=== PATIENT | male | born 1960 | race Caucasian/White ===

== ENCOUNTER 2025-07-24 16:14 | Emergency (ER) | payer MEDICARE, BC, SELFPAY ==
--- OUTSIDE RECORDS SUMMARY | 2024-12-13 10:20 | XMS_ITS ---
Author Organization [facility] [place] Address [address] [facility] [address] [place] [address] Care Team Providers Care Certified Surgical Tech/First Assistant Name Role Phone Dr. Chong Wilder Primary Care Provider Unavail Amador Britt Unavailable [phone] REASON FOR VISIT Needs call back from MD Encounters Encounter Location Date Provider Diagnosis [facility] [place] [address] [facility] [address] [place] [address] 12/13/2024 Amador Santiago PLAN OF TREATMENT No Information
--- OUTSIDE RECORDS SUMMARY | 2024-12-13 11:30 | XMS_ITS ---
Author Organization [facility] [place] [facility] [place] Address [address] [facility] [address] [place] [address] Care Team Providers Care Regulatory Affairs Manager Name Role Phone Dr. Chong Wilder Primary Care Provider Unavail able Amador Santiago Unavailable [phone] ALLERGIES Allergen (clinical drug ingredient) Drug/Non Drug Allergy documented on EMR Reaction Allergy Type Onset Date Status codeine Codeine Sulfate nausea and vomiting Drug Allergy Active REASON FOR VISIT Right ankle and foot pain MEDICATIONS Medication SIG (Take, Route, Frequency, Duration) Notes Start Date End Date Status Fiber - as directed Orally A ctive Allopurinol 300 MG 1 tablet Orally Once a day Active Medrol (Joey) 4 mg as directed orally Active Allopurinol 100 MG 1 tablet Orally Once a day for 90 days 09/24/2021 Not-Taking Multivitamin Adults - 1 tablet Orally on ce a day Active Aspir-81 81 MG 1 tablet Orally Once a day for 30 day(s) Active Ezetimibe 10 MG 1 tablet Orally Once a day for 30 day(s) Active Rosuvastatin Calcium 40 MG 1 tablet Orally Once a day for 30 day(s) Active Lexapro 10 MG 1 tablet Orally Once a day for 30 day(s) Active SOCIAL HISTORY Tobacco Use: Social History Observation Description Date Details (start date - stop date) Never Smoker NA - NA Sex Assigned At : Social History Observation Description Sex Assigned At Unknown Tobacco Use/Smoking Question Answer Notes Are you a nonsmoker Alcohol Screen Question Answer Notes Did you have a drink contain ing alcohol in the past year? Yes How often did you have a dri nk containing alcohol in the past year? 2 to 3 times a week (3 points) How many drinks did you have on a typical day when you were drinking in the past year? 1 or 2 drinks (0 point) How often did you have 6 or more drinks on one occasion in the past year? Never (0 point) Points 3 Interpretation Negative VITAL SIGNS Heart Rate 64 /min 12/13/2024 Blood pressure systolic 110 mm Hg 12/14/19 25 Blood pressure diastolic 80 mm Hg 025 Height 73 in 12/13/2024 Weight 272.0 lbs 12/13/2024 BMI 35.88 kg/m2 12/13/2024 PROCEDURES Procedure Date Ordered Date Performed Result Body Sit e ARTHO MED RIGHT 12/13/2024 N/A Encounters Encounter Location Date Provider Diagnosis [facility] [place] [address] [facility] [address] [place] [address] 12/13/2024 Amador Santiago Acute right ankle pain M25.571 ; Other chronic pain G89.29 ; Idiopathic chronic gout of multiple sites without tophus M1A.[id number] ; Primary osteoarthritis, right shoulder M19.011 and Right foot pain M79.671 ASSESSMENTS Encounter Date Diagnosis Assessment Notes Treatment Notes Treatment Clinical Notes Section Notes 12/13/2024 Acute right ankle pain (ICD-10 - M25.571) Medrol Dosepak 1. Gout. Recurrent episodes right first MTP joint. 2 episodes involving right ankle. Onset of symptoms 2016. Gout proven by synovial fluid analysis right first MTP on November 19, 2018. Allopurinol started at a dose of 200 mg daily in May 2018. Dose increased to 400 mg daily August 2018. . episode of gout, late April 2019. Episode of left hand with pain left third MCP. He completed a five-day course of prednisone by his primary care physician. Still with residual discomfort left third MCP and left third extensor tendon. This resolved following Medrol Dosepak November 2020. Subsequently, in March 2021 pain and swelling right hand, principally involving the right second and third MCP and dorsum of the right hand. He started Medrol Dosepak. Symptoms resolved. Currently asymptomatic. He indicates that he reduced allopurinol dose to 300 mg daily approximately April 2022. He had an episode of pain right foot mid January 2024. This resolved with a Medrol Dosepak. Most recent uric acid level was 4.3 on July 31, 2023. Recurrence of pain right ankle and proximal right foot starting early November 2024. Pain improved following Medrol Dosepak and then recurred. He received a second Medrol Dosepak that he started December 03, 2024. pain almost completely resolved. Recurrence of pain right ankle starting this morning, December 13, 2024. Mild tenderness right first MTP joint as well. Most recent uric acid level was 4.8 on December 05, 2024 2. History of left nephrectomy for renal cell carcinoma in 2009. 3. Mildly elevated ALT. Acute hepatitis panel negative. I recommended he follow-up with his primary care physician regarding this. Most recent hepatic function panel normal 4. Right shoulder pain. Rotator cuff tendinitis. Osteoarthritis of right shoulder. He completed physical therapy with improvement. He did not proceed with MRI of right shoulder 5. History of low back pain with bilateral lumbar radiculopathy. He is status post lumbar laminectomy [facility] in the distant past. He has been to [facility] neurosurgery division February 10, 2024 for reevaluation 12/13/2024 Other chronic pain (ICD-10 - G89.29) 1. Gout. Recurrent episodes right first MTP joint. 2 episodes involving right ankle. Onset of symptoms 2016. Gout proven by synovial fluid analysis right first MTP on November 19, 2018. Allopurinol started at a dose of 200 mg daily in May 2018. Dose increased to 400 mg daily August 2018. . episode of gout, late April 2019. Episode of left hand with pain left third MCP. He completed a five-day course of prednisone by his primary care physician. Still with residual discomfort left third MCP and left third extensor tendon. This resolved following Medrol Dosepak November 2020. Subsequently, in March 2021 pain and swelling right hand, principally involving the right second and third MCP and dorsum of the right hand. He started Medrol Dosepak. Symptoms resolved. Currently asymptomatic. He indicates that he reduced allopurinol dose to 300 mg daily approximately April 2022. He had an episode of pain right foot mid January 2024. This resolved with a Medrol Dosepak. Most recent uric acid level was 4.3 on July 31, 2023. Recurrence of pain right ankle and proximal right foot starting early November 2024. Pain improved following Medrol Dosepak and then recurred. He received a second Medrol Dosepak that he started December 03, 2024. pain almost completely resolved. Recurrence of pain right ankle starting this morning, December 13, 2024. Mild tenderness right first MTP joint as well. Most recent uric acid level was 4.8 on December 05, 2024 2. History of left nephrectomy for renal cell carcinoma in 2009. 3. Mildly elevated ALT. Acute hepatitis panel negative. I recommended he follow-up with his primary care physician regarding this. Most recent hepatic function panel normal 4. Right shoulder pain. Rotator cuff tendinitis. Osteoarthritis of right shoulder. He completed physical therapy with improvement. He did not proceed with MRI of right shoulder 5. History of low back pain with bilateral lumbar radiculopathy. He is status post lumbar laminectomy [facility] in the distant past. He has been to [facility] neurosurgery division February 10, 2024 for reevaluation 12/13/2024 Idiopathic chronic gout of multiple sites without tophus (ICD-10 - M1A.09X0) 1. Gout. Recurrent episodes right first MTP joint. 2 episodes involving right ankle. Onset of symptoms 2016. Gout proven by synovial fluid analysis right first MTP on November 19, 2018. Allopurinol started at a dose of 200 mg daily in May 2018. Dose increased to 400 mg daily August 2018. . episode of gout, late April 2019. Episode of left hand with pain left third MCP. He completed a five-day course of prednisone by his primary care physician. Still with residual discomfort left third MCP and left third extensor tendon. This resolved following Medrol Dosepak November 2020. Subsequently, in March 2021 pain and swelling right hand, principally involving the right second and third MCP and dorsum of the right hand. He started Medrol Dosepak. Symptoms resolved. Currently asymptomatic. He indicates that he reduced allopurinol dose to 300 mg daily approximately April 2022. He had an episode of pain right foot mid January 2024. This resolved with a Medrol Dosepak. Most recent uric acid level was 4.3 on July 31, 2023. Recurrence of pain right ankle and proximal right foot starting early November 2024. Pain improved following Medrol Dosepak and then recurred. He received a second Medrol Dosepak that he started December 03, 2024. pain almost completely resolved. Recurrence of pain right ankle starting this morning, December 13, 2024. Mild tenderness right first MTP joint as well. Most recent uric acid level was 4.8 on December 05, 2024 2. History of left nephrectomy for renal cell carcinoma in 2009. 3. Mildly elevated ALT. Acute hepatitis panel negative. I recommended he follow-up with his primary care physician regarding this. Most recent hepatic function panel normal 4. Right shoulder pain. Rotator cuff tendinitis. Osteoarthritis of right shoulder. He completed physical therapy with improvement. He did not proceed with MRI of right shoulder 5. History of low back pain with bilateral lumbar radiculopathy. He is status post lumbar laminectomy [facility] in the distant past. He has been to [facility] neurosurgery division February 10, 2024 for reevaluation 12/13/2024 Primary osteoarthritis , right shoulder (ICD-10 - M19.011) 1. Gout. Recurrent episodes right first MTP joint. 2 episodes involving right ankle. Onset of symptoms 2016. Gout proven by synovial fluid analysis right first MTP on November 19, 2018. Allopurinol started at a dose of 200 mg daily in May 2018. Dose increased to 400 mg daily August 2018. . episode of gout, late April 2019. Episode of left hand with pain left third MCP. He completed a five-day course of prednisone by his primary care physician. Still with residual discomfort left third MCP and left third extensor tendon. This resolved following Medrol Dosepak November 2020. Subsequently, in March 2021 pain and swelling right hand, principally involving the right second and third MCP and dorsum of the right hand. He started Medrol Dosepak. Symptoms resolved. Currently asymptomatic. He indicates that he reduced allopurinol dose to 300 mg daily approximately April 2022. He had an episode of pain right foot mid January 2024. This resolved with a Medrol Dosepak. Most recent uric acid level was 4.3 on July 31, 2023. Recurrence of pain right ankle and proximal right foot starting early November 2024. Pain improved following Medrol Dosepak and then recurred. He received a second Medrol Dosepak that he started December 03, 2024. pain almost completely resolved. Recurrence of pain right ankle starting this morning, December 13, 2024. Mild tenderness right first MTP joint as well. Most recent uric acid level was 4.8 on December 05, 2024 2. History of left nephrectomy for renal cell carcinoma in 2009. 3. Mildly elevated ALT. Acute hepatitis panel negative. I recommended he follow-up with his primary care physician regarding this. Most recent hepatic function panel normal 4. Right shoulder pain. Rotator cuff tendinitis. Osteoarthritis of right shoulder. He completed physical therapy with improvement. He did not proceed with MRI of right shoulder 5. History of low back pain with bilateral lumbar radiculopathy. He is status post lumbar laminectomy [facility] in the distant past. He has been to [facility] neurosurgery division February 10, 2024 for reevaluation 12/13/2024 Right foot pain (ICD-10 - M79.671) 1. Gout. Recurrent episodes right first MTP joint. 2 episodes involving right ankle. Onset of symptoms 2016. Gout proven by synovial fluid analysis right first MTP on November 19, 2018. Allopurinol started at a dose of 200 mg daily in May 2018. Dose increased to 400 mg daily August 2018. . episode of gout, late April 2019. Episode of left hand with pain left third MCP. He completed a five-day course of prednisone by his primary care physician. Still with residual discomfort left third MCP and left third extensor tendon. This resolved following Medrol Dosepak November 2020. Subsequently, in March 2021 pain and swelling right hand, principally involving the right second and third MCP and dorsum of the right hand. He started Medrol Dosepak. Symptoms resolved. Currently asymptomatic. He indicates that he reduced allopurinol dose to 300 mg daily approximately April 2022. He had an episode of pain right foot mid January 2024. This resolved with a Medrol Dosepak. Most recent uric acid level was 4.3 on July 31, 2023. Recurrence of pain right ankle and proximal right foot starting early November 2024. Pain improved following Medrol Dosepak and then recurred. He received a second Medrol Dosepak that he started December 03, 2024. pain almost completely resolved. Recurrence of pain right ankle starting this morning, December 13, 2024. Mild tenderness right first MTP joint as well. Most recent uric acid level was 4.8 on December 05, 2024 2. History of left nephrectomy for renal cell carcinoma in 2009. 3. Mildly elevated ALT. Acute hepatitis panel negative. I recommended he follow-up with his primary care physician regarding this. Most recent hepatic function panel normal 4. Right shoulder pain. Rotator cuff tendinitis. Osteoarthritis of right shoulder. He completed physical therapy with improvement. He did not proceed with MRI of right shoulder 5. History of low back pain with bilateral lumbar radiculopathy. He is status post lumbar laminectomy [facility] in the distant past. He has been to [facility] neurosurgery division February 10, 2024 for reevaluation PLAN OF TREATMENT Medication Medication Name Sig Start Date Stop Date Notes Allopurinol 300 MG 1 tablet Orally Once a day Medrol (Joey) 4 mg as directed orally Treatment Notes Assessment Notes Acute right ankle pain Medrol Dosepak Pending Test Test Name Order Date X ray : Foot, right 3v 12/13/2024 ARTHO MED RIGHT 12/13/2024 Next Appt Details Follow Up: 2 Weeks, Reason: Progress Notes * Examination Category Sub-Category Detail Notes Category Not es General Examination GENERAL APPEARANCE: well dev eloped, well nourished, in no acute distress HEAD: normocephalic, atrau matic NECK/THYROID: normal, neck supple HEART: regular rate and rhy thm, normal S1, S2, no S3, S4, no murmurs LUNGS: no wheezes, rales, r honchi ABDOMEN: soft, nontender, non distended, no rebound tenderness, no guarding NEUROLOGIC: Motor: 5/5 deltoids, biceps, triceps, finger flexors and extensors. 5/5 hip flexors, quadriceps, dorsi and plantar flexors EXTREMITIES: no clubbing, cyanosi s, or edema PERIPHERAL PULSES: 2+ posterior tibial absent dorsalis pedis bilaterally MUSCULOSKELETAL: Shoulders on the right 80 degrees abduction 80 degrees internal and external rotation. Mild tenderness with range of motion. On the left full range of motion no tenderness Elbows no synovitis full range of motion no tenderness. No tophi Wrists no synovitis full range of motion no tenderness Hands Heberden's and Teresa's nodes no synovitis no tophi Hips full range of motion no tenderness Knees full range of motion no tenderness Ankles there is soft tissue swelling right ankle no warmth. No definite ankle effusion. There is relatively full flexion and extension tenderness with range of motion. On the left no swelling full range of motion no tenderness Feet mild soft tissue swelling right foot. No warmth. There is mild squeeze tenderness right first MTP. On the left no swelling no tenderness LYMPH NODES: no cervical, supracl avicular or axillary adenopathy History and Physical Notes * HPI (History of Present Illness) Category Sub-Category Detail Notes Category Not es new symptoms He was last in the office December 05, 2024. He completed another Medrol Dosepak. Right ankle pain and foot pain almost completely resolved. He awoke this morning with a recurrence of pain and swelling right ankle and right foot. He has had no injury. He has no other joint pain. No fevers. No headaches cough shortness of breath or chest pain. No hemoptysis. No abdominal pain vomiting or diarrhea. No rectal bleeding dysuria or hematuria. At the last office visit, x-ray of the right ankle was normal except for a small plantar heel spur. CBC normal except for neutrophils 7.91. Hepatic function panel normal except for direct bilirubin 0.23. Creatinine normal. Sedimentation rate 4. Uric acid 4.8.
--- OUTSIDE RECORDS SUMMARY | 2024-12-27 10:30 | XMS_ITS ---
Author Organization [facility] [place] Address [address] [facility] [address] [place] [address] Care Team Providers Care [employer] Marshal Name Role Phone Dr. Chong Wilder Primary Care Provider Unavail able Amador Santiago Unavailable [phone] ALLERGIES Allergen (clinical drug ingredient) Drug/Non Drug Allergy documented on EMR Reaction Allergy Type Onset Date Status codeine Codeine Sulfate nausea and vomiting Drug Allergy Active REASON FOR VISIT Right foot and ankle pain MEDICATIONS Medication SIG (Take, Route, Frequency, Duration) Notes Start Date End Date Status Medrol (Joey) 4 mg as directed orally Not-Taking Multivitamin Adults - 1 tablet Orally on ce a day Active Fiber - as directed Orally A ctive Allopurinol 100 MG 1 tablet Orally Once a day for 90 days 09/24/2021 Not-Taking Aspir-81 81 MG 1 tablet Orally Once a day for 30 day(s) Active Ezetimibe 10 MG 1 tablet Orally Once a day for 30 day(s) Active Lexapro 10 MG 1 tablet Orally Once a day for 30 day(s) Active Allopurinol 300 MG 1 tablet Orally Once a day Active Rosuvastatin Calcium 40 MG 1 tablet [...] 3 Interpretation Negative VITAL SIGNS Heart Rate 60 /min 12/27/2024 Blood pressure systolic 118 mm Hg 12/28/19 25 Blood pressure diastolic 84 mm Hg 025 Height 73 in 12/27/2024 Weight 270.0 lbs 12/27/2024 BMI 35.62 kg/m2 12/27/2024 Encounters Encounter Location Date Provider Diagnosis [facility] [place] [address] [facility] [address] [place] [address] 12/27/2024 Amador Santiago Other chronic pain G89.29 ; Idiopathic chronic gout of multiple sites without tophus M1A.[id number] ; Primary osteoarthritis, right shoulder M19.011 and Right foot pain M79.671 ASSESSMENTS Encounter Date Diagnosis Assessment Notes Treatment Notes Treatment Clinical Notes Section Notes 12/27/2024 Other chronic pain (ICD-10 - G89.29) 1. [...] resolved. Recurrence of pain right ankle starting , December 13, 2024. Mild tenderness right first MTP joint as well. Most recent uric acid level was 4.8 on December 05, 2024. Arthrocentesis of right ankle December 13, 2024 yielded only drop of bloody fluid that was negative for crystals. Pain resolved following Medrol Dosepak 2. History of left nephrectomy for renal [...] radiculopathy. He is status post lumbar laminectomy [facility] in the distant past. He has been to [facility] neurosurgery division February 10, 2024 for reevaluation 12/27/2024 Idiopathic chronic gout of multiple sites without [...] resolved. Recurrence of pain right ankle starting , December 13, 2024. Mild tenderness right first MTP joint as well. Most recent uric acid level was 4.8 on December 05, 2024. Arthrocentesis of right ankle December 13, 2024 yielded only drop of bloody fluid that was negative for crystals. Pain resolved following Medrol Dosepak 2. History of left nephrectomy for renal [...] radiculopathy. He is status post lumbar laminectomy [facility] in the distant past. He has been to [facility] neurosurgery division February 10, 2024 for reevaluation 12/27/2024 Primary osteoarthritis , right shoulder (ICD-10 - [...] resolved. Recurrence of pain right ankle starting , December 13, 2024. Mild tenderness right first MTP joint as well. Most recent uric acid level was 4.8 on December 05, 2024. Arthrocentesis of right ankle December 13, 2024 yielded only drop of bloody fluid that was negative for crystals. Pain resolved following Medrol Dosepak 2. History of left nephrectomy for renal [...] radiculopathy. He is status post lumbar laminectomy [facility] in the distant past. He has been to [facility] neurosurgery division February 10, 2024 for reevaluation 12/27/2024 Right foot pain (ICD-10 - M79.671) 1. [...] resolved. Recurrence of pain right ankle starting , December 13, 2024. Mild tenderness right first MTP joint as well. Most recent uric acid level was 4.8 on December 05, 2024. Arthrocentesis of right ankle December 13, 2024 yielded only drop of bloody fluid that was negative for crystals. Pain resolved following Medrol Dosepak 2. History of left nephrectomy for renal [...] radiculopathy. He is status post lumbar laminectomy [facility] in the distant past. He has been to [facility] neurosurgery division February 10, 2024 for reevaluation 12/27/2024 Other Total time spent on evaluation of patient on day of encounter was 16 minutes 1. Gout. Recurrent episodes right first MTP [...] resolved. Recurrence of pain right ankle starting , December 13, 2024. Mild tenderness right first MTP joint as well. Most recent uric acid level was 4.8 on December 05, 2024. Arthrocentesis of right ankle December 13, 2024 yielded only drop of bloody fluid that was negative for crystals. Pain resolved following Medrol Dosepak 2. History of left nephrectomy for renal [...] radiculopathy. He is status post lumbar laminectomy [facility] in the distant past. He has been to [facility] neurosurgery division February 10, 2024 for reevaluation PLAN OF TREATMENT Medication Medication Name Sig Start Date Stop Date Notes Allopurinol 300 MG 1 tablet Orally Once a day Treatment Notes Assessment Notes Other Total time spent on evaluation of patient on day of encounter was 16 minutes Next Appt Details Follow Up: 6 Months, Reason: Progress Notes * Examination Category Sub-Category [...] EXTREMITIES: no clubbing, cyanosi s, or edema MUSCULOSKELETAL: Shoulders on the right 80 degrees abduction 80 degrees internal and external rotation. Mild tenderness with range of motion. On the left full range of motion no tenderness Elbows no synovitis full range of motion no tenderness Wrists no synovitis full range of motion no tenderness Hands no synovitis full flexion of the fingers Hips full range of motion no tenderness Knees full range of motion no tenderness Ankles on the right no effusion or warmth or erythema. No squeeze tenderness. Full range of motion no tenderness. On the left no effusion or warmth erythema. No tenderness with range of motion Feet on the right there is very mild soft tissue swelling right foot. No warmth erythema. No squeeze tenderness. On the left no swelling no tenderness LYMPH NODES: no cervical, supracl avicular or axillary adenopathy History and Physical Notes * HPI (History of Present Illness) Category Sub-Category Detail Notes Category Not es new symptoms He was last in the office December 13, 2024. Is in for follow-up regarding right ankle and foot pain and history of gout. He did receive a Medrol Dosepak at the last visit. Pain in the right foot and ankle resolved over a period of 3-4 days. He does have some residual swelling in the right ankle and foot but no pain. There is no longer any erythema. He has no other joint pain. No fevers. No rashes. No headaches cough shortness of breath or chest pain. No hemoptysis. No abdominal pain vomiting or diarrhea. No rectal bleeding dysuria or hematuria. At the last office visit arthrocentesis of the right ankle revealed only one drop of bloody fluid. This was negative for crystals. X-ray of the right foot with a corresponding view of the left foot reveal degenerative changes of the first MTP region greater on the right and stable compared to prior x-ray.
--- OUTSIDE RECORDS SUMMARY | 2025-02-10 08:15 | XMS_ITS ---
Author Organization [facility] [place] Address [address] [facility] [address] [place] [address] Care Team Providers Care Brick Baker Name Role Phone Dr. Chong Wilder Primary Care Provider Unavail Amador Britt Unavailable [phone] REASON FOR VISIT P pt, does not need. Encounters Encounter Location Date Provider Diagnosis [facility] [place] [address] [facility] [address] [place] [address] 02/10/2025 Amador Santiago PLAN OF TREATMENT No Information
--- OUTSIDE RECORDS SUMMARY | 2025-06-16 07:10 | XMS_ITS | Encounter Summary ---
Author Organization [facility] Address [address] [place] [address] Care Team Providers Care Administrative Support Clerk Name Role Phone Elsewhere, Pcp Primary Care Provider Unavailabl e Encounter Details Date Type Department Care Team (Late st Contact Info) Description 06/16/2025 7:10 AM CDT Lab Department of Laboratory Medicine and Pathology, [facility], in [place], [place] [address] [place] [phone] Alisson Soler M.D. [address] [place] [phone] Personal History Of Malignant Neoplasm Of Bladder Social History Tobacco Use Types Packs/Day Years Used Date Smoking Tobacco: Never Passive Smoke Exposure: Never Smokeless Tobacco: Never Comments:NA Alcohol Use Standard Drinks/Week Comments Yes 5 (1 standard drink = 0.6 oz pur e alcohol) Humiliation, Afraid, Rape, and Kick questionnair e Answer Date Recorded Within the last year, have y ou been afraid of your partner or ex-partner? No 03/25/2022 Within the last year, have y ou been humiliated or emotionally abused in other ways by your partner or ex-partner? No Within the last year, have y ou been kicked, hit, slapped, or otherwise physically hurt by your partner or ex-partner? No 03/25/2022 Within the last year, have y ou been raped or forced to have any kind of sexual activity by your partner or ex-partner? No 03/25/2022 Hunger Vital Sign Answer Date Recorded Within the past 12 months, y ou worried that your food would run out before you got the money to buy more. Never true 06/14/20 25 Within the past 12 months, t he food you bought just didn't last and you didn't have money to get more. Never true 06/14/2025 PRAPARE - Transportation Answer Date Re corded In the past 12 months, has l ack of transportation kept you from medical appointments or from getting medications? No 12/2024 In the past 12 months, has l ack of transportation kept you from meetings, work, or from getting things needed for daily living? No 06/14/2025 [facility] Utilities Answer Date Recorded In the past 12 months has th e electric, gas, oil, or water company threatened to shut off services in your home? No 06/14/2025 Depression Answer Date Recor ded PHQ-9 Total Score (max 27) 4 03/03 Housing Stability Answer Date Recorded What is your living situation today? I have a [facility] place to live 06/14/2025 Education Answer Date Recorded What is the highest level of school you have completed or the highest degree you have received? 12th grade 03/25/2022 Sex and Gender Information Value Date Recorded Sex Assigned at Male 03/21/2022 7:03 AM CDT Legal Sex Male 10:17 AM [employer] Gender Identity Male 01/25/2021 1:10 PM CDT Sexual Orientation Straight 01/25/2021 1: 10 PM CDT documented as of this encounter Plan of Treatment Upcoming Encounters Date Type Department Care Team (Latest Contact Info) Description 08/02/2025 12:45 PM CDT Clinical Communication Virtual Review in [place], [place] [address] [place] [phone] 08/03/2025 1:00 PM CDT Telemedicine Department of Palliative Care in [place], [place] [address] [place] [phone] Sachi De Leon B.M.B.S., B.M., B.Ch. [address] [place] [phone] 08/14/2025 10:30 AM [employer] Procedure visit Department of Urology in [place], [place] [address] [place] [address] Orion Mendoza, LIANNE, PDiyaADiya-C. [address] [place] [phone] documented as of this encounter Procedures Procedure Name Priority Date/Time Associated Diagnosis Comments CYTOLOGY NON-SEARCH ENGINE OPTIMIZATION ANALYST (SCHEDULED) Routine 06/16/2025 9:04 AM CDT Personal History Of Malignant Neoplasm Of Bladder documented in this encounter Results * Cytology Non-SEARCH ENGINE OPTIMIZATION ANALYST (Scheduled) (06/16/2025 9:04 AM CDT) 06/19/2025 3:06 PM CDT DTL Participated in the Interpretation Margo Moise M.D. -Pathology Resident Vane Thacker M.D., Ph.D. -Pathology Resident 06/19/2025 3:06 PM CDT DTL Report electronically signed by Tresa Vale.[email or web address], Chris. I verify that I have examined all relevant slides/materi als for the specimen(s) and rendered or confirmed the diagnosis. 06/19/2025 3:06 PM CDT DTL Gross Description Received 50 cc of yellow fluid. 06/19/2025 3:06 PM CDT DTL Source A. Urine, voided 06/19/2025 3:06 PM CDT DTL Interpretation A. Urine, voided (ThinPrep): Negative for High-Grade Urothelial Carcinoma. 06/19/2025 3:06 PM CDT DTL Urine 06/16/2025 9:04 AM CDT 06/16/2025 9:25 AM CDT us Alisson Soler M.D. LAB SURG PATH ORDERABLES Fin al Result [facility] [address] [place] [address], [facility] DTL [address] [facility] [address] [place] [address] documented in this encounter Visit Diagnoses Diagnosis Personal History Of Malignant Neoplasm Of Bladder documented in this encounter Additional Health Concerns Assessment Noted Time PHQ-9 Depression Total Score: 4 03/03/20 24 1:30 PM CDT documented as of this encounter Care Teams Administrative Support Clerk Relationship Specialty Start Date End Date Elsewhere, Pcp PCP - General 03/03/24 documented as of this encounter
--- OUTSIDE RECORDS SUMMARY | 2025-06-16 07:24 | XMS_ITS | Encounter Summary ---
Author Organization [facility] Address [address] [place] [address] Care Team Providers Care Aircraft Mechanic Structures Name Role Phone Elsewhere, Pcp Primary Care Provider Unavailabl e Reason for Referral * MRI/CAT/PET Scan (Routine) - Closed Specialty Diagnoses / Procedures Referred By John rene Referred To Contact Radiology Diagnoses Personal History Of Malignant Neoplasm Of Bladder Procedures CT Urogram without and with IV Contrast Alisson Sloer M.D. [address] [place] [address] Phone: tel: fax: [facility] Referral ID Status Reason Start Date Expiration Date Visits Re quested Visits Authorized [id number] Closed 06/13/2025 09/13/2026 1 1 Reason for Visit * MRI/CAT/PET Scan (Routine) - Closed Specialty Diagnoses / Procedures Referred By John rene Referred To Contact Radiology Diagnoses Personal History Of Malignant Neoplasm Of Bladder Procedures CT Urogram without and with IV Contrast Alisson Soler M.D. [address] [place] [address] Phone: tel: fax: [facility] Referral ID Status Reason Start Date Expiration Date Visits Re quested Visits Authorized [id number] Closed 06/13/2025 09/13/2026 1 1 Encounter Details Date Type Department Care Team (Latest Contact Info) Description 06/16/2025 7:24 AM CDT - 06/16/2025 11:59 PM CDT Hospital Encounter Department of Radiology, [facility], in [place], [place] [address] [place] [address] Alisson Soler M.D. [address] [place] [address] Personal History Of Malignant Neoplasm Of Bladder Discharge Disposition: Home or Self Care Social History Tobacco Use Types Packs/Day Years [...] things needed for daily living? No 06/14/2025 [facility] Utilities Answer Date Recorded In the past 12 months has [facility] [employer], gas, oil, or water company threatened to shut off services in your home? No 06/14/2025 Depression Answer Date Recor ded PHQ-9 Total Score (max 27) 4 03/03 Housing Stability Answer Date Recorded What is your living situation today? I have a [facility] place to live 06/14/2025 Education Answer Date Recorded What is the highest level of school you have completed or the highest degree you have received? 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 02/11/2021 allopurinoL (ZYLOPRIM) 300 mg tablet Take 300 mg by mouth every evening. ALPRAZolam (XANAX) 0.25 mg tablet Take 0.25 mg by mouth 3 (three) times a day as needed. 11/19/2020 oocv-ims-nom-elodia -eznk-iqfz-jeu (Fiber 6) 1,000 mg tablet Take 1 tablet by mouth daily. diphenhydrAMINE (BenadryL) 25 mg capsule Take 25 mg by mouth at bedtime as needed. 02/09/2021 escitalopram (LEXAPRO) 10 mg tablet Take 10 mg by mouth daily. 02/05/2022 ezetimibe (Zetia) 10 mg tablet Take 1 tablet (10 mg total) by mouth daily. 30 tablet 11 05/04/2024 methylPREDNISolo ne (MEDROL DOSEPAK) 4 mg tablet See Admin Instructions. follow package directions for gout 11/29/2020 multivitamin tablet Take 1 tablet by mouth daily. 08/05/2016 nitroglycerin (Nitrostat) 0.[address] 1 TABLET UNDER THE TONGUE EVERY 5 MINUTES NEEDED FOR CHEST PAIN MAY REPEAT EVERY 5 MINUTES FOR UP TO 3 DOSES 25 tablet 3 05/30/2025 rosuvastatin (CRESTOR) 40 mg tablet Take 40 mg by mouth at bedtime. 12/19/2021 semaglutide (Wegovy) 1 mg/0.5 mL pen injector injection Inject 1 mg under the skin once a week. 04/24/2025 tadalafiL (CIALIS, ADCIRCA) 20 mg tablet Take 20 mg by mouth as needed. 02/05/2022 UNABLE TO FIND Med Name: compounded semeglutide injection 1.5 mg weekly aspirin [address] tablet Take 1 tablet by mouth daily. 09/15/2013 5 ezetimibe (Zetia) 10 mg tablet Take 1 tablet (10 mg total) by mouth daily. 90 tablet 3 05/03/2024 5 lisinopriL 10 mg tablet Take 1 tablet by mouth as needed (traveling). 09/13/2013 5 methocarbamoL (Robaxin) 500 mg tablet Take 1 tablet by mouth 3 (three) times a day as needed. 06/20/2024 nitroglycerin (NITROSTAT) 0.[address] 0.4 mg under the tongue every 5 (five) minutes as needed for chest pain. 12/03/2012 5 rivaroxaban (XARELTO) 20 mg tablet Take 20 mg by mouth as directed. For air related travel with history of travel related blood clots 5 documented as of this encounter Plan of Treatment Upcoming Encounters Date Type Department Care Team (Latest Contact Info) Description 08/02/2025 12:45 PM CDT Clinical Communication Virtual Review in [place], [place] [address] [place] [phone] 08/03/2025 1:00 PM CDT Telemedicine Department of Palliative Care in [address] [phone] Sachi De Leon B.M.B.S., B.M., B.Ch. [address] [place] [phone] 08/14/2025 10:30 AM DEPOSITING MACHINE OPERATOR Procedure visit Department of Urology in [address] [phone] Orion Mendoza, MPAS, P.A.-C. [address] [place] [address] Scheduled Orders Name Type Priority Associated Diagnoses Orde r Schedule Creatinine, POCT Point of Care Testing-Docked Device Routine Routine lab collecti on (next collection) for 1 Occurrences starting 06/16/2025 until 06/16/2025 documented as of this encounter Procedures Procedure Name Priority Date/Time Associated Diagnosis Comments CT UROGRAM WITHOUT AND WITH IV CONTRAST RAD - Routine (most inpatients and all outpatients) 06/16/2025 8:41 AM CDT Personal History Of Malignant Neoplasm Of Bladder CREATININE, POCT, B Routine 06/16/2025 8:03 AM CDT CREATININE, POCT, B Routine 06/16/2025 8:03 AM CDT documented in this encounter Results * CT Urogram without and with IV Contrast (06/16/2025 8:41 AM CDT) Anatomical Region Laterality Modality Abdomen, Pelvis, Abdominal R ST LOS, Abdominal ARZ LOS, Abdominal FLA LOS N/A Computed Tomograp hy, Computed Tomography 06/16/2025 8:27 AM CDT Impressions 06/16/2025 9:12 AM CDT 1. No evidence of recurrent or metastatic disease in the abdomen or pelvis. 2. Age indeterminate mild compression deformity at the L3 superior endplate is new since at least 05/03/2024. 3. The prostate is enlarged and heterogeneously enhancing. This could be due to prostatitis but a mass is not excluded. PSA testing and/or prostate MRI may be beneficial in further characterization. Narrative 06/16/2025 9:12 AM CDT EXAM: CT UROGRAM WITHOUT AND WITH IV CONTRAST COMPARISON: CT abdomen pelvis 01/21/2021 FINDINGS: : Status post left nephrectomy for renal cell carcinoma in 2009. No nephrolithiasis. No suspicious renal mass. Renal cortical scarring. Stable small renal cyst. No hydronephrosis. Mildly dilated extrarenal pelvis. Collecting system and ureter are normal in course and caliber without masses or filling defects. Bladder is unremarkable. Previous right bladder wall mass has been removed without evidence of residual. Other findings: The prostate has increased in size and has heterogeneous enhancement with mild shanna-prostatic nodularity and soft tissue stranding. Stable left adrenal adenoma. Colonic diverticulosis. No abdominal or pelvic lymphadenopathy. No abdominal or pelvic free fluid. Small esophageal hiatal hernia. Age indeterminate mild compression deformity at the L3 superior endplate is new since at least 05/03/2024. Hypertrophic degenerative changes of the spine. Atherosclerotic vascular calcifications. Bibasilar atelectasis. Procedure Note Shalom Segovia M.D. - 06/16/2025 EXAM: CT UROGRAM WITHOUT AND WITH IV CONTRAST COMPARISON: CT abdomen pelvis 01/21/2021 FINDINGS: : Status post left nephrectomy for renal cell carcinoma [id number]. No nephrolithiasis. No suspicious renal mass. Renal cortical scarring.Stable small renal cyst. No hydronephrosis. Mildly dilated extrarenalpelvis. Collecting system and ureter are normal in course and caliberwithout masses or filling defects. Bladder is unremarkable. Previous right bladder wall mass has been removed withoutevidence of residual. Other findings: The prostate has increased in size and has heterogeneous enhancement withmild shanna-prostatic nodularity and soft tissue stranding. Stable left adrenal adenoma. Colonic diverticulosis. No abdominal orpelvic lymphadenopathy. No abdominal or pelvic free fluid. Smallesophageal hiatal hernia. Age indeterminate mild compression deformity at the L3 superior endplateis new since at least 05/03/2024. Hypertrophic degenerative changes of thespine. Atherosclerotic vascular calcifications. Bibasilar atelectasis. IMPRESSION: 1. No evidence of recurrent or metastatic disease in the abdomen orpelvis. 2. Age indeterminate mild compression deformity at the L3 superiorendplate is new since at least 05/03/2024. 3. The prostate is enlarged and heterogeneously enhancing. This could bedue to prostatitis but a mass is not excluded. PSA testing and/or prostateMRI may be beneficial in further characterization. Alisson Soler M.D. IMG CT PROCEDURES Final Resu lt * Creatinine, POCT (06/16/2025 8:03 AM CDT) Creatinine, POCT, B 1.1 0.7 - 1.4 mg/dL 06/16/2025 8:06 AM CDT PCDT Comment: ----ADDITIONAL INFORMATION---- Performed at the Point of Care Blood 06/16/2025 8:03 AM CDT 06/16/2025 8:06 AM CDT us Unknown Provider LAB POCT ORDERABLES - DEVICE Fi nal Result Performing Organization Address [facility] de Phone Number [facility] [address] [place], [place] [address] PCDT [facility] [address] [place] [address] * Creatinine, POCT (06/16/2025 8:03 AM CDT) Estimated GFR (eGFR), POCT 74 >=60 mL/min/BSA 06/16/2025 8:06 AM CDT PCDT Comment: Estimated GFR calculated using the 2020 CKD_EPI creatinine equation. Blood 06/16/2025 8:03 AM CDT 06/16/2025 8:06 AM CDT us Unknown Provider LAB POCT ORDERABLES - DEVICE Fi nal Result Performing Organization Address [facility] de Phone Number [facility] [address] [place] [address], [facility] P[facility]T [facility] [address] [place] [address] documented in this encounter Visit Diagnoses Diagnosis Personal History Of Malignant Neoplasm Of Bladder documented in this encounter Administered Medications Inactive Administered Medications - up to 3 most recent administrations Medication Order MAR Action Action Date Dose Rate Site iohexoL 300 mg iodine/mL solution 1-200 mL (Omnipaque) 1-200 mL, intravenous, Once in imaging, contrast, Starting on Thu06/16/25 at 0808, For 1 dose, Imaging Protocol Orders, Dose per Radiant Medication Guidelines Given 06/16/2025 8:11 AM CDT 140 mL sodium chloride (PF) 0.9 % injection 1-100 mL 1-100 mL, intravenous, Once, On Thu06/16/25 at 0830, For 1 dose, Imaging Protocol Orders, Dose per Radiant Medication Guidelines Given 06/16/2025 8:10 AM CDT 50 mL documented in this encounter Additional Health Concerns Assessment Noted Time PHQ-9 Depression Total Score: 4 03/03/20 24 1:30 PM CDT documented as of this encounter Care Teams Aircraft Mechanic Structures Relationship Specialty Start Date End Date Elsewhere, Pcp PCP - General 03/03/24 documented as of this encounter
--- OUTSIDE RECORDS SUMMARY | 2025-06-20 11:45 | XMS_ITS | Encounter Summary ---
Author Organization [facility] Address [address] [place] [address] Care Team Providers Care Demi Chef Name Role Phone Elsewhere, Pcp Primary Care Provider Unavailabl e Reason for Visit * Reason Onset Date Comments Pre-visit Intake 06/20/2025 * Appointment Request (Routine) - Authorized Specialty Diagnoses / Procedures Referred By John rene Referred To Contact Urology Referral ID Status Reason Start Date Expiration Date V isits Requested Visits Authorized [id number] Authorized 06/13/2025 09/13/2026 1 1 Encounter Details Date Type Department Care Team (Latest Contact Info) Description 06/20/2025 11:45 AM CDT Clinical Communication Virtual Review in [place], [place] [address] [place] [address] Pre-visit Intake Social History Tobacco Use Types Packs/Day Years Used Date Smoking Tobacco: Never Passive Smoke Exposure: Never Smokeless Tobacco: Never Tobacco Cessation:Counseling Given: Not Answered Comments:NA Alcohol Use Standard Drinks/Week Comments Yes [...] things needed for daily living? No 06/14/2025 [facility] Utilities Answer Date Recorded In the past 12 months has th e electric, gas, oil, or water company threatened to shut off services in your home? No 06/14/2025 Depression Answer Date Recor ded PHQ-9 Total Score (max 27) 4 03/03 Housing Stability Answer Date Recorded What is your living situation today? I have a [facility] place to live 06/14/2025 Education Answer Date Recorded What is the highest level of school you have completed or the highest degree you have received? 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 [address] [place] [phone] documented as of this encounter Visit Diagnoses Not on filedocumented in this encounter Additional Health Concerns Assessment Noted Time PHQ-9 Depression Total Score: 4 03/03/20 24 1:30 PM CDT documented as of this encounter Care Teams Demi Chef Relationship Specialty Start Date End Date Elsewhere, Pcp PCP - General 03/03/24 documented as of this encounter
--- OUTSIDE RECORDS SUMMARY | 2025-06-21 08:30 | XMS_ITS | Encounter Summary ---
Author Organization [facility] Address [address] [place] [phone] Care Team Providers Care Oil Field Operator Name Role Phone Elsewhere, Pcp Primary Care Provider Unavailabl e Reason for Visit * Outpatient (Routine) - Closed Specialty Diagnoses / Procedures Referred By Contac t Referred To Contact Diagnoses Personal History Of Malignant Neoplasm Of Bladder Procedures URO Cystoscopy (general) Alisson Soler M.D. [address] [place] [phone] Phone: tel: fax: [facility] Referral ID Status Reason Start Date Expiration Date Visits Re quested Visits Authorized [id number] Closed 06/13/2025 09/13/2026 1 1 Encounter Details Date Type Department Care Team (Latest Contact Info) Description 06/21/2025 8:30 AM CDT Procedure visit Department of Urology in [place], [place] [address] [place] [phone] Alisson Soler M.D. [address] [place] [phone] Phil Bullock PDiyaALynne [address] [place] [phone] Personal History Of Malignant Neoplasm Of Bladder [...] things needed for daily living? No 06/14/2025 [facility] Utilities Answer Date Recorded In the past 12 months has [facility] electric, gas, oil, or water company threatened to shut off services in your home? No 06/14/2025 Depression Answer Date Recor ded PHQ-9 Total Score (max 27) 4 03/03 Housing Stability Answer Date Recorded What is your living situation today? I have a [facility] place to live 06/14/2025 Education Answer Date Recorded What is the highest level of school you have completed or the highest degree you have received? 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 There could be some small clots of blood in your urine. Or your urine could be pink or light red. These effects are commonafter a cystoscopy. Discomfort For the first day or two after your cystoscopy, you may need to urinate often, and you may have a mild burning feeling while urinating. You also may have mild low abdominal pain for a day. To relievediscomfort, drink two 8-ounce glasses of water each hour for two hours after the test (a total of four glasses in two hours). This will help flush your bladder. To relieve discomfort, if your provider says it???s OK, you may take a warm tub bath for 20 minutes. Or you may hold a clean, warm, moist washcloth over the urethral opening for 20 minutes. Some common pain relievers can affect blood thinning. Examples include aspirin, aspirin-containing products, ibuprofen (Advil, Motrin), and naproxen(Aleve, Naprosyn). Talk with your primary care provider about what you can take for pain. Activity Rest for the remainder of the day after your cystoscopy. Gradually return to your usual activity level when you feel able. Diet For the first two days after your cystoscopy, while you are awake, you may find it more comfortableif you drink at least one glass of fluid every one to two hours. This will help flush your bladder.Drink fluids such as water, juice, caffeine-free carbonated beverages and tea. Resume your usual diet after the procedure, unless you are scheduled for more tests or procedures that require a specialdiet. When to get medical help Contact your primary care provider or urology care team at [phone] if: Are not able to urinate for 6 to 8 hours. Have blood clots or bright red blood in your urine (not pink or rust colored) that lasts for 4 to 5hours despite increased intake of fluids. Have frequent urination with any of the following: - Pain not relieved by increasing fluids. - Chills. - Temperature of 100.4 degrees Fahrenheit (38 degrees Celsius) or higher. Have a burning feeling while urinating on day three or after. documented in this encounter Procedure Notes * Phil Bullock P.A.-C. - 06/21/2025 8:30 AM CDTAssociated Order(s): URO Cystoscopy (general) Pre-Procedure Diagnose(s): Personal History Of Malignant Neoplasm Of Bladder Post-Procedure Diagnose(s): Personal History Of Malignant Neoplasm Of Bladder URO Cystoscopy (general) Performed by: Phil Bullock P.A.-C. Authorized by: Alisson Soler M.D. IMPRESSION Suspicious mass Additional procedures performed: cystoscopy PROCEDURE DETAILS A flexible cystoscope was inserted through the urethra into the bladder. Cystoscope was removed at the end of procedure. The patient was brought to the cystoscopy suite and placed in lithotomy position. He was prepped and draped in standard fashion. A flexible cystoscope was inserted through the urethra into the bladder. Urethroscopy was normal. The sphincter coapted appropriately. Within the prostatic urethra there was abnormal firm whitish tissue that nearly obliterated the passage. With slow steady pressure withthe patient's permission the scope was eventually passed through this into the bladder dilating this narrowed area. This tissue was suspicious for malignancy. Ureteral orifices were seen in their orthotopic position bilaterally effluxing clear urine. Retroflex view demonstrated significant intravesical protrusion of the prostate. The cystoscope was then removed. The patient tolerated the procedure well. BPH Abnormal tissue filling prostatic urethra suspicious for malignancy CONSENT Consent obtained: verbal Consent given by: patient The benefits, risks and alternatives to the procedure and the potential need for sedation or anesthesia as well as the names, roles, and responsibilities of healthcare team members performing significant interventional tasks were discussed with the patient and/or decision maker. UNIVERSAL PROTOCOL All relevant documentation and testing were reviewed and available. All required blood products, implants, devices and or special equipment were made available as applicable. Pre-procedure verification was conducted and the correct site was marked if required. A fire risk and smoke assessment were done as applicable. The procedural time-out to verify correct patient, correct side/site, and procedure was conducted prior to performing the procedure and confirmed in a procedural pause. PRE-PROCEDURE DETAILS Procedure purpose: Diagnostic Appropriate hand hygiene, gown, cap, mask, protective eyewear, sterile gloves, skin preparation, sterile drape, and strict aseptic technique were utilized as applicable for the procedure.: yes Site preparation: Povidone-iodine SEDATION / ANESTHESIA Anesthesia method: none POST-PROCEDURE DETAILS Procedure completed successfully: yes Complications: no apparent complications documented in this encounter Plan of Treatment Upcoming Encounters Date Type Department Care Team (Latest Contact Info) Description 08/02/2025 12:45 PM CDT Clinical Communication Virtual Review in [address] [phone] 08/03/2025 1:00 PM CDT Telemedicine Department of Palliative Care in [address] [phone] Sachi De Leon B.M.BDiyaS., B.M., B.Ch. [address] [place] [phone] 08/14/2025 10:30 AM FORESTRY ENGINEER Procedure visit Department of Urology in [address] [phone] Orion Mendoza MPAS, Lily. [address] [place] [phone] documented as of this encounter Procedures Procedure Name Priority Date/Time Associated Diagnosis Comments [place] CYSTOURETHROSCOPY Routine 06/21/2025 8:30 AM CDT Personal History Of Malignant Neoplasm Of Bladder documented in this encounter Results * [place] CYSTOURETHROSCOPY (06/21/2025 8:30 AM CDT) Narrative Phil Bullock P.A.-C. - 06/21/2025 8:30 AM CDT Phil Bullock P.A.-C. 06/21/2025 8:48 AM URO Cystoscopy (general) Performed by: Phil Bullock P.A.-C. Authorized by: Alisson Soler M.D. IMPRESSION Suspicious mass Additional procedures performed: cystoscopy PROCEDURE DETAILS A flexible cystoscope was inserted through the urethra into the bladder. Cystoscope was removed at the end of procedure. The patient was brought to the cystoscopy suite and placed in lithotomy position. He was prepped and draped in standard fashion. A flexible cystoscope was inserted through the urethra into the bladder. Urethroscopy was normal. The sphincter coapted appropriately. Within the prostatic urethra there was abnormal firm whitish tissue that nearly obliterated the passage. With slow steady pressure with the patient's permission the scope was eventually passed through this into the bladder dilating this narrowed area. This tissue was suspicious for malignancy. Ureteral orifices were seen in their orthotopic position bilaterally effluxing clear urine. Retroflex view demonstrated significant intravesical protrusion of the prostate. The cystoscope was then removed. The patient tolerated the procedure well. BPH Abnormal tissue filling prostatic urethra suspicious for malignancy CONSENT Consent obtained: verbal Consent given by: patient The benefits, risks and alternatives to the procedure and the potential need for sedation or anesthesia as well as the names, roles, and responsibilities of healthcare team members performing significant interventional tasks were discussed with the patient and/or decision maker. UNIVERSAL PROTOCOL All relevant documentation and testing were reviewed and available. All required blood products, implants, devices and or special equipment were made available as applicable. Pre-procedure verification was conducted and the correct site was marked if required. A fire risk and smoke assessment were done as applicable. The procedural time-out to verify correct patient, correct side/site, and procedure was conducted prior to performing the procedure and confirmed in a procedural pause. PRE-PROCEDURE DETAILS Procedure purpose: Diagnostic Appropriate hand hygiene, gown, cap, mask, protective eyewear, sterile gloves, skin preparation, sterile drape, and strict aseptic technique were utilized as applicable for the procedure.: yes Site preparation: Povidone-iodine SEDATION / ANESTHESIA Anesthesia method: none POST-PROCEDURE DETAILS Procedure completed successfully: yes Complications: no apparent complications us Alisson Soler M.D. UROLOGY ORDERABLES Final Res ult documented in this encounter Visit Diagnoses Diagnosis Personal History Of Malignant Neoplasm Of Bladder documented in this encounter Additional Health Concerns Assessment Noted Time PHQ-9 Depression Total Score: 4 03/03/20 24 1:30 PM CDT documented as of this encounter Care Teams Oil Field Operator Relationship Specialty Start Date End Date Elsewhere, Pcp PCP - General 03/03/24 documented as of this encounter
--- OUTSIDE RECORDS SUMMARY | 2025-06-21 11:00 | XMS_ITS | Encounter Summary ---
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 [address] [place] [phone] Phone: tel:[phone] fax: [facility] Referral ID Status Reason Start Date Expiration Date Visits Re quested Visits Authorized [id number] Closed 06/21/2025 09/21/2026 1 1 Encounter Details Date Type Department Care Team (Late st Contact Info) Description 06/21/2025 11:00 AM CDT Procedure visit Department of Urology in [place], [place] [address] [place] [phone] Blaine Araujo MPAS, P.A.-C. [address] [place] [phone] Paula Longoria R.N. [address] [place] [phone] Prostatitis Bacterial; Malignant Neoplasm Of Bladder (HCC); Retention Urinary Social History Tobacco Use Types Packs/Day Years [...] for daily living? No 06/14/2025 [facility] Utilities Answer Date Recorded In the past 12 months has e electric, gas, oil, or water company threatened to shut off services in your home? No 06/14/2025 Depression Answer Date Recor ded PHQ-9 Total Score (max 27) 4 03/03 Housing Stability Answer Date Recorded What is your living situation today? I have a [facility] place to live 06/14/2025 Education Answer Date Recorded What is the highest level of school you have completed or the highest degree you have received? 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 - 06/21/2025 11:00 AM CDT CHIEF COMPLAINT/REASON FOR VISIT Residual Urine by ultrasound ASSESSMENT / PLAN Robert Balderas is here for residual check via ultrasound. Robert Balderas voided dribbles with an ultrasound residual of 857 mls. Patient will get a urinary catheter placed. documented in this encounter Plan of Treatment Upcoming Encounters Date Type Department Care Team (Latest Contact Info) Description 08/02/2025 12:45 PM CDT Clinical Communication Virtual Review in [place], [place] 200 [place] [phone] 08/03/2025 1:00 PM CDT Telemedicine Department of Palliative Care in [address] [phone] Sachi De Leon B.M.BDiyaS., B.M., B.Ch. [address] [place] [phone] 08/14/2025 10:30 AM MOLD MOVER Procedure visit Department of Urology in [place], [place] [address] [place] [phone] Orion Mendoza, MPAS, P.A.-C. 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
--- OUTSIDE RECORDS SUMMARY | 2025-06-21 11:15 | XMS_ITS | Encounter Summary ---
Author Organization [facility] Address [address] [place] [phone] Care Team Providers Care Golf Ball Inspector Name Role Phone Elsewhere, Pcp Primary Care Provider Unavailabl e Reason for Visit * Reason Comments Cancer UCI * Outpatient (Routine) - Closed Specialty Diagnoses / Procedures Referred By John t Referred To Contact Diagnoses Malignant Neoplasm Of Bladder (HCC) Retention Urinary Procedures URO Urethral cath insertion (UCI) Blaine Araujo MPAS, P.A.-C. [address] [place] [phone] Phone: tel:[phone] fax: [facility] Referral ID Status Reason Start Date Expiration Date Visits Re quested Visits Authorized [id number] Closed 06/21/2025 09/21/2026 1 1 Encounter Details Date Type Department Care Team (Late st Contact Info) Description 06/21/2025 11:15 AM CDT Procedure visit Department of Urology in [place], [place] [address] [place] [phone] Blanie Araujo MPAS, P.A.-C. [address] [place] [phone] Lisbeth Modi R.N. [address] [place] [phone] Malignant Neoplasm Of Bladder (HCC); Retention Urinary [...] things needed for daily living? No 06/14/2025 [facility] Utilities Answer Date Recorded In the past 12 months has [facility] [employer], gas, oil, or water [email or web address] threatened to shut off services in your home? No 06/14/2025 Depression Answer Date Recor ded PHQ-9 Total Score (max 27) 4 03/03 Housing Stability Answer Date Recorded What is your living situation today? I have a [facility] place to live 06/14/2025 Education Answer Date Recorded What is the highest level of school you have completed or the highest degree you have received? 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 - 06/21/2025 11:15 AM CDT CHIEF COMPLAINT/REASON FOR VISIT Robert Balderas is here for indwelling cuenca catheter exchange as ordered by [place] Araujo P.A.-C., on June 21, 2025. IMPRESSION/REPORT/PLAN Nursing Intervention: The patient was prepped in sterile fashion using Betadine. Current catheter was removed intact. A 16F Coude Red Rubber was inserted without difficulty, 10 mL's in balloon. Catheter was not irrigated,clear yellow urine returned. Catheter was connected to leg bag. Secured catheter with leg strap. See flowsheets for additional details. Patient tolerated visit fairly well. No further questions or concerns at this time. Patient's next catheter exchange is due on: July 19, 2025. Patient dismissed. documented in this encounter Plan of Treatment Upcoming Encounters Date Type Department Care Team (Latest Contact Info) Description 08/02/2025 12:45 PM CDT Clinical Communication Virtual Review in [place], [place] 200 [place] [phone] 08/03/2025 1:00 PM CDT Telemedicine Department of Palliative Care in [address] [phone] Sachi De Leon B.M.B.S., B.M., B.Ch. [address] [place] [phone] 08/14/2025 10:30 AM STOCK DEALER Procedure visit Department of Urology in [place], [place] [address] [place] [phone] Orion Mendoza, LIANNE, P.A.-C. [address] [place] [phone] documented as of this encounter Visit Diagnoses Diagnosis Malignant Neoplasm Of Bladder (HCC) Retention Urinary documented in this encounter Additional Health Concerns Assessment Noted Time PHQ-9 Depression Total Score: 4 03/03/20 24 1:30 PM CDT documented as of this encounter Care Teams Golf Ball Inspector Relationship Specialty Start Date End Date Elsewhere, Pcp PCP - General 03/03/24 documented as of this encounter
--- OUTSIDE RECORDS SUMMARY | 2025-06-21 15:00 | XMS_ITS | Encounter Summary ---
Author Organization [facility] Address [address] [place] [id number] Care Team Providers Care Lithography Contact Worker Name Role Phone Elsewhere, Pcp Primary Care Provider Unavailabl e Reason for Referral * Outpatient (Routine) - Closed Specialty Diagnoses / Procedures Referred By Contac t Referred To Contact Anesthesiology Diagnoses Malignant Neoplasm Of Bladder (HCC) Blaine Araujo MPAS, P.A.-CDiya [address] [place] [address] Phone: tel:[phone] fax: [facility] Referral ID Status Reason Start Date Expiration Date Visits Re quested Visits Authorized [id number] Closed 06/21/2025 12/21/2026 1 1 * Outpatient (Routine) - Closed Specialty Diagnoses / Procedures Referred By Contac t Referred To Contact Diagnoses Malignant Neoplasm Of Bladder (HCC) Retention Urinary Procedures URO Urethral cath insertion (UCI) Blaine Araujo MPAS, P.A.-CDiya [address] [place] [address] Phone: tel:[phone] fax: [facility] Referral ID Status Reason Start Date Expiration Date Visits Re quested Visits Authorized [id number] Closed 06/21/2025 09/21/2026 1 1 * Outpatient (Routine) - Closed Specialty Diagnoses / Procedures Referred By Contac t Referred To Contact Diagnoses 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) Retention Urinary Procedures URO Residual urine - ultrasound Blaine Araujo MPAS, P.A.-CDiya [address] [place] [phone] Phone: tel:[phone] fax: [facility] Referral ID Status Reason Start Date Expiration Date Visits Re quested Visits Authorized [id number] Closed 06/21/2025 09/21/2026 1 1 * MRI/CAT/PET Scan (Routine) - Closed Specialty Diagnoses / Procedures Referred By Contac t Referred To Contact Radiology Diagnoses 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) Procedures MR Prostate without and with IV Contrast Blaine Araujo MPAS, P.A.-CDiya [address] [place] [phone] Phone: tel:[phone] fax: [facility] Referral ID Status Reason Start Date Expiration Date Visits Re quested Visits Authorized [id number] Closed 06/21/2025 09/21/2026 1 1 Reason for Visit * Outpatient (Routine) - Closed Specialty Diagnoses / Procedures Referred By Contac t Referred To Contact Urology Alisson Soler M.D. [address] [place] [phone] Phone: tel: fax: Nuria Medrano M.D. [address] [place] [phone] Phone: tel: fax: Referral ID Status Reason Start Date Expiration Date Visits Re quested Visits Authorized [id number] Closed 06/13/2025 12/13/2026 1 1 Encounter Details Date Type Department Care Team (Late st Contact Info) Description 06/21/2025 3:00 PM CDT Office Visit Department of Urology in [place], [place] [address] [place] [address] Nuria Medrano M.D. [address] [place] [address] Prostatitis Bacterial (Primary Dx); Malignant Neoplasm Of Bladder (HCC); Retention Urinary [...] things needed for daily living? No 06/14/2025 [facility] Utilities Answer Date Recorded In the past 12 months has [employer], gas, oil, or water Thounds threatened to shut off services in your home? No 06/14/2025 Depression Answer Date Recor ded PHQ-9 Total Score (max 27) 4 03/03 Housing Stability Answer Date Recorded What is your living situation today? I have a leslie place to live 06/14/2025 Education Answer Date Recorded What is the highest level of school you have completed or the highest degree you have received? 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 - 06/21/2025 3:00 PM CDT SUBJECTIVE REFERRAL SOURCE Alisson Soler M.D. [address] [place] [phone] CHIEF COMPLAINT Bladder cancer follow up HISTORY OF PRESENT ILLNESS Mr. Balderas is a pleasant 64 y.o. male who presents today for bladder cancer follow up. 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 This was a solitary mass measuring approximately 3 cm. After initial diagnosis, he has been followed locally. He states that he believes he underwent 2 induction courses of BCG followed by maintenance BCG. He was last seen at [facility] in March 2022. He has been followed locally without recurrence. Approximately 1 month ago, he experienced acute onset inability to empty his bladder with dribbling. He endorses some gross hematuria. He is losing weight although recently started a GLP 1. He deniesany recent urologic surgical history. His home urologist evaluated with a PSA which was around his baseline range of 2. He was started on a 2 week course of antibiotics for presumed bacterial prostatitis without improvement in his symptoms. He presents for evaluation of this. CTU shows no obvious evidence of recurrence or metastases in the abdomen or pelvis. He does have anenlarged and heterogenously enhancing prostate. UA with 3-10 RBCs. Urine cytology is negative for high-grade urothelial carcinoma. Creatinine 1.13. Cystoscopy shows abnormal firm whitish tissue that obliterated the prostatic urethra. He also has a history of renal cell carcinoma status post left nephrectomy in 2010. Most recent PSAwas 2.12. OBJECTIVE PHYSICAL EXAMINATION General: Well-appearing male sitting comfortably in his chair DIAGNOSTICS LABS: Recent Results (from the past 72 hours) Urinalysis, with Microscopic: Urine, Midstream Collection Time: 06/21/25 7:27 AM Result Value Source Urine, Urine, Midstream Color, U Yellow Clarity, U Clear Protein, U 14 Protein/Osmolality 0.21 Predicted 24 HR Protein, U 217 Predicted Range 69-684 Microscopic Automated Collection Time: 06/21/25 7:27 AM Result Value Microscopy Abnormal RBC 3-10 (A) Dysmorphic RBC <25 WBC 1-3 Casts, Hyaline 4-10 Squamous Epithelial Cells, U 1-3 Osmolality, Urine Collection Time: 06/21/25 7:27 AM Result Value Osmolality, U 653 pH, Urine Collection Time: 06/21/25 7:27 AM Result Value pH, U 6.2 Dipstick, Urine Collection Time: 06/21/25 7:27 AM Result Value Hemoglobin, QL, U Trace (A) Leukocyte Esterase, U Negative Nitrite, U Negative Ketone, U Negative Glucose, U Negative IMAGING: I personally reviewed the following imaging: URO Cystoscopy (general) Result Date: 06/21/2025 Narrative: Phil Bullock P.A.-C. 06/21/2025 8:48 AM URO Cystoscopy (general) Performed by: Phil Bullock P.A.-C. Authorized by: Alisson Soler M.D. IMPRESSION Suspicious mass Additional procedures performed: cystoscopy PROCEDURE DETAILS A flexible cystoscope was inserted through the u rethra into the bladder. Cystoscope was removed at the end of procedure. The patient was brought tothe cystoscopy suite and placed in lithotomy position. He was prepped and draped in standard fashion. A flexible cystoscope was inserted through the urethra into the bladder. Urethroscopy was normal.The sphincter coapted appropriately. Within the prostatic urethra [...] patient tolerated the procedure well. BPH Abnormal tissuefilling prostatic urethra suspicious for malignancy CONSENT Consent [...] completed successfully: yes Complications: no apparent complications CT Urogram without and with IV Contrast Result Date: 06/16/2025 Narrative: EXAM: CT UROGRAM WITHOUT AND WITH IV [...] the spine. Atherosclerotic vascular calcifications. Bibasilar atelectasis. Impression: 1. No evidence of recurrent or metastatic disease in the abdomen or pelvis. 2. Age indeterminate mild compression deformity at the L3 superior endplate is new since at least 05/03/2024. 3. The prostate is enlarged and heterogeneously enhancing. This could be due to prostatitis but a mass is not excluded. PSA testing and/or prostate MRI may be beneficial in further characterization. ASSESSMENT / PLAN #1 HG Ta Bladder Cancer #2 Renal Cell Carcinoma s/p Left Nephrectomy I had the pleasure of meeting with in clinic today. He has a history of high-grade TA diagnosed in January 2021 status post induction BCG followed by maintenance BCG. He was last seen at [facility] in 2021. He developed acute onset difficulty with emptying his bladder proximally 1 month agowithout an inciting event. He endorses gross hematuria. He was trialed on a 2 week course of antibiotics for presumed bacterial prostatitis although PSA was near his baseline. There was no improvement on antibiotics, thus presents to [facility] for another opinion on this. UA with microscopic hematuria. CTU without any recurrence, metastases, or right upper tract filling defects although there was evidence of an enlarged, nodular prostate. Creatinine at baseline. Most recent PSA was 2.12. Urine cytology was negative. Cystoscopy did show some sloughing, white tissue that obliterated the prostatic urethra. PVR in clinic was 850 cc. We will arrange for placement of indwelling Go catheter for now. Also plan to further evaluate his prostate with prostate MRI and we will list for TUR of his prostatic urethra and TP prostate biopsy in the OPC. He will need preoperative urines and ANGELA. We discussed risks and benefits of the procedure including infection, bleeding, and damage to adjacent structures. Signed by: LIANNE Hobbs, PDiyaAShaye. 06/21/2025 10:12 AM CDT * Nuria Medrano M.D. - 06/21/2025 3:00 PM CDT Reviewed seen and agree. Urinalysis was not that revealed. Reviewed the CT and cystoscopy. With this symptomatology, he might be in retention, and I asked the team to consider catheterization versus watching today with ultrasound residual. I think the next best step is to get an MRI prostate and then proceed in OPC with a transurethral resection of the prostatic urethra and probably transperineal prostate biopsy. * Paula Longoria R.N. - 06/21/2025 3:00 PM CDT CHIEF COMPLAINT Listing IMPRESSION/PLAN Robert Balderas is a very pleasant 64 y.o. here for a listing visit with Dr. Medrano for Prostate biopsy, TURBT proceed to urethral biopsies, proceed as indicated in the outpatient procedure center on July 07, [address] Pankaj Johnson. *MRI and PSA to be done on June 27 Anesthesia: ANGELA has been ordered and will be triaged and scheduled if indicated prior to procedure.To be scheduled on June 27 Blood thinners: Patient has been educated to stop Aspirin, fish oil, and NSAIDS prior to procedure Consent form: Blaine Araujo P.A.-C. saw the patient and discussed risks, benefits, and the surgical procedure and consent was signed in nursing presence.. Urines: Urines will be done on June 27. Antibiotic: Patient will be called if culture is positive to start antibiotic. Will also receive antibiotic at time of surgery. Diabetes/weight loss meds: Discussed patient will hold the following medication(s): Wegovy for 7 days prior to surgery. Outpatient checklist: Outpatient procedural checklist reviewed with patient including how they willobtain a report time. Additionally NPO guidelines reviewed with patient which include nothing to eat after midnight but may have clear liquids up to two hours prior to listing time. Patient educated that a street flusher driver must accompany them to the procedure as they are unable to drive for 24 hours following the procedure or stay in a local hotel overnight as cannot drive the rest of the day. Patient verbalized understanding. All questions answered to patient satisfaction. Please see Dr. Sissy Medrano and Alyssa Moralez note for additional details. documented in this encounter Plan of Treatment Upcoming Encounters Date Type Department Care Team (Latest Contact Info) Description 08/02/2025 12:45 PM CDT Clinical Communication Virtual Review in [place], [place] [address] [place] [phone] 08/03/2025 1:00 PM CDT Telemedicine Department of Palliative Care in [place], [place] [address] [place] [phone] Sachi De Leon B.M.BDiyaS., B.M., B.Ch. [address] [place] [phone] 08/14/2025 10:30 AM BAG CUTTER Procedure visit Department of Urology in [place], [place] [address] [place] [phone] Orion Mendoza, LIANNE, P.A.-C. [address] [place] [phone] Scheduled Orders Name Type Priority Associated Diagnoses Orde r Schedule URO Residual urine - ultrasound Procedure Routine 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) Retention Urinary Expected: 06/21/2025, Expires: 09/20/2026 URO Urethral cath insertion (UCI) Procedure Routine Malignant Neoplasm Of Bladder (HCC) Retention Urinary Expected: 06/21/2025, Expires: 09/20/2026 Scheduled Referrals Name Type Priority Associated Diagnoses Order Schedule Preoperative Evaluation ANGELA consult (clinic) Outpatient Referral Routine Malignant Neoplasm Of Bladder (HCC) Expected: 06/27/2025, Expires: 09/20/2026 documented as of this encounter Results * MR Prostate without and with IV Contrast (06/27/2025 1:04 PM CDT) Anatomical Region Laterality Modality Pelvis, Abdominal RST LOS, A bdominal ARZ LOS, Abdominal FLA LOS N/A Magnetic Resonance Impressions 06/28/2025 4:50 AM CDT PIRADS 5- Very high (clinically significant cancer is highly likely to be present). Large locally invasive prostate mass with extra-prostatic extension and suspected lymph heaven and pelvic osseous metastases as described. Narrative 06/28/2025 4:50 AM CDT EXAM: MR PROSTATE WITHOUT AND WITH IV CONTRAST COMPARISON: CT Urogram dated 06/16/25 PROSTATE: Volume: 136 cc (PSA density 0.02) Exam quality: Good. Peripheral zone: Large lesion replacing nearly the entire prostate gland is reported below as lesion #1. Transition zone: Extension from the lesion #1 is mentioned below. No other focal lesions. Lesion # 1 Zone: Peripheral zone Location: Centered within the right posterior lateral peripheral zone extending from the base to the apex of the prostatic gland. There is additional extension to the anterior right peripheral zone, left posterior medial peripheral zone, and centrally into the transition zone.(Series 3, image 12-39) with invasion of the urethra. T2WI: homogenous moderate hypointense focus/mass confined to prostate; greater than or equal to 1.5cm in greatest dimension or definite extraprostatic extension/invasive behavior (T2WI score 5) DWI: Marked diffusion restriction. (ADC: 544, Focal markedly hypointense on ADC and markedly hyperintense on high b-value DWI; greater than or equal to 1.5cm in greatest dimension or definite extraprostatic extension/invasive behavior) (DWI score 5) DCE: Positive. Overall category: PIRADS 5- Very high (clinically significant cancer is highly likely to be present). LOCAL STAGING: Capsule: Positive for capsular penetration from the right posterior gland. There is also mild hazy nodularity adjacent to the lesion in the posterior medial left peripheral zone (series 3, image 20). Neurovascular bundle invasion: Positive. Invasions of the right neurovascular bundle. Seminal vesicles invasion: Positive. Invasion of the right seminal vesicle and right vas deferns. Additionally, there is likely invasion of the left seminal vesicle. Other organ invasion: The masses appears to be abutting the anterior rectal wall with subtle rectal wall nodularity (series 3, image 27), concerning for rectal wall invasion. LYMPH NODES: Positive for suspicious lymph node(s). Enlarged left pelvic wall lymph node measuring up to 1 cm in short axis (series 3, image 6). BONES: Positive for suspicious bone lesion(s). Several osseous enhancing lesions, for example in the posterior right iliac bone (series 7, image 84), left superior acetabulum (series 7, image 113), left superior pubic rami (series 7, image 148), and right superior pubic tubercle (series 7, image 148). OTHER FINDINGS: Colonic diverticulosis. Go catheter within the decompressed bladder. Tiny fat-containing left inguinal hernia. PROSTATE MRI TECHNIQUE: Multiparametric MRI of the prostate was performed at [address] with surface coil. High resolution T2WI, DWI/ADC, and DCE imaging with IV contrast performed. Procedure Note Chintan Conway M.D. - 06/28/2025 EXAM: MR PROSTATE WITHOUT AND WITH IV CONTRAST COMPARISON: CT Urogram dated 06/16/25 PROSTATE: Volume: 136 cc (PSA density 0.02) Exam quality: Good. Peripheral zone: Large lesion replacing nearly the entire prostate glandis reported below as lesion #1. Transition zone: Extension from the lesion #1 is mentioned below. No otherfocal lesions. Lesion # 1 Zone: Peripheral zone Location: Centered within the right posterior lateral peripheral zoneextending from the base to the apex of the prostatic gland. There isadditional extension to the anterior right peripheral zone, left posteriormedial peripheral zone, and centrally into the transition zone.(Series 3,image 12-39) with invasion of the urethra. T2WI: homogenous moderate hypointense focus/mass confined to prostate;greater than or equal to 1.5cm in greatest dimension or definiteextraprostatic extension/invasive behavior (T2WI score 5) DWI: Marked diffusion restriction. (ADC: 544, Focal markedly hypointenseon ADC and markedly hyperintense on high b-value DWI; greater than orequal to 1.5cm in greatest dimension or definite extraprostaticextension/invasive behavior) (DWI score 5) DCE: Positive. Overall category: PIRADS 5- Very high (clinically significant cancer ishighly likely to be present). LOCAL STAGING: Capsule: Positive for capsular penetration from the right posterior gland.There is also mild hazy nodularity adjacent to the lesion in the posteriormedial left peripheral zone (series 3, image 20). Neurovascular bundle invasion: Positive. Invasions of the rightneurovascular bundle. Seminal vesicles invasion: Positive. Invasion of the right seminal vesicleand right vas deferns. Additionally, there is likely invasion of the leftseminal vesicle. Other organ invasion: The masses appears to be abutting the anteriorrectal wall with subtle rectal wall nodularity (series 3, image 27),concerning for rectal wall invasion. LYMPH NODES: Positive for suspicious lymph node(s). Enlarged left pelvicwall lymph node measuring up to 1 cm in short axis (series 3, image 6). BONES: Positive for suspicious bone lesion(s). Several osseous enhancinglesions, for example in the posterior right iliac bone (series 7, image84), left superior acetabulum (series 7, image 113), left superior pubicrami (series 7, image 148), and right superior pubic tubercle (series 7,image 148). OTHER FINDINGS: Colonic diverticulosis. Go catheter within thedecompressed bladder. Tiny fat-containing left inguinal hernia. PROSTATE MRI TECHNIQUE: Multiparametric MRI of the prostate was performedat [address] with surface coil. High resolution T2WI, DWI/ADC, and DCEimaging with IV contrast performed. IMPRESSION: PIRADS 5- Very high (clinically significant cancer is highly likely to bepresent). Large locally invasive prostate mass with extra-prostaticextension and suspected lymph heaven and pelvic osseous metastases asdescribed. us Blaine ABDALLA, P.A.-C. IMG MRI PROC EDURES Final Result * (ABNORMAL) Urinalysis, with Microscopic: Urine, Midstream (06/27/2025 12:01 PM CDT) Source Urine, Urine, Midstream 06/27/2025 1:03 PM CDT DTL Color, U Yellow 06/27/2025 1:03 PM CDT DTL Clarity, U Clear 06/27/2025 1:03 PM CDT DTL Protein, U 20 <26 mg/dL 06/27/2025 1:45 PM CDT DTL Protein/Osmol ality 0.65(H) <0.42 ratio 06/27/2025 1:55 PM CDT DTL Predicted 24 HR Protein, U 626(H) <229 mg/24 h 06/27/2025 1:55 PM CDT DTL Predicted Range 199-1972 mg/24 h 06/27/2025 1:55 PM CDT DTL Urine (Urine, Midstream) 06/27/2025 12:01 PM CDT 06/27/2025 1:03 PM CDT us Blaine ABDALLA, P.A.-C. LAB URINE OR DERABLES Final Result [facility] [address] [place] [address], [facility] [address] [place] [address] * (ABNORMAL) Bacterial Culture, Aerobic + Susceptibility, Urine (06/27/2025 12:01 PM CDT) Urine Culture With urogenital microbiota, susceptibilities not performed per laboratory criteria. (A) 06/30/2025 2:21 PM CDT DTL Urine Culture ESCHERICHIA COLI >100,000 cfu/mL (A) 06/30/2025 2:21 PM CDT DTL Urine Culture ESCHERICHIA COLI >100,000 cfu/mL (A) 06/30/2025 2:21 PM CDT DTL Urine (Urine, Midstream) 06/27/2025 12:01 PM CDT 06/27/2025 1:50 PM CDT Comment:Specimen Source Site : Urine Narrative Organism Antibiotic Method Susceptibility Escherichia coli Ampicillin SUSCEPTIBILITY, EMILY (MCG/ML) >16 mcg/mL: Resistant Escherichia coli Ampicillin + Sulbactam SUSCEPTI BILITY, EMILY (MCG/ML) >16/8 mcg/mL: Resistant Escherichia coli Meropenem SUSCEPTIBILITY, EMILY (MCG/ML) <=0.12 mcg/mL: Susceptible Escherichia coli Ertapenem SUSCEPTIBILITY, EMILY (MCG/ML) <=0.25 mcg/mL: Susceptible Escherichia coli Piperacillin + Tazobactam SUSCE PTIBILITY, EMILY (MCG/ML) <=8/4 mcg/mL: Susceptible Escherichia coli Ciprofloxacin SUSCEPTIBILITY, EMILY (MCG/ML) <=0.25 mcg/mL: Susceptible Escherichia coli Levofloxacin SUSCEPTIBILITY, EMILY (MCG/ML) <=0.5 mcg/mL: Susceptible Escherichia coli Cefazolin SUSCEPTIBILITY, EMILY (MCG/ML) 4 mcg/mL: Intermediate Escherichia coli Ceftriaxone SUSCEPTIBILITY, EMILY (MCG/ML) <=1 mcg/mL: Susceptible Escherichia coli Ceftazidime SUSCEPTIBILITY, EMILY (MCG/ML) <=4 mcg/mL: Susceptible Escherichia coli Cefepime SUSCEPTIBILITY, EMILY (MCG/ML) <=2 mcg/mL: Susceptible Escherichia coli Cefazolin (Uncomplic ated UTI) SUSCEPTIBILITY, EMILY (MCG/ML) 4 mcg/mL: Susceptible Comment: The interpretation applies to uncomplicated urinary tract infections only. It also applies to these oral cephalosporins: cefuroxime, cephalexin, and cefprozil. Escherichia coli Cefdinir SUSCEPTIBILITY, EMILY (MCG/ML) <=1 mcg/mL: Susceptible Escherichia coli Amikacin SUSCEPTIBILITY, EMILY (MCG/ML) <=4 mcg/mL: Susceptible Escherichia coli Gentamicin SUSCEPTIBILITY, EMILY (MCG/ML) 2 mcg/mL: Susceptible Escherichia coli Tobramycin SUSCEPTIBILITY, EMILY (MCG/ML) 2 mcg/mL: Susceptible Escherichia coli Aztreonam SUSCEPTIBILITY, EMILY (MCG/ML) <=4 mcg/mL: Susceptible Escherichia coli Trimethoprim + Sulfamethoxazole SUSCEPTIBILITY, EMILY (MCG/ML) 2/38 mcg/mL: Susceptible Escherichia coli Nitrofurantoin SUSCEPTIBILITY, EMILY (MCG/ML) <=32 mcg/mL: Susceptible Escherichia coli Fosfomycin SUSCEPTIBILITY, EMILY (MCG/ML) <=64 mcg/mL: Susceptible Escherichia coli Ampicillin SUSCEPTIBILITY, EMILY (MCG/ML) >16 mcg/mL: Resistant Escherichia coli Ampicillin + Sulbactam SUSCEPTI BILITY, EMILY (MCG/ML) >16/8 mcg/mL: Resistant Escherichia coli Meropenem SUSCEPTIBILITY, EMILY (MCG/ML) <=0.12 mcg/mL: Susceptible Escherichia coli Ertapenem SUSCEPTIBILITY, EMILY (MCG/ML) <=0.25 mcg/mL: Susceptible Escherichia coli Piperacillin + Tazobactam SUSCE PTIBILITY, EMILY (MCG/ML) <=8/4 mcg/mL: Susceptible Escherichia coli Ciprofloxacin SUSCEPTIBILITY, EMILY (MCG/ML) <=0.25 mcg/mL: Susceptible Escherichia coli Levofloxacin SUSCEPTIBILITY, EMILY (MCG/ML) <=0.5 mcg/mL: Susceptible Escherichia coli Cefazolin SUSCEPTIBILITY, EMILY (MCG/ML) <=2 mcg/mL: Susceptible Escherichia coli Ceftriaxone SUSCEPTIBILITY, EMILY (MCG/ML) <=1 mcg/mL: Susceptible Escherichia coli Ceftazidime SUSCEPTIBILITY, EMILY (MCG/ML) <=4 mcg/mL: Susceptible Escherichia coli Cefepime SUSCEPTIBILITY, EMILY (MCG/ML) <=2 mcg/mL: Susceptible Escherichia coli Cefazolin (Uncomplic ated UTI) SUSCEPTIBILITY, EMILY (MCG/ML) <=2 mcg/mL: Susceptible Comment: The interpretation applies to uncomplicated urinary tract infections only. It also applies to these oral cephalosporins: cefuroxime, cephalexin, and cefprozil. Escherichia coli Cefdinir SUSCEPTIBILITY, EMILY (MCG/ML) <=1 mcg/mL: Susceptible Escherichia coli Amikacin SUSCEPTIBILITY, EMILY (MCG/ML) <=4 mcg/mL: Susceptible Escherichia coli Gentamicin SUSCEPTIBILITY, EMILY (MCG/ML) 2 mcg/mL: Susceptible Escherichia coli Tobramycin SUSCEPTIBILITY, EMILY (MCG/ML) <=1 mcg/mL: Susceptible Escherichia coli Aztreonam SUSCEPTIBILITY, EMILY (MCG/ML) <=4 mcg/mL: Susceptible Escherichia coli Trimethoprim + Sulfamethoxazole SUSCEPTIBILITY, EMILY (MCG/ML) 2/38 mcg/mL: Susceptible Escherichia coli Nitrofurantoin SUSCEPTIBILITY, EMILY (MCG/ML) <=32 mcg/mL: Susceptible Escherichia coli Fosfomycin SUSCEPTIBILITY, EMILY (MCG/ML) <=64 mcg/mL: Susceptible Blaine ABDALLA, P.A.-C. LAB MICROBIOLOGY - GENERAL ORDERABLES [place] [address], [facility] [place] [address] * PSA (Prostate-Specific Antigen), Diagnostic (06/27/2025 11:02 AM CDT) Prostate-Specific Ag 2.6 <=4.5 ng/mL 06/27/2025 12:19 PM CDT DTL Comment: ----ADDITIONAL INFORMATION---- The testing method is an electrochemiluminescence assay manufactured by [employer] and performed on the Modular or Aris system. Values obtained with different assay methods or kits may be different and cannot be used interchangeably. Test results cannot be interpreted as absolute evidence for the presence or absence of malignant disease. Blood (Blood, Venous) 06/27/2025 11:02 AM CDT 06/27/2025 11:47 AM CDT us Blaine ABDALLA, P.A.GarcíaC. LAB BLOOD AD D-ON Final Result [facility] [address] [place] [address], [facility] [address] [place] [address] documented in this encounter Visit Diagnoses Diagnosis Prostatitis Bacterial- Primary Malignant Neoplasm Of Bladder (HCC) Retention Urinary 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) documented in this encounter Additional Health Concerns Assessment Noted Time PHQ-9 Depression Total Score: 4 03/03/20 24 1:30 PM CDT documented as of this encounter Care Teams Lithography Contact Worker Relationship Specialty Start Date End Date Elsewhere, Pcp PCP - General 03/03/24 documented as of this encounter
--- OUTSIDE RECORDS SUMMARY | 2025-06-22 09:00 | XMS_ITS ---
Author Organization [facility] [place] Address [address] [address] [place] [address] Care Team Providers Care Teaching Supervisor Name Role Phone Dr. Chong Wilder Primary Care Provider Unavail able Amador Santiago Unavailable [phone] ALLERGIES Allergen (clinical drug ingredient) Drug/Non Drug Allergy documented on EMR Reaction Allergy Type Onset Date Status codeine Codeine Sulfate nausea and vomiting Drug Allergy Active REASON FOR VISIT Gout MEDICATIONS Medication SIG (Take, Route, Frequency, Duration) Notes Start Date End Date Status Fiber - as directed Orally A ctive Allopurinol 100 MG 1 tablet Orally Once a day for 90 days 09/24/2021 Not-Taking Medrol (Joey) 4 mg as directed orally Not-Taking Allopurinol 300 MG TAKE 1 TABLET BY HANS TH DAILY for 90 Active Multivitamin Adults - 1 tablet Orally on [...] 1 tablet Orally Once a day Active SOCIAL HISTORY Tobacco Use: Social History [...] Never (0 point) Points 3 Interpretation Negative Encounters Encounter Location Date Provider Diagnosis [facility] [place] [address] [place] [address] 06/22/2025 Amador Santiago Other chronic pain G89.29 ; Idiopathic chronic gout of multiple sites without tophus [id number].[id number] ; Primary osteoarthritis, right shoulder M19.011 and Right foot pain M79.671 ASSESSMENTS Encounter Date Diagnosis Assessment Notes Treatment Notes Treatment Clinical Notes Section Notes 06/22/2025 Other chronic pain (ICD-10 - G89.29) 1. [...] radiculopathy. He is status post lumbar laminectomy [facility] in the distant past. He has been to [facility] neurosurgery division February 10, 2024 for reevaluation 06/22/2025 Idiopathic chronic gout of multiple sites without [...] radiculopathy. He is status post lumbar laminectomy [facility] in the distant past. He has been to [facility] neurosurgery division February 10, 2024 for reevaluation 06/22/2025 Primary osteoarthritis , right shoulder (ICD-10 - [...] radiculopathy. He is status post lumbar laminectomy [facility] in the distant past. He has been to [facility] neurosurgery division February 10, 2024 for reevaluation 06/22/2025 Right foot pain (ICD-10 - M79.671) 1. [...] radiculopathy. He is status post lumbar laminectomy [facility] in the distant past. He has been to [facility] neurosurgery division February 10, 2024 for reevaluation PLAN OF TREATMENT Medication Medication Name Sig Start Date Stop Date Notes Allopurinol 300 MG 1 tablet Orally Once a day
--- OUTSIDE RECORDS SUMMARY | 2025-06-27 10:30 | XMS_ITS | Encounter Summary ---
Author Organization [facility] Address [address] [place] [id number] Care Team Providers Care Traffic Or System Dispatcher Name Role Phone Elsewhere, Pcp Primary Care Provider Unavailabl e Reason for Visit * Outpatient (Routine) - Closed Specialty Diagnoses / Procedures Referred By Contac t Referred To Contact Anesthesiology Diagnoses Malignant Neoplasm Of Bladder (HCC) Blaine Araujo MPAS, P.A.-C. [address] [place] [phone] Phone: tel:[phone] fax: [facility] Referral ID Status Reason Start Date Expiration Date Visits Re quested Visits Authorized [id number] Closed 06/21/2025 12/21/2026 1 1 Encounter Details Date Type Department Care Team (Late st Contact Info) Description 06/27/2025 10:30 AM CDT Comprehensive Visit Preoperative Evaluation Center in [place], [place] [address] [place] [phone] Blaine Araujo MPAS, P.A.-C. [address] [place] [phone] Alma Worrell, BAR ASSISTANT, C.N.P. [address] [place] [phone] Preanesthetic Medical Exam (Primary Dx); Personal History Of Malignant Neoplasm Of Bladder; Nephrectomy Status Post; Hypertension Essential Primary; Atherosclerotic Heart Disease Of [place] Coronary Artery Without Angina Pectoris; Hyperlipidemia; Venous Insufficiency Chronic Peripheral; Asthma (HCC); Other Pulmonary Embolism Without Acute Cor Pulmonale (HCC); Thrombosis Deep Vein Personal History; Depression Anxiety; Gout; Weakness Muscle; Obesity Body Mass Index 30-39.9 Adult; History Of Falling Social History Tobacco Use Types Packs/Day Years [...] things needed for daily living? No 06/14/2025 [facility] Utilities Answer Date Recorded In the past 12 months has e electric, gas, oil, or water company threatened to shut off services in your home? No 06/14/2025 Depression Answer Date Recor ded PHQ-9 Total Score (max 27) 4 03/03 Housing Stability Answer Date Recorded What is your living situation today? [facility] 06/14/2025 Education Answer Date Recorded What is the highest level of school you have completed or the highest degree you have received? 12th grade 03/25/2022 Sex and Gender Information Value Date Recorded Sex Assigned at Male 03/21/2022 7:03 AM CDT Legal Sex Male 10:17 AM DATA REVIEWER Gender Identity Male 01/25/2021 1:10 PM CDT Sexual Orientation Straight 01/25/2021 1: 10 PM CDT documented as of this encounter Last Filed Vital Signs Vital Sign Reading Time Taken Comments Blood Pressure 119/89 06/27/2025 9:53 AM CDT Pulse 78 06/27/2025 9:53 AM CDT Temperature 36.7 C (98.1 F) 06/27/2025 9:53 AM CDT Respiratory Rate - - Oxygen Saturation 97% 06/27/2025 9:53 AM CDT Inhaled Oxygen Concentration - - Weight 127 kg (281 lb 1.4 oz) 06/27/2025 9:53 AM CDT Height 188.2 cm (6' 2.09) 06/27/2025 9:53 AM CD T Body Mass Index 36 06/27/2025 9:53 AM CDT documented in this encounter H&P Notes * Alma Worrell, BAR ASSISTANT, C.N.P. - 06/27/2025 10:30 AM CDT REASON FOR VISIT: Preoperative Medical Evaluation REFERRING PHYSICIAN: LIANNE Washington, P.A.-C. 07/07/2025: BIOPSY TRANSPERINEAL PROSTATE; Pankaj Johnson M.D., M.S. Surgery Specific Risk Classification: Low Risk SUBJECTIVE HISTORY OF PRESENT ILLNESS Robert Balderas is a 64 y.o. male who is here for preanesthetic medical examination prior to the planned procedure as listed above. REVIEW OF SYSTEMS Constitutional: - Negative for fever. - Denies any history of anesthesia complication or reactions. Skin: - Negative for skin rash. Eyes: Positive for visual problems (corrective glasses). ENT: - Negative for difficulty hearing. Respiratory: - Negative for coughing up blood, coughing up mucus (phlegm), dry cough, shortness of breath and wheezing. Cardiovascular: Positive for swelling in the legs or feet (right leg due to chronic insuffiency, wears compression boot regularly due for surgery). - Negative for chest pain, pressure or tightness, rapid or fluttering heart beat and shortness of breath when lying flat. Gastrointestinal: - Negative for blood in stool and heartburn. Genitourinary: Positive for blood in urine. - Cath present, blood present Hematologic: - POSITIVE DVT/PE 3 years ago secondary to long flight. Now takes DOAC with travel Musculoskeletal: Positive for pain or stiffness in the joints (right shoulder pain) and back pain (lower back). Neurological: Positive for numbness or shooting pain in hands, arms, legs, or feet (right leg and foot numbness) and loss of balance or tendency to fall easily (Unsteady, Fell 1 year ago, signifcant bruising not seen for the fall). - Negative for seizures, light-headedness and headaches. - No hx of CVA or TIA Psychiatric/Behavioral: - Negative for loud snoring. BP 119/89 Pulse 78 Temp 36.7 ??C (Oral) Ht 188.2 cm Wt 127 kg SpO2 97% BMI 36.00 kg/m?? OBJECTIVE PHYSICAL EXAMINATION General/Constitutional Constitutional Assessment: Obese General State of Health: Healthy appearing Airway (HEENT) Mallampati: III TM Distance: >3 FB Neck ROM: Full Mouth Opening: > 3 cm Upper Lip Bite Test: II Dental Assessment: Dentition intact Cardiovascular Rhythm: Regular Rate: Normal Cardiovascular Assessment: Peripheral edema Pulmonary Pulmonary Assessment: Clear Neurological Neurologic Assessment: Oriented X 3 Musculoskeletal MSK Assessment: Normal Gait: Normal Ambulate with: None Psychiatric Psychiatric Assessment: Calm Dermatology Skin Assessment: normal ASSESSMENT / PLAN Anesthesia: Patient denies previous anesthesia related complications. Airway Hx: None found for review. Lab: Lab Results Component Value Date HGB 16.6 02/10/2024 HCT 48.7 (H) 02/10/2024 PLT 177 02/10/2024 WBC 6.7 02/10/2024 NA 142 02/10/2024 KSERUM 4.9 02/10/2024 CREATININE 1.13 06/16/2025 EGFR 72 06/16/2025 EC02/10/2024 Normal sinus rhythm Nonspecific T wave abnormality When compared with ECG of 21-Mar-2022 09:33, Premature ventricular complexes are no longer present MYOCARDIAL PERFUSION: 08/26/2023 CE Clinical response: Nonischemic EKG response: Nonischemic Nuclear response: Nonischemic Conclusion: 1. There was no pharmacological stress nuclear evidence of inducible ischemia. 2. Normal left ventricular function with EF of 51% and normal wall motion. TTE: 03/25/2022 1. Normal left ventricular chamber size, no regional wall motion abnormalities, calculated 2-D biplane volumetric ejection fraction 53%. 2. Normal left ventricular filling pressure (at rest). 3. Mildly enlarged right ventricular chamber size, normal systolic function . Unable to estimate right ventricular systolic pressure. 4. No significant valvular heart disease. 5. Normal inferior vena cava size with reduced inspiratory collapse (<50%) (consistent with normal central venous pressures). 6. Compared to the report of 08/06/2016 no significant change has occurred. Side by side comparisonof images performed. CTA CORONARY: 08/02/2020 CE 1. Abnormal coronary arteries within limitations of the coronary CT angiography technique. There is left main and 3 vessel CAD including obstructive disease (> 50% stenosis) in the proximal LAD and proximal LCX. Other segments have nonobstructive disease (< 50% stenosis). The study is not technically suitable for FFRct; recommend invasive angiography. 2. Normal aorta, pericardium and cardiac morphology within limitations of CT technique. #1 Preanesthetic Medical Exam Mr. Bryan presented today in preparation for preanesthesia visit to his upcoming surgery noted above. He denies any difficulty with anesthesia in the past. He is a nonsmoker. He drinks 1 cup of caffeine daily. His alcohol intake consists of an average of 1 drink per nightly at least 6 days a week. He denies any cardiopulmonary symptoms at rest or with exertion. 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 #2 Personal History Of Malignant Neoplasm Of Bladder #3 Nephrectomy Status Post Listed for the above procedure. See urology note for additional details. Instructed okay to continue tamsulosin as prescribed. Instructed to hold Cialis 3 days prior to surgery. Go catheter present with slight hematuria per patient report. 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 119/89 today in clinic. He endorses said he is not on any antihypertensive medications. Lipid panel well controlled with rosuvastatin and Zetia. Instructed to continue rosuvastatin as prescribed in hold Zetia day of surgery. Taking aspirin for preventative measures.Last dose of aspirin were taken 06/20/2025. We will continue to hold until after procedure. He hasa p.r.n. nitroglycerin which he has not utilized. Was scheduled to undergo right leg surgery for chronic venous insufficiency which is currently postponed. Seen here by [facility] medicine, see there note 06/21/2024 for complete details. #9 Asthma (HCC) Intermittent mild, well controlled. Primarily triggered by allergy irritants. Has not utilized his albuterol inhalers since 1 year in the springtime 2023. #10 Other Pulmonary Embolism Without Acute Cor Pulmonale ([facility]) #11 Thrombosis Deep Vein Personal History 03/2016 following an overnight flight to [employer]. He was treated with a course of Xarelto. He nowutilizes Xarelto 3 days prior in 3 days post long international flights. Currently not taking Xarelto and will continue to hold. #12 Depression Anxiety Instructed to continue Lexapro and Xanax as prescribed. He also has a PRN Valium which he only utilizes when public speaking. #13 Gout Largely controlled with allopurinol. Instructed to continue allopurinol as prescribed. Last gout flare was approximately 6 months ago and he was treated with a medrol dosepak. #14 Weakness Muscle #15 Obesity Body Mass Index 30-39.9 Adult #16 History of Falling He sustained a fall last spring resulting in back pain and significant bruising. He was not seen for these injury. On CT imaging 06/16/2025 there is mild compression deformity at L3 superior endplate. He is taking Wegovy for weight loss. His last dose was on 06/13/2025. He will continue to hold until after surgery. He has been holding all vitamins and supplements and will continue holding until after surgery. PATIENT EDUCATION: [facility] Checklist For Surgical Patient's (pamphlet link: Instructions To Get Ready for Your Surgery or Procedure [facility]:[place]). RECOMMENDATIONS: Patient medically optimized for planned procedure: Yes Further Recommendations: None documented in this encounter Plan of Treatment Upcoming Encounters Date Type Department Care Team (Latest Contact Info) Description 08/02/2025 12:45 PM CDT Clinical Communication Virtual Review in [place], [place] [address] [place] [phone] 08/03/2025 1:00 PM CDT Telemedicine Department of Palliative Care in [place], [place] [address] [place] [phone] Sachi De Leon B.M.BDiyaS., B.M., B.Ch. [address] [place] [phone] 08/14/2025 10:30 AM DATA REVIEWER Procedure visit Department of Urology in [place], [place] [address] [place] [phone] Orion Mendoza, LIANNE, P.A.-C. [address] [place] [phone] documented as of this encounter Visit Diagnoses Diagnosis Preanesthetic Medical Exam- Primary Personal History Of Malignant Neoplasm Of Bladder Nephrectomy Status Post Hypertension Essential Primary Atherosclerotic Heart Disease Of [place] Coronary Artery Without Angina Pectoris Hyperlipidemia Venous Insufficiency Chronic Peripheral Asthma (HCC) Other Pulmonary Embolism Without Acute Cor Pulmonale (HCC) Thrombosis Deep Vein Personal History Depression Anxiety Gout Weakness Muscle Obesity Body Mass Index 30-39.9 Adult History Of Falling documented in this encounter Additional Health Concerns Assessment Noted Time PHQ-9 Depression Total Score: 4 03/03/20 24 1:30 PM CDT documented as of this encounter Care Teams Traffic Or System Dispatcher Relationship Specialty Start Date End Date Elsewhere, Pcp PCP - General 03/03/24 documented as of this encounter
--- OUTSIDE RECORDS SUMMARY | 2025-06-27 11:49 | XMS_ITS | Encounter Summary ---
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 200 [place] [address] Phone: tel:[phone] fax: [facility] Referral ID Status Reason Start Date Expiration Date Visits Re quested Visits Authorized [id number] Closed 06/21/2025 09/21/2026 1 1 Encounter Details Date Type Department Care Team (Late st Contact Info) Description 06/27/2025 11:49 AM CDT - 06/27/2025 11:59 PM CDT Hospital Encounter Department of Radiology, [facility], in [place], [place] [address] [place] [address] Blaine Araujo MPAS, P.A.-C. [address] [place] [address] Prostatitis Bacterial; Malignant Neoplasm Of Bladder (HCC) Discharge Disposition: Home or Self Care Social [...] things needed for daily living? No 06/14/2025 [facility] Utilities Answer Date Recorded In the past 12 months has th e electric, gas, oil, or water company threatened to shut off services in your home? No 06/14/2025 Depression Answer Date Recor ded PHQ-9 Total Score (max 27) 4 03/03 Housing Stability Answer Date Recorded What is your living situation today? I have a [facility] place to live 06/14/2025 Education Answer Date Recorded What is the highest level of school you have completed or the highest degree you have received? 12th grade 03/25/2022 Sex and Gender Information Value Date Recorded Sex Assigned at Male 03/21/2022 7:03 AM CDT Legal Sex Male 10:17 AM CLOTH HAULER Gender Identity Male 01/25/2021 1:10 PM CDT Sexual Orientation Straight 01/25/2021 1: 10 PM CDT documented as of this encounter Medications at Time of Discharge acetaminophen (TylenoL) 500 mg tablet Take 2 tablets (1,000 mg total) by mouth every 6 (six) hours as needed for pain. 07/08/2025 albuterol 90 mcg/actuation inhaler Inhale 1 puff every 4 (four) hours as needed. 02/11/2021 allopurinoL (ZYLOPRIM) 300 mg tablet Take 300 mg by mouth every evening. ALPRAZolam (XANAX) 0.25 mg tablet Take 0.25 mg by mouth 3 (three) times a day as needed. 11/19/[address] tablet Take 1 tablet (81 mg total) by mouth daily. You may resume taking your aspirin in 48 hours after surgery. If you are still experiencing a significant amount of blood in your urine at this time, please contact your the provider managing this medication before restarting your blood thinner. Any further questions can be directed to your Urology team using the contact information provided to you. 07/07/2025 zvax-wqk-enl-elodia -ihqb-iwut-krr (Fiber 6) 1,000 mg tablet Take 1 tablet by mouth daily. diazePAM (Valium) 5 mg tablet Take 1 tablet (5 mg total) by mouth 3 (three) times a day as needed (bladder spasms/pain). 10 tablet 07/10/2025 3:39 PM CDT 07/07/2025 diclofenac sodium (Voltaren) 1 % gel Apply 2 g topically 4 (four) times a day. Apply to affected area. 200 g 07/10/2025 diphenhydrAMINE (BenadryL) 25 mg capsule Take 25 mg by mouth at bedtime as needed. 02/09/2021 DOCOSAHEXAENOIC ACID ORAL Take 1 capsule by mouth daily. escitalopram (LEXAPRO) 10 mg tablet Take 10 [...] TO 3 DOSES 25 tablet 3 05/30/2025 oxyBUTYnin (Ditropan XL) 10 mg 24 hr tablet Take 1 tablet (10 mg total) by mouth daily as needed (bladder spasms/pain) for up to 20 days. For bladder spasms/bladder pain from your catheter while it is in place. Try to avoid taking this medication 24 hours prior to your catheter removal appointment. 10 tablet 1 07/10/2025 3:39 PM CDT 07/07/2025 5 rosuvastatin (CRESTOR) 40 mg tablet Take 40 mg by mouth at bedtime. 12/19/2021 semaglutide (Wegovy) 1 mg/0.5 mL pen injector injection Inject 1 mg under the skin once a week. 04/24/2025 tadalafiL (CIALIS, ADCIRCA) 20 mg tablet Take 20 mg by mouth as needed. 02/05/2022 UNABLE TO FIND Med Name: compounded semeglutide injection 1.5 mg weekly levoFLOXacin (Levaquin) 500 mg tabletIndication s:Hematuria Take 1 tablet (500 mg total) by mouth daily for 10 days. 10 tablet 07/10/2025 3:39 PM CDT 07/10/[address] tablet Take 1 tablet by mouth daily. 09/15/2013 5 atorvastatin (Lipitor) 40 mg tablet take 1 tablet (40 mg) by oral route once daily Oral 1 5 cefdinir (Omnicef) 300 mg capsuleIndicatio ns:Malignant Neoplasm Of Bladder (HCC),Retention Urinary Take 1 capsule (300 mg total) by mouth once for 1 dose. Take 1-2 hours before your appointment with your urologist. 1 capsule 07/07/2025 5 cefdinir (Omnicef) 300 mg capsuleIndicatio ns:Malignant Neoplasm Of Bladder (HCC),Retention Urinary Take 1 capsule (300 mg total) by mouth once for 1 dose. Take 1-2 hours before your appointment with your urologist. 1 capsule 07/07/2025 5 diazePAM (Valium) 5 mg tablet Take 5 mg by mouth as needed. 5 lisinopriL 10 mg tablet Take 1 tablet by mouth as needed (traveling). 09/13/2013 5 methocarbamoL (Robaxin) 500 mg tablet Take 1 tablet by mouth 3 (three) times a day as needed. 06/20/2024 5 rivaroxaban (XARELTO) 20 mg tablet Take 20 mg by mouth as directed. For air related travel with history of travel related blood clots 5 rivaroxaban (Xarelto) 20 mg tablet Take 1 tablet (20 mg total) by mouth as directed. You may resume taking your xarelto in 48 hours after surgery. If you are still experiencing a significant amount of blood in your urine at this time, please contact your the provider managing this medication before restarting your blood thinner. Any further questions can be directed to your Urology team using the contact information provided to you. For air related travel with history of travel related blood clots 07/07/2025 5 rivaroxaban (Xarelto) 20 mg tablet Take 1 tablet (20 mg total) by mouth as directed. You may resume taking your xarelto as soon as 48 hours after surgery if your urine color is pink or break up worker. If you are still experiencing a significant amount of blood in your urine after 5 days, please contact your the provider managing this medication before restarting your blood thinner. Any further questions can be directed to your Urology team using the contact information provided to you. For air related travel with history of travel related blood clots 07/07/2025 5 rivaroxaban (Xarelto) 20 mg tablet Take 1 tablet (20 mg total) by mouth as directed. You may resume taking your xarelto the following day after discharge from the hospital if your urine color is pink or break up worker. If you are still experiencing a significant amount of blood in your urine after 5 days, please contact your the provider managing this medication before restarting your blood thinner. Any further questions can be directed to your Urology team using the contact information provided to you. For air related travel with history of travel related blood clots 07/10/2025 5 tamsulosin (Flomax) 0.4 mg 24 hr capsule Take 0.4 mg by mouth daily. 5 tamsulosin (Flomax) 0.4 mg 24 hr capsule Take 1 capsule (0.4 mg total) by mouth daily. 30 capsule 1 07/10/2025 3:39 PM CDT 07/10/2025 5 documented as of this encounter Nursing Notes * Tabitha Banks R.N. - 06/27/2025 12:45 PM CDT Glucagon Administration Screening: Does patient have an allergy to glucagon or lactose (e.g. hives, difficulty breathing, anaphylaxis,necrolytic migratory erythema)? Note: nausea vomiting, bloating, and diarrhea are common and expected adverse effects of glucagon and/or lactose intolerance. NO If no, continue. Does patient have a history of insulinoma or pheochromocytoma? NO If no, continue. If yes, discuss with Radiologist. Does patient have diabetes? NO If no, continue. If yes, initiate nurse initiated protocol to order POC blood glucose . If yes and insulin dependent, provide patient with Glucagon Injections if you Have Diabetes card. What is patient's glucose? Not diabetic - less than 70 treat f using Hypoglycemia Nurse Initiated Protocol - between 70 and 300 administer medication as ordered. - greater than 300 notify radiologist and do not administer medication. Is patient safe to receive Glucagon YES If yes, administer Glucagon as outlined in order. Does the patient need to remain NPO following scan for additional appointments today? NO documented in this encounter Plan of Treatment Upcoming Encounters Date Type Department Care Team (Latest Contact Info) Description 08/02/2025 12:45 PM CDT Clinical Communication Virtual Review in [place], [place] 200 [place] [address] 08/03/2025 1:00 PM CDT Telemedicine Department of Palliative Care in [address] [phone] Sachi De Leon B.M.B.S., B.M., B.Ch. [address] [place] [phone] 08/14/2025 10:30 AM CLOTH HAULER Procedure visit Department of Urology in [address] [phone] Orion Mendoza, LIANNE, P.A.-C. 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) documented in this encounter Administered Medications Inactive Administered Medications - up to 3 most recent administrations Medication Order MAR Action Action Date Dose Rate Site gadoterate meglumine 0.5 mmol/mL (376.9 mg/mL) injection 1.6-20 mL (Dotarem) 1.6-20 mL, intravenous, Once in imaging, contrast, Starting on Thu06/27/25 at 1207, For 1 dose, Imaging Protocol Orders, Dose per Radiant Medication Guidelines Given 06/27/2025 1:12 PM CDT 20 mL glucagon injection 0.5-1 mg (GlucaGen) 0.5-1 mg, subcutaneous, Once, On Thu06/27/25 at 1230, For 1 dose, Imaging Protocol Orders, Dose per Radiant Medication Guidelines Given 06/27/2025 12:40 PM CDT 1 mg Left Upper Arm (Back) sodium chloride (PF) 0.9 % injection 1-100 mL 1-100 mL, intravenous, Once, On Thu06/27/25 at 1230, For 1 dose, Imaging Protocol Orders, Dose per Radiant Medication Guidelines Given 06/27/2025 1:12 PM CDT 30 mL documented in this encounter Additional Health Concerns Assessment Noted Time PHQ-9 Depression Total Score: 4 03/03/20 1:30 PM CDT documented as of this encounter Care Teams Drain Tile Press Operator Relationship Specialty Start Date End Date Elsewhere, Pcp PCP - General 03/03/24 documented as of this encounter
--- OUTSIDE RECORDS SUMMARY | 2025-06-27 14:30 | XMS_ITS | Encounter Summary ---
Author Organization [facility] Address [address] [place] [address] Care Team Providers Care Gis Analyst Name Role Phone Elsewhere, Pcp Primary Care Provider Unavailabl e Reason for Visit * Reason Comments Bladder Cancer Assess catheter for leaks or UTI Encounter Details Date Type Department Care Team ([facility] Contact Info) Description 06/27/2025 2:30 PM CDT Education Department of Urology in [place] [address], [place] [address] [place] [phone] Blaine Araujo, MARTINES, P.A.-C. [address] [place] [phone] Mandy Prado RDiyaNDiya [address] [place] [phone] Social History Tobacco Use Types Packs/Day Years [...] things needed for daily living? No 06/14/2025 [facility] Utilities Answer Date Recorded In the past 12 months has th e electric, gas, oil, or water company threatened to shut off services in your home? No 06/14/2025 Depression Answer Date Recor ded PHQ-9 Total Score (max 27) 4 03/03 Housing Stability Answer Date Recorded What is your living situation today? I have a [facility] place to live 06/14/2025 Education Answer Date Recorded What is the highest level of school you have completed or the highest degree you have received? 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 - 06/27/2025 2:30 PM CDT Reason for visit: Assess for any leaks or urine due to strong odor. I assessed the urine and it was clear yellow, not signs of leaking or UTI. There was a strong urineodor, but he didn't have any education on cleaning or changing the bags. I gave him extra bags to change every 2 weeks and told him how to clean the bags. I answered all of his questions. documented in this encounter Plan of Treatment Upcoming Encounters Date Type Department Care Team (Latest Contact Info) Description 08/02/2025 12:45 PM CDT Clinical Communication Virtual Review in [place], [place] 200 [place] [address] 08/03/2025 1:00 PM CDT Telemedicine Department of Palliative Care in [address] [phone] Sachi De Leon B.M.B.S., B.M., B.Ch. [address] [place] [phone] 08/14/2025 10:30 AM MANAGER PACKAGING Procedure visit Department of Urology in [place] [address], [place] [address] [place] [phone] Orion Mendoza, MPAS, P.A.-C. [address] [place] [phone] documented as of this encounter Visit Diagnoses Not on filedocumented in this encounter Additional Health Concerns Assessment Noted Time PHQ-9 Depression Total Score: 4 03/03/20 24 1:30 PM CDT documented as of this encounter Care Teams Gis Analyst Relationship Specialty Start Date End Date Elsewhere, Pcp PCP - General 03/03/24 documented as of this encounter
--- OUTSIDE RECORDS SUMMARY | 2025-07-06 15:00 | XMS_ITS | Encounter Summary ---
Author Organization [facility] Address [address] [place] [address] Care Team Providers Care Freezer Tunnel Operator Name Role Phone Elsewhere, Pcp Primary Care Provider Unavailabl e Reason for Visit * Outpatient (Routine) - Closed Specialty Diagnoses / Procedures Referred By Contac t Referred To Contact Urology Orion Mendoza MPAS, P.A.-C. [address] [place] [phone] Phone: tel: fax: Orion Mendoza MPAS, P.A.-C. [address] [place] [phone] Phone: tel: fax: Referral ID Status Reason Start Date Expiration Date Visits Re quested Visits Authorized [id number] Closed 07/05/2025 01/04/2027 1 1 Encounter Details Date Type Department Care Team (Late st Contact Info) Description 07/06/2025 3:00 PM CDT Office Visit Department of Urology in [place], [place] [address] [place] [phone] Orion Mendoza MPAS, P.A.-C. [address] [place] [phone] Mass Pelvis (Primary Dx) Social History Tobacco Use Types Packs/Day Years Used Date Smoking Tobacco: Never Passive Smoke Exposure: Never Smokeless Tobacco: Never Comments:NA Alcohol Use Standard Drinks/Week Comments Yes 5 (1 standard drink = 0.6 oz pur e alcohol) Humiliation, Afraid, Rape, and Kick questionnair e Answer Date Recorded Within the last year, have y ou been afraid of your partner or ex-partner? No 07/07/2025 Within the last year, have y ou been humiliated or emotionally abused in other ways by your partner or ex-partner? No Within the last year, have y ou been kicked, hit, slapped, or otherwise physically hurt by your partner or ex-partner? No 07/07/2025 Within the last year, have y ou been raped or forced to have any kind of sexual activity by your partner or ex-partner? No 07/07/2025 Hunger Vital Sign Answer Date Recorded Within the past 12 months, y ou worried that your food would run out before you got the money to buy more. Never true 07/07/20 25 Within the past 12 months, t he food you bought just didn't last and you didn't have money to get more. Never true 07/07/2025 PRAPARE - Transportation Answer Date Re corded In the past 12 months, has l ack of transportation kept you from medical appointments or from getting medications? No 06/13 In the past 12 months, has l ack of transportation kept you from meetings, work, or from getting things needed for daily living? No 07/07/[address] [facility] Utilities Answer Date Recorded In the past 12 months has [facility] [employer], gas, oil, or water company threatened to shut off services in your home? No 07/07/2025 Depression Answer Date Recor ded PHQ-9 Total Score (max 27) 4 03/03 Housing Stability Answer Date Recorded What is your living situation today? I have a [facility] place to live 07/07/2025 Education Answer Date Recorded What is the highest level of school you have completed or the highest degree you have received? 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 - 07/06/2025 3:00 PM CDT Please see the recent communication notes with the patient. He requested an in-person discussion about his MRI results and additional questions that he had before his biopsy tomorrow. I was able to speak with him today alongside his spouse and reviewed the MRI images in great detailwith him. I showed him the images, the large prostate mass, and the suspicious metastatic lesions. I did my best to explain the implications of this, though it is currently challenging to give him further guidance on next steps without a pathological diagnosis. I explained that this may be advanced/poorly differentiated prostate cancer (with low PSA), urothelial carcinoma of the prostate, pelvicsarcoma, other type of malignancy, or some form of infectious process (unlikely). We will have him proceed tomorrow with a transperineal prostate biopsy under sedation along with a cystoscopy and biopsies of the prostate urethra. He asked multiple thoughtful questions today which again were answered to the best of my ability without a diagnosis at this time. I think he is going to need a PET scan after his biopsy results, though it is unclear whether he will need a PSMA PET scan or PET FDG. We currently are set up to meet with him on 07/13/2025, though I recognize that his pathology may not be finalized at that time. He understands that if it is not finalized by the morning of that date, we will likely have to reschedule his visit. He asked about his Go catheter and how to manage this in the future. I expect that he will need some sort of catheterization indefinitely for now (whether this is SP tube, Go catheter, or CIC).He does not want to do CIC and will think about an SP tube in the future if he develops penile irritation. I suspect that he will need to meet with a medical oncologist in the future to facilitate systemic therapy. Again, this will depend on his pathology results. We are happy to refer him internally [facility]reat [facility], or if he is going to be staying in the [facility] with his daughter and if we identify a prostate cancer, we may consider discussing this further with Dr. Irving and possibly having him refe rred to Dr. Oakes. He was very appreciative of today's visit. I had him sign surgical consent again, as I had changed the listing slightly. He understands the risks of the procedure. No further concerns at this time. Plan: Proceed with the OPC procedure tomorrow Visit next week assuming pathology is finalized Likely need for PET scan, though unclear which radiotracer, this will be dictated by pathology Likely medical oncology referral or Dr. Irving referral pending path Continue with Go catheter for now Electronically signed by: LIANNE Cr P.A.-C. 07/06/25 3:10 PM CDT documented in this encounter Plan of Treatment Upcoming Encounters Date Type Department Care Team (Latest Contact Info) Description 08/02/2025 12:45 PM CDT Clinical Communication Virtual Review in [place], [place] 200 [place] [phone] 08/03/2025 1:00 PM CDT Telemedicine Department of Palliative Care in [address] [phone] Sachi De Leon B.M.B.S., B.M., B.Ch. [address] [place] [phone] 08/14/2025 10:30 AM SEARCH ENGINE OPTIMIZATION ANALYST Procedure visit Department of Urology in [place], [place] [address] [place] [phone] Orion Mendoza MPAS, P.A.-C. [address] [place] [phone] documented as of this encounter Visit Diagnoses Diagnosis Mass Pelvis- Primary documented in this encounter Additional Health Concerns Assessment Noted Time PHQ-9 Depression Total Score: 4 03/03/20 1:30 PM CDT documented as of this encounter Care Teams Freezer Tunnel Operator Relationship Specialty Start Date End Date Elsewhere, Pcp PCP - General 03/03/24 documented as of this encounter
--- OUTSIDE RECORDS SUMMARY | 2025-07-07 12:11 | XMS_ITS | Encounter Summary ---
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 Name Role Phone Elsewhere, Pcp Primary Care Provider Unavailabl e Reason for Visit * Auth/Cert (Routine) Specialty Diagnoses / Procedures Referred By Contac t Referred To Contact Diagnoses 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) Retention Urinary Prostatitis Bacterial [N41.8, B96.89] Malignant Neoplasm Of Bladder (HCC) [C67.9] Retention Urinary [R33.9] Procedures TX BIOPSY PROSTATE NEEDLE/PUNCH TX CYSTHRSCPY W FULG LESNS MINOR BIOPSY TRANSPERINEAL PROSTATE CYSTOSCOPY WITH TRANSURETHRAL RESECTION LESION BLADDER, proceed to prostatic urethral biopsies, proceed as indicated Pankaj Johnson M.D., M.S. [address] [place] [phone] Phone: tel: fax: Referral ID Status Reason Start Date Expiration Date Visits Re quested Visits Authorized [id number] 1 1 Encounter Details Date Type Department Care Team (Latest Contact Info) Description 07/07/2025 12:11 PM CDT - 07/10/2025 3:38 PM CDT Hospital Encounter [facility], Fifth Floor [address] [place] [id number] Pankaj Johnson M.D., M.S. [address] [place] [phone] Hematuria (Primary Dx); Prostatitis Bacterial; Malignant Neoplasm Of Bladder (HCC); Retention Urinary Discharge Disposition: Home or Self Care Social [...] things needed for daily living? No 07/07/2025 [facility] Utilities Answer Date Recorded In the past 12 months has e electric, gas, oil, or water company threatened to shut off services in your home? No 07/07/2025 Depression Answer Date Recor ded PHQ-9 Total Score (max 27) 4 03/03 Housing Stability Answer Date Recorded What is your living situation today? [facility] 07/07/2025 Education Answer Date Recorded What is the highest level of school you have completed or the highest degree you have received? 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 Gender Identity Male 01/25/2021 1:10 PM CDT Sexual Orientation Straight 01/25/2021 1: 10 PM CDT documented as of this encounter Last Filed Vital Signs Vital Sign Reading Time Taken Comments Blood Pressure 110/76 07/10/2025 3:30 PM CDT Pulse 81 07/10/2025 3:30 PM CDT Temperature 36.4 C (97.5 F) 07/10/2025 3:30 PM CDT Respiratory Rate 16 07/10/2025 3:30 PM CDT Oxygen Saturation 98% 07/10/2025 3:30 PM CDT Inhaled Oxygen Concentration - - Weight 127 kg (279 lb 12.2 oz) 07/10/2025 9:01 A M CDT Height 188.2 cm (6' 2.09) 07/09/2025 5:00 PM CD T Body Mass Index 35.83 07/09/2025 5:00 PM CDT documented in this encounter Discharge Summaries * Carmen Skinner M.D. - 07/10/2025 2:42 PM CDT DISCHARGE SUMMARY BRIEF OVERVIEW Hospital: [facility] Discharge Provider: Pnakaj Johnson M.D. Primary Team: [facility] Urology - Alex Primary Care Providers: Elsewhere, Pcp (General) No address on file Primary Care Provider Phone Number: None Primary Care Provider Fax Number: None Other Providers: None Admission Date: 07/07/2025 Discharge Date: 07/10/2025 PRINCIPAL DIAGNOSIS Hematuria Gross SECONDARY DIAGNOSES Principal Problem: Hematuria Gross Active Problems: Hematuria Resolved Problems: * No resolved hospital problems. * Surgery Information This Encounter Past Procedures (07/10/2024 to Today) Date Procedures Providers Loc / Dept 07/07/2025 BIOPSY TRANSPERINEAL PROSTATE., CYSTOSCOPY WITH TRANSURETHRAL PROSTATECTOMY (limited) Pankaj Johnson M.D., M.S.Carmen Skinner M.D.Goorman, Samuel J, M.D. [facility] 07 OR DISCHARGE DISPOSITION Home or Self Care [1] ACTIVE ISSUES REQUIRING FOLLOW UP See below OUTPATIENT FOLLOW UP Scheduled Appointments 07/11/2025 3:45 PM RST PAL PM ANGELA INTAKE VISIT Admitting/Central Scheduling 07/13/2025 9:00 AM Nia Valdivia M.D.; LASHAWN RN NURSE 01 [facility] Palliative Medicine 07/13/2025 11:00 AM URO NURSE 02 [facility] Urology 07/13/2025 1:00 PM Nuria Medrano M.D. Urology For appointment details refer to your Patient Appointment Guide. TEST RESULTS PENDING AT DISCHARGE Pending Labs Order Current Status Surgical Pathology In process Bacteria / Cathy Culture, Blood #1 Preliminary result Bacteria / Cathy Culture, Blood #2 Preliminary result DETAILS OF HOSPITAL STAY REASON FOR ADMISSION 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) Retention Urinary Hematuria Gross Hematuria HOSPITAL COURSE PROCEDURE Patient underwent transperineal prostate biopsy, and limited Transurethral resection of the prostate on 07/07/[address] Johnson. Procedure was performed without complication. HOSPITAL COURSE Following the procedure, the patient was transferred to the PACU in stable condition. He experienced significant bladder spasms and uncontrolled pain, so he was admitted for further observation and pain control management. He was transferred to the general floor care in stable condition. On POD2, patient did have a fever and developed tachycardia. Workup showed mild leukocytosis, and urine culture was positive for Pseudomonas aeruginosa. He was maintained on IV antibiotics until susceptibilities were available and then transitioned to PO antibiotics on the day of discharge. The postoperative course was otherwise uneventful. By the time of dismissal, the patient was ambulatory, tolerating an oral diet, and pain was controlled with oral medications. He met criteria for dismissal and was discharged home. DISMISSAL PHYSICAL EXAM: General: Alert, oriented. No acute distress. CV: Normal rate Pulm: Non-labored breathing on room air. Abdomen: Soft, non-tender, non-distended. Genitourinary: Catheter draining peach colored urine. Skin: No rashes. Extremities: Well perfused. No edema. Psychiatric: Appropriate affect. PATHOLOGY: Pending. Urology surgical team will follow-up on the results of the pathology and contact the patient as indicated. FOLLOW-UP: Patient requires follow-up as listed below: 1) UROLOGY follow-up on July 13 (with Dr. Medrano team), to review pathology and consider UCO/VT. 2) 10 day course of PO Levofloxacin. CONSULTS ORDERED DURING THIS ADMISSION None CONDITION AT DISCHARGE stable Discharge instructions were provided to the patient and caregiver(s). Total time spent in discharge services today: 30 minutes. documented in this encounter Discharge Instructions * Discharge Instructions* Frandy Bell - 07/10/2025 7:20 AM CDT You were discharged from the [facility] Urology - [facility] Service. Please identify this service name if you call with questions after hospitalization. * Attachments The following attachments cannot be sent through Care Everywhere. * Acetaminophen (By mouth) (Zambian) * Diazepam (By mouth) (Zambian) * Levofloxacin (By mouth) (Zambian) * Oxybutynin (By mouth) (Zambian) documented in this encounter Medications at Time of Discharge [...] the contact information provided to you. 07/07/2025 lcxa-nep-wyv-elodia -cpkh-usmz-rtl (Fiber 6) 1,000 mg tablet Take 1 [...] tablet 1 07/10/2025 3:39 PM CDT 07/07/2025 rosuvastatin (CRESTOR) 40 mg tablet Take 40 mg by mouth at bedtime. 12/19/2021 semaglutide (Wegovy) 1 mg/0.5 mL pen injector injection Inject 1 mg under the skin once a week. 04/24/2025 tadalafiL (CIALIS, ADCIRCA) 20 mg tablet Take 20 mg by mouth as needed. 02/05/2022 tamsulosin (Flomax) 0.4 mg 24 hr capsule Take 1 capsule (0.4 mg total) by mouth daily. 30 capsule 3 07/20/2025 UNABLE TO FIND Med Name: compounded semeglutide injection 1.5 mg weekly levoFLOXacin (Levaquin) 500 mg tabletIndication s:Hematuria Take 1 tablet (500 mg total) by mouth daily for 10 days. 10 tablet 07/10/2025 3:39 PM CDT 07/10/2025 5 lisinopriL 10 mg tablet Take 1 tablet by mouth as needed (traveling). 09/13/2013 5 methocarbamoL (Robaxin) 500 mg tablet Take 1 tablet by mouth 3 (three) times a day as needed. 06/20/2024 rivaroxaban (Xarelto) 20 mg tablet Take 1 tablet (20 mg total) by mouth as directed. You may resume taking your xarelto the following day after discharge from the hospital if your urine color is pink or gutter installer. If you are still experiencing a significant amount of blood in your urine after 5 days, please contact your the provider managing this medication before restarting your blood thinner. Any further questions can be directed to your Urology team using the contact information provided to you. For air related travel with history of travel related blood clots 07/10/2025 tamsulosin (Flomax) 0.4 mg 24 hr capsule Take 1 capsule (0.4 mg total) by mouth daily. 30 capsule 1 07/10/2025 3:39 PM CDT 07/10/2025 5 documented as of this encounter Progress Notes * On, Innocent U, M.T.S. - 07/10/2025 11:56 AM CDT [facility] Spiritual Care Progress Note Patient: Robert Balderas Age:64 y.o. Location: [id number] Reason(s) for encounter: Spiritual Care contact to introduce spiritual care service and assess for potential spiritual care needs. Summary: I was able to meet with Robert Balderas and his in the room. Noe was seated on his chair and interacting with his at the bedside. He was disposed for pastoral visit and connected well with the fish hatchery manager. Noe shared that he came to [place] from [place] for his treatment which has been progressing well. He expressed his gratitude for a successful surgery and noted that he was feeling a lot better and might be getting discharged today. Noe appreciated shared prayers from the fish hatchery manager for his continued healing. Spiritual Assessment Orthodoxy Identification / Spiritual Practices: Non specific Confucianist. Coping and support: Has a caring and supportive in the room at the time of the visit. Spiritual well-being, hopes and resources: The pastoral visit was well appreciated. Spiritual Needs and/or Concerns: None. Spiritual Care interventions: Introduced the role as member of the interdisciplinary care team and assessed spiritual care needs/concerns of patient and/or family Therapeutic and supportive listening was provided with the aim of allowing patient/family expression of emotions, hopes and worries regarding current medical condition and life stage. Facilitated nondenominational/spiritual practices (prayer, blessing, sacred texts, nondenominational item) with theaim to reinforce patient's spiritual wellness and connection with source of sacredness. Support was provided with the aim to establish rapport and allow a safe space to voice hopes and/orconcerns regarding patient's current medical condition. Spiritual Care outcomes: Patient/family became familiar with the role of spiritual care provider and identified spiritual care needs. Patient/family achieved a sense of spiritual peace. Patient/family expressed feeling comforted by prayer Patient/family was appreciative of spiritual care support. Spiritual Care Plan / Recommendations: Discharge pending; no further spiritual needs anticipated. Chaplains can be contacted by paging [phone] ([place]) or [phone] ([place]). * John Ernandez, Pharm.D., R.Ph. - 07/10/2025 7:23 AM CDT Pharmacist Progress Note Reason for admission: 64 y.o. male s/p transperineal prostate biopsy and limited transurethral resection of prostate on 07/07/2025. PMH: Hx DVT/PE, asthma, gout, hyperlipidemia, hypertension, anxiety, s/p nephrectomy OBJECTIVE Home medications: Held: allopurinol, semaglutide, aspirin Changed: none Patient own medications: none Review of Systems Neuro: Pain 2-3/10; scheduled acetaminophen, PRN oxycodone (no use yesterday), PRN ketorolac available CV: VSS GI: Senna-S, regular diet, IVF @ 100 mL/hr Renal: Scr 1.31, CrCl 79ml/min Heme: Hgb 12.9 g/dL ID: WBC 9.3, afebrile. Cultures: Blood from 07/08 NGTD, urine from 07/08 pseudomonas. Urine from 06/27/25 grew E Coli (amp resistant) - was being treated with cefdinir when admitted Prophylaxis: SCDs ASSESSMENT / PLAN Neuro Pain well controlled with current regimen of scheduled acetaminophen, PRN Ketorolac and PRN oxycodone ID Vancomycin and Zosyn previously started 07/08 for sepsis, vancomycin DC'd today 07/10, Zosyn continues. Awaiting susceptibilities on urine cx. Encourage transition to PO antibiotics when able. Heme Consider starting VTE prophylaxis when able - given hx of previous DVT/PE Changes to medications anticipated at discharge: TBD [place] 5-[place] [phone] with questions. John Ernandez PharmShe, R.Ph. * Carmen Skinnre M.D. - 07/10/2025 5:49 AM CDT UROLOGY PROGRESS NOTE ([facility]) Subjective Mr. Balderas is a 64 y.o. male who is s/p Transperineal prostate biopsy and limited Transurethral resection of the prostatic urethra on 07/07/2025 and is 3 Days Post-Op. No acute events overnight. Afebrile x 24 hours Catheter draining reliably, has been getting scheduled hand irrigations Tells me his pain is better, this was his 1st night without having bladder spasms Ambulatory Tolerating p.o. intake without nausea or vomiting Objective BP 108/72 (BP Location: Left arm;Upper, Patient Position: Semi-recumbent) Pulse 79 Temp 36.7 ??C (Oral) Resp 16 Ht 188.2 cm Wt 127 kg SpO2 94% BMI 35.86 kg/m?? Physical Exam General: Patient comfortably in bed. No acute distress. Neuro: Alert and oriented x3. Converses appropriately. No apparent focal deficit. Pulm: Non-labored breathing on room air. Abdomen: Soft, nondistended, nontender to palpation. Genitourinary: Go catheter in place draining peach-colored urine. Extremities: Warm and well-perfused. Lab Results Component Value Date NA 133 (L) 07/09/2025 CL 100 07/09/2025 BUN 17 07/09/2025 HGB 12.9 (L) 07/09/2025 HCT 37.5 (L) 07/09/2025 WBC 9.3 07/09/2025 Lab Results Component Value Date/Time CREATININE 1.31 07/09/2025 05:23 AM CREATININE 1.24 07/08/2025 07:23 PM CREATININE 1.13 06/16/2025 09:03 AM CREATININE 1.11 02/10/2024 08:13 AM CREATININE 1.22 03/21/2022 06:45 AM CREATININE 1.15 01/31/2021 11:48 PM CREATININE 1.01 01/21/2021 10:06 AM CREATININE 1.1 08/05/2016 07:43 AM Intake/Output Summary (Last 24 hours) at 07/10/2025 0550 Last data filed at 07/10/2025 0543 Gross per 24 hour Intake 6710 ml Output 8655 ml Net -1945 ml Pathology Pending Assessment & Plan: 1. S/P Transperineal prostate biopsy, limited Transurethral resection of the prostate 2. Post-operative pain Patient is 3 Days Post-Op. Hematuria has significantly improved from post-op as well as his post-operative pain. On POD2, patient did develop fever and tachycardia. Workup has been remarkable for Pseudomonas growing in the urine culture. Blood cultures are no growth to date. We are awaiting susceptibilities. Once we are able to transition to PO antibiotics, can consider discharge home. Hospital Summary: Diet: Regular. Activity: up as tolerated DVT PPX: SCDs GI PPX: not indicate Bowel Regimen: ordered IVF: LR, saline lock when PO intake >600cc Abx/Microbiology: Zosyn for now, susceptibilities pending Consults: none Lines/Drains/Tubes: 22 Croatian Go catheter, PIV The patient's chronic conditions and treatments are addressed and managed as they are as an outpatient, with exceptions related to the current reason for admission and as noted. Signed by: Carmen Skinner M.D. 07/10/2025 6:46 AM CDT * Ashli Braga PharmDiyaD., R.Ph., [facility] - 07/09/2025 11:05 AM CDT Pharmacist Progress Note Reason for admission: 64 y.o. male s/p transperineal prostate biopsy and limited transurethral resection of prostate on 07/07/2025. PMH: Hx DVT/PE, asthma, gout, hyperlipidemia, hypertension, anxiety, s/p nephrectomy OBJECTIVE Home medications: Held: allopurinol, semaglutide, aspirin Changed: none Patient own medications: none Review of Systems Neuro: Pain 2-03/21; scheduled acetaminophen, PRN oxycodone (20mg yesterday), PRN ketorolac available CV: BP 95/73, P 76; no CV meds GI: Senna-S Renal: Scr 1.31, 79ml/min Heme: Hgb 13.2 g/dL ID: WBC 14, cultures: pending(urine, blood), febrile overnight to 39.6 - started on Vancomycin 1500mg IV q12h, Zosyn 3.375gm IV q6h; Urine grew E Coli (amp resistant) from 06/27/25 - was being treatedwith cefdinir when admitted Prophylaxis: SCDs Vancomycin Vancomycin indication: Sepsis syndrome Goal trough: 10-15 mcg/mL Renal replacement therapy: None Estimated Creatinine Clearance: 79.5 mL/min (by C-G formula based on SCr of 1.31 mg/dL). No results found for: VANCOTROUGH, VANCORANDOM, VANCOPEAK ASSESSMENT / PLAN Neuro Pain well controlled with current regimen of scheduled acetaminophen, PRN Ketorolac and PRN oxycodone ID Febrile overnight - Vancomycin and Zosyn started, blood and urine cultures pending Will schedule vancomycin trough prior to the 4th dose on 07/10 AM Heme Consider starting VTE prophylaxis when able - given hx of previous DVT/PE Changes to medications anticipated at discharge: TBD [place] 5-[place] [phone] with questions. Ashli Braga Pharm.D., R.Ph., BCPS * Carmne Skinner M.D. - 07/08/2025 6:46 AM CDT UROLOGY PROGRESS NOTE ([facility]) Subjective Mr. Balderas is a 64 y.o. male who is s/p Transperineal prostate biopsy and limited Transurethral resection of the prostatic urethra on 07/07/2025 and is 1 Day Post-Op. No acute events overnight. He continued with q.4 hours hand irrigations. Tolerates them well. Does not tolerate tension on the catheter well. Ongoing feelings of fullness, despite the catheter draining well. He tells me that his pain is much improved compared to immediately postop. Tolerated ice cream last night without nausea/vomiting. Objective BP 123/81 (BP Location: Left arm;Upper, Patient Position: Lying) Pulse 82 Temp 36.9 ??C (Oral) Resp 16 SpO2 96% Physical Exam General: Patient comfortably in bed. No acute distress. Neuro: Alert and oriented x3. Converses appropriately. No apparent focal deficit. Pulm: Non-labored breathing on room air. Abdomen: Soft, nondistended, nontender to palpation. Genitourinary: Go catheter in place draining Manning colored urine. This irrigates to peach. Extremities: Warm and well-perfused. Lab Results Component Value Date NA 142 02/10/2024 CL 106 02/10/2024 BUN 15 02/10/2024 HGB 16.6 02/10/2024 HCT 48.7 (H) 02/10/2024 WBC 6.7 02/10/2024 Lab Results Component Value Date/Time CREATININE 1.13 06/16/2025 09:03 AM CREATININE 1.11 02/10/2024 08:13 AM CREATININE 1.22 03/21/2022 06:45 AM CREATININE 1.15 01/31/2021 11:48 PM CREATININE 1.01 01/21/2021 10:06 AM CREATININE 1.1 08/05/2016 07:43 AM CREATININE 1.1 09/13/2013 06:40 AM Intake/Output Summary (Last 24 hours) at 07/08/2025 0646 Last data filed at 07/08/2025 0536 Gross per 24 hour Intake 6670.17 ml Output 5730 ml Net 940.17 ml Pathology Pending Assessment & Plan: 1. S/P Transperineal prostate biopsy, limited Transurethral resection of the prostate 2. Post-operative pain Patient is 1 Day Post-Op. Pain is improved compared to immediately postop. Catheter has been reliably draining. We will see how his progress is this morning, and consider discharge later today. He should go home with hand irrigation teaching. Hospital Summary: Diet: Regular. Activity: up as tolerated DVT PPX: SCDs GI PPX: not indicate Bowel Regimen: ordered IVF: LR, saline lock when PO intake >600cc Abx/Microbiology: intraoperative antibiotics given Consults: none Lines/Drains/Tubes: 22 Croatian Go catheter, PIV The patient's chronic conditions and treatments are addressed and managed as they are as an outpatient, with exceptions related to the current reason for admission and as noted. Signed by: Carmen Skinner M.D. 07/08/2025 6:46 AM CDT documented in this encounter Nursing Notes * Sweetie Colbert RMagda. - 07/10/2025 3:24 PM CDT Shift Goals: Clinical Goals for the Shift: Patient will report adequate pain control. Identify possible barriers to meeting goals/advancing plan of care: none End of Shift Summary: goal met. Patient meets all discharge criteria. Patient completed all discharge education and all questions were answered. Patient left home self care with family. Electronically signed by: Sweetie Colbert R.N. 07/10/25 3:25 PM CDT documented in this encounter OR Notes * Op Note - Carmen Skinner M.D. - 07/07/2025 2:04 PM CDT Pre-op Diagnosis 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) Retention Urinary Post-op Diagnosis 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) Retention Urinary Adhesive Primer A assistant librarian actively participated and was necessary for one or more of the following: opening, exposure and visualization, maintaining hemostasis, wound closure resulting in its safe and expeditious completion. Findings 1. Uncomplicated transperineal prostate biopsy, systematic sampling. 2. Digital rectal exam revealed several nodules on bilateral lobes, and prostate was firm to palpation throughout. Nodules involved bilateral lobes certainly. 3. External exam revealed significant, firm calcification on dorsal aspect of penile shaft. Consistent with significant Peyronie's plaque. 4. Cystoscopy revealed abnormal, somewhat necrotic and fluffy mucosa in the prostatic urethra, concentrated more towards the apex of the prostate. It appeared more prostatic in origin than urothelial. 5. Bladder appeared normal on cystoscopy. 6. Limited resection of the prostatic urethra performed, urethral channel was much more wide open than previously at the end of this. Tissue sent for histopathological examination. 7. Placement of 22 Croatian three-way catheter. PLAN: - Admit overnight for observation given significant bladder spasms/pain in PACU - Follow up appointment next , [address] Medrano team to review pathology; UCO/VTordered for that day should they decide to pursue catheter removal at that time Complications None Operative Note Narrative PART 1: Transperineal prostate biopsy After appropriate informed consent was signed patient was brought to the operative suite. Followinginduction of intravenous sedation patient was prepped and draped in dorsal lithotomy position. Surgical time-out was performed identifying the patient by 2 identifiers and verifying that he received a ppropriate preoperative antibiotics. Legs had been supported in Yellofin stirrups. Approximately 10cc of lubricant jelly was instilled into the rectum a digital rectal exam was performed which demonstrated diffuse nodularity throughout bilateral lobes, the prostate was also quite fixed in nature. The perineum was prepped with a ChloraPrep stick. A 50:50 mixture of 1% lidocaine and 0.25% bupivacaine was infiltrated subcutaneously in the perineum. The B and K ultrasound transducer was inserted into the rectum. Prostate diagnostic ultrasonography was performed. An apical prostate block was performed by depositing the same lidocaine/bupivacaine mixture in the bilateral apical shanna- prostatic tissues. We then proceeded to obtain measurements and save ultrasound images. The patient had previously undergone a prostate MRI which revealed a large PI- RADS 5 lesion centered within the right posterolateral peripheral zone extending from the base to the apex of the prostatic gland. Biopsy Type: Systematic 12 Core Biopsy There were hypoechoic lesions identified at the posterior aspect of the prostate, likely consistentwith nodules felt on ZEINA. Measurements were taken of the prostate and saved as images, gland was large, and was difficult to fully visualize given the size and diffuse calcifications throughout. Biopsies were taken through the perineum using the Pivot Pro transperineal needle guide.. Guest Room Attendant systematic biopsies were taken in a templated fashion. ??6 left-sided systematic biopsies wereobtained. ??6 right-sided systematic biopsies were obtained. A total of 12 biopsies were obtained during the procedure. Each core location was captured with still ultrasound images in the transverse view. ?? The ultrasound transducer was removed, pressure was applied to the perineum followed by a sterile dressing. There was no obvious hematoma or bleeding. The patient tolerated the procedure well and wasawakened from anesthesia and taken to the post-operative area in satisfactory condition. PART 2: Transurethral resection of the prostate, limited The patient was then prepped and draped in the standard sterile fashion. Surgical pause was performed again, identified in the patient and confirming antibiotic administration. Of note, external examrevealed a significant firm calcification, roughly 2-3 cm, on the dorsal aspect of the penile shaft. These appears to be consistent with significant Peyronie's plaque. We then proceeded with rigid cystoscopy. The anterior urethra was normal in appearance. Upon entering the prostatic urethra, diffuse abnormal appearing mucosa was seen. No obvious papillary changes, the tissue appeared fluffy and somewhat necrotic in nature. It was somewhat difficult to traverse this area given how fixed it felt. The abnormal mucosa seemed to be more concentrated towards the apex of the prostate, and the base was relatively spared/area near the bladder neck. We are eventually able to enter into the bladder. The bladder was then inspected systematically. No tumors or lesions concerning for malignancy. Again,the bladder neck was relatively spared of this abnormal mucosa. Bilateral ureteral orifices were inorthotopic position. We then opted to pursue limited resection of the prostatic urethra to obtain tissue diagnosis and to improve his outlet. The urethra was serially dilated using the Aaron dilators to 30 Croatian. The 27 Croatian resectoscope was then advanced into the bladder under direct vision. Using the loop electrocautery, a limited resection of the area was performed until enough tissue for histopathological examination was obtained and until an improved outlet channel was seen. The abnormal mucosa seemed to be more concentrated towards the apex of the prostate, and the base was relatively spared/area near the bladder neck. Hemostasis was then obtained using the loop electrocautery. The bladder was then partially drained under direct visualization, revealing excellent hemostasis. The tumor fragments were evacuated through the resectoscope and sent for histopathological examination. A 22 Croatian three-way catheter was then advanced into the bladder. 30 cc was instilled into the balloon. This irrigated to pink tinged. The catheter was then placed on tension. A belladonna and opiumsuppository was inserted into the rectum. Patient was then awoken from anesthesia and transferred to the recovery room in stable condition. Carmen Skinner M.D. Cosigned by Pankaj Johnson M.D., M.S. at 07/10/2025 8:36 AM CDT documented in this encounter Miscellaneous Notes * Documentation Clarification - Carmen Skinner M.D. - 07/10/2025 3:38 PM CDT PROVIDER RESPONSE TEXT: To clarify, the appropriate diagnosis supported by the clinical indicators: Urinary tract infection QUERY TEXT: Clarification DOCUMENTATION CLARIFICATION REQUEST Please clarify/specify the appropriate diagnosis supported in the clinical indicators below. Clinical Indicators/Risk Factors/Treatment: The patient is a 64-year-old man admitted on 07/07 for a transperineal prostate biopsy and limited transurethral resection of the prostate. He has a past medical history of bladder cancer, hypertension, CAD, hyperlipidemia, chronic peripheral venous insufficiency, mild intermittent asthma, gout, depression, anxiety, obesity and a history of falling. (07/10 H&P - Froy Worrell, GERMINATION WORKER, INFORMATION DELIVERY ANALYST). Clinician Notes: Per the 07/09 Pharmacist progress note (Froy Braga Pharm.D., R.Ph., [facility]), ?ID: [id number], cultures: pending(urine, blood), febrile overnight to 39.6 - started on Vancomycin 1500mg IV q12h, Zosyn 3.375gm IV q6h; Urine grew E Coli (amp resistant) from 06/27/25 - was being treated with cefdinir when admitted; Febrile overnight - Vancomycin and Zosyn started, blood and urine cultures pending.? ?On POD2, patient did have a fever and developed tachycardia. Workup showed mild leukocytosis, and urine culture was positive for Pseudomonas aeruginosa. He was maintained on IV antibiotics until susceptibilities were available and then transitioned to PO antibiotics on the day of discharge.?(07/10 URO Discharge Note - Dr. Skinner). Options provided: -- Urinary tract infection -- Other - I will add my own diagnosis -- Disagree - Clinically unable to determine / Unknown -- Refer to Clinical Documentation Reviewer Query created by: Francie Mccarty on 07/12/2025 3:45 PM Electronically signed by: Carmen Skinner M.D. 07/13/2025 8:30 PM * Hospital Course - Carmen Skinner M.D. - 07/07/2025 7:04 PM CDT PROCEDURE Patient underwent transperineal prostate biopsy, and limited Transurethral resection of the prostate on 07/07/[address] Johnson. Procedure was performed without complication. HOSPITAL COURSE Following the procedure, the patient was transferred to the PACU in stable condition. He experienced significant bladder spasms and uncontrolled pain, so he was admitted for further observation and pain control management. He was transferred to the general floor care in stable condition. On POD2, patient did have a fever and developed tachycardia. Workup showed mild leukocytosis, and urine culture was positive for Pseudomonas aeruginosa. He was maintained on IV antibiotics until susceptibilities were available and then transitioned to PO antibiotics on the day of discharge. The postoperative course was otherwise uneventful. By the time of dismissal, the patient was ambulatory, tolerating an oral diet, and pain was controlled with oral medications. He met criteria for dismissal and was discharged home. DISMISSAL PHYSICAL EXAM: General: Alert, oriented. No acute distress. CV: Normal rate Pulm: Non-labored breathing on room air. Abdomen: Soft, non-tender, non-distended. Genitourinary: Catheter draining peach colored urine. Skin: No rashes. Extremities: Well perfused. No edema. Psychiatric: Appropriate affect. PATHOLOGY: Pending. Urology surgical team will follow-up on the results of the pathology and contact the patient as indicated. FOLLOW-UP: Patient requires follow-up as listed below: 1) UROLOGY follow-up on July 13 (with Dr. Medrano team), to review pathology and consider UCO/VT. 2) 10 day course of PO Levofloxacin. documented in this encounter Plan of Treatment Upcoming Encounters Date Type Department Care Team (Latest Contact Info) Description 08/02/2025 12:45 PM CDT Clinical Communication Virtual Review in [address] [phone] 08/03/2025 1:00 PM CDT Telemedicine Department of Palliative Care in [address] [phone] Sachi De Leon B.M.B.S., B.M., B.Ch. [address] [place] [phone] 08/14/2025 10:30 AM LONG LINE TEAMSTER Procedure visit Department of Urology in [address] [phone] Orion Mendoza, LIANNE, P.A.-C. [address] [place] [phone] documented as of this encounter Procedures Procedure Name Priority Date/Time Associated Diagnosis Comments CBC WITHOUT DIFFERENTIAL, B Routine 07/09/2025 11:55 PM CDT ADULT OXYGEN THERAPY Routine 07/09/2025 8:00 AM CDT PULSE OXIMETRY WITH REMOTE OVERVIEW STAT 07/09/2025 8:00 AM CDT CBC WITHOUT DIFFERENTIAL, B Routine 07/09/2025 5:23 AM CDT BASIC METABOLIC PANEL, S/P Routine 07/09/2025 5:23 AM CDT LACTATE, B/P Routine 07/08/2025 11:36 PM CDT ADULT OXYGEN THERAPY Routine 07/08/2025 8:01 PM CDT PULSE OXIMETRY WITH REMOTE OVERVIEW STAT 07/08/2025 8:01 PM CDT PULSE OXIMETRY WITH REMOTE OVERVIEW STAT 07/08/2025 7:30 PM CDT PULSE OXIMETRY WITH REMOTE OVERVIEW STAT 07/08/2025 7:30 PM CDT PULSE OXIMETRY WITH REMOTE OVERVIEW STAT 07/08/2025 7:30 PM CDT LACTATE FOR SEPSIS WITH REFLEX STAT 07/08/2025 7:23 PM CDT BACTERIA / CATHY CULTURE, BLOOD STAT 07/08/2025 7:23 PM CDT CBC WITHOUT DIFFERENTIAL, B STAT 07/08/2025 7:23 PM CDT BASIC METABOLIC PANEL, S/P STAT 07/08/2025 7:23 PM CDT BACTERIA / CATHY CULTURE, BLOOD STAT 07/08/2025 7:11 PM CDT DX CHEST PORTABLE 1 VIEW RAD - Semiurgent (Fast; most ED patients; some inpatients) 07/08/2025 6:58 PM CDT HC OSMOLALITY ASSAY URINE Routine 07/08/2025 6:40 PM CDT DIPSTICK, U Routine 07/08/2025 6:40 PM CDT PH, RANDOM, U Routine 07/08/2025 6:40 PM CDT MICROSCOPIC MANUAL Routine 07/08/2025 6: 40 PM CDT BACTERIAL CULTURE, AEROBIC + SUSC, URINE Routine 07/08/2025 6:40 PM CDT URINALYSIS WITH MICROSCOPIC Routine 07/08/2025 6:40 PM CDT ADULT OXYGEN THERAPY Routine 07/08/2025 8:01 AM CDT ADULT OXYGEN THERAPY Routine 07/07/2025 8:00 PM CDT ADULT OXYGEN THERAPY Routine 07/07/2025 6:41 PM CDT ADULT OXYGEN THERAPY Routine 07/07/2025 6:41 PM CDT SURGICAL PATHOLOGY Routine 07/07/2025 1: 49 PM CDT 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) Retention Urinary CYSTOSCOPY WITH TRANSURETHRAL PROSTATECTOMY 07/07/2025 1:28 PM CDT 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 documented in this encounter Results * (ABNORMAL) CBC without Differential (07/09/2025 11:55 PM CDT) Hemoglobin 12.9(L) 13.2 - 16.6 g/dL 07/10/2025 12:08 AM CDT DTL Hematocrit 37.5(L) 38.3 - 48.6 % 07/10/2025 12:08 AM CDT DTL Erythrocytes 4.22(L) 4.35 - 5.65 x10(12)/L 07/10/2025 12:08 AM CDT DTL MCV 88.9 78.2 - 97.9 fL 07/10/2025 12:08 AM CDT DTL RBC Distrib Width 12.7 11.8 - 14.5 % 07/10/2025 12:08 AM CDT DTL Platelet Count 136 135 - 317 x10(9)/L 07/10/2025 12:57 AM CDT DTL Leukocytes 9.3 3.4 - 9.6 x10(9)/L 07/10/2025 12:57 AM CDT DTL Blood (Blood, Venous) 07/09/2025 11:55 PM CDT 07/10/2025 12:04 AM CDT us Carmen Skinner M.D. LAB BLOOD ADD-ON Final Res ult [facility] [place] [address] [place] [address], [facility] [address] [place] [address] * (ABNORMAL) Basic Metabolic Panel (07/09/2025 5:23 AM CDT) Potassium, S 3.8 3.6 - 5.2 mmol/L 07/09/2025 6:32 AM CDT DTL Sodium, S 133(L) 135 - 145 mmol/L 07/09/2025 6:32 AM CDT DTL Chloride, S 100 98 - 107 mmol/L 07/09/2025 6:32 AM CDT DTL Bicarbonate, S 20(L) 22 - 29 mmol/L 07/09/2025 6:32 AM CDT DTL Anion Gap 13 7 - 15 07/09/2025 6:32 AM CDT DTL BUN (Blood Urea Nitrogen), S 17 8 - 24 mg/dL 07/09/2025 6:32 AM CDT DTL Creatinine 1.31 0.74 - 1.35 mg/dL 07/09/2025 6:32 AM CDT DTL Estimated GFR (eGFR) 60 >=60 mL/min/BSA 07/09/2025 6:32 AM CDT DTL Comment: Estimated GFR calculated using the 2020 CKD_EPI creatinine equation. Calcium, Total, S 8.6(L) 8.8 - 10.2 mg/dL 07/09/2025 6:32 AM CDT DTL Glucose, S 132 70 - 140 mg/dL 07/09/2025 6:32 AM CDT DTL Blood (Blood, Venous) 07/09/2025 5:23 AM CDT 07/09/2025 6:17 AM CDT Augustus Cilne M.D. LAB BLOOD ADD-ON Final Result Performing Organization Address [facility]/ZIP Co de Phone Number [facility] [place] [address] DTL [facility] [address] [place] [address] * (ABNORMAL) CBC without Differential (07/09/2025 5:23 AM CDT) Pathologist [facility] Hemoglobin 13.2 13.2 - 16.6 g/dL 07/09/2025 6:08 AM CDT DTL Hematocrit 37.1(L) 38.3 - 48.6 % 07/09/2025 6:08 AM CDT DTL Erythrocytes 4.23(L) 4.35 - 5.65 x10(12)/L 07/09/2025 6:08 AM CDT DTL MCV 87.7 78.2 - 97.9 fL 07/09/2025 6:08 AM CDT DTL RBC Distrib Width 12.6 11.8 - 14.5 % 07/09/2025 6:08 AM CDT DTL Platelet Count 137 135 - 317 x10(9)/L 07/09/2025 6:08 AM CDT DTL Leukocytes 14.0(H) 3.4 - 9.6 x10(9)/L 07/09/2025 6:08 AM CDT DTL Blood (Blood, Venous) 07/09/2025 5:23 AM CDT 07/09/2025 5:59 AM CDT us Augustus Cline M.D. LAB BLOOD ADD-ON Final Result Performing Organization Address City/[facility]/ZIP Co de Phone Number [facility] [place] [address] [place], [place] [id number] [place] [address] DTL [facility] [address] [place] [address] * Lactate (07/08/2025 11:36 PM CDT) Pathologist [facility] Lactate, P 1.0 0.5 - 2.2 mmol/L 07/09/2025 12:46 AM CDT DTL Blood (Blood, Venous) 07/08/2025 11:36 PM CDT 07/09/2025 12:35 AM CDT Augustus Cline M.D. LAB BLOOD NON ADD-ON Final Re sult Performing Organization Address City/[facility]/ZIP Co de Phone Number [facility] [place] [address] [place] [address] * Bacteria / Cathy Culture, Blood #1 (07/08/2025 7:23 PM CDT) [facility] Bacteria/Genesis da Culture, Blood No growth after 5 days of incubation. 07/13/2025 8:02 PM CDT DT Blood (Blood, Peripheral Draw) 07/08/2025 7:23 PM CDT 07/08/2025 7:47 PM CDT Comment:Specimen Source Site : Blood us Augustus Cline M.D. LAB MICROBIOLOGY - GENERAL OR DERABLES Final Result Performing Organization Address [facility] Co de Phone Number [facility] [place] [address] [place] [address] * Lactate for Sepsis with Reflex (07/08/2025 7:23 PM CDT) Pathologist [facility] Lactate, P 1.9 0.5 - 2.2 mmol/L 07/08/2025 8:16 PM CDT DTL Blood (Blood, Venous) 07/08/2025 7:23 PM CDT 07/08/2025 7:59 PM CDT us Augustus Cline M.D. LAB BLOOD NON ADD-ON Final Re sult Performing Organization Address City/[facility]/ZIP Co de Phone Number [facility] [place] [address] [place] [address], [facility] DTL [facility] [address] [place] [address] * (ABNORMAL) Basic Metabolic Panel (07/08/2025 7:23 PM CDT) Pathologist [facility] Potassium, P 4.9 3.6 - 5.2 mmol/L 07/08/2025 7:51 PM CDT M[facility] Sodium, P 133(L) 135 - 145 mmol/L 07/08/2025 7:51 PM CDT M[facility] Chloride, P 97(L) 98 - 107 mmol/L 07/08/2025 7:51 PM CDT METH Bicarbonate, P 21(L) 22 - 29 mmol/L 07/08/2025 7:51 PM CDT M[facility] Anion Gap, P 15 7 - 15 07/08/2025 7:51 PM CDT M[facility] BUN (Blood Urea Nitrogen), P 19 8 - 24 mg/dL 07/08/2025 7:51 PM CDT M[facility] Creatinine 1.24 0.74 - 1.35 mg/dL 07/08/2025 7:51 PM CDT METH Estimated GFR (eGFR) 65 >=60 mL/min/BSA 07/08/2025 7:51 PM CDT METH Comment: Estimated GFR calculated using the 2020 CKD_EPI creatinine equation. Calcium, Total, P 9.1 8.8 - 10.2 mg/dL 07/08/2025 7:51 PM CDT METH Glucose, P 133 70 - 140 mg/dL 07/08/2025 7:51 PM CDT METH Blood (Blood, Venous) 07/08/2025 7:23 PM CDT 07/08/2025 7:32 PM CDT Augustus Cline M.D. LAB BLOOD ADD-ON Final Result [facility] [place] [address] [place] [address], [facility] METH [facility] [address] [place] [address] * (ABNORMAL) CBC without Differential (07/08/2025 7:23 PM CDT) Pathologist [facility] Hemoglobin 14.8 13.2 - 16.6 g/dL 07/08/2025 7:34 PM CDT METH Hematocrit 42.0 38.3 - 48.6 % 07/08/2025 7:34 PM CDT METH Erythrocytes 4.74 4.35 - 5.65 x10(12)/L 07/08/2025 7:34 PM CDT METH MCV 88.6 78.2 - 97.9 fL 07/08/2025 7:34 PM CDT METH RBC Distrib Width 12.6 11.8 - 14.5 % 07/08/2025 7:34 PM CDT METH Platelet Count 147 135 - 317 x10(9)/L 07/08/2025 7:34 PM CDT METH Leukocytes 13.9(H) 3.4 - 9.6 x10(9)/L 07/08/2025 7:34 PM CDT METH Blood (Blood, Venous) 07/08/2025 7:23 PM CDT 07/08/2025 7:32 PM CDT us Augustus Cline M.D. LAB BLOOD ADD-ON Final Result [facility] [place] [address] [place] [address], [place] METH [facility] [address] [place] [address] * Bacteria / Cathy Culture, Blood #2 (07/08/2025 7:11 PM CDT) Pathologist [facility] Bacteria/Genesis da Culture, Blood No growth after 5 days of incubation. 07/13/2025 8:02 PM CDT DTL Blood (Blood, Peripheral Draw) 07/08/2025 7:11 PM CDT 07/08/2025 7:48 PM CDT Comment:Specimen Source Site : Blood Narrative [facility] [place] - 07/13/2025 8:02 PM CDT Received Bactec aerobic and Bactec anaerobic bottles us Augustus TylerD. LAB MICROBIOLOGY - GENERAL OR DERABLES Final Result [facility] [address] [place] [address], [place] [facility] [address] [place] [address] * DX Chest Portable 1 View (07/08/2025 6:58 PM CDT) Anatomical Region Laterality Modality Chest, Thoracic RST LOS, Tho racic ARZ LOS, Thoracic FLA LOS N/A Digital Radiography Impressions 07/08/2025 7:36 PM CDT Since 03/21/2022, shallower inspiration which accentuates the cardiac silhouette and pulmonary vasculature. Patchy perihilar and bibasilar opacities, which are nonspecific and may represent an infectious/inflammatory process, volume overload, or subsegmental atelectasis. Remainder not substantially changed. Narrative 07/08/2025 7:36 PM CDT EXAM: DX CHEST PORTABLE 1 VIEW Procedure Note Jorje Kahn M.D. - 07/08/2025 EXAM: DX CHEST PORTABLE 1 VIEW IMPRESSION: Since 03/21/2022, shallower inspiration which accentuates the cardiacsilhouette and pulmonary vasculature. Patchy perihilar and bibasilaropacities, which are nonspecific and may represent aninfectious/inflammatory process, volume overload, or subsegmentalatelectasis. Remainder not substantially changed. Augustus Cline M.D. IMG DIAGNOSTIC IMAGING PROCED URES Final Result * (ABNORMAL) Dipstick, Urine (07/08/2025 6:40 PM CDT) Hemoglobin, QL, U Large(A) Negative 07/08/2025 7:04 PM CDT DTL Leukocyte Esterase, U Large(A) Negative 07/08/2025 7:04 PM CDT DTL Nitrite, U Positive(A) Negative 07/08/2025 7:04 PM CDT DTL Ketone, U Negative Negative mg/dL 07/08/2025 7:04 PM CDT DTL Glucose, U Negative Negative mg/dL 07/08/2025 7:04 PM CDT DTL Urine 07/08/2025 6:40 PM CDT 07/08/2025 6:56 PM CDT us Augustus Cline M.D. LAB URINE ORDERABLES Final Re sult Performing Organization Address City/[facility]/ZIP Co de Phone Number [facility] [place] [address] [place] [address] * pH, Random, Urine (07/08/2025 6:40 PM CDT) pH, Random, U 5.9 4.5 - 8.0 07/08/2025 7:23 PM CDT DT Urine 07/08/2025 6:40 PM CDT 07/08/2025 6:56 PM CDT us Augustus Cline M.D. LAB URINE ORDERABLES Final Re sult Performing Organization Address City/[facility]/ZIP Co de Phone Number [facility] [place] [address] [place] [address] * Osmolality, Urine (07/08/2025 6:40 PM CDT) Osmolality, U 588 150 - 1150 mOsm/kg 07/08/2025 7:23 PM CDT DT Urine 07/08/2025 6:40 PM CDT 07/08/2025 6:56 PM CDT us Augustus Cline M.D. LAB URINE ORDERABLES Final Re sult [facility] [place] [address] [place] [address] * (ABNORMAL) Microscopic Manual (07/08/2025 6:40 PM CDT) Microscopy Abnormal 07/08/2025 7:42 PM CDT DTL RBC >100(A) <3 /hpf 07/08/2025 7:42 PM CDT DTL Dysmorphic RBC <25 <25 % 07/08/2025 7:42 PM CDT DTL WBC 21-30(A) /hpf 07/08/2025 7:42 PM CDT DTL Comment: ----REFERENCE VALUE---- <4 (Males) <11 (Females) Urine 07/08/2025 6:40 PM CDT 07/08/2025 6:56 PM CDT Augustus Cline M.D. LAB URINE ORDERABLES Final Re sult [facility] [place] [address] [place] [address], [facility] [address] [place] [address] * (ABNORMAL) Bacterial Culture, Aerobic + Susceptibility, Urine (07/08/2025 6:40 PM CDT) Pathologist [facility] Urine Culture PSEUDOMONAS AERUGINOSA 10,000-100,000 cfu/mL (A) 07/10/2025 1:00 PM CDT DTL Comment: Gentamicin should not be used for P. aeruginosa. There are no gentamicin breakpoints for P. aeruginosa. Urine (Urine, Indwelling Catheter) 07/08/2025 6:40 PM CDT 07/08/2025 7:13 PM CDT Comment:Specimen Source Site : Urine Narrative Organism Antibiotic Method Susceptibility Pseudomonas aeruginosa Meropenem SUSCEPTIB ILITY, EMILY (MCG/ML) 1 mcg/mL: Susceptible Pseudomonas aeruginosa Piperacillin + Tazobactam SUSCEPTIBILITY, EMILY (MCG/ML) <=8/4 mcg/mL: Susceptible Pseudomonas aeruginosa Ciprofloxacin SUSCEPTIB ILITY, EMILY (MCG/ML) <=0.25 mcg/mL: Susceptible Pseudomonas aeruginosa Levofloxacin SUSCEPTIB ILITY, EMILY (MCG/ML) 1 mcg/mL: Susceptible Pseudomonas aeruginosa Ceftazidime SUSCEPTIB ILITY, EMILY (MCG/ML) <=4 mcg/mL: Susceptible Pseudomonas aeruginosa Cefepime SUSCEPTIB ILITY, EMILY (MCG/ML) 4 mcg/mL: Susceptible Pseudomonas aeruginosa Amikacin SUSCEPTIB ILITY, EMILY (MCG/ML) <=4 mcg/mL: Susceptible Pseudomonas aeruginosa Tobramycin SUSCEPTIB ILITY, EMILY (MCG/ML) <=1 mcg/mL: Susceptible Pseudomonas aeruginosa Aztreonam SUSCEPTIB ILITY, EMILY (MCG/ML) 8 mcg/mL: Susceptible Augustus Cline M.D. LAB MICROBIOLOGY - GENERAL OR DERABLES Final Result Performing Organization Address [facility] Co de Phone Number [facility] [place] [address] [place] [address], [facility] DTL [facility] [address] [place] [address] * (ABNORMAL) Urinalysis, with Microscopic: Urine, Indwelling Catheter (07/08/2025 6:40 PM CDT) Source Urine, Urine, Indwelling Catheter 07/08/2025 6:56 PM CDT DTL Color, U Red(A) 07/08/2025 6:56 PM CDT DTL Clarity, U Cloudy(A) 07/08/2025 6:56 PM CDT DTL Protein, U 337(H) <26 mg/dL 07/08/2025 7:49 PM CDT DTL Protein/Osmol ality 5.73(H) <0.42 ratio 07/08/2025 7:49 PM CDT DTL Predicted 24 HR Protein, U 4972(H) <229 mg/24 h 07/08/2025 7:49 PM CDT DTL Predicted Range 1578-54256 mg/24 h 07/08/2025 7:49 PM CDT DTL Comment Micro done on <2.5 mL 07/08/2025 7:42 PM CDT DTL Urine (Urine, Indwelling Catheter) 07/08/2025 6:40 PM CDT 07/08/2025 6:56 PM CDT us Augustus Cline M.D. LAB URINE ORDERABLES Final Re sult Performing Organization Address [facility]/ZIP Co de Phone Number [facility] [place] [address] [place] [address], [facility] DTL [facility] [address] [place] [address] * Surgical Pathology (07/07/2025 1:49 PM CDT) 07/13/2025 5:46 AM CDT DTL Participated in the Interpretation Tresa Camejo., Ph.D.-Pathology Resident 07/13/2025 5:46 AM CDT DTL Report electronically signed by Mindi Jay M.D I verify that I have examined all relevant slides/materials for the specimen(s) and rendered or confirmed the diagnosis. 07/13/2025 5:46 AM CDT DTL Gross Description A: Received on a biopsy board filled with formalin labeled with the patient's name, medical record number, and specific prostate sites aresix oriented pink nash tissue cores. A. Received within the first well is a fragmented core 1.8 cm in length labeled right posterior medial apex, prostate per biopsy board. B. Received within the second well is a fragmented core 1.8 cm in length labeled right posterior medial base, prostate per biopsy board.The core is inked green. C. Received within the third well is a complete core 1.6 cm in length labeled right posterior lateral apex, prostate per biopsy board. Thecore is inked blue. Specimens A, B, & C are submitted in cassette A1. D. Received within the fourth well is a fragmented core 2.1 cm in length labeled right posterior lateral base, prostate per biopsy board. E. Received within the fifth well is a fragmented core 2.0 cm in length labeled right anterior horn, prostate per biopsy board. The core isinked green. F. Received within the sixth well is a complete core 1.7 cm in length labeled right anterior apex, prostate per biopsy board. The core isinked blue. Specimens D, E, & F are submitted in cassette D1. Grossed by AJB. G: Received on a biopsy board filled with formalin labeled with the patient's name, medical record number, and specific prostate sites aresix oriented pink nash tissue cores. G. Received within the first well is a fragmented core 1.5 cm in length labeled left posterior medial apex, prostate per biopsy board. H. Received within the second well is a fragmented core 1.7 cm in length labeled left posterior medial base, prostate per biopsy board.The core is inked green. I. Received within the third well is a complete core 1.8 cm in length labeled left posterior lateral apex, prostate per biopsy board. Thecore is inked blue. Specimens G, H, & I are submitted in cassette G1. J. Received within the fourth well is a complete core 1.9 cm in length labeled left posterior lateral base, prostate per biopsy board. K. Received within the fifth well is a complete core 1.6 cm in length labeled left anterior horn, prostate per biopsy board. The core isinked green. L. Received within the sixth well is a complete core 1.5 cm in length labeled left anterior apex, prostate per biopsy board. The core isinked blue. Specimens J, K, & L are submitted in cassette J1. Grossed by AJB. M: Received in formalin labeled with the patient's name, medical record number, and prostatic urethra is a 2.1 g, 3.5 x 3.0 x 0.5 cmaggregate of multiple nash-pink rubbery tissue fragments. The specimen is entirely submitted as received in M1. Luna Linder M.S., PA([facility]) 07/13/2025 5:46 AM CDT DTL Addendum Stains performed at [facility] with antibodies against chromogranin, synaptophysin, AR, Rb, p53 and cyclin D1 on block M1 demonstrate diffuse expression with AR, wild-type pattern of expression for p53 and essentially negative staining for the remaining markers. This test was developed and its performance characteristics determined by [facility] in a manner consistent with CLIA requirements. This test has not been cleared or approved by the U.S. Food and Drug Administration. Test results for (IHC or MELISSA) testing are valid for specimens fixed between 6 and 72 hours. Delay to fixation, under fixation or over fixation fall outside of guidelines and may affect these results. 07/16/2025 7:22 PM CDT DTL Comment:REVISED RESULTS Interpretation FINAL DIAGNOSIS A. Prostate, right posterior medial apex, needle core biopsy: Prostatic adenocarcinoma Type: Acinar Grade Group and Radha score: Grade Group 4 ([place] Score 4+4=8) Percentage of pattern 4: NA Tumor involves 100% of overall specimen in a discontinuous pattern (1 of 1 core). B. Prostate, right posterior medial base, needle core biopsy: Prostatic adenocarcinoma Type: Acinar Grade Group and Radha score: Grade Group 4 ([place] Score 4+4=8) Percentage of pattern 4: NA Tumor involves 100% of overall specimen in a discontinuous pattern (1 of 1 core). C. Prostate, right posterior lateral apex, needle core biopsy: Prostatic adenocarcinoma Type: Acinar Grade Group and [place] score: Grade Group 4 (Radha Score 4+4=8) Percentage of pattern 4: NA Tumor involves 60% of overall specimen (1 of 1 cores). Extraprostatic extension present. Focus suspicious for angiolymphatic invasion. COMMENT Immunohistochemica l stains of NKX3.1, p63, PSA, and uroplakin were performed on block A at [facility]. The neoplastic cells are positive for NKX3.1, while negative for the remaining markers. A CD31 highlights the vasculature and demonstrates a focus suspicious for lymphovascular invasion. D. Prostate, right posterior lateral base, needle core biopsy: Benign fibromuscular tissue. E. Prostate, right anterior horn, needle core biopsy: Prostatic adenocarcinoma Type: Acinar Grade Group and [place] score: Grade Group 4 (Radha Score 4+4=8) Percentage of pattern 4: NA Tumor discontinuously involves 100% of overall specimen (1 of 1 core). F. Prostate, right anterior apex, needle core biopsy: Prostatic adenocarcinoma Type: Acinar Grade Group and Radha score: Grade Group 4 ([place] Score 4+4=8) Percentage of pattern 4: NA Tumor involves 85% of overall specimen in a discontinuous pattern (1 of 1 core). Suspicious for angiolymphatic invasion G. Prostate, left posterior medial apex, needle core biopsy: Prostatic adenocarcinoma Type: Acinar Grade Group and [place] score: Grade Group 4 (Radha Score 4+4=8) Percentage of pattern 4: NA Tumor involves 100% of overall specimen (1 of 1 core). H. Prostate, left posterior medial base, needle core biopsy: Prostatic adenocarcinoma Type: Acinar Grade Group and Radha score: Grade Group 5 ([place] Score 4+5=9) Percentage of pattern 4: NA Tumor involves 60% of overall specimen (1 of 1 core). I. Prostate, left posterior lateral apex, needle core biopsy: Prostatic adenocarcinoma Type: Acinar Grade Group and Radha score: Grade Group 4 ([place] Score 4+4=8) Percentage of pattern 4: 50-75% Tumor involves 100% of overall specimen in a discontinuous pattern (1 of 1 core). J. Prostate, left posterior lateral base, needle core biopsy: Prostatic adenocarcinoma Type: Acinar Grade Group and Radha score: Grade Group 4 (Radha Score 4+4=8) Percentage of pattern 4: NA Tumor involves 80% of overall specimen in a discontinuous pattern (1 of 1 core). K. Prostate, left anterior horn, needle core biopsy: Prostatic adenocarcinoma Type: Acinar Grade Group and Radha score: Grade Group 5 ([place] Score 4+5=9) Tumor involves 40% of overall specimen (1 of 1 core). Perineural invasion presents L. Prostate, left anterior apex, needle core biopsy: Prostatic adenocarcinoma Type: Acinar Grade Group and Radha score: Grade Group 4 ([place] Score 4+4=8) Tumor involves 20% of overall specimen (1 of 1 core). M. Urethra, prostatic, biopsy: Prostatic adenocarcinoma Type: Acinar Grade Group and [place] score: Grade Group 5 ([place] Score 4+5=9) Percentage of pattern 4: 50-75% Tumor involves 30% of overall specimen Benign nodular hyperplasia is also noted. COMMENT Immunohistochemica l stains of CK20, NKX3.1, p63, PSA, and uroplakin were performed on block M at [facility]. The neoplastic cells are positive for NKX3.1, while are negative for the remaining markers. Digital imaging was used in the diagnostic assessment of this case. 07/16/2025 7:22 PM CDT DTL Biopsy (Prostate) 07/07/2025 1:49 PM CDT Biopsy (Prostate) 07/07/2025 1:49 PM CDT Biopsy (Prostate) 07/07/2025 1:49 PM CDT Biopsy (Prostate) 07/07/2025 1:49 PM CDT Biopsy (Prostate) 07/07/2025 1:49 PM CDT Biopsy (Prostate) 07/07/2025 1:49 PM CDT Biopsy (Prostate) 07/07/2025 1:49 PM CDT Biopsy (Prostate) 07/07/2025 1:49 PM CDT Biopsy (Prostate) 07/07/2025 1:49 PM CDT Biopsy (Prostate) 07/07/2025 1:49 PM CDT Biopsy (Prostate) 07/07/2025 1:49 PM CDT Biopsy (Prostate) 07/07/2025 1:49 PM CDT Tissue (Urethra (Male)) 07/07/2025 2:37 PM CDT us Pankaj Johnson M.D., M.S. 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) Retention Urinary Hematuria Hematuria documented in this encounter Admitting Diagnoses Diagnosis Hematuria Gross Hematuria documented in this encounter Administered Medications Inactive Administered Medications - up to 3 most recent administrations Medication Order MAR Action Action Date Dose Rate Site acetaminophen tablet 1,000 mg (TylenoL) 1,000 mg, oral, Once, On Thu07/07/25 at 1245, For 1 dose, Pre-Op Given 07/07/2025 12:52 PM CDT 1,000 mg acetaminophen tablet 1,000 mg (TylenoL) 1,000 mg, oral, Every 6 hours PRN, mild pain or score 1-3 of 10, Starting on Thu07/07/25 at 1840, For mild pain, give acetaminophen before tramadol. Given 07/08/2025 11:53 PM CDT 1,000 mg Given 07/08/2025 5:32 PM CDT 1,000 mg Given 07/07/2025 7:27 PM CDT 1,000 mg acetaminophen tablet 1,000 mg (TylenoL) 1,000 mg, oral, Every 6 hours, First dose (after last modification) on Thu07/09/25 at 0600, For mild pain, give acetaminophen before tramadol. Given 07/10/2025 12:06 PM CDT 1,000 mg Given 07/10/2025 6:09 AM CDT 1,000 mg Given 07/09/2025 11:09 PM CDT 1,000 mg belladonna alkaloids-opium 16.2-60 mg suppository 1 suppository (B&O Supprettes) 1 suppository, rectal, Every 8 hours PRN, bladder spasms, Starting on Thu07/07/25 at 1840 Given 07/08/2025 5:52 AM CDT 1 suppository benzocaine-menthoL 15-3.6 mg per lozenge 1 lozenge (CepacoL) 1 lozenge, oral, As needed, sore throat, Starting on Thu07/07/25 at 1840 Given 07/08/2025 6:32 AM CDT 1 lozenge diazePAM suppository 5 mg (Valium) 5 mg, rectal, Once, On Thu07/07/25 at 1745, For 1 dose, PACU (only) Given 07/07/2025 5:19 PM CDT 5 mg diazePAM tablet 5 mg (Valium) 5 mg, oral, As needed, muscle spasms, Starting on Thu07/07/25 at 1552 Given 07/07/2025 3:54 PM CDT 5 mg escitalopram tablet 10 mg (Lexapro) 10 mg, oral, Daily, First dose on Thu07/09/25 at 1115 Given 07/10/2025 9:44 AM CDT 10 mg Given 07/09/2025 12:09 PM CDT 10 mg ezetimibe tablet 10 mg (Zetia) 10 mg, oral, Daily, First dose on Thu07/09/25 at 1115 Given 07/10/2025 9:44 AM CDT 10 mg Given 07/09/2025 12:09 PM CDT 10 mg fentaNYL injection 25 mcg (Sublimaze) 25 mcg, intravenous, Every 2 min PRN, moderate pain or score 4-6 of 10, severe pain or score 7-10 of 10, Starting on Thu07/07/25 at 1531, PACU (only), Up to maximum total dose of 200 mcg Given 07/07/2025 4:06 PM CDT 25 mcg Given 07/07/2025 3:53 PM CDT 25 mcg Given 07/07/2025 3:36 PM CDT 25 mcg flu vacc [id number](65yr up)-PF Vaccine 0.5 mL (Fluzone HD) 0.5 mL, intramuscular, Once, On Thu07/07/25 at 1930, For 1 dose Given 07/08/2025 8:49 AM CDT 0.5 mL Right Deltoid haloperidol lactate injection 1 mg (HaldoL) 1 mg, intravenous, Every 6 hours PRN, nausea, vomiting, Starting on Thu07/07/25 at 1644, For 48 hours, Total of 3 doses in 24 hour period. RASS must be -2 or higher to administer. Reassess for nausea or vomiting after at least 10 minutes. If nausea or vomiting persists administer next ordered antiemetic medications (order for antiemetic medication administration ondansetron then haloperidol then prochlorperazine) Given 07/07/2025 4:49 PM CDT 1 mg hyaluronidase injection 150 Units (Hylenex) 150 Units, subcutaneous, Administer over 1 Minutes, Once, On Thu07/09/25 at 2045, For 1 dose, - Use a 25 gauge needle. - Do not inject into infected or cancerous skin areas. - Administer as soon as possible following extravasation, preferably within 60 minutes of infiltration. - Inject 0.2 mL at each of 5 sites subcutaneously (1 mL total) equidistant around the edge of the extravasation site. Subsequent Bag 07/09/2025 9:07 PM CDT 30 Units Other Subsequent Bag 07/09/2025 9:06 PM CDT 30 Units Other Subsequent Bag 07/09/2025 9:05 PM CDT 30 Units Other HYDROmorphone (PF) injection 0.2 mg (Dilaudid) 0.2 mg, intravenous, Every 5 min PRN, moderate pain or score 4-6 of 10, severe pain or score 7-10 of 10, Starting on Thu07/07/25 at 1659, For 5 doses, Intra-Op Given 07/07/2025 5:12 PM CDT 0.2 mg HYDROmorphone (PF) injection 0.2 mg (Dilaudid) 0.2 mg, intravenous, Every 5 min PRN, moderate pain or score 4-6 of 10, severe pain or score 7-10 of 10, Starting on Thu07/07/25 at 1652, For 1 dose, PACU (only), Up to maximum total dose of 2 mg Given 07/07/2025 5:01 PM CDT 0.2 mg ketorolac injection 15 mg (ToradoL) 15 mg, intravenous, Every 6 hours PRN, moderate pain or score 4-6 of 10, Starting on Thu07/07/25 at 1840, For 5 days, Adult IV push rate: Over 15 seconds. Peds IV push rate: Over 1 minute. Doses > 15 mg IV/IM are discouraged due to lack of additional analgesic benefit. Given 07/08/2025 11:05 AM CDT 15 mg Lactated Ringer's bolus 1,000 mL 1,000 mL, intravenous, at 1,000 mL/hr, Administer over 1 Hours, Once, On 07/08/25 at 1900, For 1 dose New Bag 07/08/2025 7:22 PM CDT 1,000 mL 1000 mL/hr Lactated Ringer's bolus 500 mL 500 mL, intravenous, at 500 mL/hr, Administer over 1 Hours, Once, On 07/08/25 at 1700, For 1 dose New Bag 07/08/2025 4:59 PM CDT 500 mL 500 mL/hr Lactated Ringer's 80 mL/hr, intravenous, Continuous, Starting on Thu07/07/25 at 1245, Pre-Op New Bag 07/07/2025 4:07 PM CDT 80 mL/hr 80 mL/h r New Bag 07/07/2025 12:52 PM CDT 80 mL/hr 80 mL/hr Lactated Ringer's 100 mL/hr, intravenous, Continuous, Starting on Thu07/07/25 at 1900 New Bag 07/08/2025 5:04 AM CDT 100 mL/hr 100 mL/hr New Bag 07/07/2025 7:29 PM CDT 100 mL/hr 100 mL/hr melatonin tablet 5 mg 5 mg, oral, Bedtime PRN, sleep, Starting on Thu07/07/25 at 9 Given 07/09/2025 11:09 PM CDT 5 mg Given 07/08/2025 8:32 PM CDT 5 mg Given 07/07/2025 8:41 PM CDT 5 mg oxyBUTYnin tablet 5 mg (Ditropan) 5 mg, oral, 3 times daily PRN, bladder spasms, Starting on Thu07/07/25 at 1840 Given 07/09/2025 9:02 PM CDT 5 mg Given 07/09/2025 2:09 AM CDT 5 mg Given 07/08/2025 8:32 PM CDT 5 mg oxyCODONE IR tablet 10 mg (Roxicodone) 10 mg, oral, Every 4 hours PRN, severe pain or score 7-10 of 10, May use if patient can take oral meds and other analgesics are ineffective, Starting on Thu07/07/25 at 1840 Given 07/08/2025 10:0 0 AM CDT 10 mg Given 07/08/2025 1:42 AM CDT 10 mg Given 07/07/2025 7:27 PM CDT 10 mg oxyCODONE IR tablet 5 mg (Roxicodone) 5 mg, oral, Every 4 hours PRN, moderate pain or score 4-6 of 10, May use if patient can take oral meds and other analgesics are ineffective, Starting on Thu07/07/25 at 1840 piperacillin-tazobactam in dextrose (iso osm) IVPB 3.375 g (Zosyn) 3.375 g, intravenous, at 100 mL/hr, Administer over 0.5 Hours, Every 6 hours, First dose on Thu07/08/25 at 1900, Drug Monitoring Program: Pharmacist to adjust medication dosing based on indication and drug clearance factors., Indications: Respiratory tract infection, healthcare associatedIndications:Respiratory tract infection, healthcare associated New Bag 07/10/2025 12:06 PM CDT 3.375 g 100 mL/hr New Bag 07/10/2025 6:09 AM CDT 3.375 g 100 mL/hr New Bag 07/10/2025 12:55 AM CDT 3.375 g 100 mL/hr rosuvastatin tablet 40 mg (Crestor) 40 mg, oral, Daily at bedtime, First dose on Thu07/09/25 at 2100 Given 07/09/2025 9:02 PM CDT 40 mg sennosides-docusate sodium 8.6-50 mg per tablet 1 tablet (Senokot-S) 1 tablet, oral, 2 times daily, First dose on Thu07/07/25 at 2100, Do not give if patient has diarrhea. Given 07/10/2025 9:44 AM CDT 1 tablet Given 07/09/2025 9:02 PM CDT 1 tablet Given 07/08/2025 8:50 AM CDT 1 tablet sodium chloride 0.9 % inhalation solution 3 mL 3 mL, nebulization, As needed, wheezing, Starting on Thu07/08/25 at 2050 Given 07/08/2025 11:00 PM CDT 3 mL sodium chloride 0.9 % injection 3 mL 3 mL, intravenous, Every 12 hours scheduled, First dose on Thu07/07/25 at 2100, Peripheral Intravenous Catheter and Rapid Infusion Catheter, when no infusion to maintain patency Given 07/10/2025 9: 45 AM CDT 3 mL Given 07/09/2025 9:24 PM CDT 3 mL Given 07/09/2025 8:30 AM CDT 3 mL tamsulosin 24 hr capsule 0.4 mg (Flomax) 0.4 mg, oral, Daily, First dose on 07/08/25 at 0900, Swallow whole. Do NOT crush, chew or open capsule. Given 07/10/2025 9:44 AM CDT 0.4 mg Given 07/09/2025 8:36 AM CDT 0.4 mg Given 07/08/2025 8:50 AM CDT 0.4 mg trospium tablet 20 mg (Sanctura) 20 mg, oral, Once, On Thu07/07/25 at 1745, For 1 dose, PACU (only), Administer with water at least 1 hr prior to meals., Restriction Criteria (Pharmacy will review and approve if criteria met): Use in patients 65 years of age or older Given 07/07/2025 5:19 PM CDT 20 mg vancomycin in dextrose 5 % IVPB 1,500 mg 1,500 mg (rounded from 1,515 mg = 15 mg/kg 101 kg Adjusted weight), intravenous, at 200 mL/hr, Administer over 90 Minutes, Every 12 hours, First dose on 07/08/25 at 1900, Drug Monitoring Program: Pharmacist to adjust medication dosing based on indication and drug clearance factors., Indications: Sepsis syndrome, unknown source, healthcare associatedIndications:Sepsis syndrome, unknown source, healthcare associated New Bag 07/09/2025 6:58 PM CDT 1,500 mg 200 mL/hr New Bag 07/09/2025 7:17 AM CDT 1,500 mg 200 mL/hr New Bag 07/08/2025 8:25 PM CDT 1,500 mg 200 mL/hr documented in this encounter Active and Recently Administered Medications Times are shown in CDT. Scheduled Medication Order 07/08/2025 07/09/2025 07/10/2025 acetaminophen tablet 1,000 mg (TylenoL) 1,000 mg, oral, Every 6 hours, First dose (after last modification) on 07/09/25 at 0600, For mild pain, give acetaminophen before tramadol. 0627 (Given - Provider: Bushra Maynard R.N.)1209 (Given - Provider: Priscilla Schulz R.N.)1811 (Given - Provider: Xi Gómez R.N.)2309 (Given - Provider: SUAD Thompson, R.N.) 0609 (Given - Provider: SUAD Thompson, R.N.)1206 (Given - Provider: Sweetie Colbert R.N.) escitalopram tablet 10 mg (Lexapro) 10 mg, oral, Daily, First dose on 07/09/25 at 1115 1209 (Given - Provider: Priscilla Schulz R.N.) 0944 (Given - Provider: Sweetie Colbert R.N.) ezetimibe tablet 10 mg (Zetia) 10 mg, oral, Daily, First dose on 07/09/25 at 1115 1209 (Given - Provider: Priscilla Schulz R.N.) 0944 (Given - Provider: Sweetie Colbert R.N.) flu vacc [id number](65yr up)-PF Vaccine 0.5 mL (Fluzone HD) (COMPLETED) 0.5 mL, intramuscular, Once, On Thu07/07/25 at 1930, For 1 dose 0849 (Given - Provider: Priscilla Schulz, R.N.) hyaluronidase injection 150 Units (Hylenex) (COMPLETED) 150 Units, subcutaneous, Administer over 1 Minutes, Once, On Thu07/09/25 at 2045, For 1 dose, - Use a 25 gauge needle. - Do not inject into infected or cancerous skin areas. - Administer as soon as possible following extravasation, preferably within 60 minutes of infiltration. - Inject 0.2 mL at each of 5 sites subcutaneously (1 mL total) equidistant around the edge of the extravasation site. 2102 (Given - Provider: SUAD Thompson, R.N.)2103 (Subsequent Bag - Provider: SUAD Thompson, R.N.)2104 (Subsequent Bag - Provider: SUAD Thompson, R.N.)2105 (Subsequent Bag - Provider: SUAD Thompson, R.N.)2106 (Subsequent Bag - Provider: SUAD Thompson, R.N.) Lactated Ringer's bolus 1,000 mL (COMPLETED) 1,000 mL, intravenous, at 1,000 mL/hr, Administer over 1 Hours, Once, On 07/08/25 at 1900, For 1 dose 1921 (New Bag - Provider: Nuria MartinoN.) Lactated Ringer's bolus 500 mL (COMPLETED) 500 mL, intravenous, at 500 mL/hr, Administer over 1 Hours, Once, On 07/08/25 at 1700, For 1 dose 1658 (New Bag - Provider: Priscilla Schulz R.N.) piperacillin-tazobactam in dextrose (iso osm) IVPB 3.375 g (Zosyn) (CANCELED) 3.375 g, intravenous, at 100 mL/hr, Administer over 0.5 Hours, Every 6 hours, First dose on 07/08/25 at 1900, Drug Monitoring Program: Pharmacist to adjust medication dosing based on indication and drug clearance factors., Indications: Respiratory tract infection, healthcare associated 192 (New Bag - Provider: Bushra Maynard R.N.) 0004 (New Bag - Provider: Rubin Martino.N.)0620 (New Bag - Provider: Bushra Maynard R.N.)1210 (New Bag - Provider: Priscilla Schulz, R.N.)1815 (New Bag - Provider: Xi Gómez R.N.) 0055 (New Bag - Provider: SUAD Thompson, R.N.)0609 (New Bag - Provider: SUAD Thompson, R.N.)1206 (New Bag - Provider: Sweetie Colbert R.N.) rosuvastatin tablet 40 mg (Crestor) 40 mg, oral, Daily at bedtime, First dose on 07/09/25 at 2100 210 (Given - Provider: SUAD Thompson, R.N.) sennosides-docusate sodium 8.6-50 mg per tablet 1 tablet (Senokot-S) 1 tablet, oral, 2 times daily, First dose on Thu07/07/25 at 2100, Do not give if patient has diarrhea. 0850 (Given - Provider: Priscilla Schulz R.N.)2031 (Not Given - Provider: Bushra Maynard R.N. - Reason: Contraindicated) 0836 (Not Given - Provider: Priscilla Schulz R.N. - Reason: Patient/family refused)2101 (Given - Provider: SUAD Thompson, R.N.) 0944 (Given - Provider: Nruia RodríguezNDiya) sodium chloride 0.9 % injection 3 mL 3 mL, intravenous, Every 12 hours scheduled, First dose on Thu07/07/25 at 2100, Peripheral Intravenous Catheter and Rapid Infusion Catheter, when no infusion to maintain patency 0850 (Given - Provider: Priscilla Schulz R.N.)2032 (Given - Provider: Bushra Maynard RDiyaN.) 0830 (Given - Provider: Priscilla Schulz RDiyaN.)2123 (Given - Provider: SUAD Thompson, R.N.) 0945 (Given - Provider: Sweetie Colbert RTom) tamsulosin 24 hr capsule 0.4 mg (Flomax) 0.4 mg, oral, Daily, First dose on Thu07/08/25 at 0900, Swallow whole. Do NOT crush, chew or open capsule. 0850 (Given - Provider: Priscilla Schulz R.N.) 0836 (Given - Provider: Priscilla Schulz R.N.) 0944 (Given - Provider: Sweetie Colbert R.N.) vancomycin in dextrose 5 % IVPB 1,500 mg (CANCELED) 1,500 mg (rounded from 1,515 mg = 15 mg/kg 101 kg Adjusted weight), intravenous, at 200 mL/hr, Administer over 90 Minutes, Every 12 hours, First dose on Thu07/08/25 at 1900, Drug Monitoring Program: Pharmacist to adjust medication dosing based on indication and drug clearance factors., Indications: Sepsis syndrome, unknown source, healthcare associated 2024 (New Bag - Provider: Bushra Maynard R.N.) 0717 (New Bag - Provider: Bushra Maynard R.N.)1858 (New Bag - Provider: Xi Gómez R.N.) Continuous Medication Order 07/08/2025 07/09/2025 07/10/2025 Lactated Ringer's 100 mL/hr, intravenous, Continuous, Starting on Thu07/07/25 at 1900 0504 (New Bag - Provider: Bushra Maynard R.N.) PRN Medication Order 07/08/2025 07/09/2025 07/10/2025 acetaminophen tablet 1,000 mg (TylenoL) (CANCELED) 1,000 mg, oral, Every 6 hours PRN, mild pain or score 1-3 of 10, Starting on Thu07/07/25 at 1840, For mild pain, give acetaminophen before tramadol. 1732 (Given - Provider: Xi Gómez R.N.)9643 (Given - Provider: Bushra Maynard R.N.) alum-mag hydroxide-simeth 200-200-20 mg/5 mL suspension 30 mL (Maalox) 30 mL, oral, 4 times daily PRN, indigestion, Starting on Thu07/07/25 at 1840 belladonna alkaloids-opium 16.2-60 mg suppository 1 suppository (B&O Supprettes) 1 suppository, rectal, Every 8 hours PRN, bladder spasms, Starting on Thu07/07/25 at 1840 0552 (Given - Provider: Bushra Maynard R.N.) benzocaine-menthoL 15-3.6 mg per lozenge 1 lozenge (CepacoL) 1 lozenge, oral, As needed, sore throat, Starting on Thu07/07/25 at 1840 0632 (Given - Provider: Bushra Maynard RMagda.) bisacodyL suppository 10 mg (Dulcolax) 10 mg, rectal, Daily PRN, constipation, Starting on Thu07/07/25 at 1840, Ordered sequence of administration: polyethylene glycol, then bisacodyl until BM achieved. ketorolac injection 15 mg (ToradoL) 15 mg, intravenous, Every 6 hours PRN, moderate pain or score 4-6 of 10, Starting on Thu07/07/25 at 1840, For 5 days, Adult IV push rate: Over 15 seconds. Peds IV push rate: Over 1 minute. Doses > 15 mg IV/IM are discouraged due to lack of additional analgesic benefit. 1105 (Given - Provider: Priscilla Schulz RDiyaN.) melatonin tablet 5 mg 5 mg, oral, Bedtime PRN, sleep, Starting on Thu07/07/25 at 2028 2031 (Given - Provider: Bushra Maynard RMagda.) 230 (Given - Provider: SUAD Thompson, R.N.) naloxone injection 0.2 mg (Narcan) 0.2 mg, intravenous, As needed, respiratory depression, Starting on Thu07/07/25 at 1840, For RASS Score -4 or less, respiratory rate of less than 8 breaths/min. Notify provider/service and rapid response team (if available at institution). ondansetron (PF) injection 4 mg (Zofran) 4 mg, intravenous, Every 6 hours PRN, nausea, vomiting, Starting on Thu07/07/25 at 1840 oxyBUTYnin tablet 5 mg (Ditropan) 5 mg, oral, 3 times daily PRN, bladder spasms, Starting on Thu07/07/25 at 1840 0118 (Given - Provider: Bushra Maynard RMagda.)1000 (Given - Provider: Priscilla Schulz R.N.)2031 (Given - Provider: Bushra Maynard RMagda.) 0209 (Given - Provider: Rubin Martino.N.)2101 (Given - Provider: SUAD Thompson, R.N.) oxyCODONE IR tablet 10 mg (Roxicodone)(Linked Group 1) 10 mg, oral, Every 4 hours PRN, severe pain or score 7-10 of 10, May use if patient can take oral meds and other analgesics are ineffective, Starting on Thu07/07/25 at 1840 0142 (Given - Provider: Nuria RoyN.)1000 (Given - Provider: Rubin Kelley.N.) oxyCODONE IR tablet 5 mg (Roxicodone)(Linked Group 1) 5 mg, oral, Every 4 hours PRN, moderate pain or score 4-6 of 10, May use if patient can take oral meds and other analgesics are ineffective, Starting on Thu07/07/25 at 1840 0142 (See Alternative - Provider: Jessica Belle R.N.)1000 (See Alternative - Provider: Priscilla Schulz R.N.) polyethylene glycol powder packet 17 g (Miralax) 17 g, oral, Daily PRN, constipation, Starting on Thu07/07/25 at 1840, Ordered sequence of administration: polyethylene glycol, then bisacodyl until BM achieved. Avoid mixing with starch-based thickened liquids. sodium chloride 0.9 % inhalation solution 3 mL 3 mL, nebulization, As needed, wheezing, Starting on Thu07/08/25 at 2050 2300 (Given - Provider: Bushra Maynard R.N.) 0551 (Not Given - Provider: Bushra Maynard R.N. - Reason: Other) sodium chloride 0.9 % injection 10 mL 10 mL, intravenous, As needed, line care, Starting on Thu07/07/25 at 1840, Peripheral Intravenous Catheter and Rapid Infusion Catheter, prior to blood sampling, post blood transfusion or post blood sampling sodium chloride 0.9 % injection 3 mL 3 mL, intravenous, As needed, line care, Starting on Thu07/07/25 at 1840, Prior to and following infusion and between multiple consecutive infusions: sodium chloride 0.9 % injection Linked Groups Order Group 1: oxyCODONE IR tablet 5 mg (Roxicodone)Jump to med 5 mg, oral, Every 4 hours PRN, moderate pain or score 4-6 of 10, May use if patient can take oral meds and other analgesics are ineffective, Starting on Thu07/07/25 at 1840 Or oxyCODONE IR tablet 10 mg (Roxicodone)Jump to med 10 mg, oral, Every 4 hours PRN, severe pain or score 7-10 of 10, May use if patient can take oral meds and other analgesics are ineffective, Starting on Thu07/07/25 at 1840 documented in this encounter Additional Health Concerns Assessment Noted Time PHQ-9 Depression Total Score: 4 03/03/20 24 1:30 PM CDT documented as of this encounter 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
--- OUTSIDE RECORDS SUMMARY | 2025-07-07 12:55 | XMS_ITS | Encounter Summary ---
Author Organization [facility] Address [address] [place] [address] Care Team Providers Care Shaper And Presser Name Role Phone Elsewhere, Pcp Primary Care Provider Unavailabl e Encounter Details Date Type Department Care Team (Late st Contact Info) Description 07/07/2025 12:55 PM CDT Ancillary Procedure Department of General Surgery Social History Tobacco Use Types Packs/Day Years [...] things needed for daily living? No 07/07/2025 [facility] Utilities Answer Date Recorded In the past 12 months has th e electric, gas, oil, or water company threatened to shut off services in your home? No 07/07/2025 Depression Answer Date Recor ded PHQ-9 Total Score (max 27) 4 03/03 Housing Stability Answer Date Recorded What is your living situation today? I have a [facility] place to live 07/07/2025 Education Answer Date Recorded What is the highest level of school you have completed or the highest degree you have received? 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 [address] [place] [phone] 08/14/2025 10:30 AM STERE[employer] EQUIPMENT SALESPERSON Procedure visit Department of Urology in [address] [phone] Orion Mendoza, MARTINES, P.A.-C. [address] [place] [phone] documented as of this encounter Procedures Procedure Name Priority Date/Time Associated Diagnosis Comments SURGERY IMAGE EXAM Routine 07/07/2025 12 :55 PM CDT documented in this encounter Results * PROSTATE-Surgery Image Exam (07/07/2025 12:55 PM CDT) 07/07/2025 12:5 4 PM CDT Narrative [facility] - 07/07/2025 3:21 PM CDT This order has been created and auto-finalized to support the import of images acquired without order. The clinical documentation to support these images can be found on the encounter that produced images. us Provider Not In System IMG NON RAD IMAGING PROCE DURES Final Result [facility] NA documented in this encounter Visit Diagnoses Not on filedocumented in this encounter Additional Health Concerns Assessment Noted Time PHQ-9 Depression Total Score: 4 03/03/20 24 1:30 PM CDT documented as of this encounter Care Teams Shaper And Presser Relationship Specialty Start Date End Date Elsewhere, Pcp PCP - General 03/03/24 documented as of this encounter
--- OUTSIDE RECORDS SUMMARY | 2025-07-07 13:10 | XMS_ITS | Encounter Summary ---
Author Organization [facility] Address [address] [place] [address] Care Team Providers Care Ecommerce Project Manager Name Role Phone Elsewhere, Pcp Primary Care Provider Unavailabl e Encounter Details Date Type Department Care Team (Late st Contact Info) Description 07/07/2025 1:10 PM CDT Ancillary Procedure Department of Urology Social History Tobacco Use Types Packs/Day Years [...] things needed for daily living? No 07/07/2025 [facility] Utilities Answer Date Recorded In the past 12 months has th e electric, gas, oil, or water company threatened to shut off services in your home? No 07/07/2025 Depression Answer Date Recor ded PHQ-9 Total Score (max 27) 4 03/03 Housing Stability Answer Date Recorded What is your living situation today? I have a [facility] place to live 07/07/2025 Education Answer Date Recorded What is the highest level of school you have completed or the highest degree you have received? 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 [address] [place] [phone] 08/14/2025 10:30 AM EFFICIENCY MINER Procedure visit Department of Urology in [address] [phone] Orion Mendoza, MARTINES, P.A.-C. [address] [place] [address] [phone] documented as of this encounter Procedures Procedure Name Priority Date/Time Associated Diagnosis Comments UROLOGY IMAGE EXAM Routine 07/07/2025 1: 10 PM CDT documented in this encounter Results * UROL Procedure-Urology Image Exam (07/07/2025 1:10 PM CDT) Narrative [facility] - 07/10/2025 12:39 PM CDT This order has been created [...] documented as of this encounter Care Teams Ecommerce Project Manager Relationship Specialty Start Date End Date Elsewhere, Pcp PCP - General 03/03/24 documented as of this encounter
--- OUTSIDE RECORDS SUMMARY | 2025-07-07 13:26 | XMS_ITS | Encounter Summary ---
Author Organization [facility] Address [address] [place] [id number] Care Team Providers Care Loan Inspector Name Role Phone Elsewhere, Pcp Primary Care Provider Unavailabl e Reason for Visit * Auth/Cert (Routine) Specialty Diagnoses / Procedures Referred By Contac t Referred To Contact Diagnoses 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) Retention Urinary Prostatitis Bacterial [N41.8, B96.89] Malignant Neoplasm Of Bladder (HCC) [C67.9] Retention Urinary [R33.9] Procedures NM BIOPSY PROSTATE NEEDLE/PUNCH NM CYSTHRSCPY W FULG LESNS MINOR BIOPSY TRANSPERINEAL PROSTATE CYSTOSCOPY WITH TRANSURETHRAL RESECTION LESION BLADDER, proceed to prostatic urethral biopsies, proceed as indicated Pankaj Johnson M.D., M.S. [address] [place] [phone] Phone: tel: fax: Referral ID Status Reason Start Date Expiration Date Visits Re quested Visits Authorized [id number] 1 1 Encounter Details Date Type Department Care Team (Late st Contact Info) Description 07/07/2025 1:26 PM CDT - 07/07/2025 3:48 PM CDT Surgery Outpatient Procedure Center in [place], [place] [address] [place] [phone] Pankaj Johnson M.D., M.S. [address] [place] [phone] BIOPSY TRANSPERINEAL PROSTATE. Social History Tobacco Use Types Packs/Day Years [...] things needed for daily living? 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 - 07/10/2025 2:42 PM CDT DISCHARGE SUMMARY BRIEF OVERVIEW Hospital: [facility] Discharge Provider: Pankaj Johnson M.D. Primary Team: [facility] Urology - Alex Primary Care Providers: Elsewhere, [...] M.D., M.S.Carmen Skinner M.D.Goorman, Samuel J, M.D. T ROGO 07 OR DISCHARGE DISPOSITION Home or Self Care [1] ACTIVE ISSUES REQUIRING FOLLOW UP See below OUTPATIENT FOLLOW UP Scheduled Appointments 07/11/2025 3:45 PM RST PAL PM ANGELA INTAKE VISIT Admitting/Central Scheduling 07/13/2025 9:00 AM Nia Valdivia M.D.; PAL RN NURSE 01 [facility] Palliative Medicine 07/13/2025 11:00 AM URO NURSE 02 [facility] Urology 07/13/2025 1:00 PM Nuria Medrano [...] AM CDT You were discharged from the [facility] Urology - [facility] Service. Please identify this service name if you call with questions after hospitalization. * Attachments The following attachments cannot be sent through Care Everywhere. * Acetaminophen (By mouth) (Fijian) * Diazepam (By mouth) (Fijian) * Levofloxacin (By mouth) (Fijian) * Oxybutynin (By mouth) (Fijian) documented in this encounter Medications at Time [...] the contact information provided to you. 07/07/2025 vfke-bla-jdw-elodia -zzlj-bpek-hsy (Fiber 6) 1,000 mg tablet Take 1 [...] 10 tablet 07/10/2025 3:39 PM CDT 07/10/2025 10/09/202 5 lisinopriL 10 mg tablet Take 1 tablet by mouth as needed (traveling). 09/13/2013 5 methocarbamoL (Robaxin) 500 mg tablet Take 1 tablet by mouth 3 (three) times a day as needed. 06/20/2024 5 rivaroxaban (Xarelto) 20 mg tablet Take 1 tablet (20 mg total) by mouth as directed. You may resume taking your xarelto the following day after discharge from the hospital if your urine color is pink or boom boss. If you are still experiencing a significant [...] as of this encounter Progress Notes * OnLeodan ramey M.T.S. - 07/10/2025 11:56 AM CDT [facility] Spiritual Care Progress Note Patient: Robert Balderas Age:64 y.o. Location: [id number] Reason(s) for encounter: Spiritual Care contact to introduce spiritual care service and assess for potential spiritual care needs. Summary: I was able to meet with Robert Balderas and his in the room. Noe was seated on his chair and interacting with his at the bedside. He was disposed for pastoral visit and connected well with the eyelet punch operator. Noe shared that he came to [place] from [place] for his treatment which has been progressing well. He expressed his gratitude for a successful surgery and noted that he was feeling a lot better and might be getting discharged today. Noe appreciated shared prayers from the eyelet punch operator for his continued healing. Spiritual Assessment Mosque Identification / Spiritual Practices: Non specific Voodoo. Coping and support: Has a caring and [...] current medical condition and life stage. Facilitated tenriism/spiritual practices (prayer, blessing, sacred texts, tenriism item) with theaim to reinforce patient's spiritual [...] anticipated. Chaplains can be contacted by paging [phone] ([place]) or [phone] ([place]). * John Ernandez, Pharm.D., R.Ph. - 07/10/2025 7:23 AM CDT Pharmacist Progress Note Reason for admission: 64 y.o. male s/p transperineal prostate biopsy and limited transurethral resection of prostate on 07/07/2025. PMH: Hx DVT/PE, asthma, gout, hyperlipidemia, hypertension, anxiety, s/p nephrectomy OBJECTIVE Home medications: Held: allopurinol, semaglutide, aspirin Changed: none Patient own medications: none Review of Systems Neuro: Pain 2-12/19; scheduled acetaminophen, PRN oxycodone (no use yesterday), [...] TBD Please page [place] 5-[place] [phone] with questions. John Ernandez PharmShe, R.Ph. * Carmen Skinner M.D. - 07/10/2025 5:49 AM CDT UROLOGY PROGRESS NOTE ([facility] SERVICE) Subjective Mr. Balderas is a 64 [...] now, susceptibilities pending Consults: none Lines/Drains/Tubes: 22 Nepalese Go catheter, PIV The patient's chronic conditions and treatments are addressed and managed as they are as an outpatient, with exceptions related to the current reason for admission and as noted. Signed by: Carmen Skinner M.D. 07/10/2025 6:46 AM CDT * Ashli Braga, Pharm.D., R.Ph., [facility] - 07/09/2025 11:05 AM CDT Pharmacist Progress [...] mg/dL). No results found for: VANCOTROUGH, VANCORANDOM, VANCRYANAK ASSESSMENT / PLAN Neuro Pain well controlled [...] TBD Please page [place] 5-[place] [phone] with questions. Ashli Braga Pharm.D., R.Ph., BCPS * Carmen Skinner M.D. - 07/08/2025 6:46 AM CDT UROLOGY PROGRESS NOTE ([facility] SERVICE) Subjective Mr. Balderas is a 64 [...] intraoperative antibiotics given Consults: none Lines/Drains/Tubes: 22 Nepalese Go catheter, PIV The patient's chronic conditions and treatments are addressed and managed as they are as an outpatient, with exceptions related to the current reason for admission and as noted. Signed by: Carmen Skinner M.D. 07/08/2025 6:46 AM CDT documented in this encounter Nursing Notes * Sweetie Colbert R.N. - 07/10/2025 3:24 PM CDT Shift Goals: [...] Malignant Neoplasm Of Bladder (HCC) Retention Urinary Industrial Health Engineer A nurse first aid actively participated and was necessary for one [...] for histopathological examination. 7. Placement of 22 Nepalese three-way catheter. PLAN: - Admit overnight for [...] using the Pivot Pro transperineal needle guide.. Bread Wrapping Machine Feeder systematic biopsies were taken in a templated [...] dilated using the Aaron dilators to 30 Nepalese. The 27 Nepalese resectoscope was then advanced into the bladder [...] and sent for histopathological examination. A 22 Nepalese three-way catheter was then advanced into the [...] a history of falling. (07/10 H&P - Fryo Worrell, OFFICE SERVICES MANAGER, RIP MACHINE OPERATOR). Clinician Notes: Per the 07/09 Pharmacist progress note (Froy Braga, Edilberto., R.Ph., BCPS), ?ID: [id number], cultures: pending(urine, blood), febrile overnight [...] PM CDT Clinical Communication Virtual Review in [address] [phone] 08/03/2025 1:00 PM CDT Telemedicine Department of Palliative Care in [address] [phone] Scahi De Leon B.M.B.S., B.M., B.Ch. [address] [place] [phone] 08/14/2025 10:30 AM EQUIPMENT WORKER Procedure visit Department of Urology in [address] [phone] Orion Mendoza, MPAS, P.A.-C. [address] [place] [phone] documented as of this encounter Procedures Procedure [...] Urinary Case Notes ANGELA 06/27 Special Needs [facility] Primary. 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 documented in this encounter Results * (ABNORMAL) [...] M.D. LAB BLOOD ADD-ON Final Res ult [facility] [place] [address] [place] [address], [place] DTL [facility] [address] [place] [address] * (ABNORMAL) Basic Metabolic Panel (07/09/2025 5:23 AM CDT) [facility] Potassium, S 3.8 3.6 - 5.2 mmol/L [...] 5:23 AM CDT 07/09/2025 6:17 AM CDT us Augustus Cline M.D. LAB BLOOD ADD-ON Final Result [facility] [place] 200 [place] [address], [facility] 200 [place] [address] * (ABNORMAL) CBC without Differential (07/09/2025 5:23 AM CDT) [facility] Hemoglobin 13.2 13.2 - 16.6 g/dL [...] 5:23 AM CDT 07/09/2025 5:59 AM CDT Augustus Cline M.D. LAB BLOOD ADD-ON Final Result [facility] [place] 200 [place] [address], [facility] 200 [place] [address] * Lactate (07/08/2025 11:36 PM CDT) [facility] Lactate, P 1.0 0.5 - 2.2 mmol/L 07/09/2025 12:46 AM CDT DTL Blood (Blood, Venous) 07/08/2025 11:36 PM CDT 07/09/2025 12:35 AM CDT Augustus Cline M.D. LAB BLOOD NON ADD-ON Final Re sult Performing Organization Address City/[facility] Co de Phone Number [facility] [place] [address] [place] [address] * Bacteria / Cathy Culture, Blood #1 (07/08/2025 7:23 PM CDT) [facility] Bacteria/Genesis da Culture, Blood No growth after 5 days of incubation. 07/13/2025 8:02 PM CDT DT Blood (Blood, Peripheral Draw) 07/08/2025 7:23 PM CDT 07/08/2025 7:47 PM CDT Comment:Specimen Source Site : Blood Augustus Cline M.D. LAB MICROBIOLOGY - GENERAL OR DERABLES Final Result Performing Organization Address [facility] Co de Phone Number [facility] [place] [address] [place] [address] * Lactate for Sepsis with Reflex (07/08/2025 7:23 PM CDT) [facility] Lactate, P 1.9 0.5 - 2.2 mmol/L 07/08/2025 8:16 PM CDT DT Blood (Blood, Venous) 07/08/2025 7:23 PM CDT 07/08/2025 7:59 PM CDT Augustus Cline M.D. LAB BLOOD NON ADD-ON Final Re sult Performing Organization Address [facility] Co de Phone Number [facility] [place] [address] [place] [address] * (ABNORMAL) Basic Metabolic Panel (07/08/2025 7:23 PM CDT) Potassium, P 4.9 3.6 - 5.2 mmol/L [...] Cline M.D. LAB BLOOD ADD-ON Final Result [facility] [address] [place] [address], [facility] METH [facility] [address] [place] [address] * (ABNORMAL) CBC without Differential (07/08/2025 7:23 PM CDT) Pathologist [facility] Hemoglobin 14.8 13.2 - 16.6 g/dL 07/08/2025 [...] BLOOD ADD-ON Final Result Performing Organization Address [facility]/ZIP Co de Phone Number [facility] [place] [address] [place] [address], [facility] METH [facility] [address] [place] [address] * Bacteria / Cathy Culture, Blood #2 (07/08/2025 7:11 PM CDT) [facility] Bacteria/Genesis da Culture, Blood No growth after 5 days of incubation. 07/13/2025 8:02 PM CDT DTL Blood (Blood, Peripheral Draw) 07/08/2025 7:11 PM CDT 07/08/2025 7:48 PM CDT Comment:Specimen Source Site : Blood Narrative [facility] [place] - 07/13/2025 8:02 PM CDT Received Bactec aerobic and Bactec anaerobic bottles us Augustus Cline M.D. LAB MICROBIOLOGY - GENERAL OR DERABLES Final Result Performing Organization Address City/[facility]/ZIP Co de Phone Number [facility] [place] 200 [place] [address], [facility] DTL [facility] [address] [place] [address] * DX Chest Portable 1 View (07/08/2025 [...] overload, or subsegmentalatelectasis. Remainder not substantially changed. us Augustus Cline M.D. IMG DIAGNOSTIC IMAGING PROCED [...] M.D. LAB URINE ORDERABLES Final Re sult [facility] [place] 200 [place] [address], [facility] 200 [place] [address] * pH, Random, Urine (07/08/2025 6:40 PM CDT) pH, Random, U 5.9 4.5 - 8.0 07/08/2025 7:23 PM CDT DTL Urine 07/08/2025 6:40 PM CDT 07/08/2025 6:56 PM CDT us Augustus Cline M.D. LAB URINE ORDERABLES Final Re sult Performing Organization Address City/[facility]/ZIP Co de Phone Number [facility] [place] [address] [place] [address], [facility] 200 [place] [address] * Osmolality, Urine (07/08/2025 6:40 PM CDT) Osmolality, U 588 150 - 1150 mOsm/kg 07/08/2025 7:23 PM CDT DTL Urine 07/08/2025 6:40 PM CDT 07/08/2025 6:56 PM CDT us Augustus Cline M.D. LAB URINE ORDERABLES Final Re sult Performing Organization Address City/[facility]/ZIP Co de Phone Number [facility] [place] [address] [place] [address], [facility] 200 [place] [address] * (ABNORMAL) Microscopic Manual (07/08/2025 6:40 PM [...] M.D. LAB URINE ORDERABLES Final Re sult [facility] [place] [address] [place] [address], [place] DTL [facility] [address] [place] [address] * (ABNORMAL) Bacterial Culture, Aerobic + Susceptibility, Urine (07/08/2025 6:40 PM CDT) Urine Culture PSEUDOMONAS AERUGINOSA 10,000-100,000 cfu/mL (A) [...] OR DERABLES Final Result Performing Organization Address [facility] Co de Phone Number [facility] [place] [address] [place] [address], [facility] [address] [place] [address] * (ABNORMAL) Urinalysis, with Microscopic: Urine, Indwelling [...] 07/08/2025 7:49 PM CDT DTL Predicted Range 1578-50015 mg/24 h 07/08/2025 7:49 PM CDT DTL Comment Micro done on <2.5 mL 07/08/2025 7:42 PM CDT DTL Urine (Urine, Indwelling Catheter) 07/08/2025 6:40 PM CDT 07/08/2025 6:56 PM CDT Augustus Cline M.D. LAB URINE ORDERABLES Final Re sult Performing Organization Address City/[facility]/ZIP Co de Phone Number [facility] [place] [address] [place] [address], [facility] [address] [place] [address] * Surgical Pathology (07/07/2025 1:49 PM CDT) [...] in M1. Luna Linder M.S., PA([facility]) 07/13/2025 5:46 AM CDT DTL Addendum Stains performed at [facility] with antibodies against chromogranin, synaptophysin, AR, Rb, p53 and cyclin D1 on block M1 demonstrate diffuse expression with AR, wild-type pattern of expression for p53 and essentially negative staining for the remaining markers. This test was developed and its performance characteristics determined by [facility] in a manner consistent with CLIA requirements. [...] Prostatic adenocarcinoma Type: Acinar Grade Group and [place] score: Grade Group 4 (Radha Score 4+4=8) [...] Prostatic adenocarcinoma Type: Acinar Grade Group and [place] score: Grade Group 4 ([place] Score 4+4=8) Percentage of pattern 4: NA Tumor involves 60% of overall specimen (1 of 1 cores). Extraprostatic extension present. Focus suspicious for angiolymphatic invasion. COMMENT Immunohistochemica l stains of NKX3.1, p63, PSA, and uroplakin were performed on block A at [facility]. The neoplastic cells are positive for NKX3.1, [...] Prostatic adenocarcinoma Type: Acinar Grade Group and [place] score: Grade Group 4 (Radha Score 4+4=8) Percentage of pattern 4: NA Tumor involves 85% of overall specimen in a discontinuous pattern (1 of 1 core). Suspicious for angiolymphatic invasion G. Prostate, left posterior medial apex, needle core biopsy: Prostatic adenocarcinoma Type: Acinar Grade Group and [place] score: Grade Group 4 ([place] Score 4+4=8) Percentage of pattern 4: NA Tumor involves 100% of overall specimen (1 of 1 core). H. Prostate, left posterior medial base, needle core biopsy: Prostatic adenocarcinoma Type: Acinar Grade Group and [place] score: Grade Group 5 ([place] Score 4+5=9) Percentage of pattern 4: NA Tumor involves 60% of overall specimen (1 of 1 core). I. Prostate, left posterior lateral apex, needle core biopsy: Prostatic adenocarcinoma Type: Acinar Grade Group and Radha score: Grade Group 4 ([place] Score 4+4=8) Percentage of pattern 4: 50-75% Tumor involves 100% of overall specimen in a discontinuous pattern (1 of 1 core). J. Prostate, left posterior lateral base, needle core biopsy: Prostatic adenocarcinoma Type: Acinar Grade Group and [place] score: Grade Group 4 (Radha Score 4+4=8) Percentage of pattern 4: NA Tumor involves 80% of overall specimen in a discontinuous pattern (1 of 1 core). K. Prostate, left anterior horn, needle core biopsy: Prostatic adenocarcinoma Type: Acinar Grade Group and Radha score: Grade Group 5 ([place] Score 4+5=9) Tumor involves 40% of overall specimen (1 of 1 core). Perineural invasion presents L. Prostate, left anterior apex, needle core biopsy: Prostatic adenocarcinoma Type: Acinar Grade Group and Radha score: Grade Group 4 ([place] Score 4+4=8) Tumor involves 20% of overall specimen (1 of 1 core). M. Urethra, prostatic, biopsy: Prostatic adenocarcinoma Type: Acinar Grade Group and [place] score: Grade Group 5 (Radha Score 4+5=9) Percentage of pattern 4: 50-75% Tumor involves 30% of overall specimen Benign nodular hyperplasia is also noted. COMMENT Immunohistochemica l stains of CK20, NKX3.1, p63, PSA, and uroplakin were performed on block M at [facility]. The neoplastic cells are positive for NKX3.1, [...] Johnson M.D., M.S. 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 Urinary documented in this encounter Admitting Diagnoses Diagnosis [...] 1,000 mg belladonna alkaloids-opium 16.2-60 mg suppository (B&O Supprettes) As needed, Starting on Thu07/07/25 at 1504, Intra-Op Given 07/07/2025 3:04 PM CDT 1 suppository belladonna alkaloids-opium 16.2-60 mg suppository 1 suppository (B&O Supprettes) 1 suppository, rectal, Every 8 hours PRN, bladder spasms, Starting on Thu07/07/25 at 1840 Given 07/08/2025 5:52 AM CDT 1 suppository benzocaine-menthoL 15-3.6 mg per lozenge 1 lozenge (CepacoL) 1 lozenge, oral, As needed, sore throat, Starting on Thu07/07/25 at 1840 Given 07/08/2025 6:32 AM CDT 1 lozenge escitalopram tablet 10 mg (Lexapro) 10 mg, oral, Daily, First dose on 07/09/25 at 1115 Given 07/10/2025 9:44 AM CDT 10 mg Given 07/09/2025 12:09 PM CDT 10 mg ezetimibe tablet 10 mg (Zetia) 10 mg, oral, Daily, First dose on Thu07/09/25 at 1115 Given 07/10/2025 9:44 AM CDT 10 mg Given 07/09/2025 12:09 PM CDT 10 mg ketorolac injection 15 mg (ToradoL) 15 [...] 11:05 AM CDT 15 mg Lactated Ringer's 100 mL/hr, intravenous, Continuous, Starting on Thu07/07/25 at 1900 New Bag 07/08/2025 5:04 AM CDT 100 mL/hr 100 mL/hr New Bag 07/07/2025 7:29 PM CDT 100 mL/hr 100 mL/hr lidocaine-BUPivacaine 1%-0.25% infiltration injection infiltration, Once, On Thu07/07/25 at 1300, For 1 dose, Intra-Op, Not for IV use Given 07/07/2025 2:07 PM CDT 27 mL Other melatonin tablet 5 mg 5 mg, oral, Bedtime PRN, sleep, Starting on Thu07/07/25 at 2028 Given 07/09/2025 11:09 PM CDT 5 mg [...] are ineffective, Starting on Thu07/07/25 at 1840 rosuvastatin tablet 40 mg (Crestor) 40 mg, [...] mL, nebulization, As needed, wheezing, Starting on 07/08/25 at 2050 Given 07/08/2025 11:00 PM CDT [...] Given 07/08/2025 8:50 AM CDT 0.4 mg documented in this encounter Active and Recently Administered Medications Times are shown in CDT. Scheduled Medication Order 07/08/2025 07/09/2025 07/10/2025 acetaminophen tablet 1,000 mg (TylenoL) 1,000 mg, oral, Every 6 hours, First dose (after last modification) on Thu07/09/25 at 0600, For mild pain, give acetaminophen before tramadol. 0627 (Given - Provider: Bushra Maynard R.N.)1209 (Given - Provider: Priscilla Schulz, R.N.)1811 (Given - Provider: Xi Gómez R.N.)2309 (Given - Provider: SUAD Thompson, R.N.) 0609 (Given - Provider: SUAD Thompson, R.N.)1206 (Given - Provider: Sweetie Colbert R.N.) escitalopram tablet 10 mg (Lexapro) 10 mg, oral, Daily, First dose on 07/09/25 at 1115 1209 (Given - Provider: Priscilla Schulz R.N.) 0944 (Given - Provider: Sweetie Colbert, R.N.) ezetimibe tablet 10 mg (Zetia) 10 mg, oral, Daily, First dose on 07/09/25 at 1115 1209 (Given - Provider: Priscilla Schulz R.N.) 0944 (Given - Provider: Sweetie Colbert R.N.) flu vacc [id number](65yr up)-PF Vaccine 0.5 mL (Fluzone HD) (COMPLETED) 0.5 mL, intramuscular, Once, On Thu07/07/25 at 1930, For 1 dose 0849 (Given - Provider: Priscilla Schulz, R.N.) hyaluronidase injection 150 Units (Hylenex) (COMPLETED) 150 Units, subcutaneous, Administer over 1 Minutes, Once, On 07/09/25 at 2045, For 1 dose, - Use [...] factors., Indications: Respiratory tract infection, healthcare associated 1923 (New Bag - Provider: Bushra Maynard R.N.) [...] bedtime, First dose on 07/09/25 at 2100 2101 (Given - Provider: SUAD Thompson, R.N.) sennosides-docusate sodium 8.6-50 mg per tablet 1 tablet (Senokot-S) 1 tablet, oral, 2 times daily, First dose on Thu07/07/25 at 2100, Do not give if patient has diarrhea. 0850 (Given - Provider: Nuria KelleyNDiya)2031 (Not Given - Provider: Bushra Maynard RDiyaN. - Reason: Contraindicated) 0836 (Not Given - Provider: Priscilla Schulz R.N. - Reason: Patient/family refused)2101 (Given - Provider: SUAD Thompson, R.N.) 0944 (Given - Provider: Sweetie Colbert R.N.) sodium chloride 0.9 % injection 3 mL 3 mL, intravenous, Every 12 hours scheduled, First dose on Thu07/07/25 at 2100, Peripheral Intravenous Catheter and Rapid Infusion Catheter, when no infusion to maintain patency 0850 (Given - Provider: Priscilla Schulz RDiyaN.)2032 (Given - Provider: Bushra Maynard R.N.) 0830 (Given - Provider: Priscilla Schulz R.N.)2123 (Given - Provider: SUAD Thompson, R.N.) 0945 (Given - Provider: Sweetie Colbert R.N.) tamsulosin 24 hr capsule 0.4 mg (Flomax) 0.4 mg, oral, Daily, First dose on Thu07/08/25 at 0900, Swallow whole. Do NOT crush, chew or open capsule. 0850 (Given - Provider: Priscilla Schulz RDiyaN.) 0836 (Given - Provider: Priscilla Schulz RDiyaN.) 0944 (Given - Provider: Sweetie Colbert RDiyaN.) vancomycin in dextrose 5 % IVPB 1,500 [...] at 1900 0504 (New Bag - Provider: Nuria MartinoN.) PRN Medication Order 07/08/2025 07/09/2025 07/10/2025 acetaminophen tablet 1,000 mg (TylenoL) (CANCELED) 1,000 mg, oral, Every 6 hours PRN, mild pain or score 1-3 of 10, Starting on Thu07/07/25 at 1840, For mild pain, give acetaminophen before tramadol. 1732 (Given - Provider: Xi Gómez R.N.)2353 (Given - Provider: Bushra Maynard RDiyaN.) alum-mag hydroxide-simeth 200-200-20 mg/5 mL suspension 30 [...] 1840 0632 (Given - Provider: Bushra Maynard R.N.) bisacodyL suppository 10 mg (Dulcolax) 10 mg, [...] benefit. 1105 (Given - Provider: Priscilla Schulz R.N.) melatonin tablet 5 mg 5 mg, oral, Bedtime PRN, sleep, Starting on Thu07/07/25 at 2028 2031 (Given - Provider: Bushra Maynard R.N.) 2308 (Given - Provider: SUAD Thompson, R.N.) naloxone [...] 1840 0118 (Given - Provider: Bushra Maynard R.N.)1000 (Given - Provider: Priscilla Schulz R.N.)2031 (Given - Provider: Bushra Maynard R.N.) 0209 (Given - Provider: Bushra Maynard R.N.)2101 (Given - Provider: SUAD Thompson, R.N.) oxyCODONE IR tablet 10 mg (Roxicodone)(Linked Group 1) 10 mg, oral, Every 4 hours PRN, severe pain or score 7-10 of 10, May use if patient can take oral meds and other analgesics are ineffective, Starting on Thu07/07/25 at 1840 0142 (Given - Provider: Jessica Belle R.N.)1000 (Given - Provider: Priscilla Schulz R.N.) oxyCODONE IR tablet 5 mg (Roxicodone)(Linked Group [...] documented as of this encounter Care Teams Loan Inspector Relationship Specialty Start Date End Date Elsewhere, Pcp PCP - General 03/03/24 documented as of this encounter
--- OUTSIDE RECORDS SUMMARY | 2025-07-07 13:43 | XMS_ITS | Encounter Summary ---
Author Organization [facility] Address [address] [place] [phone] Care Team Providers Care Marble Chip Terrazzo Worker Name Role Phone Elsewhere, Pcp Primary [...] as indicated Pankaj Johnson M.D., M.S. [address] [place] [phone] Phone: tel: fax: Referral ID Status Reason Start Date Expiration Date Visits Re quested Visits Authorized [id number] 1 1 Encounter Details Date Type Department Care Team (Late st Contact Info) Description 07/07/2025 1:43 PM CDT Anesthesia Event Outpatient [facility] Center in [place], [place] [address] [place] [phone] Mi Dsouza, SCADA TECHNICIAN, PROGRAM ANALYST [address] [place] [phone] Irene Marc M.D. [address] [place] [phone] Anesthesia Record Procedure Summary Procedure Name Responsible Anesthesiologist Anesthesia Start Time Anesthesia Stop Time BIOPSY TRANSPERINEAL PROSTATE. (Prostate) Mi Dsouza APRN, KEEGAN 07/07/25 1343 07/07/25 1523 Events Date Time Event Comment 07/07/2025 1343 An Start Machine/Equipme nt Checked Infection Precautions Followed Procedure/Site Verified NPO Status Verified Supine Standard ASA Monitors Applied 1348 An Induction 1353 An Intubation 1356 Turnover to Proceduralist 1404 Proc Start 1506 Proc Fin 1511 Anes CS Handoff I, Mi moralez APRN, KEEGAN, attest that I have reconciled the controlled substances and that I have reviewed all the significant information with the next anesthesia provider assuming care of this patient. 1515 Turnover to ANE Staff 1516 Airway Removal Criteria Met 1516 Extubation/Airway Removed 1517 an stop data 1523 An End I completed my handoff to the receiving staff during which we 1. Identified the patient 2. Identified the responsible provider 3. Reviewed the pertinent medical history 4. Discussed the surgical course 5. Reviewed intra-op anesthesia management and issues during anesthesia 6. Set expectations for post-procedure period 7. Allowed opportunity for questions and acknowledgement of understanding. Meds Name Total fentanyl injection 50 mcg/mL 100 mcg lidocaine 2% (mg) injection 80 mg ePHEDrine PF 5 mg/mL syringe injection 5 mg ondansetron 4 mg/2 mL injection 4 mg propofol 10 mg/mL infusion 1,201.69 mg propofol 10 mg/mL injection 300 mg ceFAZolin injection 3 g (Ancef) 3 g magnesium sulfate IVPB 2 g in water 50 m L (premix) 2 g Lactated Ringers Free Drip 650 mL * Agents No agents on file. * Blood No blood administrations on file. Lines, Drains, and Airways Type Details Placement Removal Wound 07/07/25; N; Punctur e; Perineum; prostate biopsy; primapore 07/07/25 0000 by Irene Denton M.S.N., R.N. Indwelling Urinary Catheter Placement Date: 07/07/25; Size: 22 Fr.; Balloon Size: 30 mL (20cc in balloon); Urine Returned: Yes; Removal Date: 07/18/25; Removal Reason: Per order 07/07/25 0000 by Love Nogueira R.N. 07/18/25 0000 by Faye Gomez R.N. Peripheral IV Placement Date: 07/07/25; Placement Time: 125; Catheter Size: 22 G; Orientation: Left, Posterior; Location: Hand; Site Prep: Chlorhexidine (Preferred); Technique: Anatomical landmarks; Inserted by: IMMANUEL Nino; Insertion Attempts: 1; Removal Date: 07/08/25; Removal Time: 1923; Removal Reason: (keep occluding) 07/07/25 1251 by Mica Conner RTom 07/08/25 192 by Rigo Maxwell Supraglottic Airway Placement Date: 07/07/25; Placement Time: 1352 (created via procedure documentation); Mask Ventilation: Easy mask; Brand: Unique; Size: 5; Removal Date: 07/07/25; Removal Time: 15107/07/25 1353 by Lamar Serrano APRN, CRNA, D.N.P. 07/07/25 1516 by Mi Dsouza APRN, CRNA documented in this encounter Social History Tobacco Use Types Packs/Day Years [...] things needed for daily living? No 07/07/2025 [facility] Utilities Answer Date Recorded In the past 12 months has th [employer] electric, gas, oil, or water company threatened to shut off services in your home? No 07/07/2025 Depression Answer Date Recor ded PHQ-9 Total Score (max 27) 4 03/03 Housing Stability Answer Date Recorded What is your living situation today? I have a [facility] place to live 07/07/2025 Education Answer Date Recorded What is the highest level of school you have completed or the highest degree you have received? 12th grade 03/25/2022 Sex and Gender Information Value Date Recorded Sex Assigned at Male 03/21/2022 7:03 AM CDT Legal Sex Male 10:17 AM ENTERTAINMENT PRODUCTION PROFESSIONAL Gender Identity Male 01/25/2021 1:10 PM CDT Sexual Orientation Straight 01/25/2021 1: 10 PM CDT documented as of this encounter OR Notes * Anesthesia Postprocedure Evaluation - Mi Dsouza APRN, KEEGAN - 07/07/2025 3:23 PM CDT Patient: Robert Balderas Procedure Summary Date: 07/07/25 Room / Location: [place] [address] [place] [address]22 / [facility] in [place], [place] Anesthesia Start: 1343 Anesthesia Stop: 1523 Procedures: BIOPSY TRANSPERINEAL PROSTATE. (Prostate) CYSTOSCOPY WITH TRANSURETHRAL PROSTATECTOMY (limited) (Bladder) Diagnosis: 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) Retention Urinary (Prostatitis Bacterial [N41.8, B96.89], Malignant Neoplasm Of Bladder (HCC) [C67.9], Retention Urinary [R33.9].) Surgeons: Pankaj Johnson M.D., M.S. Responsible Provider: Mi Dsouza APRN, CRNA Anesthesia Type: general ASA Status: 3 Anesthesia Type: general Last vitals Vitals Value Taken Time BP 140/109 07/07/25 15:20 Temp Pulse 67 07/07/25 15:22 Resp 13 07/07/25 15:22 SpO2 93 % 07/07/25 15:22 Vitals shown include unfiled device data. Please reference Vitals flowsheet for most recent vital signs. Anesthesia Post Evaluation Patient Disposition: dismissal Cardiovascular status: hemodynamics (HR & BP) acceptable Respiratory status: patent airway with spontaneous effort Temperature: normothermic Oxygen requirements: room air Level of consciousness: awake Pain score: pain adequately controlled and/or at baseline Post Op nausea/vomiting: none Hydration status: euvolemic Notable Events No notable events documented. * Anesthesia Procedure Notes - Lamar Serrano APRN, CRNA, D.N.P. - 07/07/2025 2:01 PM CDTAssociated Order(s): Airway Airway Date/Time: 07/07/2025 1:53 PM Performed by: Lamar Serrano APRN, CRNA, D.N.P. Authorized by: Lamar Serrano APRN, CRNA, D.N.P. Patient location during procedure: OR / Procedure Area PROCEDURE DETAILS: Mask difficulty assessment: easy mask Final airway type: supraglottic airway Device size: 5 Supraglottic device: LMA unique Supraglottic device size: 5 Airway confirmation: bilateral breath sounds, positive ETCO2 and bilateral chest rise PRE PROCEDURE DETAILS: Pre evaluation for airway management: procedure Urgency: elective Preop assessment of probable difficulty: no difficulty anticipated Preoxygenation: bag valve mask SEDATION / ANESTHESIA Anesthesia method: anesthesia POST PROCEDURE DETAILS: Procedure outcome: successful Notable Events: no complications * Anesthesia Preprocedure Evaluation - Irene Marc M.D. - 07/07/2025 12:55 PM CDT Preprocedure Anesthesia & H&P Assessment Procedure Summary Date/Time: 07/07/25 1326 Procedures: BIOPSY TRANSPERINEAL PROSTATE. (Prostate) CYSTOSCOPY, BIOPSY, FULGURATION, prostate urethra biopsies. (Bladder) Diagnosis: Prostatitis Bacterial [N41.8, B96.89] Malignant Neoplasm Of Bladder (HCC) [C67.9] Retention Urinary [R33.9] Pre-op diagnosis: Prostatitis Bacterial [N41.8, B96.89], Malignant Neoplasm Of Bladder (HCC) [C67.9], Retention Urinary [R33.9]. Location: [place] [address] / [facility] in [place], [place] Surgeons: Pankaj Johnson M.D., M.S. Pertinent components of the patient's history including current problem list, medical history, surgical history, family history, social history, medications and allergies were reviewed. Present illness and pre-op diagnosis were confirmed. The planned surgery / procedure was verified with the patient / legal guardian. The patient's general health condition remains unchanged RELEVANT COMORBID CONDITIONS CV (+) Atherosclerotic Heart Disease Of [place] Coronary Artery Without Angina Pectoris (+) Hypertension Essential Primary (+) Other Pulmonary Embolism Without Acute Cor Pulmonale (HCC) RESP (+) Asthma (HCC) (+) Asthma Mild Intermittent (HCC) HEME (+) Anemia Other (+) Obesity Body Mass Index 30-39.9 Adult OBJECTIVE PHYSICAL EXAMINATION Airway (HEENT) Mallampati: II TM Distance: >3 FB Neck ROM: Full Mouth Opening: >3 cm Cardiovascular Rhythm: Regular Rate: Normal Cardiovascular Assessment: cardiovascular normal Functional Capacity: >4 METS Pulmonary Pulmonary Assessment: Clear General / Constitutional Constitutional Assessment: Normal General State of Health:: healthy appearing and calm Neurological Neurologic Assessment: alert Dental Dental Assessment: dentition intact ASSESSMENT / PLAN ANESTHESIA PLAN ASA: 3 Anesthesia Plan: MAC Patient seen and allergies reviewed, anesthesia plan and risks discussed directly with patient /legal guardian or through an roll coverer. The use of blood products not discussed Approval to Proceed: approved for anesthesia documented in this encounter Plan of Treatment Upcoming Encounters Date Type Department Care Team (Latest Contact Info) Description 08/02/2025 12:45 PM CDT Clinical Communication Virtual Review in [place], [place] 200 [place] [phone] 08/03/2025 1:00 PM CDT Telemedicine Department of Palliative Care in [address] [phone] Sachi De Leon B.M.B.S., BDiyaM., B.Ch. [address] [place] [phone] 08/14/2025 10:30 AM ENTERTAINMENT PRODUCTION PROFESSIONAL Procedure visit Department of Urology in [address] [phone] Orion Mendoza, LIANNE, PDiyaADiya-CDiya [address] [place] [phone] documented as of this encounter Procedures Procedure Name Priority Date/Time Associated Diagnosis Comments LDA ANE NON-SURGICAL AIRWAY Routine 07/07/2025 1:53 PM CDT documented in this encounter Results * LDA ANE NON-SURGICAL AIRWAY (07/07/2025 1:53 PM CDT) Narrative Lamar Serrano APRN, CRNA, D.N.P. - 07/07/2025 1:53 PM CDT Lamar Serrano APRN, CRNA, D.N.P. 07/07/2025 2:01 PM Airway Date/Time: 07/07/2025 1:53 PM Performed by: Lamar Serrano APRN, CRNA, D.N.P. Authorized by: Lamar Serrano APRN, CRNA, D.N.P. Patient location during procedure: OR / Procedure Area PROCEDURE DETAILS: Mask difficulty assessment: easy mask Final airway type: supraglottic airway Device size: 5 Supraglottic device: LMA unique Supraglottic device size: 5 Airway confirmation: bilateral breath sounds, positive ETCO2 and bilateral chest rise PRE PROCEDURE DETAILS: Pre evaluation for airway management: procedure Urgency: elective Preop assessment of probable difficulty: no difficulty anticipated Preoxygenation: bag valve mask SEDATION / ANESTHESIA Anesthesia method: anesthesia POST PROCEDURE DETAILS: Procedure outcome: successful Notable Events: no complications us Lamar Serrano APRN, KEEGAN, D.N.P. ANESTHESIA ORDERABLES Final Result documented in this encounter Visit Diagnoses Not on filedocumented in this encounter Administered Medications Inactive Administered Medications - up to 3 most recent administrations Medication Order MAR Action Action Date Dose Rate Site ceFAZolin injection 3 g (Ancef) 3 g, intravenous, Once, On Thu07/07/25 at 1300, For 1 dose, Intra-Op, For immediate IV push administration, reconstitute vial per IVAG or package insert instructions. See IVAG for administration guidelines., Drug Monitoring Program: Pharmacist to adjust medication dosing based on indication and drug clearance factors., Indications: Prophylaxis, surgicalIndications:Prophylaxis, surgical Given 07/07/2025 2:01 PM CDT 3 g ePHEDrine (PF) injection intravenous, As needed, Starting on Thu07/07/25 at 1421, Anesthesia Intra-op Given 07/07/2025 2:21 PM CDT 5 mg fentaNYL injection (Sublimaze) intravenous, As needed, Starting on Thu07/07/25 at 1348, Anesthesia Intra-op Given 07/07/2025 1:50 PM CDT 50 mcg Given 07/07/2025 1:48 PM CDT 50 mcg Lactated Ringer's intravenous, Continuous Infusion: Per Instructions PRN, Starting on Thu07/07/25 at 1343, Anesthesia Intra-op New Bag 07/07/2025 1:43 PM CDT lidocaine (PF) (cardiac) injection intravenous, As needed, Starting on Thu07/07/25 at 1348, Anesthesia Intra-op Given 07/07/2025 1:48 PM CDT 80 mg magnesium sulfate in water IVPB intravenous, Administer over 120 Minutes, As needed, Starting on Thu07/07/25 at 1506, Anesthesia Intra-op Given 07/07/2025 3:06 PM CDT 2 g ondansetron (PF) injection (Zofran) intravenous, As needed, Starting on Thu07/07/25 at 1350, Anesthesia Intra-op Given 07/07/2025 1:50 PM CDT 4 mg propofol 10 mg/mL infusion (Diprivan) intravenous, Continuous Infusion: Per Instructions PRN, Starting on Thu07/07/25 at 1349, Anesthesia Intra-op Rate/Dose Change 07/07/2025 2:49 PM CDT 150 mcg/kg/min 114.75 mL/hr Rate/Dose Change 07/07/2025 2:37 PM CDT 125 mcg/kg/min 95. 625 mL/hr Rate/Dose Change 07/07/2025 2:07 PM CDT 100 mcg/kg/min 76. 5 mL/hr propofoL injection (Diprivan) intravenous, As needed, Starting on Thu07/07/25 at 1350, Anesthesia Intra-op Given 07/07/2025 1:52 PM CDT 50 mg Given 07/07/2025 1:51 PM CDT 50 mg Given 07/07/2025 1:50 PM CDT 200 mg documented in this encounter Additional Health Concerns Assessment Noted Time PHQ-9 Depression Total Score: 4 03/03/20 24 1:30 PM CDT documented as of this encounter Care Teams Marble Chip Terrazzo Worker Relationship Specialty Start Date End Date Elsewhere, Pcp PCP - General 03/03/24 documented as of this encounter
--- OUTSIDE RECORDS SUMMARY | 2025-07-09 20:55 | XMS_ITS | Encounter Summary ---
Author Organization [facility] Address [address] [place] [address] Care Team Providers Care Solar System Designer Name Role Phone Elsewhere, Pcp Primary Care Provider Unavailabl e Encounter Details Date Type Department Care Team (Latest Contact Info) Description 07/09/2025 8:55 PM CDT Ancillary Procedure Department of Gastroenterology Social History Tobacco Use Types Packs/Day Years [...] things needed for daily living? No 07/07/2025 [facility] Utilities Answer Date Recorded In the past 12 months has th e electric, gas, oil, or water company threatened to shut off services in your home? No 07/07/2025 Depression Answer Date Recor ded PHQ-9 Total Score (max 27) 4 03/03 Housing Stability Answer Date Recorded What is your living situation today? I have a [facility] place to live 07/07/2025 Education Answer Date Recorded What is the highest level of school you have completed or the highest degree you have received? 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 [address] [place] [phone] 08/14/2025 10:30 AM LIFE SKILLS TRAINER Procedure visit Department of Urology in [address] [phone] Orion Mendoza, MARTINES, P.A.-C. [address] [place] [phone] documented as of this encounter Procedures Procedure Name Priority Date/Time Associated Diagnosis Comments GASTROENTEROLOGY IMAGE EXAM Routine 07/09/2025 8:55 PM CDT documented in this encounter Results * Arm-Gastroenterology Image Exam (07/09/2025 8:55 PM CDT) 07/09/2025 8:52 PM CDT Narrative [facility] - 07/09/2025 8:55 PM CDT This order has been created [...] documented as of this encounter Care Teams Solar System Designer Relationship Specialty Start Date End Date Elsewhere, Pcp PCP - General 03/03/24 documented as of this encounter
--- OUTSIDE RECORDS SUMMARY | 2025-07-11 15:45 | XMS_ITS | Encounter Summary ---
Author Organization [facility] Address [address] [place] [phone] Care Team Providers Care Wound Care Coordinator Name Role Phone Elsewhere, Pcp Primary Care Provider Unavailabl e Reason for Visit * Reason Onset Date Comments Pre-visit Intake 07/11/2025 Encounter Details Date Type Department Care Team (Latest Contact Info) Description 07/11/2025 3:45 PM CDT Clinical Communication Virtual Review in [place], [place] 200 [place] [phone] Pre-visit Intake Social History Tobacco Use Types [...] things needed for daily living? No 07/07/2025 [facility] Utilities Answer Date Recorded In the past 12 months has th [employer] electric, gas, oil, or water company threatened to shut off services in your home? No 07/07/2025 Depression Answer Date Recor ded PHQ-9 Total Score (max 27) 4 03/03 Housing Stability Answer Date Recorded What is your living situation today? I have a [facility] place to live 07/07/2025 Education Answer Date Recorded What is the highest level of school you have completed or the highest degree you have received? 12th grade 03/25/2022 Sex and Gender Information Value Date Recorded Sex Assigned at Male 03/21/2022 7:03 AM CDT Legal Sex Male 10:17 AM DIRECTOR HARDWARE Gender Identity Male 01/25/2021 1:10 PM CDT Sexual Orientation Straight 01/25/2021 1: 10 PM CDT documented as of this encounter Plan of Treatment Upcoming Encounters Date Type Department Care Team (Latest Contact Info) Description 08/02/2025 12:45 PM CDT Clinical Communication Virtual Review in [place], [place] 200 [place] [phone] 08/03/2025 1:00 PM CDT Telemedicine Department of Palliative Care in [place], [place] [address] [place] [phone] Sachi De Leon B.M.B.S., B.M., B.Ch. [address] [place] [phone] 08/14/2025 10:30 AM DIRECTOR HARDWARE Procedure visit Department of Urology in [place], [place] [address] [place] [phone] Orion Mendoza, LIANNE, P.A.-C. [address] [place] [phone] documented as of this encounter Visit Diagnoses Not on filedocumented in this encounter Additional Health Concerns Assessment Noted Time PHQ-9 Depression Total Score: 4 03/03/20 24 1:30 PM CDT documented as of this encounter Care Teams Wound Care Coordinator Relationship Specialty Start Date End Date Elsewhere, Pcp PCP - General 03/03/24 documented as of this encounter
--- OUTSIDE RECORDS SUMMARY | 2025-07-13 09:00 | XMS_ITS | Encounter Summary ---
Author Organization [facility] Address [address] [place] [id number] Care Team Providers Care Odd Bundle Worker Name Role Phone Elsewhere, Pcp Primary Care Provider Unavailabl e Reason for Referral * Outpatient (Routine) - Authorized Specialty Diagnoses / Procedures Referred By John rene Referred To Contact Palliative Medicine Nia Valdivia M.D. [address] [place] [address] Phone: tel: fax: [facility] Referral ID Status Reason Start Date Expiration Date V isits Requested Visits Authorized [id number] Authorized 07/13/2025 01/12/2027 1 1 Reason for Visit * Outpatient (Routine) - Closed Specialty Diagnoses / Procedures Referred By John rene Referred To Contact Palliative Medicine Diagnoses Mass Pelvis Orion Mendoza, MARTINES, P.A.-C. [address] [place] [address] Phone: tel: fax: [facility] Referral ID Status Reason Start Date Expiration Date Visits Re quested Visits Authorized [id number] Closed 06/29/2025 12/29/2026 1 1 Encounter Details Date Type Department Care Team (Latest Contact Info) Description 07/13/2025 9:00 AM CDT Comprehensive Visit Department of Palliative Care in [place], [place] [address] [place] [phone] Nia Valdivia M.D. [address] [place] [phone] Ashley Ch R.N., [facility] [address] [place] [phone] Pain Cancer Associated (Primary Dx); Spasm Bladder; Pain Piriformis; Palliative Care Social History Tobacco Use Types Packs/Day [...] things needed for daily living? No 07/07/2025 [facility] Utilities Answer Date Recorded In the past 12 months has e electric, gas, oil, or water company threatened to shut off services in your home? No 07/07/2025 Depression Answer Date Recor ded PHQ-9 Total Score (max 27) 4 03/03 Housing Stability Answer Date Recorded What is your living situation today? I have a [facility] [place] place to live 07/07/2025 Education Answer Date Recorded What is the highest level of school you have completed or the highest degree you have received? 12th grade 03/25/2022 Sex and Gender Information Value Date Recorded Sex Assigned at Male 03/21/2022 7:03 AM CDT Legal Sex Male 10:17 AM [employer] Gender Identity Male 01/25/2021 1:10 PM CDT Sexual Orientation Straight 01/25/2021 1: 10 PM CDT documented as of this encounter Last Filed Vital Signs Vital Sign Reading Time Taken Comments Blood Pressure 108/79 07/13/2025 8:35 AM CDT Pulse 74 07/13/2025 8:35 AM CDT Temperature 36.4 C (97.5 F) 07/13/2025 8:35 AM CDT Respiratory Rate - - Oxygen Saturation 96% 07/13/2025 8:35 AM CDT Inhaled Oxygen Concentration - - Weight - - Height - - Body Mass Index - - documented in this encounter Progress Notes * Ashley Ch, RDiyaN., [facility] - 07/13/2025 9:00 AM CDT Palliative Care Introduction I introduced the patient and/or family to role of palliative medicine in the care of patients with serious illness, namely expertise in pain and non-pain symptom management, psychosocial, and spiritual support for patients and families as well as assistance in broader medical decision making. Palliative Medicine Clinic team sheet and contact information was reviewed with the patient. Chief Complaint/Purpose of Visit Patient was here for patient education. Patient was referred by Dr. Nia Valdivia Impression/Report/Plan Please see After Visit Summary for specific patient instructions. Patient Education: Education provided to patient and spouse For details involving the learning needs assessment, teaching methods used, and evaluation of learning, please refer to the patient education flowsheet. Education topics covered in this visit include: Clinic Care Team/Contacting the Clinic Palliative Medicine Clinic face sheet & contact information, Palliative Care: Care for People with Serious Illness [id number] and Integrative and Supportive Therapies for Palliative Care Patients [id number] provided at this visit. Follow-up as per the consult note of Dr. Nia Valdivia documented in this encounter Consult Notes * Nia Valdivia M.D. - 07/13/2025 9:00 AM CDT REFERRING SERVICE urology SUBJECTIVE CHIEF COMPLAINT / REASON FOR CONSULT Reason for referral includes symptom management. HISTORY OF PRESENT ILLNESS Robert Balderas is a 64 y.o. male with a history of renal cell cancer s/p nephrectomy, bladdercancer s/p TURBT and BCG now with a new diagnosis of prostate cancer. He is referred today for helpwith pain management. Mr. Balderas has several types of pain: 1) bladder spasms ---- he describes severe bladder spasms that occurred coincident with a decrease in his urinary stream. These severe spams improved significantly with Go catheter placement. He now (with the Go still in) will get occasional less intense but still uncomfortable spasm of the bladder. He has been utilizing prn oxybutinin combined with diazepam that he reports has been very effective for the spasms. 2) Pain with defecation ---- he describes a pain that occurs with defecation that radiates to his bilateral groins. He denies any perineal numbness or tingling just a squeezing pressure sensation during defecation that resolves shortly thereafter. He started using MOM to loosen his stool and that helped this discomfort significantly. 3) Left buttock pain ---- Following his prostate biopsy he has had pain in his left buttock. For a while he felt an actual lump that was tender. This pain is worse when he sits on the left side or when hitting a bump in the road while riding in the car. He denies pain going down his legs, numbness,tingling. He does not have worsening pain at night. He has not had weakness. This pain does not worsen with defecation. Palliative Medicine Symptom Assessment: Pain: see HPI Dyspnea: denies Bowels: denies constipation, utilizing MOM as noted above Nausea/Vomiting: denies Anxiety: denies Other: The following portions of the patient's history reviewed and updated as appropriate: allergies, current medications, family history, medical history, social history, surgical history and problem list. Current Medications[1] I have reviewed the patient's record in the [place] Prescription Drug Monitoring Program (PDMP) with no unexpected findings. The following portions of the patient's history reviewed and updated as appropriate: allergies, current medications, family history, medical history, social history, surgical history and problem list. Social History Patient is . He is here today with his son-in-law and . Spiritual History Patient self-identifies as Non-specific Faith No spiritual concerns identified today Advance Care Planning Documents I reviewed the following document(s): Other none I completed/provided the following document(s): none Palliative Functional Assessment 80%- Full ambulation, Normal activity with effort and some evidence of disease, Full self-care, Normal or reduced intake, Full level of consciousness OBJECTIVE Physical Exam Temperature: [36.4 ??C] 36.4 ??C Blood Pressure: (108)/(79) 108/79 SpO2: [96 %] 96 % Pulse Rate: [74] 74 Physical Exam General: alert, cooperative; no acute distress, RASS 0 HEENT: Conjunctiva clear & non-icteric, mucous membranes are moist Lungs: Breathing is unlabored with no accessory muscles use. No pursed lip breathing. Musc: He is tender in the left mid-buttock about the level of the piriformis muscle. I cannot feel a knot or a lump today. He is not tender over the bony structures nor over the ischial bursa. Extremities: No lower extremity edema noted. Neurologic: No myoclonus. Moves all 4 extremities. Psychiatric: Oriented X3, intact recent and remote memory, judgment and insight, congruent mood andaffect. ASSESSMENT / PLAN Impression/Report/Plan We introduced the patient and their caregiver's to role of palliative care in the care of patients with serious illness, namely expertise in pain and non-pain symptom management, psychosocial, and spiritual support for patients and families as well as assistance in broader medical decision making. #1 pain, cancer associate #2 bladder spasms #3 possible piriformis syndrome #X Palliative Care Z51.5 I suspect the pain that he has with defecation is indeed related to his cancer. I suspect that whenhis rectum contracts during defecation it is impacted where the tumor abuts the rectum. Additionally there may also be pelvic floor involvement. Fortunately, this is much improved with loosening of his stools with MOM. The challenge in managing this pain is that by the time he takes a medication and the 30-45 minutes it takes to take effect, the pain has already resolved. Additionally, pain medications (i.e. opioids) would actually worsen the constipation potentially making this pain even worse. We could consider a trial of a neuropathic agent if this becomes more significant in the future. I defer the management of bladder spasms to urology. I suspect he has a bit of piriformis syndrome going on in his left buttock. I could not see any metastatic lesions on the left pelvis near his pain in his scans (PET scan coming up next week). This could be injected through interventional pain but I would probably give it some time to see if it resolves on its own. Recommended a trial of topical diclofenac gel. At this time he is doing a great job managing his pain. The plans for his prostate cancer are not currently clear. It isn't clear yet what his treatment will be or where he will get it. I have made afollow up visit for roughly 3 weeks. Hopefully at that time we will have a management plan for his cancer treatment and we can assess if he is going to be treated here at [place] and we will continue tofollow or if he is getting treated locally, who will follow his symptom needs locally. [1] Current Outpatient Medications: acetaminophen (TylenoL) 500 mg tablet, Take 2 tablets (1,000 mg total) by mouth every 6 (six) hoursas needed for pain., Disp: , Rfl: albuterol 90 mcg/actuation inhaler, Inhale 1 puff every 4 (four) hours as needed., Disp: , Rfl: allopurinoL (ZYLOPRIM) 300 mg tablet, Take 300 mg by mouth every evening. , Disp: , Rfl: ALPRAZolam (XANAX) 0.25 mg tablet, Take 0.25 mg by mouth 3 (three) times a day as needed., Disp: , Rfl: aspirin [address] tablet, Take 1 tablet (81 mg total) by mouth daily. You may resume taking your aspirin in 48 hours after surgery. If you are still experiencing a significant amount of blood in your urine at this time, please contact your the provider managing this medication before restarting yourblood thinner. Any further questions can be directed to your Urology team using the contact information provided to you., Disp: , Rfl: ofyl-lqb-erd-ixa-kgiu-tukl-pec (Fiber 6) 1,000 mg tablet, Take 1 tablet by mouth daily., Disp: , Rfl: diazePAM (Valium) 5 mg tablet, Take 1 tablet (5 mg total) by mouth 3 (three) times a day as needed (bladder spasms/pain)., Disp: 10 tablet, Rfl: 0 diclofenac sodium (Voltaren) 1 % gel, Apply 2 g topically 4 (four) times a day. Apply to affected area., Disp: 200 g, Rfl: 0 diphenhydrAMINE (BenadryL) 25 mg capsule, Take 25 mg by mouth at bedtime as needed., Disp: , Rfl: DOCOSAHEXAENOIC ACID ORAL, Take 1 capsule by mouth daily., Disp: , Rfl: escitalopram (LEXAPRO) 10 mg tablet, Take 10 mg by mouth daily., Disp: , Rfl: ezetimibe (Zetia) 10 mg tablet, Take 1 tablet (10 mg total) by mouth daily., Disp: 30 tablet, Rfl: 11 levoFLOXacin (Levaquin) 500 mg tablet, Take 1 tablet (500 mg total) by mouth daily for 10 days., Disp: 10 tablet, Rfl: 0 lisinopriL 10 mg tablet, Take 1 tablet by mouth as needed (traveling)., Disp: , Rfl: methocarbamoL (Robaxin) 500 mg tablet, Take 1 tablet by mouth 3 (three) times a day as needed., Disp: , Rfl: methylPREDNISolone (MEDROL DOSEPAK) 4 mg tablet, See Admin Instructions. follow package directions for gout , Disp: , Rfl: multivitamin tablet, Take 1 tablet by mouth daily., Disp: , Rfl: nitroglycerin (Nitrostat) 0.4 mg SL tablet, PLACE 1 TABLET UNDER THE TONGUE EVERY 5 MINUTES NEEDED FOR CHEST PAIN MAY REPEAT EVERY 5 MINUTES FOR UP TO 3 DOSES, Disp: 25 tablet, Rfl: 3 oxyBUTYnin (Ditropan XL) 10 mg 24 hr tablet, Take 1 tablet (10 mg total) by mouth daily as needed (bladder spasms/pain) for up to 20 days. For bladder spasms/bladder pain from your catheter while it is in place. Try to avoid taking this medication 24 hours prior to your catheter removal appointment., Disp: 10 tablet, Rfl: 1 rivaroxaban (Xarelto) 20 mg tablet, Take 1 tablet (20 mg total) by mouth as directed. You may resume taking your xarelto the following day after discharge from the hospital if your urine color is pink or pail bailer. If you are still experiencing a significant amount of blood in your urine after 5 days, please contact your the provider managing this medication before restarting your blood thinner. Any further questions can be directed to your Urology team using the contact information provided to you. For air related travel with history of travel related blood clots, Disp: , Rfl: rosuvastatin (CRESTOR) 40 mg tablet, Take 40 mg by mouth at bedtime., Disp: , Rfl: semaglutide (Wegovy) 1 mg/0.5 mL pen injector injection, Inject 1 mg under the skin once a week., Disp: , Rfl: tadalafiL (CIALIS, ADCIRCA) 20 mg tablet, Take 20 mg by mouth as needed., Disp: , Rfl: tamsulosin (Flomax) 0.4 mg 24 hr capsule, Take 1 capsule (0.4 mg total) by mouth daily., Disp: 30 capsule, Rfl: 1 UNABLE TO FIND, Med Name: compounded semeglutide injection 1.5 mg weekly, Disp: , Rfl: documented in this encounter Plan of Treatment Upcoming Encounters Date Type Department Care Team (Latest Contact Info) Description 08/02/2025 12:45 PM CDT Clinical Communication Virtual Review in [address] [phone] 08/03/2025 1:00 PM CDT Telemedicine Department of Palliative Care in [address] [phone] Sachi De Leon B.M.B.S., B.M., B.Ch. [address] [place] [phone] 08/14/2025 10:30 AM [employer] Procedure visit Department of Urology in [address] [phone] Orion Mendoza, LIANNE, P.A.-C. [address] [place] [address] Scheduled Referrals Name Type Priority Associated Diagnoses Order Schedule Palliative Care office visit (clinic) Outpatient Referral Routine Expected: 08/03/2025, Expires: 10/13/2026 documented as of this encounter Visit Diagnoses Diagnosis Pain Cancer Associated- Primary Spasm Bladder Pain Piriformis Palliative Care documented in this encounter Additional Health Concerns Assessment Noted Time PHQ-9 Depression Total Score: 4 03/03/20 24 1:30 PM CDT documented as of this encounter Care Teams Odd Bundle Worker Relationship Specialty Start Date End Date Elsewhere, Pcp PCP - General 03/03/24 documented as of this encounter
--- OUTSIDE RECORDS SUMMARY | 2025-07-13 13:00 | XMS_ITS | Encounter Summary ---
Author Organization [facility] Address [address] [place] [id number] Care Team Providers Care Economic Geographer Name Role Phone Elsewhere, Pcp Primary Care Provider Unavailabl e Reason for Referral * Outpatient (Routine) - Authorized Specialty Diagnoses / Procedures Referred By Contac t Referred To Contact Diagnoses Primary Malignant Neoplasm Of Prostate (HCC) Retention Urinary Procedures URO Urethral cath change (UCC) Orion Mendoza MPAS, P.ADiya-CDiya [address] [place] [address] Phone: tel: fax: [facility] Referral ID Status Reason Start Date Expiration Date V isits Requested Visits Authorized [id number] Authorized 07/13/2025 10/13/2026 1 1 * Outpatient (Routine) - Closed Specialty Diagnoses / Procedures Referred By Contac t Referred To Contact Urology Diagnoses Primary Malignant Neoplasm Of Prostate (HCC) Orion Mendoza MPAS, P.ADiya-CDiya [address] [place] [address] Phone: tel: fax: [facility] Referral ID Status Reason Start Date Expiration Date Visits Re quested Visits Authorized [id number] Closed 07/13/2025 01/12/2027 1 1 * MRI/CAT/PET Scan (Routine) - Closed Specialty Diagnoses / Procedures Referred By John rene Referred To Contact Diagnoses Primary Malignant Neoplasm Of Prostate (HCC) Procedures PET CT Skull to Thigh PSMA Orion Mendoza MPAS, P.A.-C. [address] [place] [phone] Phone: tel: fax: [facility] Referral ID Status Reason Start Date Expiration Date Visits Re quested Visits Authorized [id number] Closed 07/13/2025 10/13/2026 1 1 Reason for Visit * Outpatient (Routine) - Closed Specialty Diagnoses / Procedures Referred By John rene Referred To Contact Urology Orion Mendoza MPAS, P.A.-C. [address] [place] [phone] Phone: tel: fax: Nuria Medrano M.D. [address] [place] [phone] Phone: tel: fax: Referral ID Status Reason Start Date Expiration Date Visits Re quested Visits Authorized [id number] Closed 06/29/2025 12/29/2026 1 1 Encounter Details Date Type Department Care Team (Late st Contact Info) Description 07/13/2025 1:00 PM CDT Office Visit Department of Urology in [place], [place] [address] [place] [phone] Nuria Medrano M.D. [address] [place] [phone] Primary Malignant Neoplasm Of Prostate (HCC) (Primary Dx); Retention Urinary Social History Tobacco Use Types [...] things needed for daily living? No 07/07/2025 [facility] Utilities Answer Date Recorded In the past 12 months has [facility] electric, gas, oil, or water company threatened to shut off services in your home? No 07/07/2025 Depression Answer Date Recor ded PHQ-9 Total Score (max 27) 4 03/03 Housing Stability Answer Date Recorded What is your living situation today? I have a [facility] place to live 07/07/2025 Education Answer Date Recorded What is the highest level of school you have completed or the highest degree you have received? 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 - 07/13/2025 1:00 PM CDT SUBJECTIVE CHIEF COMPLAINT/REASON FOR VISIT Prostate cancer Patient seen on Dr. Medrano calendar HISTORY OF PRESENT ILLNESS Mr. Balderas is a pleasant 64 y.o. male who presents today for prostate cancer discussion. Please refer to the previous notes for extensive detail. He is following up today after his prostate biopsy and prostate urethral biopsy/minimal resection. REVIEW OF SYSTEMS REVIEW OF SYSTEMS MEDICAL HISTORY Medical History[1] SURGICAL HISTORY Surgical History[2] ALLERGIES/CONTRAINDICATIONS Allergies[3] SOCIAL HISTORY Social History Tobacco Use Smoking status: Never Passive exposure: Never Smokeless tobacco: Never Tobacco comments: NA Substance Use Topics Alcohol use: Yes Alcohol/week: 5.0 standard drinks of alcohol Types: 5 Standard drinks or equivalent per week OBJECTIVE PHYSICAL EXAMINATION General: Well-appearing, in no acute apparent distress. Neuro: Alert and orientated x3. Psych: Maintained eye contact throughout conversation. DIAGNOSTICS LABORATORY: Lab Results Component Value Date PSA 2.6 06/27/2025 PSA 1.8 02/10/2024 PSA 2.2 03/21/2022 PSA 0.76 08/05/2016 PSA 0.61 09/13/2013 IMAGING: DX Chest Portable 1 View Result Date: 07/08/2025 Impression: Since 03/21/2022, shallower inspiration which accentuates the cardiac silhouette and pulmonary vasculature. Patchy perihilar and bibasilar opacities, which are nonspecific and may represent an infectious/inflammatory process, volume overload, or subsegmental atelectasis. Remainder not substantially changed. MR Prostate without and with IV Contrast Result Date: 06/28/2025 Impression: PIRADS 5- Very high (clinically significant cancer is highly likely to be present). Large locally invasive prostate mass with extra-prostatic extension and suspected lymph heaven and pelvic osseous metastases as described. CT Urogram without and with IV Contrast Result Date: 06/16/2025 Impression: 1. No evidence of recurrent or [...] in further characterization. ASSESSMENT / PLAN #1 Primary Malignant Neoplasm Of Prostate (HCC) It was my pleasure to meet Mr. Balderas in clinic for follow up of his biopsy results. This unfortunately reveals high-risk prostate cancer with evident metastatic disease on his prior MRI. He has extensive local disease likely involving his rectum, external urethral sphincter, and pelvicmusculature. We advised PSMA PET scan as soon as available and a consult with Dr. Irving to facilitate additional management. Given his evident metastatic disease on MRI, we fear that he may have more extensive metastatic disease on PET imaging. If so, he may be a candidate for triple therapy (ADT + ARPI + chemotherapy). We did not want to start him on Firmagon today, as we want the PET scan to be as accurate as possible. Dr. Irving's team can start him on Firmagon when they meet with him. We truly appreciate their ability to add him on so quickly. The patient may want to receive his initial therapy regimen in the [facility], and they may be able to refer him to Dr. Oakes. Lastly, we talked about his Go catheter management given that he is in retention. I had originally entertain the idea of suprapubic tube, though Dr. Medrano would like to avoid this for now of treatment response, he may be able to void spontaneously afterward and this would avoid a percutaneous procedure. We will keep the Go catheter for now. He does not want to perform CIC. All questions were answered today and the patient has no further concerns. Plan: PSMA PET scan Consult with Dr. Irving thereafter Laboratory work accordingly (liver function testing and testosterone) Go catheter exchange in about 1 month Signed by: LIANNE Cr, PDiyaADiya-C. 07/13/2025 12:55 PM CDT [1] Past Medical History: Diagnosis Date Anemia 02/09/2021 Anxiety takes Xanax as needed Arthritis left hand Arthritis Rheumatoid (HCC) Asthma NOS no current medications Carcinoma Renal Cell Left (HCC) 2009 Cardiac Disease CAD Coronary Artery Disease (Unspecified) Diverticulosis Embolus Pulmonary (HCC) 2016 Embolus Pulmonary Personal History 01/30/2021 Gout Hyperlipidemia treated with Lipitor Hypertension NOS Lisinopril Mass Bladder 01/24/2021 Added automatically from request for surgery [id number] Neuropathy Peripheral Polyp Colon Thromboembolism NOS 2016 left leg DVT in 2016 and DVT 2018 after long air flight [2] Past Surgical History: Procedure Laterality Date BACK SURGERY BIOPSY TRANSPERINEAL PROSTATE N/A 07/07/2025 Procedure: BIOPSY TRANSPERINEAL PROSTATE.; Surgeon: Pankaj Johnson M.D., M.S.; Location: [facility] OR CYSTOSCOPY INSERTION STENT URETER Right 01/31/2021 Procedure: CYSTOSCOPY, INSERTION STENT URETER.; Surgeon: Parag Yi M.D.; Location: [facility] OR CYSTOSCOPY WITH TRANSURETHRAL PROSTATECTOMY N/A 07/07/2025 Procedure: CYSTOSCOPY WITH TRANSURETHRAL PROSTATECTOMY (limited); Surgeon: Pankaj Johnson M.D.,M.S.; Location: [facility] OR CYSTOSCOPY WITH TRANSURETHRAL RESECTION LESION BLADDER N/A 01/31/2021 Procedure: CYSTOSCOPY, TRANSURETHRAL RESECTION LESION BLADDER, PYRIDIUM, PARALYSIS.; Surgeon: Parag Yi M.D.; Location: [facility] OR NEPHRECTOMY Left 2009 OTHER CONVERTED SHX (SEE COMMENT) N/A 10/27/2002 Partial hemilaminectomy. Medial facetectomy fifth lumbar-first sacral (L5-S1) OTHER SURGICAL HISTORY Back surgery 2019 Kidney cancer 2009 [place] NEPHREC [facility]VL LYMPHDEC/THROMB RETROGRADE PYELOGRAM Right 01/31/2021 Procedure: RETROGRADE PYELOGRAM; Surgeon: Parag Yi M.D.; Location: [facility] OR TONSILLECTOMY [3] Allergies Allergen Reactions Codeine Nausea And Vomiting and Nausea Only Nut - Unspecified Anaphylaxis and Wheezing (Reselect Reaction) TREE NUTS Pineapple Anaphylaxis Some fresh fruits Animal Dander Wheezing (Reselect Reaction) Apple Other (see comments) Throat closure Banana Other (see comments) Throat closure Melon Other (see comments) documented in this encounter Plan of Treatment Upcoming Encounters Date Type Department Care Team (Latest Contact Info) Description 08/02/2025 12:45 PM CDT Clinical Communication Virtual Review in [place], [place] [address] [place] [phone] 08/03/2025 1:00 PM CDT Telemedicine Department of Palliative Care in [place], [place] [address] [place] [phone] Sachi De Leon B.M.B.S., B.M., B.Ch. 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 [address] [place] [phone] Scheduled Orders Name Type Priority Associated Diagnoses Orde r Schedule URO Urethral cath change (UCC) Procedure Routine Primary Malignant Neoplasm Of Prostate (HCC) Retention Urinary Expected: 08/13/2025 (Approximate), Expires: 10/13/2026 Scheduled Referrals Name Type Priority Associated Diagnoses Orde r Schedule Urology - Oncology - prostate consult (clinic) Outpatient Referral Routine Primary Malignant Neoplasm Of Prostate (HCC) Expected: 07/19/2025, Expires: 10/13/2026 documented as of this encounter Results * (ABNORMAL) Testosterone, Total by Mass Spectrometry, Serum (07/18/2025 11:29 AM CDT) [facility] [address] [facility] Testosterone, Total by Mass Spectrometry, Serum 209(L) 240 - 950 ng/dL 07/21/2025 10:17 AM CDT [facility] Comment: ----ADDITIONAL INFORMATION---- Testing performed by Liquid Chromatography-Tandem Mass Spectrometry (LC-MS/MS). This test was developed and its performance characteristics determined by [facility] in a manner consistent with CLIA requirements. This test has not been cleared or approved by the U.S. Food and Drug Administration. Blood (Blood, Venous) 07/18/2025 11:29 AM CDT 07/19/2025 7:29 AM CDT Dacia Strickland.Loni.-C. LAB BLOOD NON ADD -ON Final Result [facility] [address] [place] [address] [facility] [address] [place] [address] [place] [address] * Bilirubin, Direct (07/18/2025 11:29 AM CDT) Bilirubin, Direct, S 0.2 0.0 - 0.3 mg/dL 07/18/2025 12:26 PM CDT DTL Blood (Blood, Venous) 07/18/2025 11:29 AM CDT 07/18/2025 11:51 AM CDT Dacia Strickland.A.-C. LAB BLOOD ADD-ON Final Result Performing Organization Address City/[facility]/ZIP Co de Phone Number [facility] [address] 200 [place] [address] * Bilirubin, Total (07/18/2025 11:29 AM CDT) Bilirubin, Total, S 0.6 0.0 - 1.2 mg/dL 07/18/2025 12:26 PM CDT DTL Blood (Blood, Venous) 07/18/2025 11:29 AM CDT 07/18/2025 11:51 AM CDT Orion ABDALLA, P.A.-C. LAB BLOOD ADD-ON Final Result [facility] [address] 200 [place] [address] * AST (Aspartate Aminotransferase) (07/18/2025 11:29 AM CDT) Aspartate Aminotransferase (AST), S 24 8 - 48 U/L 07/18/2025 12:26 PM CDT DTL Blood (Blood, Venous) 07/18/2025 11:29 AM CDT 07/18/2025 11:51 AM CDT Shon Strickland.-C. LAB BLOOD ADD-ON Final Result Performing Organization Address City/[facility]/ZIP Co de Phone Number [facility] [address] 200 [place] [address] * ALT (Alanine Aminotransferase) (07/18/2025 11:29 AM CDT) Alanine Aminotransferase (ALT), S 29 7 - 55 U/L 07/18/2025 12:26 PM CDT DTL Blood (Blood, Venous) 07/18/2025 11:29 AM CDT 07/18/2025 11:51 AM CDT Orion ABDALLA P.A.-C. LAB BLOOD ADD-ON Final Result Performing Organization Address [facility] [[email or web address]] Co de Phone Number [facility] [address] [place] [address] * Alkaline Phosphatase (07/18/2025 11:29 AM CDT) Alkaline Phosphatase, S 108 40 - 129 U/L 07/18/2025 12:26 PM CDT DTL Blood (Blood, Venous) 07/18/2025 11:29 AM CDT 07/18/2025 11:51 AM CDT Dacia Strickland.A.-C. LAB BLOOD ADD-ON Final Result Performing Organization Address City/[facility]/ZIP Co de Phone Number [facility] [address] [place] [address], [place] DTL [facility] [address] [place] [address] * PET CT Skull to Thigh PSMA (07/18/2025 10:06 AM CDT) Anatomical Region Laterality Modality Body, Nuclear Medicine PET R ST LOS, PET ARZ LOS, Nuclear Medicine PET FLA LOS, Nuclear Medicine N/A Positron Emission Tomography (PET), Positron Emission Tomography (PET) Impressions 07/18/2025 11:14 AM CDT Findings consistent with PSMA avid prostate cancer with multiple lymphatic, osseous, pulmonary, and hepatic metastases. miPSMA Expression Score: 3 Narrative 07/18/2025 11:14 AM CDT EXAM: PET CT SKULL TO THIGH PSMA RADIOPHARMACEUTICAL/MEDS: Route: intravenous gallium Ga 68 gozetotide injection (Ga-68 Illuccix/Locametz),5.59 millicurie TECHNIQUE: PSMA-targeted PET/CT scan was performed from the vertex through the upper thighs with low dose, non-contrast, free-breathing CT images for attenuation correction and anatomic localization (AC/AL), with imaging beginning at approximately 60 minutes after radiotracer injection. COMPARISON: Prostate MRI 06/27/2025. INDICATION: Newly diagnosed prostate cancer. History of bladder cancer diagnosed in 2020. Status post BCG treatment. Additional history of renal cell carcinoma, status post left nephrectomy in 2009. Most recent PSA 2.6 ng/mL. Initial treatment strategy. The patient reports having received a vaccination in a location not remembered by the patient within the last two months. FINDINGS: PROSTATE: PSMA avid mass in the prostate gland is consistent with biopsy-proven prostate cancer (SUV max 55.1). LYMPH NODES: Multiple PSMA avid metastatic lymphadenopathy along the left pelvic wall, right internal iliac, right external iliac, and right common iliac chains. OSSEOUS DISEASE: Multiple PSMA avid osteoblastic metastasis in the right proximal femur, bilateral pelvic bones, bilateral ribs, left scapula, and cervical, thoracic, and lumbar spine. OTHER METASTATIC DISEASE: Tiny PSMA avid metastatic pulmonary nodules in the posterior left upper lobe (image 117) and the anterior right upper lobe (image 137). Multiple PSMA avid metastatic lesions in the bilateral hepatic lobes. Additional findings on the noncontrast low-dose CT: Left nephrectomy. Go catheter. Small bilateral pleural effusion. Coronary artery calcifications. Procedure Note Du Hagan M.D. - 07/18/2025 EXAM: PET CT SKULL TO THIGH PSMA RADIOPHARMACEUTICAL/MEDS: Route: intravenous gallium Ga 68 gozetotide injection (Ga-68 Illuccix/Locametz),5.59millicurie TECHNIQUE: PSMA-targeted PET/CT scan was performed from the vertexthrough the upper thighs with low dose, non-contrast, free-breathing CTimages for attenuation correction and anatomic localization (AC/AL), withimaging beginning at approximately 60 minutes after radiotracer injection. COMPARISON: Prostate MRI 06/27/2025. INDICATION: Newly diagnosed prostate cancer. History of bladder cancerdiagnosed in 2020. Status post BCG treatment. Additional history of renalcell carcinoma, status post left nephrectomy in 2009. Most recent PSA 2.6ng/mL. Initial treatment strategy. The patient reports having received a vaccination in a location notremembered by the patient within the last two months. FINDINGS: PROSTATE: PSMA avid mass in the prostate gland is consistent withbiopsy-proven prostate cancer (SUV max 55.1). LYMPH NODES: Multiple PSMA avid metastatic lymphadenopathy along the leftpelvic wall, right internal iliac, right external iliac, and right commoniliac chains. OSSEOUS DISEASE: Multiple PSMA avid osteoblastic metastasis in the rightproximal femur, bilateral pelvic bones, bilateral ribs, left scapula, andcervical, thoracic, and lumbar spine. OTHER METASTATIC DISEASE: Tiny PSMA avid metastatic pulmonary nodules inthe posterior left upper lobe (image 117) and the anterior right upperlobe (image 137). Multiple PSMA avid metastatic lesions in the bilateralhepatic lobes. Additional findings on the noncontrast low-dose CT: Left nephrectomy.Go catheter. Small bilateral pleural effusion. Coronary arterycalcifications. IMPRESSION: Findings consistent with PSMA avid prostate cancer with multiplelymphatic, osseous, pulmonary, and hepatic metastases. miPSMA Expression Score: 3 Orion ABDALLA, P.A.-C. IMG NM PROCEDURES Final Result documented in this encounter Visit Diagnoses Diagnosis Primary Malignant Neoplasm Of Prostate (HCC)- Primary Retention Urinary Primary Malignant Neoplasm Of Prostate (HCC) documented in this encounter Additional Health Concerns Assessment Noted Time PHQ-9 Depression Total Score: 4 03/03/20 24 1:30 PM CDT documented as of this encounter Care Teams Economic Geographer Relationship Specialty Start Date End Date Elsewhere, Pcp PCP - General 03/03/24 documented as of this encounter
--- OUTSIDE RECORDS SUMMARY | 2025-07-18 07:40 | XMS_ITS | Encounter Summary ---
Author Organization [facility] Address [address] [place] [address] Care Team Providers Care Report Manager Name Role Phone Elsewhere, Pcp Primary Care Provider Unavailabl e Reason for Referral * MRI/CAT/PET Scan (Routine) - Closed Specialty Diagnoses / Procedures Referred By Contac t Referred To Contact Diagnoses Primary Malignant Neoplasm Of Prostate (HCC) Procedures PET CT Skull to Thigh PSMA Orion Mendoza MPAS, P.A.-C. 200 [place] [address] Phone: tel: fax: [facility] Referral ID Status Reason Start Date Expiration Date Visits Re quested Visits Authorized [id number] Closed 07/13/2025 10/13/2026 1 1 Reason for Visit * MRI/CAT/PET Scan (Routine) - Closed Specialty Diagnoses / Procedures Referred By Contac t Referred To Contact Diagnoses Primary Malignant Neoplasm Of Prostate (HCC) Procedures PET CT Skull to Thigh PSMA Orion Mendoza MPAS, P.A.-C. [address] [place] [phone] Phone: tel: fax: [facility] Referral ID Status Reason Start Date Expiration Date Visits Re quested Visits Authorized [id number] Closed 07/13/2025 10/13/2026 1 1 Encounter Details Date Type Department Care Team (Latest Contact Info) Description 07/18/2025 7:40 AM CDT - 07/18/2025 11:59 PM CDT Hospital Encounter Department of Radiology, [facility], in [place], [place] [address] [place] [phone] Orion Mendoza, LIANNE, PDiyaA.-C. [address] [place] [address] Primary Malignant Neoplasm Of Prostate (HCC) Discharge Disposition: Home or Self Care [...] for daily living? No 07/07/2025 [facility] Utilities Answer Date Recorded In the past 12 months has th [employer], gas, oil, or water [employer] threatened to shut off services in your home? No 07/07/2025 Depression Answer Date Recor ded PHQ-9 Total Score (max 27) 4 03/03 Housing Stability Answer Date Recorded What is your living situation today? I have a [facility] place to live 07/07/2025 Education Answer Date Recorded What is the highest level of school you have completed or the highest degree you have received? 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 07/07/2025 fvtz-tos-mvf-elodia -rnfx-nygl-lkw (Fiber 6) 1,000 mg tablet Take 1 [...] tablet 07/10/2025 3:39 PM CDT 07/10/2025 5 oxyCODONE (Roxicodone) 5 mg immediate release tabletIndication s:Acute Pain Take 1 tablet (5 mg total) by mouth every 6 (six) hours as needed for pain for up to 3 days Indication: Acute Pain. 12 tablet 07/18/2025 11:53 AM CDT 07/18/2025 5 lisinopriL 10 mg tablet Take 1 [...] if your urine color is pink or segment producer. If you are still experiencing a significant [...] 07/10/2025 5 documented as of this encounter Plan of Treatment Upcoming Encounters Date Type Department Care Team (Latest Contact Info) Description 08/02/2025 12:45 PM CDT Clinical Communication Virtual Review in [place], [place] 200 [place] [phone] 08/03/2025 1:00 PM CDT Telemedicine Department of Palliative Care in [address] [phone] Sachi De Leon B.M.B.S., B.M., B.Ch. [address] [place] [phone] 08/14/2025 10:30 AM WELT DRAWER Procedure visit Department of Urology in [place], [place] [address] [place] [phone] Orion Mendoza, LIANNE, P.A.-C. [address] [place] [phone] documented as of this encounter Procedures Procedure Name Priority Date/Time Associated Diagnosis Comments PET CT SKULL TO THIGH PSMA RAD - Routine (most inpatients and all outpatients) 07/18/2025 10:06 AM CDT Primary Malignant Neoplasm Of Prostate (HCC) documented in this encounter Results * PET CT Skull to Thigh PSMA [...] Diagnoses Diagnosis Primary Malignant Neoplasm Of Prostate (HCC) documented in this encounter Administered Medications Inactive Administered Medications - up to 3 most recent administrations Medication Order MAR Action Action Date Dose Rate Site gallium Ga 68 gozetotide injection (Ga-68 Illuccix/Locametz) 2.7-7.7 millicurie, intravenous, Once, On 07/18/25 at 0915, For 1 dose, Imaging Protocol Orders Given 07/18/2025 8:44 AM CDT 5.59 millicuries documented in this encounter Additional Health Concerns Assessment Noted Time PHQ-9 Depression Total Score: 4 03/03/20 24 1:30 PM CDT documented as of this encounter Care Teams Report Manager Relationship Specialty Start Date End Date Elsewhere, Pcp PCP - General 03/03/24 documented as of this encounter
--- OUTSIDE RECORDS SUMMARY | 2025-07-18 10:00 | XMS_ITS | Encounter Summary ---
Author Organization [facility] Address [address] [place] [phone] Care Team Providers Care Chemical Plant Worker Name Role Phone Elsewhere, Pcp Primary Care Provider Unavailabl e Reason for Visit * Reason Comments Other UCO * Outpatient (Routine) - Closed Specialty Diagnoses / Procedures Referred By John t Referred To Contact Diagnoses Retention Urinary Procedures URO Urethral cath fill / remove / voiding trial (fill / pull) Orion Mendoza MPAS, P.A.-C. [address] [place] [phone] Phone: tel: fax: [facility] Referral ID Status Reason Start Date Expiration Date Visits Re quested Visits Authorized [id number] Closed 07/14/2025 10/14/2026 1 1 Encounter Details Date Type Department Care Team (Late st Contact Info) Description 07/18/2025 10:00 AM CDT Procedure visit Department of Urology in [place], [place] [address] [place] [phone] Orion Mendoza MPAS, P.A.-C. [address] [place] [address] [phone] Faye Gomez R.N. [address] [place] [phone] Retention Urinary Social History Tobacco Use Types [...] things needed for daily living? No 07/07/2025 [facility] Utilities Answer Date Recorded In the past 12 months has e electric, gas, oil, or water company threatened to shut off services in your home? No 07/07/2025 Depression Answer Date Recor ded PHQ-9 Total Score (max 27) 4 03/03 Housing Stability Answer Date Recorded What is your living situation today? I have a [facility] place to live 07/07/2025 Education Answer Date Recorded What is the highest level of school you have completed or the highest degree you have received? 12th grade 03/25/2022 Sex and Gender Information Value Date Recorded Sex Assigned at Male 03/21/2022 7:03 AM CDT Legal Sex Male 10:17 AM [employer]OSO[employer] DYNAMICS CONSULTANT Gender Identity Male 01/25/2021 1:10 PM CDT Sexual Orientation Straight 01/25/2021 1: 10 PM CDT documented as of this encounter Progress Notes * Orion Mendoza MPAS, P.A.-C. - 07/18/2025 10:00 AM CDT Patient had more pain after his catheter was removed, though thankfully was able to urinate. He hasrun out of his prescription for PRN oxycodone and I have renewed this for an additional 3 days and printed the prescription for him to [facility]. They are staying overnight before there consult with Dr. Irving tomorrow. I asked our team to let him know that he should reach out to palliative medicine for additional pain control advisement. * Faye Gomez R.N. - 07/18/2025 10:00 AM CDT CHIEF COMPLAINT Reason for visit, urinary catheter removal post: cuenca catheter placed elsewhere for urinary retention. IMPRESSION/REPORT/PLAN Nursing Intervention: Patient presented with light pink urine in his catheter bag. Patient's bladder was prefilled with about 250 ml's of normal saline. Catheter balloon was deflated( but did not deflate completely) and catheter was removed intact. Patient voided about 200 ml's of light zaays colored urine with a postvoid residual per bladder scan of 57 ml's. Patient requested additional pain medication . Contacted LIANNE Billy P.A.-C., P.A. for additional Oxycodone. A prescriptionwas dispensed to patient for 12 tabs. Patient instructed to contact Palliative care for additional pain medication if needed. Patient tolerated procedure well. Patient education: use of incontinence pads and leakage of urine , to push fluids , hematuria , burning with urination , to urinate 1 more times before leaving the clinic and if they urinate to theirsatisfaction they may leave , to urinate often , to stop the medication ditropan, and to return to clinic if having voiding issues if before 4PM, if after hours to report to their local emergency room if unable to void documented in this encounter Plan of Treatment Upcoming Encounters Date Type Department Care Team (Latest Contact Info) Description 08/02/2025 12:45 PM CDT Clinical Communication Virtual Review in [place], [place] 200 [place] [phone] 08/03/2025 1:00 PM CDT Telemedicine Department of Palliative Care in [place], [place] [address] [place] [phone] Sachi De Leon B.M.B.S., B.M., B.Ch. [address] [place] [phone] 08/14/2025 10:30 AM [employer]OS[employer] DY[employer] CONSULTANT Procedure visit Department of Urology in [place], [place] [address] [place] [phone] Orion Mendoza, MPAS, P.A.-C. [address] [place] [phone] documented as of this encounter Visit Diagnoses Diagnosis Retention Urinary documented in this encounter Additional Health Concerns Assessment Noted Time PHQ-9 Depression Total Score: 4 03/03/20 24 1:30 PM CDT documented as of this encounter Care Teams Chemical Plant Worker Relationship Specialty Start Date End Date Elsewhere, Pcp PCP - General 03/03/24 documented as of this encounter
--- OUTSIDE RECORDS SUMMARY | 2025-07-19 07:30 | XMS_ITS | Encounter Summary ---
Author Organization [facility] Address [address] [place] [phone] Care Team Providers Care Structural Engineering Technician Name Role Phone Elsewhere, Pcp Primary Care Provider Unavailabl e Reason for Referral * Injectables (Routine) - Closed Specialty Diagnoses / Procedures Referred By Contac t Referred To Contact Diagnoses Primary Malignant Neoplasm Of Prostate (HCC) Secondary Malignant Neoplasm Bone (HCC) Secondary Malignant Neoplasm Liver (HCC) Procedures URO Injection visit - degarelix (firmagon) loading Thelma Palmer APRN, C.N.P., M.S.N. 200 [place] [phone] Phone: tel: fax: [facility] Referral ID Status Reason Start Date Expiration Date Visits Re quested Visits Authorized [id number] Closed 07/19/2025 10/19/2026 1 1 Reason for Visit * Outpatient (Routine) - Closed Specialty Diagnoses / Procedures Referred By Contac t Referred To Contact Urology Diagnoses Primary Malignant Neoplasm Of Prostate (HCC) Orion Mendoza, LIANNE, P.A.-C. [address] [place] [phone] Phone: tel: fax: [facility] Referral ID Status Reason Start Date Expiration Date Visits Re quested Visits Authorized [id number] Closed 07/13/2025 01/12/2027 1 1 Encounter Details Date Type Department Care Team (Latest Contact Info) Description 07/19/2025 7:30 AM CDT Comprehensive Visit Department of Urology in [place], [place] [address] [place] [phone] Michael Irving M.D. [address] [place] [phone] Primary Malignant Neoplasm Of Prostate (HCC) (Primary Dx); Secondary Malignant Neoplasm Bone (HCC); Secondary Malignant Neoplasm Liver (HCC); Malignant Neoplasm Of Bladder (HCC); Carcinoma Renal Cell Left (HCC) Social History Tobacco Use Types Packs/Day Years [...] things needed for daily living? No 07/07/2025 [facility] Utilities Answer Date Recorded In the past 12 months has th e electric, gas, oil, or water company threatened to shut off services in your home? No 07/07/2025 Depression Answer Date Recor ded PHQ-9 Total Score (max 27) 4 03/03 Housing Stability Answer Date Recorded What is your living situation today? I have a [place] place to live 07/07/2025 Education Answer Date Recorded What is the highest level of school you have completed or the highest degree you have received? 12th grade 03/25/2022 Sex and Gender Information Value Date Recorded Sex Assigned at Male 03/21/2022 7:03 AM CDT Legal Sex Male 10:17 AM MI[employer]OW[employer] RADIO TECHNICIAN Gender Identity Male 01/25/2021 1:10 PM CDT Sexual Orientation Straight 01/25/2021 1: 10 PM CDT documented as of this encounter H&P Notes * Thelma Palmer, XAVIER, C.N.P., M.S.N. - 07/19/2025 7:30 AM CDT Images from the original note were not included. SUBJECTIVE CHIEF COMPLAINT Advanced prostate cancer. Evaluated in conjunction with Dr. Irving. HISTORY OF PRESENT ILLNESS Mr. Robert Balderas is a 64 y.o. pleasant gentleman, who presents today for evaluation for advanced prostate cancer. His oncologic history is as follows: June 21, 2025: Patient met with Dr. Medrano. approximately 1 month prior was experiencing acuteonset of incomplete emptying with gross hematuria. He was losing weight through GLP 1 medications. His urologist locally proceeded with a PSA which was a baseline around 2. He was started on a 2 weekcourse of antibiotics for presumed bacterial prostatitis without improvement of his symptoms. He underwent a CT urogram with no obvious evidence of recurrence or metastasis. Enlarged and heterogeneously enhanced prostate. UA demonstrated 3-10 RBCs. Cytology was negative. Creatinine 1.13. Cystoscopyshows abnormal firm whitish tissue that obliterated the prostatic urethra. Most recent PSA was 2.12 ng/mL. He was noted to have a PVR in clinic of 850 cc and it was recommended to place indwelling Go catheter. June 28, 2025: MRI prostate demonstrated 136 cc prostate with a PSA density of 0.02. He was noted to have a PI-RADS 5 lesion with right posterior capsular penetration, neurovascular bundle invasion, seminal vesicle invasion within the right seminal vesicle and right vas deference and likely invasion into the left seminal vesicle. The mass appears to be abutting the anterior rectal wall with s ubtle rectal wall nodularity concerning for rectal invasion. Suspicious lymphadenopathy as well as several enhancing osseous lesions. July 07, 2025: Patient underwent transperineal biopsy, cystoscopy with TURP with Dr. Johnson.Pathology demonstrated Radha 4+5, Radha 4 + 4 adenocarcinoma within the prostate. Of note, he was noted to have [place] 4+5 in the prostatic urethra. July 18, 2025: PSMA PET scan demonstrates uptake within the prostate gland as well as multiple PSMA avid bilateral pelvic lymphadenopathy, multiple PSMA avid osseous lesions involving the right proximal femur, bilateral pelvic bones, bilateral ribs, left scapula, and cervical, thoracic and lumbarspine osseous lesions. There was also tiny PSMA avid metastatic pulmonary nodules within the posterior left upper lobe and anterior right upper lobe. Multiple PSMA avid metastatic lesions within the liver. July 19, 2025: Initial consultation with Dr. Irving. Proceeded with loading dose of Firmagon. He istaking oxybutynin at night for his bladder spasms. He is taking oxycodone as needed for pain. He does have some pain within his pelvis/lower back. Of note, patient has a history of RCC status post left nephrectomy in 2009. 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 Last evaluated in February of 2022. Past Medical History: Diagnosis Date Anemia 02/09/2021 Anxiety takes Xanax as needed Arthritis left hand Arthritis Rheumatoid (HCC) Asthma NOS no current medications BenignProstatic Hyperplasia Localized Carcinoma Renal Cell Left (HCC) 2009 Cardiac Disease CAD Coronary Artery Disease (Unspecified) Diverticulosis Embolus Pulmonary (HCC) 2016 Embolus Pulmonary Personal History 01/30/2021 Gout Hyperlipidemia treated with Lipitor Hypertension NOS Lisinopril Mass Bladder 01/24/2021 Added automatically from request for surgery [id number] Neuropathy Peripheral Polyp Colon Primary Malignant Neoplasm Of Prostate (HCC) Thromboembolism NOS 2016 left leg DVT in 2016 and DVT 2018 after long air flight Past Surgical History: Procedure Laterality Date BACK [...] Yi M.D.; Location: [facility] OR KIDNEY SURGERY NEPHRECTOMY Left 2010 OTHER CONVERTED SHX (SEE COMMENT) N/A 10/27/2002 Partial hemilaminectomy. Medial facetectomy fifth lumbar-first sacral (L5-S1) OTHER SURGICAL HISTORY Back surgery 2020 Kidney cancer 2009 [facility]YMPHDEC/THROMB RETROGRADE PYELOGRAM Right 01/31/2021 Procedure: RETROGRADE PYELOGRAM; Surgeon: Parag Yi M.D.; Location: [facility] OR TONSILLECTOMY Family History Problem Relation Name Age of Onset Breast cancer (in one breast) Mother Eddie Balderas Lung cancer Coronary artery disease Father Eddie Balderas of Lung Cancer Dementia Mother Macey Balderas Bilateral breast cancer (in both breasts) Mother Macey Balderas OBJECTIVE REVIEW OF SYSTEMS Constitutional: Positive for fatigue. Gastrointestinal: Positive for abdominal (belly) pain or cramping. - Negative for nausea and vomiting. Genitourinary: - Negative for blood in urine. Hematologic: - Negative for abnormal lumps or bumps. Neurological: Positive for headaches. PHYSICAL EXAM Constitutional: He is oriented to person, place, and time. He appears well-developed. HENT: Head: Normocephalic. Eyes: No scleral icterus. Neck: No tracheal deviation present. Pulmonary/Chest: Effort normal. Abdominal: Abdomen appears normal. Neurological: He is alert and oriented to person, place, and time. Skin: Skin is warm. Psychiatric: He has a normal mood and affect. LABORATORY Lab Results Component Value Date/Time PSA 2.6 06/27/2025 11:02 AM PSA 1.8 02/10/2024 08:13 AM PSA 2.2 03/21/2022 06:45 AM PSA 0.76 08/05/2016 07:43 AM PSA 0.61 09/13/2013 06:40 AM Lab Results Component Value Date/Time ALKPHOS 108 07/18/2025 11:29 AM AST 24 07/18/2025 11:29 AM AST 28 08/05/2016 07:43 AM ALT 29 07/18/2025 11:29 AM BILITOT 0.6 07/18/2025 11:29 AM BILIDIR 0.2 07/18/2025 11:[address] Skull to Thigh PSMA Result Date: 07/18/2025 Impression: Findings consistent with PSMA avid prostate cancer with multiple lymphatic, osseous, pulmonary, and hepatic metastases. miPSMA Expression Score: 3 ASSESSMENT / PLAN #1 Primary Malignant Neoplasm Of Prostate (HCC) #2 Secondary Malignant Neoplasm Bone (HCC) #3 Secondary Malignant Neoplasm Liver (HCC) #4 Malignant Neoplasm Of Bladder (HCC) #5 Carcinoma Renal Cell Left (HCC) It was a pleasure to see Mr. Robert Balderas in clinic today in conjunction with Dr. Irving. Together we reviewed and interpreted his recent imaging and labs. The patient was informed that chemotherapy is a type of therapy that is given by intravenous infusion (typically administered over several hours). In general, chemotherapy is a cytotoxic form of treatment that kills prostate cancer cells. For Mr. Robert Balderas, a recommendation for treatment with chemotherapy was provided based on the fact that he has Advanced or metastatic prostate adenocarcinoma. In addition, Mr. Robert Balderas will receive chemotherapy because he has newly diagnosed metastatic disease. For Mr. Robert Balderas, a recommendation for treatment with chemotherapy was provided using the following agent(s): Docetaxel (Taxotere) with prednisone and Carboplatinum with leuprolide and androgen receptorinhibitor (ARPI) in the form of darolutamide based on ARASENS trial or abiraterone/prednisone basedon PEACE trial. A general schedule for chemotherapeutic treatment was provided as is outlined below: Cycle 1 = Day # 1 Chemotherapy Infusion. Cycle 2 = Day # 22 Chemotherapy Infusion. Cycle 3 = Day # 43 Chemotherapy Infusion. Return to [place] 1-2 weeks after cycle 3 of chemotherapy for repeat laboratory testing and scans. Cycle 4 = Day # 64 Chemotherapy Infusion. Cycle 5 = Day # 85 Chemotherapy Infusion. Cycle 6 = Day # 106 Chemotherapy Infusion. Return to [place] 1-2 weeks after cycle 6 of chemotherapy for repeat laboratory testing and scans. In addition, the patient was told to call our team (or contact our team through the [facility] Patient online services portal) when he knows the date of his first chemotherapy treatment so that our team can pre-schedule his follow up evaluations with blood testing, [id number] PET or PSMA scan 1-2weeks after his 3rd and 6th cycle of chemotherapeutic treatment. If unable to get the PSMA PET after 3rd cycle, we will attempt after the 4th or proceed with it after the 6th. Secondary to his hepatic metastasis, we will also obtain MRI of the abdomen when he returns after his 3rd cycle of chemo and potentially after his 6th. We would also like to obtain genetic testing with Guardant 360. This would not change our current plan with proceeding with triple agent therapy and will discuss the results at his next visit. Discussed hormone therapy briefly with side effects. Once he initiates hormone therapy, we would recommend a bone density scan at baseline and every 2 years with local provider and calcium and vitamin D for bone health. The patient was further instructed to contact his local medical oncologist if he develops any problems during chemotherapeutic treatment. For other issues, the patient was instructed to contact our team via the [facility] Patient Online services (Portal) or via phone at [phone]. If you develop a medical emergency of any type call 911 or immediately [facility]. PLAN Guardant 360 today Firmagon loading dose today. Will need to transition to a 3 or 4 month leuprolide injection in 1 month (can do with Medical Oncologist) Consult with Dr. Oakes. DIONI filled out and email sent to [facility] If do not here from Dr. Oakes's office by next Thursday, he should contact his office to arrange Contact Dr. Irving's team with the START date of chemotherapy date to arrange follow up 1-2 weeks after 3rd cycle as outlined below. Mr. Robert Balderas was instructed to return for follow up appointment in 1-2 weeks after 3rd cycle chemotherapy to perform the following laboratory tests: PSA, Testosterone, and CBC and CMP. Patient will undergo a MRI abdomen (to assess hepatic metastasis) PSMA PET to identify sites of prostate cancer relapse after failed treatment, per medical necessity and per FDA, NCCN and CMS guidelines. Signed by: Thelma Palmer APRN, C.N.P., M.S.N. 07/19/2025 7:13 AM CDT documented in this encounter Plan of Treatment Upcoming Encounters Date Type Department Care Team (Latest Contact Info) Description 08/02/2025 12:45 PM CDT Clinical Communication Virtual Review in [address] [phone] 08/03/2025 1:00 PM CDT Telemedicine Department of Palliative Care in [address] [phone] Sachi De Leon B.M.BDiyaS., B.M., B.Ch. [address] [place] [phone] 08/14/2025 10:30 AM MICROW[employer] RADIO TECHNICIAN Procedure visit Department of Urology in [address] [phone] Orion Mendoza, MPAS, P.A.-C. [address] [place] [phone] Pending Results Name Type Priority Associated Diagnoses Date /Time [id number] - Sent Out Lab Lab Routine Primary Malignant Neoplasm Of Prostate (HCC) Secondary Malignant Neoplasm Bone (HCC) Secondary Malignant Neoplasm Liver (HCC) 07/19/2025 9:40 AM CDT Scheduled Orders Name Type Priority Associated Diagnoses Orde r Schedule URO Injection visit - degarelix (firmagon) loading Procedure Routine Primary Malignant Neoplasm Of Prostate (HCC) Secondary Malignant Neoplasm Bone (HCC) Secondary Malignant Neoplasm Liver (HCC) Expected: 07/19/2025, Expires: 10/19/2026 [id number] - Sent Out Lab Lab Routine Primary Malignant Neoplasm Of Prostate (HCC) Secondary Malignant Neoplasm Bone (HCC) Secondary Malignant Neoplasm Liver (HCC) Expected: 07/19/2025, Expires: 10/19/2026 documented as of this encounter Visit Diagnoses Diagnosis Primary Malignant Neoplasm Of Prostate (HCC)- Primary Secondary Malignant Neoplasm Bone (HCC) Secondary Malignant Neoplasm Liver (HCC) Malignant Neoplasm Of Bladder (HCC) Carcinoma Renal Cell Left (HCC) documented in this encounter Additional Health Concerns Assessment Noted Time PHQ-9 Depression Total Score: 4 03/03/20 24 1:30 PM CDT documented as of this encounter Care Teams Structural Engineering Technician Relationship Specialty Start Date End Date Elsewhere, Pcp PCP - General 03/03/24 documented as of this encounter
--- OUTSIDE RECORDS SUMMARY | 2025-07-19 09:00 | XMS_ITS | Encounter Summary ---
Author Organization [facility] Address [address] [place] [address] Care Team Providers Care Cruise Guide Name Role Phone Elsewhere, Pcp Primary Care Provider Unavailabl e Reason for Visit * Reason Comments Prostate Cancer Loading Dose of Firm agon * Injectables (Routine) - Closed Specialty Diagnoses / Procedures Referred By Contanisha t Referred To Contact Diagnoses Primary Malignant Neoplasm Of Prostate (HCC) Secondary Malignant Neoplasm Bone (HCC) Secondary Malignant Neoplasm Liver (HCC) Procedures URO Injection visit - degarelix (firmagon) loading Thelma Palmer APRN C.N.P., M.S.N. [address] [place] [phone] Phone: tel: fax: [facility] Referral ID Status Reason Start Date Expiration Date Visits Re quested Visits Authorized [id number] Closed 07/19/2025 10/19/2026 1 1 Encounter Details Date Type Department Care Team (Latest Contact Info) Description 07/19/2025 9:00 AM CDT Clinical Support Department of Urology in [place], [place] [address] [place] [phone] Thelma Palmer APRN, C.N.P., M.S.N. [address] [place] [phone] Lavell Mathew R.N., CURN [address] [place] [phone] Primary Malignant Neoplasm Of Prostate (HCC); Secondary Malignant Neoplasm Bone (HCC); Secondary Malignant Neoplasm Liver (HCC) Social History Tobacco Use Types Packs/Day [...] things needed for daily living? No 07/07/2025 [facility] Utilities Answer Date Recorded In the past 12 months has e electric, gas, oil, or water company threatened to shut off services in your home? No 07/07/2025 Depression Answer Date Recor ded PHQ-9 Total Score (max 27) 4 03/03 Housing Stability Answer Date Recorded What is your living situation today? I have a [facility] place to live 07/07/2025 Education Answer Date Recorded What is the highest level of school you have completed or the highest degree you have received? 12th grade 03/25/2022 Sex and Gender Information Value Date Recorded Sex Assigned at Male 03/21/2022 7:03 AM CDT Legal Sex Male 10:17 AM BLOOD BANK COORDINATOR Gender Identity Male 01/25/2021 1:10 PM CDT Sexual Orientation Straight 01/25/2021 1: 10 PM CDT documented as of this encounter Progress Notes * Lavell Mathew R.N., CURN - 07/19/2025 9:00 AM CDT CHIEF COMPLAINT Firmagon initial dose Mr. Robert Balderas is here for a Firmagon initial dose. See MAR for full medication and administration details. Robert Balderas reports: no negative side effects from medication as he is just starting ADT. He was educated on: erythema at injection site, Firmagon, Teaming up to manage your Advanced Prostate Cancer pamphlet, micromedex information sheet, date when next injection is needed, and Calcium/Vitamin D education. Next injection due on or after 08/16/2025 Injection was given in: left lower abdomen and right lower abdomen documented in this encounter Plan of Treatment Upcoming Encounters Date Type Department Care Team (Latest Contact Info) Description 08/02/2025 12:45 PM CDT Clinical Communication Virtual Review in [place], [place] 200 [place] [phone] 08/03/2025 1:00 PM CDT Telemedicine Department of Palliative Care in [address] [phone] Sachi De Leon B.M.BDiyaS., B.M., B.Ch. [address] [place] [phone] 08/14/2025 10:30 AM BLOOD BANK COORDINATOR Procedure visit Department of Urology in [address] [phone] Orion Mendoza, MPAS, P.A.-C. [address] [place] [phone] documented as of this encounter Visit Diagnoses Diagnosis Primary Malignant Neoplasm Of Prostate (HCC) Secondary Malignant Neoplasm Bone (HCC) Secondary Malignant Neoplasm Liver (HCC) documented in this encounter Administered Medications Inactive Administered Medications - up to 3 most recent administrations Medication Order MAR Action Action Date Dose Rate Site degarelix subcutaneous injection 240 mg (Firmagon) 240 mg, subcutaneous, Once, On Thu07/19/25 at 0745, For 1 dose, Chemotherapy agent has a short stability. Please notify pharmacy when patient is ready to receive drug., Restriction Criteria (Pharmacy will review and approve if criteria met): Precribed by UrologyIndications:Primary Malignant Neoplasm Of Prostate (HCC),Secondary Malignant Neoplasm Bone (HCC),Secondary Malignant Neoplasm Liver (HCC) Given 07/19/2025 8:25 AM CDT 240 mg Other documented in this encounter Additional Health Concerns Assessment Noted Time PHQ-9 Depression Total Score: 4 03/03/20 24 1:30 PM CDT documented as of this encounter Care Teams Cruise Guide Relationship Specialty Start Date End Date Elsewhere, Pcp PCP - General 03/03/24 documented as of this encounter
[2025-07-24 16:18] VITALS: BP 102/72; PULSE 92; RESP 20; TEMP 36.4; O2SAT 97; BMI 34.4
--- NOTE | 2025-07-24 16:37 | ED.GENADULT ---
HPI - General Adult General Chief complaint: Abdominal Pain Stated complaint: pain in lower abd. Time Seen by Provider: 07/24/25 16:27 History of Present Illness HPI narrative: This 64-year-old male comes in with abdominal pain and distension due to inability to pass urine. He has a diagnosis of prostate cancer and had a Go catheter in place until 5 days ago when it was removed. He is seeing specialists at the [facility] regarding this. He started to have bleeding in his urine and now states that he cannot pass urine. He does not know when he last voided urine but it seems like it was perhaps last night. He arrives here with normal vital signs. Related Data Home Medications ?Medication ?Instructions ?Recorded ?Confirmed Azo 07/24/25 Fish Oil 07/24/25 Flomax 07/24/25 Zetia 07/24/25 allopurinol 07/24/25 alprazolam 07/24/25 aspirin 07/24/25 calcium 07/24/25 diazepam 07/24/25 diclofenac sodium 07/24/25 diphenhydramine HCl 07/24/25 escitalopram oxalate 07/24/25 oxybutynin 07/24/25 oxycodone 07/24/25 rosuvastatin 07/24/25 Previous Rx's ?Medication ?Instructions ?Recorded cephalexin 500 mg capsule 500 mg PO TID 10 days #30 caps 07/24/25 oxybutynin chloride 10 mg 10 mg PO DAILY #10 tabs 07/24/25 tablet,extended release 24 hr Allergies Allergy/AdvReac Type Severity Reaction Status Date / Time codeine Allergy Intermediate Verified 07/24/25 16:25 Review of Systems Status of ROS: Reports: 10 or more systems reviewed and unremarkable except as noted in History and below Narrative: Constitutional: No fevers, no weight gain or loss. Eyes: No discharge. No vision changes. HENT: No congestion, no sore throat, no ear pain. Cardiovascular: No chest pain, no palpitations. Respiratory: No shortness of breath, no wheezes, no cough. Gastrointestinal: No vomiting, no diarrhea. Lower abdominal pain. Genitourinary: Gross hematuria and now inability to pass urine. Musculoskeletal: Normal range of motion. Skin: No rashes, no pruritis. Neurological: No dizziness, weakness, sensory change, speech change. Endo/Heme/Allergies: No bruising or bleeding. No polydipsia. Pysch: no suicidality, no anxiety, no insomnia. All other systems reviewed and are negative. PFSH PFSH Social History Non-prescribed substance use: denies use Exam Narrative: Exam Narrative: Constitutional: Well-developed, well-nourished, no acute distress. HEENT: Normocephalic, atraumatic. Neck: Normal range of motion. Nontender. Supple. Heart: Regular. No murmurs. Normal rate. Intact distal pulses. Lungs: Clear to auscultation. No chest discomfort. No wheezes, rhonchi, or rales. Abdomen: Normal bowel sounds. Lower abdominal tenderness and distention. No rebound tenderness. Genitalia: Deferred. Back: No midline tenderness. Normal range of motion. Extremities: Normal range of motion. No injury. Skin: Intact. No rash. Warm. No erythema or pallor. Neurologic: No altered sensation. No weakness. Alert and oriented. Psychiatric: No suicidality. No anxiety or depression. No insomnia. Nursing notes and vitals signs are reviewed. Const: Vital Signs, click to edit/add: Vital Signs - 24 hr 07/24/25 16:18 Temperature 97.6 F Pulse Rate [Pulse Oximeter] 92 Respiratory Rate 20 Blood Pressure [Ri ght Upper Arm] 102/72 Pulse Oximetry 97 Oxygen Delivery Me thod Room Air Course Vital Signs Vital signs: Initial Vital Signs Temperature 97.6 F 07/24/25 16:18 Temperature Source Temporal Artery Scan 07/24/25 16:18 Pulse Rate 92 07/24/25 16:18 Respiratory Rate 20 07/24/25 16:18 Blood Pressure 102/72 07/24/25 16:18 Blood Pressure Mean 82 07/24/25 16:18 Pulse Oximetry 97 07/24/25 16:18 Oxygen Delivery Method Room Air 07/24/25 16:18 Vital Signs Temperature 97.6 F 07/24/25 16:18 Pulse Rate 92 07/24/25 16:18 Respiratory Rate 20 07/24/25 16:18 Blood Pressure 102/72 07/24/25 16:18 Pulse Oximetry 97 07/24/25 16:18 Oxygen Delivery Method Room Air 07/24/25 16:18 Temperature 97.6 F 07/24/25 16:18 Pulse Rate 92 07/24/25 16:18 Respiratory Rate 20 07/24/25 16:18 Blood Pressure 102/72 07/24/25 16:18 Pulse Oximetry 97 07/24/25 16:18 Oxygen Delivery Method Room Air 07/24/25 16:18 Medical Decision Making MDM Narrative Medical decision making narrative: this patient comes in with abdominal pain and discomfort due to urinary retention. He has a history of Prostate cancer and also has had 1 kidney removed. the prostate cancer has been treated successfully and his recent PET scan showed no recurrent activity. The cancer did however spread to distant organs and there is suspicion that the tumor did cause some scarring in injury to his urethra or ureters. He had urinary retention about 6 weeks ago and had a catheter removed just 5 days ago. He was doing well for for those days but then began to have bleeding and urinary retention. A Go catheter is placed which yielded is 600 mL of reddish colored urine. Urinalysis shows obvious blood but there also is sign of infection with white blood cells and nitrites present. The patient is feeling much better. He does have follow-up appointment with his oncologist soon. He is okay to be discharged home and the catheter is left in place. I did refill his oxybutynin prescription and provided a prescription for Keflex. Lab Data Labs: Lab Results 07/24/25 Range/Units 16:36 Urine Color Red A (Yellow) Urine Appearance Slightly Cloudy A (Clear) Urine pH 8.5 (5.0-8.5) Ur Specific [place] 1.020 (1.000-1.030) Urine Protein 3+ A (Negative) Urine Glucose (UA) Negative (Negative) Urine Ketones Trace A (Negative) Urine Blood 3+ A (Negative) Urine Nitrite Positive A (Negative) Urine Bilirubin 3+ A (Negative) Urine Urobilinogen 2.0 A (0.2-1.0) Ur Leukocyte Esterase 3+ A (Negative) Urine RBC >100 A (0-2) Urine WBC 5-10 A (0-5) Ur Squamous Epith Cells Few (None-Few) Urine Bacteria Few A (None) Discharge Plan Discharge Clinical Impression: Acute urinary tract infection, Acute urinary retention Patient Disposition: Home w/ Parent or Adult Condition: Improved Additional Instructions: take Keflex as prescribed. Follow-up with urologist as scheduled. Return if symptoms are persistent or worsening. Prescriptions: New cephalexin 500 mg capsule 500 mg PO TID 10 Days Qty: 30 0RF oxybutynin chloride 10 mg tablet extended release 24hr 10 mg PO DAILY Qty: 10 2RF No Action oxycodone diazepam oxybutynin allopurinol escitalopram oxalate aspirin Azo Fish Oil calcium Flomax alprazolam diclofenac sodium diphenhydramine HCl Zetia rosuvastatin Follow Up/Referrals: Provider,Not a Local [Primary Care Provider, Family Practice] Stand Alone Forms: [facility] Info Inst[facility]
[2025-07-24 17:06] LABS: Appearance Urine Slightly Cloudy (Clear)
--- OUTSIDE RECORDS SUMMARY | 2025-07-24 17:08 | XMS_ITS | Clinical Summary ---
Author Organization [facility] Address [address] [place] [phone] Phone Care Team Providers Care Epic Cadence Specialists Name Role Phone Chong Wilder MD Primary Care Provider [phone] Allergies Active Allergy Reactions Criticality Noted Date Comments Codeine 05/24/2021 Nut - Unspecified 05/24/2021 Medications No known medications Surgical History Surgery Date Site/Laterality Comments ABDOMINAL SURGERY bladder tumor removed; kidney removed Medical History Medical History Date Comments Renal disorder kidney cancer Cancer ([facility] V24, [facility] V28) bladder cancer Heart disease Narrowing of ves sels Social History Tobacco Use Types Packs/Day Years Used Date Smoking Tobacco: Never Smokeless Tobacco: Never Alcohol Use Standard Drinks/Week Comments Never 0 (1 standard drink = 0.6 oz pur e alcohol) Sex and Gender Information Value Date Recorded Sex Assigned at Not on file Legal Sex Male 8:25 PM EDT Gender Identity Not on file Sexual Orientation Not on file Obstetrics History Last Filed Vital Signs Vital Sign Reading Time Taken Comments Blood Pressure 136/87 05/25/2021 12:37 AM EDT Pulse 74 05/25/2021 12:37 AM EDT Temperature 36.8 C (98.2 F) 05/24/2021 8:34 PM EDT Respiratory Rate 16 05/25/2021 12:37 AM EDT Oxygen Saturation 100% 05/25/2021 12:37 AM EDT Inhaled Oxygen Concentration - - Weight 134 kg (296 lb) 05/24/2021 8:34 PM EDT Height 190.5 cm (6' 3) 05/24/2021 8:34 PM EDT Body Mass Index 37 05/24/2021 8:34 PM EDT Plan of Treatment Health Maintenance Due Date Last Done Comments Colorectal Cancer Screening: Colonoscopy 1960 RSV Immunization Adult Patients (1 - Risk 50-74 years 1-dose series) 2009 Zoster Vaccines (1 of 2) 11/09/2013 09/14/2013 Pneumococcal Vaccine: 50+ Years (2 of 2 - PPSV23, PCV20, or PCV21) 09/26/2020 08/01/2020 COVID-19 Vaccine (3 - Pfizer risk series) 02/12/2021 01/15/2021, 12/25/2020 Abdominal Aortic Aneurysm (AAA) Screen 05/24/2021 Hepatitis C Screening 05/24/2021 Social Influencers of Health Screening 05/24/2021 Hypertension/CHF/CAD Annual BMP Blood Test 02/28/2022 02/28/2021, 02/28/2021, 02/11/2021, Additional history exists Falls Risk Assessment 2024 Depression Screening 10/12/2024 Influenza Vaccine (#1) 2025 8, 06/12/2017, 06/12/2016, Additional history exists Cholesterol Screening (Lipid Panel) 01/09/2026 01/09/2021 DTaP,Tdap,and Td Vaccines (5 - Td or Tdap) 11/23/2030 11/23/2020, 04/12/2018, 08/05/2016, Additional history exists Hepatitis A Vaccines Aged Out 12/10/2005 No long er eligible based on patient's age to complete this topic HIB Vaccines Aged Out No longer eligi ble based on patient's age to complete this topic HPV Vaccines Aged Out No longer eligi ble based on patient's age to complete this topic Hepatitis B Vaccines Aged Out No long er eligible based on patient's age to complete this topic IPV Vaccines Aged Out No longer eligi ble based on patient's age to complete this topic MMR Vaccines Aged Out No longer eligi ble based on patient's age to complete this topic Meningococcal ACWY Vaccine Aged Out N o longer eligible based on patient's age to complete this topic Meningococcal B Vaccine Aged Out No l onger eligible based on patient's age to complete this topic RSV Immunization Patients Under 20 months Aged Out No longer eligible based on patient's age to complete this topic Varicella Vaccines Aged Out No longer eligible based on patient's age to complete this topic Insurance [facility] [id number] Care Teams Epic Cadence Specialists Relationship Specialty Start Date End Date Chong Wilder MD [address] [place] [phone] PCP - General Family Medicine 05/24/21
--- OUTSIDE RECORDS SUMMARY | 2025-07-24 17:08 | XMS_ITS | Encounter Summary ---
Author Organization [facility] Address [address] [place] [address] Care Team Providers Care Sawmill Production Worker Name Role Phone Elsewhere, Pcp Primary Care Provider Unavailabl e Encounter Details Date Type Department Care Team ([facility] st Contact Info) Description 06/18/2025 Orders Only Department of Urology in [place], [place] [address] [place] [phone] Ramiro Burger M.D. [address] [place] [phone] Personal History Of Malignant Neoplasm Of Bladder (Primary Dx) Social History Tobacco Use Types [...] things needed for daily living? No 06/14/2025 [facility] Utilities Answer Date Recorded In the past 12 months has e electric, gas, oil, or water company threatened to shut off services in your home? No 06/14/2025 Depression Answer Date Recor ded PHQ-9 Total Score (max 27) 4 03/03 Housing Stability Answer Date Recorded What is your living situation today? I have a [facility] place to live 06/14/2025 Education Answer Date Recorded What is the highest level of school you have completed or the highest degree you have received? 12th grade 03/25/2022 Sex and Gender Information Value Date Recorded Sex Assigned at Male 03/21/2022 7:03 AM CDT Legal Sex Male 10:17 AM FREELANCE DIGITAL PROJECT MANAGER Gender Identity Male 01/25/2021 1:10 PM CDT Sexual Orientation Straight 01/25/2021 1: 10 PM CDT documented as of this encounter Plan of Treatment Upcoming Encounters Date Type Department Care Team (Latest Contact Info) Description 08/02/2025 12:45 PM CDT Clinical Communication Virtual Review in [place], [place] [address] [place] [phone] 08/03/2025 1:00 PM CDT Telemedicine Department of Palliative Care in [place], [place] [address] [place] [phone] Sachi De Leon B.M.B.S., B.M., B.Ch. [address] [place] [phone] 08/14/2025 10:30 AM FREELANCE DIGITAL PROJECT MANAGER Procedure visit Department of Urology in [place], [place] [address] [place] [phone] Orion Mendoza, LIANNE, P.A.-C. [address] [place] [phone] documented as of this encounter Results * Bacterial Culture, Aerobic + Susceptibility, Urine (06/21/2025 7:27 AM CDT) Urine Culture Urogenital microbiota, susceptibilities not performed per laboratory criteria. 06/22/2025 4:28 AM CDT DTL Urine (Urine, Midstream) 06/21/2025 7:27 AM CDT 06/21/2025 9:21 AM CDT Comment:Specimen Source Site : Urine Ramiro Burger M.D. LAB MICROBIOLOGY - GENERA L ORDERABLES Final Result [facility] [address] [place] [address], [facility] [place] 200 [place] [address] * Urinalysis, with Microscopic: Urine, Midstream (06/21/2025 7:27 AM CDT) Source Urine, Urine, Midstream 06/21/2025 8:53 AM CDT DTL Color, U Yellow 06/21/2025 8:54 AM CDT DTL Clarity, U Clear 06/21/2025 8:54 AM CDT DTL Protein, U 14 <26 mg/dL 06/21/2025 9:45 AM CDT DTL Protein/Osmol ality 0.21 <0.42 ratio 06/21/2025 9:45 AM CDT DTL Predicted 24 HR Protein, U 217 <229 mg/24 h 06/21/2025 9:45 AM CDT DTL Predicted Range 69-684 mg/24 h 06/21/2025 9:45 AM CDT DTL Urine (Urine, Midstream) 06/21/2025 7:27 AM CDT 06/21/2025 8:53 AM CDT us Ramiro Burger M.D. LAB URINE ORDERABLES Corine paez Result [facility] [address] [place] [address], [facility] [place] [address] [place] [address] documented in this encounter Visit Diagnoses Diagnosis Personal History Of Malignant Neoplasm Of Bladder- Primary documented in this encounter Additional Health Concerns Assessment Noted Time PHQ-9 Depression Total Score: 4 03/03/20 24 1:30 PM CDT documented as of this encounter Care Teams Sawmill Production Worker Relationship Specialty Start Date End Date Elsewhere, Pcp PCP - General 03/03/24 documented as of this encounter
--- OUTSIDE RECORDS SUMMARY | 2025-07-24 17:08 | XMS_ITS | Encounter Summary ---
Author Organization [facility] Address [address] [place] [address] Care Team Providers Care Railroad Emergency Services Manager Name Role Phone Elsewhere, Pcp Primary Care Provider Unavailabl e Encounter Details Date Type Department Care Team ([facility] st Contact Info) Description 06/16/2025 Results Follow-Up Department of Urology in [place], [place] [address] [place] [phone] Ramiro Burger M.D. [address] [place] [phone] [address] Urogram without and with IV Contrast Social History Tobacco Use Types Packs/Day Years [...] things needed for daily living? No 07/07/2025 [facility] Utilities Answer Date Recorded In the past 12 months has e electric, gas, oil, or water company threatened to shut off services in your home? No 07/07/2025 Depression Answer Date Recor ded PHQ-9 Total Score (max 27) 4 03/03 Housing Stability Answer Date Recorded What is your living situation today? I have a [facility] place to live 07/07/2025 Education Answer Date Recorded What is the highest level of school you have completed or the highest degree you have received? 12th grade 03/25/2022 Sex and Gender Information Value Date Recorded Sex Assigned at Male 03/21/2022 7:03 AM CDT Legal Sex Male 10:17 AM PARKING LOT ATTENDANT Gender Identity Male 01/25/2021 1:10 PM CDT Sexual Orientation Straight 01/25/2021 1: 10 PM CDT documented as of this encounter Plan of Treatment Upcoming Encounters Date Type Department Care Team (Latest Contact Info) Description 08/02/2025 12:45 PM CDT Clinical Communication Virtual Review in [place], [place] [address] [place] [phone] 08/03/2025 1:00 PM CDT Telemedicine Department of Palliative Care in [place], [place] [address] [place] [phone] Sachi De Leon B.M.B.S., B.M., B.Ch. [address] [place] [phone] 08/14/2025 10:30 AM PARKING LOT ATTENDANT Procedure visit Department of Urology in [place], [place] [address] [place] [address] Orion Mendoza, LIANNE, P.A.-C. [address] [place] [phone] documented as of this encounter Visit Diagnoses Not on filedocumented in this encounter Additional Health Concerns Assessment Noted Time PHQ-9 Depression Total Score: 4 03/03/20 24 1:30 PM CDT documented as of this encounter Care Teams Railroad Emergency Services Manager Relationship Specialty Start Date End Date Elsewhere, Pcp PCP - General 03/03/24 documented as of this encounter
--- OUTSIDE RECORDS SUMMARY | 2025-07-24 17:08 | XMS_ITS | Encounter Summary ---
Author Organization [facility] Address [address] [place] [address] Care Team Providers Care System Support Developer Name Role Phone Elsewhere, Pcp Primary Care Provider Unavailabl e Reason for Referral * Outpatient (Routine) - Closed Specialty Diagnoses / Procedures Referred By Contac t Referred To Contact Urology Alisson Soler M.D. [address] [place] [phone] Phone: tel: fax: Nuria Medrano M.D. [address] [place] [phone] Phone: tel: fax: Referral ID Status Reason Start Date Expiration Date Visits Re quested Visits Authorized [id number] Closed 06/13/2025 12/13/2026 1 1 * Outpatient (Routine) - Closed Specialty Diagnoses / Procedures Referred By Contac t Referred To Contact Diagnoses Personal History Of Malignant Neoplasm Of Bladder Procedures URO Cystoscopy (general) Alisson Soler M.D. [address] [place] [phone] Phone: tel: fax: [facility] Referral ID Status Reason Start Date Expiration Date Visits Re quested Visits Authorized [id number] Closed 06/13/2025 09/13/2026 1 1 * MRI/CAT/PET Scan (Routine) - Closed Specialty Diagnoses / Procedures Referred By John t Referred To Contact Radiology Diagnoses Personal History Of Malignant Neoplasm Of Bladder Procedures CT Urogram without and with IV Contrast Alisson Soler M.D. [address] [place] [address] Phone: tel: fax: [facility] Referral ID Status Reason Start Date Expiration Date Visits Re quested Visits Authorized [id number] Closed 06/13/2025 09/13/2026 1 1 Reason for Visit * Reason Onset Date Comments Appt Request 06/09/2025 Encounter Details Date Type Department Care Team ([facility] st Contact Info) Description 06/09/2025 Clinical Communication Department of Urology in [place], [place] [address] [place] [phone] Nuria Medrano M.D. [address] [place] [phone] Appt Request Social History Tobacco Use Types Packs/Day Years Used Date Smoking Tobacco: Never Passive Smoke Exposure: Never Smokeless Tobacco: Never Comments:NA Alcohol Use Standard Drinks/Week Comments Yes 4 (1 standard drink = 0.6 oz pur [...] things needed for daily living? No 07/07/2025 [facility] Utilities Answer Date Recorded In the past 12 months has [employer] electric, gas, oil, or water company threatened to shut off services in your home? No 07/07/2025 Depression Answer Date Recor ded PHQ-9 Total Score (max 27) 4 03/03 Housing Stability Answer Date Recorded What is your living situation today? I have a [facility] place to live 07/07/2025 Education Answer Date Recorded What is the highest level of school you have completed or the highest degree you have received? 12th grade 03/25/2022 Sex and Gender Information Value Date Recorded Sex Assigned at Male 03/21/2022 7:03 AM CDT Legal Sex Male 10:17 AM PUBLICITY MANAGER Gender Identity Male 01/25/2021 1:10 PM CDT Sexual Orientation Straight 01/25/2021 1: 10 PM CDT documented as of this encounter Plan of Treatment Upcoming Encounters Date Type Department Care Team (Latest Contact Info) Description 08/02/2025 12:45 PM CDT Clinical Communication Virtual Review in [place], [place] 200 [place] [address] 08/03/2025 1:00 PM CDT Telemedicine Department of Palliative Care in [place], [place] [address] [place] [phone] Sachi De Leon B.M.B.S., B.M., B.Ch. [address] [place] [phone] 08/14/2025 10:30 AM PUBLICITY MANAGER Procedure visit Department of Urology in [place], [place] [address] [place] [phone] Orion Mendoza MPAS, P.A.-C. [address] [place] [phone] Scheduled Referrals Name Type Priority Associated Diagnoses Orde r Schedule Urology office visit (clinic) Outpatient Referral Routine Expected: 06/13/2025, Expires: 09/12/2026 documented as of this encounter Results * [place] CYSTOURETHROSCOPY (06/21/2025 8:30 AM CDT) Narrative Phil [...] Soler M.D. UROLOGY ORDERABLES Final Res ult * Cytology Non-ACCOUNT EXECUTIVE METALWORKING (Scheduled) (06/16/2025 9:04 AM CDT) 06/19/2025 3:06 PM CDT DTL Participated in the Interpretation Margo Moise M.D. -Pathology Resident Vane Thacker M.D., Ph.D. -Pathology Resident 06/19/2025 3:06 PM CDT DTL Report electronically signed by Colt Vale M.D. I verify that I have examined all [...] 9:04 AM CDT 06/16/2025 9:25 AM CDT Alisson Soler M.D. LAB SURG PATH ORDERABLES Fin al Result Performing Organization Address [facility] Co de Phone Number [facility] 200 [place] [address], [facility] DT [address] [address] * Creatinine with Estimated GFR (06/16/2025 9:03 AM CDT) Creatinine 1.13 0.74 - 1.35 mg/dL 06/16/2025 10:07 AM CDT DTL Estimated GFR (eGFR) 72 >=60 mL/min/BSA 06/16/2025 10:07 AM CDT DT Comment: Estimated GFR calculated using the 2020 CKD_EPI creatinine equation. Blood (Blood, Venous) 06/16/2025 9:03 AM CDT 06/16/2025 9:25 AM CDT Alisson Soler M.D. LAB BLOOD ADD-ON Final Resul t Performing Organization Address [facility] Co de Phone Number [address] [address], [facility] [address] [address] * CT Urogram without and with IV [...] Atherosclerotic vascular calcifications. Bibasilar atelectasis. Procedure Note Shlaom Segovia M.D. - 06/16/2025 EXAM: CT UROGRAM WITHOUT AND WITH IV CONTRAST COMPARISON: CT abdomen pelvis 01/21/2021 FINDINGS: : Status post left nephrectomy for renal cell carcinoma [id number]. No nephrolithiasis. No suspicious renal mass. Renal [...] beneficial in further characterization. Alisson Soler M.D. IMKelly CT PROCEDURES Final Resu lt documented in this encounter Visit Diagnoses Diagnosis Personal History Of Malignant Neoplasm Of Bladder- Primary Personal History Of Malignant Neoplasm Of Bladder Personal History Of Malignant Neoplasm Of Bladder documented in this encounter Additional Health Concerns Assessment Noted Time PHQ-9 Depression Total Score: 4 03/03/20 24 1:30 PM CDT documented as of this encounter Care Teams System Support Developer Relationship Specialty Start Date End Date Elsewhere, Pcp PCP - General 03/03/24 documented as of this encounter
--- OUTSIDE RECORDS SUMMARY | 2025-07-24 17:08 | XMS_ITS | Encounter Summary ---
Author Organization [facility] Address [address] [place] [address] Care Team Providers Care Hot Metal Mixer Operator Helper Name Role Phone Elsewhere, Pcp Primary Care Provider Unavailabl e Encounter Details Date Type Department Care Team ([facility] st Contact Info) Description 06/22/2025 Results Follow-Up Department of Urology in [place], [place] [address] [place] [phone] Ramiro Burger M.D. [address] [place] [phone] Urinalysis, with Microscopic: Urine, Midstream, Bacterial Culture, Aerobic + Susceptibility, Urine, Microscopic Automated, Additional followed-up results: 3 Social History Tobacco Use Types Packs/Day Years [...] for daily living? No 07/07/2025 [facility] Utilities Answer Date Recorded In the past 12 months has th e electric, gas, oil, or water company threatened to shut off services in your home? No 07/07/2025 Depression Answer Date Recor ded PHQ-9 Total Score (max 27) 4 03/03 Housing Stability Answer Date Recorded What is your living situation today? I have a [facility] place to live 07/07/2025 Education Answer Date Recorded What is the highest level of school you have completed or the highest degree you have received? 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 [address] [place] [phone] 08/14/2025 10:30 AM ROPE MAKING MACHINE OPERATOR Procedure visit Department of Urology in [place], [place] [address] [place] [address] Orion Mendoza, LIANNE, P.A.-C. [address] [place] [phone] documented as of this encounter Visit Diagnoses Not on filedocumented in this encounter Additional Health Concerns Assessment Noted Time PHQ-9 Depression Total Score: 4 03/03/20 24 1:30 PM CDT documented as of this encounter Care Teams Hot Metal Mixer Operator Helper Relationship Specialty Start Date End Date Elsewhere, Pcp PCP - General 03/03/24 documented as of this encounter
--- OUTSIDE RECORDS SUMMARY | 2025-07-24 17:09 | XMS_ITS | Encounter Summary ---
Author Organization [facility] Address [address] [place] [address] Care Team Providers Care Collection Advisor Name Role Phone Elsewhere, Pcp Primary Care Provider Unavailabl e Reason for Referral * Specialty Diagnoses / Procedures Referred By Contac t Referred To Contact Diagnoses Retention Urinary Nuria Medrano M.D. [address] [place] [phone] Phone: tel: fax: [facility] Referral ID Status Reason Start Date Expiration Date Visits Re quested Visits Authorized Encounter Details Date Type Department Care Team (Late st Contact Info) Description 06/27/2025 Orders Only Department of Urology in [place], [place] [address] [place] [phone] Nuria Medrano M.D. [address] [place] [phone] Retention Urinary (Primary Dx) Social History Tobacco Use Types [...] things needed for daily living? No 06/14/2025 [facility] Utilities Answer Date Recorded In the past 12 months has e electric, gas, oil, or water company threatened to shut off services in your home? No 06/14/2025 Depression Answer Date Recor ded PHQ-9 Total Score (max 27) 4 03/03 Housing Stability Answer Date Recorded What is your living situation today? I have a [facility] place to live 06/14/2025 Education Answer Date Recorded What is the highest level of school you have completed or the highest degree you have received? 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 [address] [place] [phone] 08/14/2025 10:30 AM HEEL SEAT LASTER Procedure visit Department of Urology in [place], [place] [address] [place] [phone] Orion Mendoza, MPAAnshu, P.A.-C. [address] [place] [phone] Scheduled Referrals Name Type Priority Associated Diagnoses Orde r Schedule Urology - Catheter care / change education visit (clinic) Outpatient Referral Routine Retention Urinary Expected: 06/27/2025, Expires: 09/26/2026 documented as of this encounter Visit Diagnoses Diagnosis Retention Urinary- Primary documented in this encounter Additional Health Concerns Assessment Noted Time PHQ-9 Depression Total Score: 4 03/03/20 1:30 PM CDT documented as of this encounter Care Teams Collection Advisor Relationship Specialty Start Date End Date Elsewhere, Pcp PCP - General 03/03/24 documented as of this encounter
--- OUTSIDE RECORDS SUMMARY | 2025-07-24 17:09 | XMS_ITS | Encounter Summary ---
Author Organization [facility] Address [address] [place] [address] Care Team Providers Care Link And Link Knitting Machine Operator Name Role Phone Elsewhere, Pcp Primary Care Provider Unavailabl e Reason for Visit * Reason Onset Date Comments Reschedule 06/27/2025 Encounter Details Date Type Department Care Team (Late st Contact Info) Description 06/27/2025 Clinical Communication Department of Urology in [place], [place] [address] [place] [phone] Nuria Medrano M.D. [address] [place] [phone] Reschedule Social History Tobacco Use Types Packs/Day Years [...] things needed for daily living? No 06/14/2025 [facility] Utilities Answer Date Recorded In the past 12 months has th e electric, gas, oil, or water company threatened to shut off services in your home? No 06/14/2025 Depression Answer Date Recor ded PHQ-9 Total Score (max 27) 4 03/03 Housing Stability Answer Date Recorded What is your living situation today? I have a [facility] place to live 06/14/2025 Education Answer Date Recorded What is the highest level of school you have completed or the highest degree you have received? 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 - 06/27/2025 1:42 PM CDT SUBJECTIVE CHIEF COMPLAINT / REASON FOR CALL Reschedule Information Discussed I spoke to Noe about rescheduling his upcoming procedure. Unfortunately, we do not have anything available in [facility] before his scheduled date. PLAN Disposition/Recommendation: Will forward request to Paula GAMBINO. Will notify patient of any openings. Information/Education: patient/caller able to teach back Caller agreeable to plan of care: yes The following references were used: nursing clinical judgement documented in this encounter Plan of Treatment Upcoming Encounters Date Type Department Care Team (Latest Contact Info) Description 08/02/2025 12:45 PM CDT Clinical Communication Virtual Review in [place], [place] 200 [place] [phone] 08/03/2025 1:00 PM CDT Telemedicine Department of Palliative Care in [place], [place] [address] [place] [phone] Sachi De Leon B.M.B.S., B.M., B.Ch. [address] [place] [phone] 08/14/2025 10:30 AM CLAM DREDGER Procedure visit Department of Urology in [address] [phone] Orion Mendoza, MPAS, P.A.-C. [address] [place] [phone] documented as of this encounter Visit Diagnoses Not on filedocumented in this encounter Additional Health Concerns Assessment Noted Time PHQ-9 Depression Total Score: 4 03/03/20 24 1:30 PM CDT documented as of this encounter Care Teams Link And Link Knitting Machine Operator Relationship Specialty Start Date End Date Elsewhere, Pcp PCP - General 03/03/24 documented as of this encounter
--- OUTSIDE RECORDS SUMMARY | 2025-07-24 17:10 | XMS_ITS | Encounter Summary ---
Author Organization [facility] Address [address] [place] [address] Care Team Providers Care Application Performance Engineer Name Role Phone Elsewhere, Pcp Primary Care Provider Unavailabl e Reason for Visit * Reason Onset Date Comments rst uro opc 07/05/2025 Encounter Details Date Type Department Care Team (Late st Contact Info) Description 07/05/2025 Clinical Communication Department of Urology in [place], [place] [address] [place] [phone] Pankaj Johnson M.D., M.S. [address] [place] [phone] rst uro opc Social History Tobacco Use Types Packs/Day Years [...] things needed for daily living? 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 [address] [place] [phone] 08/14/2025 10:30 AM FARM PRODUCT PURCHASER Procedure visit Department of Urology in [place], [place] [address] [place] [phone] Orion Mendoza, LIANNE, P.A.-C. [address] [place] [phone] documented as of this encounter Visit Diagnoses Not on filedocumented in this encounter Additional Health Concerns Assessment Noted Time PHQ-9 Depression Total Score: 4 03/03/20 24 1:30 PM CDT documented as of this encounter Care Teams Application Performance Engineer Relationship Specialty Start Date End Date Elsewhere, Pcp PCP - General 03/03/24 documented as of this encounter
--- OUTSIDE RECORDS SUMMARY | 2025-07-24 17:10 | XMS_ITS | CCD ---
Author Name Interface, [id number] Address [address] [facility] [address] [address] [facility] Address [address] [facility] [address] [address] Care Team Providers Care Hogshead Inspector Name Role Phone [facility] Unavailable Unavailable Care Plan Date Type Value 07/26/2025 APPOINTMENT NEW PT CONSULT 4 0 MIN 07/26/2025 APPOINTMENT LAB 15 MIN Reason for Visit Encounters Date Name 07/26/2025 LAB 15 MIN 07/26/2025 NEW PT CONSULT 40 TN N Diagnostic Results Date Type Test Units Lower Limit Upper Limit Result Flag Comments Status Ordered By Specimen Source Lab Address 07/09 [facility] [place] See zipper slide attacher d Social History Date Name Value 07/24/2025 Sex Male Sexual Orientation Straight or h eterosexual 07/21/2025 Gender Identity Identifies as ma le Visits Date Type Value 07/26/2025 NEW PT CONSULT 40 MIN 07/26/2025 LAB 15 MIN
--- OUTSIDE RECORDS SUMMARY | 2025-07-24 17:11 | XMS_ITS | Encounter Summary ---
Author Organization [facility] Address [address] [place] [address] Care Team Providers Care Quiller Hand Name Role Phone Elsewhere, Pcp Primary Care Provider Unavailabl e Encounter Details Date Type Department Care Team ([facility] st Contact Info) Description 07/10/2025 Clinical Communication Department of Urology in [place], [place] [address] [place] [phone] Nuria Medrano M.D. [address] [place] [phone] Social History Tobacco Use Types Packs/Day Years [...] by your partner or ex-partner? No 07/07/2025 [facility] Vital Sign Answer Date Recorded Within the [...] things needed for daily living? No 07/07/2025 [facility] Utilities Answer Date Recorded In the past 12 months has th e electric, gas, oil, or water company threatened to shut off services in your home? No 07/07/2025 Depression Answer Date Recor ded PHQ-9 Total Score (max 27) 4 03/03 Housing Stability Answer Date Recorded What is your living situation today? I have a [facility] place to live 07/07/2025 Education Answer Date Recorded What is the highest level of school you have completed or the highest degree you have received? 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 - 07/11/2025 10:54 AM CDT Called pathology to see if we can expedite interpretation before . They will try to do so documented in this encounter Plan of Treatment Upcoming Encounters Date Type Department Care Team (Latest Contact Info) Description 08/02/2025 12:45 PM CDT Clinical Communication Virtual Review in [address] [phone] 08/03/2025 1:00 PM CDT Telemedicine Department of Palliative Care in [place], [place] [address] [place] [phone] Sachi De Leon B.M.B.S., B.M., B.Ch. [address] [place] [phone] 08/14/2025 10:30 AM NUCLEAR MEDICINE TECHNOLOGIST Procedure visit Department of Urology in [place], [place] [address] [place] [phone] Orion Mendoza, LIANNE, P.A.-C. [address] [place] [phone] documented as of this encounter Visit Diagnoses Not on filedocumented in this encounter Additional Health Concerns Assessment Noted Time PHQ-9 Depression Total Score: 4 03/03/20 24 1:30 PM CDT documented as of this encounter Care Teams Quiller Hand Relationship Specialty Start Date End Date Elsewhere, Pcp PCP - General 03/03/24 documented as of this encounter
--- OUTSIDE RECORDS SUMMARY | 2025-07-24 17:11 | XMS_ITS | Encounter Summary ---
Author Organization [facility] Address [address] [place] [phone] Care Team Providers Care Shipping Support Clerk Name Role Phone Elsewhere, Pcp Primary Care Provider Unavailabl e Reason for Referral * Outpatient (Routine) - Closed Specialty Diagnoses / Procedures Referred By Contac t Referred To Contact Diagnoses Retention Urinary Procedures URO Urethral cath fill / remove / voiding trial (fill / pull) Orion Mendoza MPAS, P.A.-C. [address] [place] [phone] Phone: tel: fax: [facility] Referral ID Status Reason Start Date Expiration Date Visits Re quested Visits Authorized [id number] Closed 07/14/2025 10/14/2026 1 1 Encounter Details Date Type Department Care Team (Late st Contact Info) Description 07/14/2025 Orders Only Department of Urology in [place], [place] [address] [place] [phone] Orion Mendoza MPAS, P.A.-C. [address] [place] [phone] Retention Urinary (Primary Dx) Social History Tobacco [...] things needed for daily living? No 07/07/2025 [facility] Utilities Answer Date Recorded In the past 12 months has [facility] electric, gas, oil, or water company threatened to shut off services in your home? No 07/07/2025 Depression Answer Date Recor ded PHQ-9 Total Score (max 27) 4 03/03 Housing Stability Answer Date Recorded What is your living situation today? I have a [facility] place to live 07/07/2025 Education Answer Date Recorded What is the highest level of school you have completed or the highest degree you have received? 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 [address] [place] [phone] 08/14/2025 10:30 AM WEATHER STRIPPER Procedure visit Department of Urology in [place], [place] [address] [place] [phone] Orion Mendoza, MPAS, P.A.-C. [address] [place] [phone] Scheduled Orders Name Type Priority Associated Diagnoses Orde r Schedule URO Urethral cath fill / remove / voiding trial (fill / pull) Procedure Routine Retention Urinary Expected: 07/18/2025, Expires: 10/14/2026 documented as of this encounter Visit Diagnoses Diagnosis Retention Urinary- Primary documented in this encounter Additional Health Concerns Assessment Noted Time PHQ-9 Depression Total Score: 4 03/03/20 24 1:30 PM CDT documented as of this encounter Care Teams Shipping Support Clerk Relationship Specialty Start Date End Date Elsewhere, Pcp PCP - General 03/03/24 documented as of this encounter
--- OUTSIDE RECORDS SUMMARY | 2025-07-24 17:11 | XMS_ITS | Encounter Summary ---
Author Organization [facility] Address [address] [place] [address] Care Team Providers Care Fruit Packer Name Role Phone Elsewhere, Pcp Primary Care Provider Unavailabl e Encounter Details Date Type Department Care Team ([facility] st Contact Info) Description 07/18/2025 Orders Only Department of Urology in [place], [place] [address] [place] [phone] Orion Mendoza, MPAS, P.A.-C. [address] [place] [phone] Social History Tobacco Use Types Packs/Day Years [...] things needed for daily living? No 07/07/2025 [facility] Utilities Answer Date Recorded In the past 12 months has e electric, gas, oil, or water company threatened to shut off services in your home? No 07/07/2025 Depression Answer Date Recor ded PHQ-9 Total Score (max 27) 4 03/03 Housing Stability Answer Date Recorded What is your living situation today? I have a [facility] place to live 07/07/2025 Education Answer Date Recorded What is the highest level of school you have completed or the highest degree you have received? 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 [address] [place] [phone] 08/14/2025 10:30 AM BUSINESS TEAM LEADER Procedure visit Department of Urology in [place], [place] [address] [place] [phone] Orion Mendoza, LIANNE, P.A.-C. [address] [place] [phone] documented as of this encounter Visit Diagnoses Not on filedocumented in this encounter Additional Health Concerns Assessment Noted Time PHQ-9 Depression Total Score: 4 03/03/20 24 1:30 PM CDT documented as of this encounter Care Teams Fruit Packer Relationship Specialty Start Date End Date Elsewhere, Pcp PCP - General 03/03/24 documented as of this encounter
--- OUTSIDE RECORDS SUMMARY | 2025-07-24 17:11 | XMS_ITS | Patient Health Record ---
Author Organization [facility] Address [address] [place] [phone] Support Name Relationship Address Phone [employer] Guarantor Unknown [phone] Allergies Allergen (clinical drug ingredient) Drug/Non Drug Allergy documented on EMR Reaction Allergy Type Onset Date Status codeine Codeine Unknown Drug Allergy Active Reason For Referral No Information Medications Medication SIG (Take, Route, Frequency, Duration) Notes Start Date End Date Status Allopurinol 300 MG Oral; Duration: 90 Active Escitalopram Oxalate 10 MG TAKE 1 TABLET BY MOUTH DAILY Diagnosis Unavailable Oral; Duration: 90 Active Methocarbamol 750 MG Oral; Duration: 7 Active diazePAM 5 MG Oral; Duration: 3 Active methylPREDNISolone 4 MG FOLLOW PACKAGE DIRECTIONS Diagnosis Unavailable Oral; Duration: 6 Not-Taking ALPRAZolam 0.25 MG TAKE 1 TABLET BY MOUTH THREE TIMES DAILY NEEDED Diagnosis Unavailable Oral; Duration: 30 Not-Taking Rosuvastatin Calcium 40 MG TAKE 1 TABLET BY MOUTH AT BEDTIME Diagnosis Unavailable Oral; Duration: 90 Active Social History Tobacco Use: Social History Observation Description Date Details (start date - stop date) Never Smoker NA - NA Tobacco Use/Smoking Question Answer Notes Are you a nonsmoker Alcohol Screen (Audit-C) Question Answer Notes Did you have a drink contain ing alcohol in the past year? Yes How often did you have a dri nk containing alcohol in the past year? 2 to 4 times a month (2 points) Points 2 Interpretation Negative Sexual History Question Answer Notes Had sex in the past 12 months (vaginal, oral, or anal)? No Problems Problem Type SNOMED Code ICD Code Onset Dates Problem Status W/U Status Risk Notes Problem Primary malignant neoplasm of kidney (40929750) Malignant neoplasm of unspecified kidney, except renal pelvis (C64.9) Active confirmed Problem Malignant tumor of urinary bladder (303622373) Malignant neoplasm of bladder, unspecified (C67.9) Active confirmed Problem Personal history of primary malignant neoplasm of urinary bladder (606735954) Personal history of malignant neoplasm of bladder (Z85.51) Active confirmed Problem Personal history of primary malignant neoplasm of kidney (587442944) Personal history of other malignant neoplasm of kidney (Z85.528) Active confirmed Problem Anxiety (81496544) Anxiety (F41.9) Active confirmed Problem High cholesterol (85130045) High cholesterol (E78.00) Active confirmed Problem Pain in thoracic spine (976712912) Acute bilateral thoracic back pain (M54.6) Active confirmed Problem Acute pain of right knee (M25.561) Active confirmed Problem Spasm of back muscles (693843339) Paraspinal muscle spasm (M62.830) Active confirmed Problem Gout (17113573) Gout, arthritis (M10.9) Active confirmed Problem Low back pain (finding) (077254572) Lumbar back pain (M54.50) Active confirmed Plan Of Treatment No Information Insurance Providers Payer Name Payer Address Payer Phone Subscriber Number Group Number Insured Name Patient Relationship to Insured Coverage Start Date Coverage End Date [facility] [address] [place] [address] [id number] [employer] Self - patient is the insured Medical (General) History Medical History History ICD Code Personal history of malignant neoplasm o f bladder Z85.51 Personal history of other malignant neop lasm of kidney Z85.528 Anxiety F41.9 High cholesterol E78.00 Gout, arthritis M10.9 Surgical History Surgery Date(Month/Year) back surgery [id number] 2000
--- OUTSIDE RECORDS SUMMARY | 2025-07-24 17:12 | XMS_ITS ---
Author Organization [facility] ([facility] 05/01/2024) ([employer]) Address 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 His orthostatic vitals were negative but did have a 18 beat increase in his heart rate. He does admit to drinking large amounts of caffeine. Encouraged decreased caffeine intake and staying well hydrated with water. Sepsis 02/09/2021 Urinary tract infection with hematuria 1 C. difficile diarrhea 02/09/2021 Hematuria 02/09/2021 Hyponatremia 02/09/2021 LILIANA (acute kidney injury) 02/09/2021 Normocytic anemia 02/09/2021 Bladder cancer 02/09/2021 Morbid obesity 02/09/2021 Mild intermittent asthma 01/30/2021 Personal history of other venous thrombosis and embolism 01/30/2021 Personal history of pulmonary embolism 1 Mass of urinary bladder 01/24/2021 Overview (07/02/2021): Added automatically from request for surgery [id number] Arteriosclerosis of coronary artery 08/02/2020 Overview (07/02/2021): . 1. He had some atypical chest pain in 2006. He went to the [facility] where he had a CTA done. They found mild distal left main calcific plaque extending into the proximal left anterior descending associated with a mild luminal stenosis. There was also note of calcium blooming. Nonischemic stress echo. 2. 11/10/12 calcium score of 655. Small pericardial effusion anteriorly measuring 1.4 cm. Small regional scarring in the posterior medial lung base. 312/2012 Cardiac catheterization revealed minimal left main disease, probably 40% proximal LAD and 30% mid. There was mild diffuse disease in the right coronary artery. His ejection fraction was preserved. We did a fractional flow reserve of the left anterior descending and it was 0.93, suggesting it is not hemodynamically significant. Medical management. . 1. He had some atypical chest pain in 2006. He went to the [facility] where he had a CTA done. They found mild distal left main calcific plaque extending into the proximal left anterior descending associated with a mild luminal stenosis. There was also note of calcium blooming. Nonischemic stress echo. 2. 11/10/12 calcium score of 655. Small pericardial effusion anteriorly measuring 1.4 cm. Small regional scarring in the posterior medial lung base. 12/2012 Cardiac catheterization revealed minimal left main disease, probably 40% proximal LAD and 30% mid. There was mild diffuse disease in the right coronary artery. His ejection fraction was preserved. We did a fractional flow reserve of the left anterior descending and it was 0.93, suggesting it is not hemodynamically significant. Medical management. . 1. He had some atypical chest pain in 2006. He went to the [facility] where he had a CTA done. They found mild distal left main calcific plaque extending into the proximal left anterior descending associated with a mild luminal stenosis. There was also note of calcium blooming. Nonischemic stress echo. 2. 11/10/12 calcium score of 655. Small pericardial effusion anteriorly measuring 1.4 cm. Small regional scarring in the posterior medial lung base. 12/2012 Cardiac catheterization revealed minimal left main disease, probably 40% proximal LAD and 30% mid. There was mild diffuse disease in the right coronary artery. His ejection fraction was preserved. We did a fractional flow reserve of the left anterior descending and it was 0.93, suggesting it is not hemodynamically significant. Medical management. He is not terribly active. It has been over three years since his last stress test. We will get a stress MPI and I will call him. . 1. He had some atypical chest pain in 2006. He went to the [facility] where he had a CTA done. They found mild distal left main calcific plaque extending into the proximal left anterior descending associated with a mild luminal stenosis. There was also note of calcium blooming. Nonischemic stress echo. 2. 11/10/12 calcium score of 655. Small pericardial effusion anteriorly measuring 1.4 cm. Small regional scarring in the posterior medial lung base. 312/2012 Cardiac catheterization revealed minimal left main disease, probably 40% proximal LAD and 30% mid. There was mild diffuse disease in the right coronary artery. His ejection fraction was preserved. We did a fractional flow reserve of the left anterior descending and it was 0.93, suggesting it is not hemodynamically significant. Medical management. He did have a follow up stress test. His fitness was below average. He had no EKG changes. He had a suboptimal predicted maximum heart rate. There is a question of a small, fixed with minimal reversibility defect probably in the lateral area. It made up 7% of total myocardial tissue. The fixed component was 6%. This is not an area where he is known to have an issue. At this point, he has no symptoms. We have decided just to watch this closely. He will contact me if he has any significant symptoms. Otherwise, I will reevaluate him in about six months. . 1. He had some atypical chest pain in 2006. He went to the [facility] where he had a CTA done. They found mild distal left main calcific plaque extending into the proximal left anterior descending associated with a mild luminal stenosis. There was also note of calcium blooming. Nonischemic stress echo. 2. 11/10/12 calcium score of 655. Small pericardial effusion anteriorly measuring 1.4 cm. Small regional scarring in the posterior medial lung base. 12/2012 Cardiac catheterization revealed minimal left main disease, probably 40% proximal LAD and 30% mid. There was mild diffuse disease in the right coronary artery. His ejection fraction was preserved. We did a fractional flow reserve of the left anterior descending and it was 0.93, suggesting it is not hemodynamically significant. Medical management. Patient had a CTA on 08/02/2020 which was concerning for significant for triple vessel disease. He underwent a left heart cath on 08/03/2020 which showed mild non-obstructive disease. He had not had any recurrent chest pain since discharge. Will continue medical management with ASA 81mg daily and lipitor 40mg daily. Will check a lipid panel to make sure he is on an appropriate dose of statin therapy. . 1. He had some atypical chest pain in 2006. He went to the [facility] where he had a CTA done. They found mild distal left main calcific plaque extending into the proximal left anterior descending associated with a mild luminal stenosis. There was also note of calcium blooming. Nonischemic stress echo. 2. 11/10/12 calcium score of 655. Small pericardial effusion anteriorly measuring 1.4 cm. Small regional scarring in the posterior medial lung base. 3. 12/2012 Cardiac catheterization revealed minimal left main disease, probably 40% proximal LAD and 30% mid. There was mild diffuse disease in the right coronary artery. His ejection fraction was preserved. We did a fractional flow reserve of the left anterior descending and it was 0.93, suggesting it is not hemodynamically significant. Medical management. 4. CTA 08/02/2020: Left main 25-50% stenosis. Proximal LAD 50-70% stenosis with 25-50% mid. Proximal left circumflex 50%-70%. OM 2 with 25-50%. Proximal RCA 25- 50%. 5. Cath 08/03/2020: Left main normal. LAD proximal 40% stenosis. Diagonal 50% ostial. LCx gives rise to 2 marginal arteries. Mild disease in the proximal segment. RCA large and dominant with mild diffuse disease. Posterior descending artery normal. PLB normal Patient had a CTA on 08/02/2020 which was concerning for significant for triple vessel disease. He underwent a left heart cath on 08/03/2020 which showed mild non-obstructive disease. He had not had any recurrent chest pain since discharge. Will continue medical management with ASA 81mg daily and lipitor 40mg daily. Will check a lipid panel to make sure he is on an appropriate dose of statin therapy. . 1. He had some atypical chest pain in 2006. He went to the [facility] where he had a CTA done. They found mild distal left main calcific plaque extending into the proximal left anterior descending associated with a mild luminal stenosis. There was also note of calcium blooming. Nonischemic stress echo. 2. 11/10/12 calcium score of 655. Small pericardial effusion anteriorly measuring 1.4 cm. Small regional scarring in the posterior medial lung base. 3. 12/2012 Cardiac catheterization revealed minimal left main disease, probably 40% proximal LAD and 30% mid. There was mild diffuse disease in the right coronary artery. His ejection fraction was preserved. We did a fractional flow reserve of the left anterior descending and it was 0.93, suggesting it is not hemodynamically significant. Medical management. Gout 08/02/2020 Acute headache 08/02/2020 Obesity (BMI 35.0-39.9 without comorbidity) 07/13 Insomnia 08/02/2020 Chest pain 08/01/2020 Overview (07/02/2021): The pt presented to the on 08/01/2020 with c/o chest pain, SOB, lightheadedness, and dizziness for the previous 2 weeks. He was advised by his PCP to go to for further evaluation. He was admitted and underwent a cardiac catheterization on 08/03/[address] Guzman. He was discharged to home on 08/03/2020 as well. I reviewed the discharge summary and medication list with the pt and answered all questions. The pt is feeling well with no complaints at this time. We discussed monitoring his blood pressure over the coming weeks and being mindful of his fluid intake as he has been on the dehydrated side lately. Pt is scheduled to come in for a follow up appt tomorrow, 08/07/2020, with HAYDER Lo. SOB (shortness of breath) 04/16/2016 DVT (deep venous thrombosis) 03/26/2016 Overview (03/26/2016): Acute LLE, precipitated by travel. Pulmonary embolism, other 03/26/2016 Overview (07/02/2021): On xarelto. . 1. Provoked. The patient had extensive travel. He was treated with Xarelto. He had a pulmonary embolism in the past that was provoked from a trip. I told him he needs to use compression hose and probably take a full aspirin for a day or two before he goes. . 1. LLE - Provoked. The patient had extensive travel. He was treated with Xarelto. . 1. LLE - Provoked. The patient had extensive travel. He was treated with Xarelto. Essential hypertension 03/26/2016 Overview (07/02/2021): His hypertension is well controlled. His hypertension is adequately controlled. At goal on exam today. He is not on antihypertensive medication. Mixed hyperlipidemia 03/26/2016 Malignant neoplasm of left renal pelvis 03/26/20 16 Overview (03/26/2016): S/p L nephrectomy. Lumbar radiculopathy 06/14/2013 Degeneration of lumbar or lumbosacral interverte bral disc 06/14/2013 Thoracic or lumbosacral neuritis or radiculitis 06/14/2013 Lumbar spinal stenosis 06/09/2013 Angina pectoris 12/03/2012 Current Treatment and Therapy Plans No current plan information found. Past Treatment and Therapy Plans No past plan information found. Lifetime Dose Tracking * Chemical Lifetime Dose Automatic Entry Manual Entr y DLP 4,017 mGy 4,017 mGy 0 mGy CTDI 133.8 mGy 133.8 mGy 0 mGy
--- OUTSIDE RECORDS SUMMARY | 2025-07-24 17:12 | XMS_ITS | Patient Health Record ---
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 Chong Wilder Primary Care Provider Unavail able Amador Santiago Unavailable [phone] ALLERGIES Allergen (clinical drug ingredient) Drug/Non Drug Allergy documented on EMR Reaction Allergy Type Onset Date Status codeine Codeine Sulfate nausea and vomiting Drug Allergy Active RESULTS Component Value Reference Range Notes GFR, (Non Afr-Amer) Reviewed date:12/06/2024 09:34:59 AM Interpretation:Normal Performing Lab: Notes/Report: GFR 84 >= 60 mL/minute CREATININE Reviewed date:12/06/2024 09:35:00 AM Interpretation:Normal Performing Lab: Notes/Report: CREATININE 1.00 0.5 - 1.5 mg/dL *URIC ACID Reviewed date:12/06/2024 09:35:00 AM Interpretation:Normal Performing Lab: Notes/Report: URIC ACID 4.8 3.5 - 7.2 mg/dL SED RATE Reviewed date:12/06/2024 09:35:00 AM Interpretation:Normal Performing Lab: Notes/Report: SED RATE 4 0 - 10 mm/Hour CBC W/DIFF Reviewed date:12/06/2024 09:35:00 AM Interpretation:High neutrophil Performing Lab: Notes/Report: WBC 9.9 4.5 - 10.0 10e3/uL RBC 5.20 4.34 - 5.7 10e6/uL HGB 16.4 13.7 - 17.0 g/dL HCT 47.7 40.5 - 49.7 % MCV 91.7 84.36 - 101.6 fL MCH 31.4 26.1 - 33.5 pg MCHC 34.3 30.0 - 35.3 g/dL RDW 13.3 11.0 - 15.5 % PLT CT 180 150 - 400 10e3/uL MPV 8.8 5.0 - 13.1 fL LYMPH% 14.6 17.4 - 48.2 % MONO% 5.3 3.0 - 10.5 % NEUT% 79.4 43.4 - 76.2 % EOS% 0.4 0.0 - 6.0 % BASO% 0.3 0.0 - 3.0 % ABS. LYMPH 1.50 1.2 - 3.2 10e3/uL ABS. MONO 0.50 0.15 - 0.80 10e3/uL ABS. NEUT 7.90 1.5 - 6.7 10e3/uL ABS. EOS 0.00 0.0 - 0.50 10e3/uL ABS. BASO 0.00 0.0 - 0.2 10e3/uL HEPATIC FUNCTION PANEL Reviewed date:12/06/2024 09:35:00 AM Interpretation:High direct bilirubin Performing Lab: Notes/Report: ALBUMIN 4.8 3.4 - 5.1 g/dL BILIRUBIN, TOTAL 1.0 0.0 - 1.2 mg/dL ALKALINE PHOSPHATASE 48 40 - 150 IU/L SGOT (AST) 20 10 - 50 IU/L SGPT (ALT) 26 2 - 50 IU/L BILIRUBIN, DIRECT 0.23 0.03 - 0.18 mg/dL PROTEIN, TOTAL 7.0 6.1 - 8.1 g/dL REASON FOR REFERRAL No Information MEDICATIONS Medication SIG (Take, Route, Frequency, Duration) Notes Start Date End Date Status Fiber - as directed Orally A ctive Aspir-81 81 MG 1 tablet Orally Once a day for 30 day(s) Active Lexapro 10 MG 1 tablet Orally Once a day for 30 day(s) Active Rosuvastatin Calcium 40 MG 1 tablet Orally Once a day for 30 day(s) Active Ezetimibe 10 MG 1 tablet Orally Once a day for 30 day(s) Active Allopurinol 100 MG 1 tablet Orally Once a day for 90 days 09/24/2021 Not-Taking Medrol (Joey) 4 mg as directed orally Not-Taking Allopurinol 300 MG TAKE 1 TABLET BY HANS DAILY for 90 Active Multivitamin Adults - 1 tablet Orally on ce a day Active Allopurinol 300 MG 1 tablet Orally [...] Never (0 point) Points 3 Interpretation Negative PROBLEMS Problem Type ICD Code Onset Dates Problem Status W/U Status Risk SNOMED Code Notes Problem Left leg pain (M79.605) Active confirmed Pain in left le g (941950943) Problem Left hand pain (M79.642) Active confirmed 125493228619467 Problem Pain in right shoulder (M25.511) Active confirmed 70607873433723610 Problem Right foot pain (M79.671) Active confirmed 212562159440031 Problem Right hand pain (M79.641) Active confirmed 884734952510391 Problem Primary osteoarthritis , right shoulder (M19.011) Active confirmed 107554193732446 Problem Other chronic pain (G89.29) Active confirmed 55485302 Problem 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) Active confirmed 58820945 Problem Acute right ankle pain (M25.571) Active confirmed 18647783810276 VITAL SIGNS Heart Rate 60 /min 12/27/2024 Blood pressure diastolic 84 mm Hg 12/27/2024 Height 73 in 12/27/2024 Blood pressure systolic 118 mm Hg 12/27/2024 Weight 270.0 lbs 12/27/2024 BMI 35.62 kg/m2 12/27/2024 PROCEDURES Procedure Date Ordered Date Performed Result Body Sit e ARTHO MED RIGHT 12/13/2024 N/A ARTHO MED RIGHT 12/05/2024 N/A Encounters Encounter Location Date Provider Diagnosis [address] [place] [address] 11/19/2024 Amador Santiago Primary osteoarthritis, right shoulder M19.011 [facility] [place] [address] [address] 11/19/2024 Amador Santiago [facility] [place] [address] [address] 12/02/2024 Amadorchintan Santiago Primary osteoarthritis, right shoulder M19.011 [facility] [place] [id number] [address] 12/05/2024 Amadorchintan Santiago Acute right ankle pain M25.571 ; Other chronic pain G89.29 ; Idiopathic chronic gout of multiple sites without tophus M1A.09X0 and Primary osteoarthritis, right shoulder M19.011 [facility] [address] [address] 12/13/2024 Amador Santiago [facility] [place] [id number] [address] 12/13/2024 Amador Pamela Acute right ankle pain M25.571 ; Other chronic pain G89.29 ; Idiopathic chronic gout of multiple sites without tophus M1A.09X0 ; Primary osteoarthritis, right shoulder M19.011 and Right foot pain M79.671 [facility] [address] [address] 12/27/2024 Amadorchintan Santiago Other chronic pain G89.29 ; Idiopathic chronic gout of multiple sites without tophus M1A.09X0 ; Primary osteoarthritis, right shoulder M19.011 and Right foot pain M79.671 [facility] [address] [address] 02/10/2025 Amador Santiago [facility] [place] [id number] [address] 06/22/2025 Amadorchintan Santiago Other chronic pain G89.29 ; Idiopathic chronic gout of multiple sites without tophus M1A.09X0 ; Primary osteoarthritis, right shoulder M19.011 and Right foot pain M79.671 ASSESSMENTS Encounter Date Diagnosis Assessment Notes Treatment Notes Treatment Clinical Notes Section Notes 11/19/2024 Primary osteoarthritis , right shoulder (ICD-10 - M19.011) 12/02/2024 Primary osteoarthritis , right shoulder (ICD-10 - M19.011) 12/05/2024 Other chronic pain (ICD-10 - G89.29) 1. [...] right ankle and proximal right foot starting approximately 2 weeks ago, early November 2024. Pain improved following Medrol Dosepak and then recurred. He received a second Medrol Dosepak that he started 2 days ago, December 03, 2024. Pain now 50% improved. This likely represents gout. 2. History of left nephrectomy for renal [...] radiculopathy. He is status post lumbar laminectomy [facility] in the distant past. He has been to [facility] neurosurgery division February 10, 2024 for reevaluation 12/05/2024 Acute right ankle pain (ICD-10 - M25.571) 1. Gout. Recurrent episodes right first MTP [...] right ankle and proximal right foot starting approximately 2 weeks ago, early November 2024. Pain improved following Medrol Dosepak and then recurred. He received a second Medrol Dosepak that he started 2 days ago, December 03, 2024. Pain now 50% improved. This likely represents gout. 2. History of left nephrectomy for renal [...] radiculopathy. He is status post lumbar laminectomy [facility] in the distant past. He has been to [facility] neurosurgery division February 10, 2024 for reevaluation 06/22/2025 Other chronic pain (ICD-10 - G89.29) 1. Gout. Recurrent episodes right first MTP joint. 2 episodes involving right ankle. Onset of symptoms 2017. Gout proven by synovial fluid analysis right [...] radiculopathy. He is status post lumbar laminectomy [facility] in the distant past. He has been to [facility] neurosurgery division February 10, 2024 for reevaluation 12/27/2024 Other chronic pain (ICD-10 - G89.29) [...] radiculopathy. He is status post lumbar laminectomy [facility] in the distant past. He has been to [facility] neurosurgery division February 10, 2024 for reevaluation [...] radiculopathy. He is status post lumbar laminectomy [facility] in the distant past. He has been to [facility] neurosurgery division February 10, 2024 for reevaluation [...] radiculopathy. He is status post lumbar laminectomy [facility] in the distant past. He has been to [facility] neurosurgery division February 10, 2024 for reevaluation 12/13/2024 Acute right ankle pain (ICD-10 - [...] radiculopathy. He is status post lumbar laminectomy [facility] in the distant past. He has been to [facility] neurosurgery division February 10, 2024 for reevaluation [...] radiculopathy. He is status post lumbar laminectomy [facility] in the distant past. He has been to [facility] neurosurgery division February 10, 2024 for reevaluation [...] radiculopathy. He is status post lumbar laminectomy [facility] in the distant past. He has been to [facility] neurosurgery division February 10, 2024 for reevaluation [...] radiculopathy. He is status post lumbar laminectomy [facility] in the distant past. He has been to [facility] neurosurgery division February 10, 2024 for reevaluation 12/05/2024 Idiopathic chronic gout of multiple sites without tophus (ICD-10 - M1A.09X0) I have given him a prescription for labs that he will have at [facility] today. Labs to include CBC, creatinine, sedimentation rate, hepatic function panel, uric acid 1. Gout. Recurrent episodes right first MTP [...] right ankle and proximal right foot starting approximately 2 weeks ago, early November 2024. Pain improved following Medrol Dosepak and then recurred. He received a second Medrol Dosepak that he started 2 days ago, December 03, 2024. Pain now 50% improved. This likely represents gout. 2. History of left nephrectomy for renal [...] radiculopathy. He is status post lumbar laminectomy [facility] in the distant past. He has been to [facility] neurosurgery division February 10, 2024 for reevaluation 12/05/2024 Primary osteoarthritis , right shoulder (ICD-10 - [...] right ankle and proximal right foot starting approximately 2 weeks ago, early November 2024. Pain improved following Medrol Dosepak and then recurred. He received a second Medrol Dosepak that he started 2 days ago, December 03, 2024. Pain now 50% improved. This likely represents gout. 2. History of left nephrectomy for renal [...] radiculopathy. He is status post lumbar laminectomy [facility] in the distant past. He has been to [facility] neurosurgery division February 10, 2024 for reevaluation [...] radiculopathy. He is status post lumbar laminectomy [facility] in the distant past. He has been to [facility] neurosurgery division February 10, 2024 for reevaluation [...] radiculopathy. He is status post lumbar laminectomy [facility] in the distant past. He has been to [facility] neurosurgery division February 10, 2024 for reevaluation [...] radiculopathy. He is status post lumbar laminectomy [facility] in the distant past. He has been to [facility] neurosurgery division February 10, 2024 for reevaluation [...] radiculopathy. He is status post lumbar laminectomy [facility] in the distant past. He has been to [facility] neurosurgery division February 10, 2024 for reevaluation [...] radiculopathy. He is status post lumbar laminectomy [facility] in the distant past. He has been to [facility] neurosurgery division February 10, 2024 for reevaluation 12/27/2024 Other Total time spen t on evaluation of patient on day of [...] radiculopathy. He is status post lumbar laminectomy [facility] in the distant past. He has been to [facility] neurosurgery division February 10, 2024 for reevaluation PLAN OF TREATMENT Pending Test Test Name Order Date X ray : Ankle 3V, right 12/05/2024 X ray : Hand 3V, left 11/08/2020 X ray : Shoulder 2V, Right 09/05/2019 X ray : Foot, right 3v 12/13/2024 X ray : Foot, right 3v 11/19/2018 ARTHO MED RIGHT 12/13/2024 ARTHO MED RIGHT 12/05/2024 ARTHO SMALL RIGHT 11/19/2018 ARTHO SMALL LEFT 11/08/2020 BLOOD DRAW 11/08/2020 BLOOD DRAW 06/25/2021 BLOOD DRAW 01/21/2019 SYNOVIAL FLUID CRYSTAL ID LEFT [id number] Insurance Providers Payer Name Payer Address Payer Phone Subscriber Number Group Number Insured Name Patient Relationship to Insured Coverage Start Date Coverage End Date MEDICARE [address] [place], [place] [id number] Robert Balderas Self - patient is the insured 5 MEDICAL (GENERAL) HISTORY Medical History History ICD Code hypertension hyperlipidemia Coronary Artery Disease Asthma prediabetes left renal cell carcinoma status post le ft nephrectomy 2009 no history of tuberculosis. He has never tested positive on TB testing. No history of rheumatic fever, diabetes mellitus, or peptic ulcer disease. Bladder cancer diagnosed January 2021. Daniel ated with BCG Thoracic aortic aneurysm. Following with cardiology at [facility] Surgical History Surgery Date(Month/Year) left nephrectomy 2009 lumbar laminectomy 1999 Resection of bladder cancer
--- OUTSIDE RECORDS SUMMARY | 2025-07-24 17:12 | XMS_ITS ---
Author Organization [facility] Address [address] [place] [address] Care Team Providers Care Audio Visual Aids Director Name Role Phone Elsewhere, Pcp Primary Care Provider Unavailabl e Active Problems Patient Care Coordination No te Formatting of this note is d ifferent from the original. MALE PREVENTIVE SERVICES Colon Cancer Screening Last colon screen: Colonoscopy Year: 2020 First Degree Relative with Cancer: No Prep: Unknown - previous procedure not completed at [facility] Suite: Unknown Results: Unknown Next Colon screen: 2025 per patient Prostate Cancer Screening Next PSA: Screening Lab Results Component Value Date PSA 2.2 03/21/2022 PSA 0.76 08/05/2016 PSA 0.61 09/13/2013 AAA (male) AAA screening: Not indicated at this time Bone Mineral Density Last BMD: Unknown - Patient has never had a BMD at [facility] Next BMD: No provider plan of care has been established to direct next imaging HIV Patient declined HCV Completed in 2015 Cardiology: Last [facility] Next [facility] Lipoprotein (a): Completed Coronary Calcium Scoring: Completed Problem Noted Date Diagnosed Date 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 pt develops numbness in his LT foot as the day progresses. discussed w/pt this is likely chronic venous insufficiency from his DVT. monitor for now. wrote Rx for knee high support hose. 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 Diagnosed in January 2021 status post BCG therapy and follows locally with Urology Nephrectomy Status Post 02/10/2024 Overview (02/10/2024): S/p nephrectomy for kidney cancer in 2009. Obesity Body Mass Index 30-39.9 Adult 02/10/2024 Anemia 02/09/2021 Atherosclerotic Heart Diseas e Of [place] Coronary Artery Without Angina Pectoris 01/30/2021 Thrombosis Deep Vein Personal History 01/30/2021 Overview (02/10/2024): [email or web address]. Now taking prophylactic xarelto (rivaroxaban) during long flights. Asthma Mild Intermittent 01/30/2021 Gout 01/30/2021 Hyperlipidemia 01/30/2021 Hypertension Essential Primary 01/30/2021 Anxiety 01/30/2021 Insomnia 08/02/2020 Overview (06/21/2025): using 5 ml Benadryl often to aid sleep, c/o sedating feeling in morning. discussed Trazodone w/ pt Start Trazodone Status: '*'; Other Pulmonary Embolism Without Acute Cor Pulmo nale 03/26/2016 Overview (06/21/2025): increasing dyspnea and chest pains, EKG unchanged, CXR normal, pulse o2 97-98% RA rest and ambulation, will get CT scan chest shauna to look for any progression of PE, ER if any worsening of his condition, agree with no travel currently Asthma 10/30/2006 Current Treatment and Therapy Plans No current plan information found. Past Treatment and Therapy Plans No past plan information found. Lifetime Dose Tracking * Chemical Lifetime Dose Automatic Entry Manual Entr y Radiation 8.28 mGy 8.28 mGy 0 mGy Fluoro Time 0.183 minutes 0.183 minutes 0 minutes Resolved Problems Problem Noted Date Diagnosed Date Resolved Date Embolus Pulmonary Personal History 01/30/2021 02/10/2024 Mass Bladder 01/24/2021 02/10/2024 Overview (01/24/2021): Added automatically from request for surgery [id number] Body Mass Index 40.0 To 44.9 Adult 08/05/2016 01/30/2021
--- OUTSIDE RECORDS SUMMARY | 2025-07-24 17:12 | XMS_ITS | Referral Summary ---
Author Organization [facility] ([employer]) Address [address] [place] [address] Care Team Providers Care Tank Charger Name Role Phone Chong Wilder MD Primary Care Provider [phone] Allergies Active Allergy Reactions Criticality Noted Date Comments Codeine Nausea and/or vomiting 12/02/2012 Nuts Anaphylaxis/Shock High 12/02/2012 TREE NUTS Medications atorvastatin (LIPITOR) 40 MG PO Tab take 40 mg by mouth once daily. Active nitroGLYCerin (NITROSTAT) 0.4 MG SL SL Tab place 1 Tab under the tongue every 5 minutes x 3 doses as needed for FOR CHEST PAIN. 0 3 Active aspirin (ECOTRIN) 81 MG PO Tablet Delayed Response take 81 mg by mouth once every night at bedtime. Active [place]-3 Fatty Acids (FISH OIL) 1000 MG PO Cap take 1,000 mg by mouth once every night at bedtime. Active Multiple Vitamin (THERAPEUTIC MULTIVITAMIN) PO Tab take 1 Tab by mouth once every night at bedtime. Active allopurinol (ZYLOPRIM) 100 MG PO Tab take 100 mg by mouth once daily. Take in addition to 300mg tablet for total daily dose= 400mg Active allopurinol (ZYLOPRIM) 300 MG PO Tab take 300 mg by mouth once daily. Take in addition to 100mg tablet for total daily dose= 400mg Active coenzyme Q10 (CO-Q 10) 100 MG PO Cap take 100 mg by mouth once daily. Active calcium polycarbophil (FIBERCON) 625 MG PO Tab take 625 mg by mouth once daily. Active diphenhydrAMINE (BENADRYL) 25 MG PO Cap take 25 mg by mouth once every night at bedtime as needed for FOR SLEEP. Active albuterol (PROVENTIL, VENTOLIN, PROAIR) HFA 108 (90 Base) MCG/ACT INHAL Aero Soln inhale 1 Puff into the lungs every 4 hours as needed for FOR SHORTNESS OF BREATH. (disp insurance-pre f prod) 0 1 Active ALPRAZolam (XANAX) 0.25 MG PO Tab take 0.25 mg by mouth. 1 Active buPROPion (WELLBUTRIN XL) 150 MG PO TABLET SR 24 HR take 150 mg by mouth. 1 Active escitalopram (LEXAPRO) 10 MG PO Tab TAKE 1 TABLET BY MOUTH DAILY 1 Active lisinopril (PRINIVIL, ZESTRIL) 10 MG PO Tab take 1 Tablet by mouth. 3 Active ondansetron (ZOFRAN) 4 MG PO TABLET DISPERSIBLE 1 Active oxybutynin (DITROPAN XL) 15 MG PO TABLET SR 24 HR take 15 mg by mouth. 1 Active rosuvastatin (CRESTOR) 40 MG PO tablet TAKE 1 TABLET BY MOUTH AT BEDTIME 1 Active Active Problems Problem Noted Date Diagnosed Date [...] (07/02/2021): Added automatically from request for surgery [id number] Arteriosclerosis of coronary artery 08/02/2020 Overview (07/02/2021): . 1. He had some atypical chest pain in 2006. He went to the [facility] where he had a CTA done. They [...] pain in 2006. He went to the [facility] where he had a CTA done. They [...] pain in 2006. He went to the [facility] where he had a CTA done. They [...] pain in 2006. He went to the [facility] where he had a CTA done. They [...] pain in 2006. He went to the [facility] where he had a CTA done. They found mild distal left main calcific plaque extending into the proximal left anterior descending associated with a mild luminal stenosis. There was also note of calcium blooming. Nonischemic stress echo. 11/10/12 calcium score of 655. Small pericardial [...] pain in 2006. He went to the [facility] where he had a CTA done. They [...] pain in 2006. He went to the [facility] where he had a CTA done. They [...] Overview (07/02/2021): The pt presented to [facility] on [facility] with c/o chest pain, SOB, lightheadedness, and dizziness for the previous 2 weeks. He was advised by his PCP to go to [facility] for further evaluation. He was admitted and [...] Lumbar spinal stenosis 06/09/2013 Angina pectoris 12/03/2012 Immunizations Immunization Administration Dates Next Due Covid-19 Vaccine (Pfizer) 01/15/2021,12/25/2020 Hep A (Adult) 12/10/2005 INFLUENZA SHOT TIV (INJECT) 12/10/2005 Influenza Shot TIV (Inject P-Free) 08/17/2015,,07/24/2012 Influenza Vaccine, injection , quadrivalent 07/12/2018,06/12/2017,06/12/2016,2014 Influenza Vaccine, injection , quadrivalent (Preservative-Free) 08/29/2021 Pneumococcal Conjugate (PCV13)(Iyrwrep95) 08/01/2020 TDaP (Adol/Adult) 11/23/2020,04/12/2018,12/08/19 06 Td (TENIVAC) Preservative Fr ee (Adol/Adult) 08/05/2016 Zoster (Zostavax)(shingles) Vaccine, Live 09/14/2013 Social History Tobacco Use Types Packs/Day Years Used Date Smoking Tobacco: Never Smokeless Tobacco: Never Alcohol Use Standard Drinks/Week Comments Not Currently 1 (1 standard drink = 0.6 oz pur e alcohol) 7 nights a week Sex and Gender Information Value Date Recorded Sex Assigned at Not on file Legal Sex Male 7:05 PM EST Gender Identity Not on file Sexual Orientation Not on file Last Filed Vital Signs Vital Sign Reading Time Taken Comments Blood Pressure 124/78 01/07/2022 8:20 AM EDT Pulse 84 01/07/2022 8:20 AM EDT Temperature 37.2 C (98.9 F) 01/07/2022 8:20 AM EDT Respiratory Rate 16 01/07/2022 8:20 AM EDT Oxygen Saturation 99% 01/07/2022 8:20 AM EDT Inhaled Oxygen Concentration - - Weight 122 kg (270 lb) 08/26/2023 9:35 AM EST Height 190.5 cm (6' 3) 08/26/2023 9:35 AM EST Body Mass Index 33.75 08/26/2023 9:35 AM EST Plan of Treatment Not on file Care Teams Tank Charger Relationship Specialty Start Date End Date Chong Wilder MD [address] [place] [address] PCP - General Family Medicine 12/02/12
--- OUTSIDE RECORDS SUMMARY | 2025-07-24 17:12 | XMS_ITS | Clinical Summary ---
Author Organization [employer] ([facility] 05/01/2024) ([place]) Address [address] [place] [address] Care Team Providers Care Coil Shaper Name Role Phone Chong Wilder MD Primary Care Provider [phone] Allergies Active Allergy Reactions Criticality Noted Date [...] mouth once every night at bedtime. Active [place]-3 Fatty Acids (FISH OIL) 1000 MG PO [...] (07/02/2021): Added automatically from request for surgery [id number] Arteriosclerosis of coronary artery 08/02/2020 Overview (07/02/2021): . 1. He had some atypical chest pain in 2006. He went to the [facility] where he had a CTA done. They [...] pain in 2006. He went to the [facility] where he had a CTA done. They [...] pain in 2006. He went to the [facility] where he had a CTA done. They [...] pain in 2006. He went to the [facility] where he had a CTA done. They [...] pain in 2006. He went to the [facility] where he had a CTA done. They [...] pain in 2006. He went to the [facility] where he had a CTA done. They [...] pain in 2006. He went to the [facility] where he had a CTA done. They [...] a cardiac catheterization on 08/03/[address] uGzman. He was discharged to home on 08/03/2020 [...] injection , quadrivalent (Preservative-Free) 08/29/2021 Pneumococcal Conjugate (PCV13)([id number]) 08/01/2020 TDaP (Adol/Adult) 11/23/2020,04/12/2018,12/08/19 06 Td (TENIVAC) Preservative Fr ee (Adol/Adult) 08/05/2016 Zoster (Zostavax)(shingles) Vaccine, Live 09/14/2013 Family History Medical History Relation Name Comments Cancer - Other Father High Cholesterol Mother Hyperthyroidism Mother Cancer Other Relation Name Status Comments Father Mother Other Social History Tobacco Use Types Packs/Day Years [...] 08/26/2023 9:35 AM EST Plan of Treatment Health Maintenance Due Date Last Done Comments CT Colonography 1959 FIT-DNA 1959 FIT/FOBT 1959 SCREENING: HEPATITIS C 1959 Sigmoidoscopy 1959 SCREENING: DEPRESSION 1971 VACCINE: ZOSTER (SHINGRIX) (#1) 2009 Pneumococcal Vaccine: 65+ Years (2 of 2 - PPSV23, PCV20, or PCV21) 09/26/2020 08/01/2020 ASTHMA ACTION PLAN 01/08/2022 CAD ACTION PLAN 01/08/2022 HEALTH MAINTENANCE EXAM (ADULT) 07/31/2024 07/31/2023 Advance Care Planning Documentation 2024 SCREENING: FALL RISK 2024 VACCINE: INFLUENZA (#1) 2025 07/09/20 23, 08/29/2021, 08/29/2021, Additional history exists VACCINE: COVID-19 ( season) 2025 07/09/2023, 08/27/2022, 04/23/2022, Additional history exists VACCINE: TETANUS,DIPHTHERIA BOOSTER (TD BOOSTER) EVERY 10 YEARS 11/23/2030 11/23/2020, 04/12/2018, 08/05/2016, Additional history exists Colonoscopy 09/20/2031 09/20/2021 Colorectal Cancer Screening 09/20/2031 VACCINE: HEPATITIS A Aged Out 12/10/2005 No long er eligible based on patient's age to complete this topic VACCINE: ZOSTER (ZOSTAVAX) Completed 09/14/2013 Pneumococcal Vaccine: Pediatrics (0 to 5 Years) and At-Risk Patients (6 to 64 Years) Discontinued 08/01/2020 VACCINE: TETANUS,DIPHTHERIA,PERTUSSI S (TDAP) FIRST DOSE ADULT Discontinued 11/23/2020, 04/12/2018, 12/08/2005 Vaccines: HIB Aged Out No longer elig ible based on patient's age to complete this topic Vaccines: IPV Aged Out No longer elig ible based on patient's age to complete this topic Vaccines: Meningococcal B Aged Out No longer eligible based on patient's age to complete this topic Vaccines: Meningococcal Aged Out No l onger eligible based on patient's age to complete this topic Vaccines: Rotavirus Aged Out No longe r eligible based on patient's age to complete this topic Care Teams Coil Shaper Relationship Specialty Start Date End Date Chong Wilder MD [address] [place] [address] PCP - General Family Medicine 12/02/12
--- OUTSIDE RECORDS SUMMARY | 2025-07-24 17:13 | XMS_ITS | Patient Health Record ---
Author Organization [facility] Address [address] [place] [address] Care Team Providers Care Aviation Safety Inspector Name Role Phone Chong Wilder MD Primary Care Provider UnavailMAHAD Turcios Unavailable [phone] Reason For Referral No Information Medications Medication SIG (Take, Route, Frequency, Duration) Notes Start Date End Date Status Fish Oil qd oral *please review f or potential update for e-prescription and drug interaction check* Active Lipitor 40 MG take 1 tablet (40 mg) by oral route once daily Oral 1 Active Lisinopril 20 MG take 1 tablet (20 mg) by oral route once daily Oral 1 Active Aspirin Adult Low Strength 81 MG take 1 tablet (81 mg) by oral route once daily Oral 1 Active Multiple Vitamins 1 qd Oral *please review for potential update for e-prescription and drug interaction check* Active ProAir HFA 108 (90 Base) MCG/ACT inhale 2 puffs (180 mcg) by inhalation route every 4-6 hours as needed Inhalation 6 Active Xarelto 20 MG take 1 tablet (20 mg) by oral route once daily with the evening meal Oral 1 Active Immunizations Vaccine Route Administration Date Status Comme nts Pneumococcal conjugate PCV 7 Unknown 07/12/2013 Adminis tered Standard Influenza Unknown 05/12/2016 Administered Problems Problem Type SNOMED Code ICD Code Onset Dates Problem Status W/U Status Risk Notes Problem Dyspnea (155543078) Dyspnea (R06.00) Active confirmed Problem Pulmonary embolism (60464596) Pulmonary Embolism (I26.99) Active confirmed Problem Asthma (972011332) Asthma (J45.909) Active confirmed Plan Of Treatment No Information Insurance Providers Payer Name Payer Address Payer Phone Subscriber Number Group Number Insured Name Patient Relationship to Insured Coverage Start Date Coverage End Date [employer] [address] [address] [place] [address] [id number] Robert Balderas Self - patient is the insured Medical (General) History Surgical History Surgery Date(Month/Year) Back surgery; 2016-07-01 Kidney Surgery: left removed; 2016-07-01
--- OUTSIDE RECORDS SUMMARY | 2025-07-24 17:13 | XMS_ITS | Clinical Summary ---
Author Organization [facility] Address [address] [place] [id number] Care Team Providers Care Care Nurse Rn Name Role Phone Elsewhere, Pcp Primary Care Provider Unavailabl e Source Comments Patient records contain information from all sites at [facility]. For routine questions regarding patient records, call [phone] during business hours, M-F 8:00 AM - 5:00 PM Central Time. Record requests for emergency care only can be directed to [phone] at any time.[facility] Allergies Active Allergy Reactions Criticality Noted Date Comments Animal Dander Wheezing (Reselect Reaction) 01/30/2021 Apple Other (see comments) 06/20/2025 Throat closure Banana Other (see comments) 06/20/2025 Throat closure Codeine Nausea And Vomiting,Nausea Only High 12/02/2012 Melon Other (see comments) 10/30/2006 Nut - Unspecified Anaphylaxis,Wheezing (Reselect Reaction) High 10/26/2002 TREE NUTS Pineapple Anaphylaxis High 01/30/2021 Some fresh fruits Medications multivitamin tablet Take 1 tablet by mouth daily. 08/05/20 16 Active methylPREDNIS olone (MEDROL DOSEPAK) 4 mg tablet See Admin Instructions. follow package directions for gout 11/29/19 21 Active allopurinoL (ZYLOPRIM) 300 mg tablet Take 300 mg by mouth every evening. Active ALPRAZolam (XANAX) 0.25 mg tablet Take 0.25 mg by mouth 3 (three) times a day as needed. 11/19/19 21 Active albuterol 90 mcg/actuation inhaler Inhale 1 puff every 4 (four) hours as needed. 02/12/20 21 Active escitalopram (LEXAPRO) 10 mg tablet Take 10 mg by mouth daily. 02/06/20 22 Active rosuvastatin (CRESTOR) 40 mg tablet Take 40 mg by mouth at bedtime. 12/20/19 22 Active tadalafiL (CIALIS, ADCIRCA) 20 mg tablet Take 20 mg by mouth as needed. 02/06/20 22 Active saeg-gbk-kvs- kpc-uydf-vsbs -pec (Fiber 6) 1,000 mg tablet Take 1 tablet by mouth daily. Active UNABLE TO FIND Med Name: compounded semeglutide injection 1.5 mg weekly Active diphenhydrAMI NE (BenadryL) 25 mg capsule Take 25 mg by mouth at bedtime as needed. 02/10/20 21 Active ezetimibe (Zetia) 10 mg tablet Take 1 tablet (10 mg total) by mouth daily. 30 tablet 11 05/04/20 24 Active nitroglycerin (Nitrostat) 0.[address] 1 TABLET UNDER THE TONGUE EVERY 5 MINUTES NEEDED FOR CHEST PAIN MAY REPEAT EVERY 5 MINUTES FOR UP TO 3 DOSES 25 tablet 3 05/30/20 25 Active semaglutide (Wegovy) 1 mg/0.5 mL pen injector injection Inject 1 mg under the skin once a week. 04/24/20 25 Active DOCOSAHEXAENO IC ACID ORAL Take 1 capsule by mouth daily. Active aspirin [address] tablet Take 1 [...] using the contact information provided to you. 07/07/20 25 Active diazePAM (Valium) 5 mg tablet Take 1 tablet (5 mg total) by mouth 3 (three) times a day as needed (bladder spasms/pain). 10 tablet 5 3:39 PM CDT 07/07/20 25 Active oxyBUTYnin (Ditropan XL) 10 mg 24 hr tablet Take 1 tablet (10 mg total) by mouth daily as needed (bladder spasms/pain) for up to 20 days. For bladder spasms/bladder pain from your catheter while it is in place. Try to avoid taking this medication 24 hours prior to your catheter removal appointment. 10 tablet 1 5 3:39 PM CDT 07/07/20 25 Active acetaminophen (TylenoL) 500 mg tablet Take 2 tablets (1,000 mg total) by mouth every 6 (six) hours as needed for pain. 07/08/20 Active diclofenac sodium (Voltaren) 1 % gel Apply 2 g topically 4 (four) times a day. Apply to affected area. 200 g 07/10/20 25 Active tamsulosin (Flomax) 0.4 mg 24 hr capsule Take 1 capsule (0.4 mg total) by mouth daily. 30 capsule 3 07/20/20 [address] Active aspirin [address] tablet Take 1 tablet by mouth daily. 09/15/20 13 025 Discontinued rivaroxaban (XARELTO) 20 mg tablet Take 20 mg by mouth as directed. For air related travel with history of travel related blood clots 025 Discontinued lisinopriL 10 mg tablet Take 1 tablet by mouth as needed (traveling). 09/13/20 13 025 Discontinued tamsulosin (Flomax) 0.4 mg 24 hr capsule Take 0.4 mg by mouth daily. Discontinued methocarbamoL (Robaxin) 500 mg tablet Take 1 tablet by mouth 3 (three) times a day as needed. 06/20/20 24 025 Discontinued diazePAM (Valium) 5 mg tablet Take 5 mg by mouth as needed. Discontinued atorvastatin (Lipitor) 40 mg tablet take 1 tablet (40 mg) by oral route once daily Oral 1 025 Discontinued cefdinir (Omnicef) 300 mg capsuleIndica tions:Maligna nt Neoplasm Of Bladder (HCC),Acute Cystitis Without Hematuria Take 1 capsule (300 mg total) by mouth 2 (two) times a day before morning and evening meals. 20 capsule 06/29/20 25 025 Discontinued oxyCODONE (Roxicodone) 5 mg immediate release tabletIndicat ions:Acute Pain Take 1 tablet (5 mg total) by mouth every 3 (three) hours as needed for pain for up to 3 days Indication: Acute Pain. 20 tablet 06/29/20 25 025 rivaroxaban (Xarelto) 20 mg tablet Take 1 [...] with history of travel related blood clots 07/07/20 025 Discontinued cefdinir (Omnicef) 300 mg capsuleIndica tions:Maligna nt Neoplasm Of Bladder (HCC),Retenti on Urinary Take 1 capsule (300 mg total) by mouth once for 1 dose. Take 1-2 hours before your appointment with your urologist. 1 capsule 07/07/20 25 025 Discontinued rivaroxaban (Xarelto) 20 mg tablet Take 1 tablet (20 mg total) by mouth as directed. You may resume taking your xarelto as soon as 48 hours after surgery if your urine color is pink or hand assembler for puller over. If you are still experiencing a significant amount of blood in your urine after 5 days, please contact your the provider managing this medication before restarting your blood thinner. Any further questions can be directed to your Urology team using the contact information provided to you. For air related travel with history of travel related blood clots 07/07/20 025 Discontinued cefdinir (Omnicef) 300 mg capsuleIndica tions:Maligna nt Neoplasm Of Bladder (HCC),Retenti on Urinary Take 1 capsule (300 mg total) by mouth once for 1 dose. Take 1-2 hours before your appointment with your urologist. 1 capsule 07/07/20 25 025 Discontinued(S top Taking at Discharge) rivaroxaban (Xarelto) 20 mg tablet Take 1 tablet (20 mg total) by mouth as directed. You may resume taking your xarelto the following day after discharge from the hospital if your urine color is pink or hand assembler for puller over. If you are still experiencing a significant amount of blood in your urine after 5 days, please contact your the provider managing this medication before restarting your blood thinner. Any further questions can be directed to your Urology team using the contact information provided to you. For air related travel with history of travel related blood clots 07/10/20 025 Discontinued(T herapy completed) levoFLOXacin (Levaquin) 500 mg tabletIndicat ions:Hematuri a Take 1 tablet (500 mg total) by mouth daily for 10 days. 10 tablet 5 3:39 PM CDT 07/10/20 025 tamsulosin (Flomax) 0.4 mg 24 hr capsule Take 1 capsule (0.4 mg total) by mouth daily. 30 capsule 1 5 3:39 PM CDT 07/10/20 025 Discontinued(R eorder) oxyCODONE (Roxicodone) 5 mg immediate release tabletIndicat ions:Acute Pain Take 1 tablet (5 mg total) by mouth every 6 (six) hours as needed for pain for up to 3 days Indication: Acute Pain. 12 tablet 5 11:53 AM CDT 07/18/20 025 Hospital, Clinic, or Other Facility Administered Medication Ordered Dose Route Frequency Start Date End Date Status degarelix subcutaneous injection 240 mg (Firmagon)Indications:Prima ry Malignant Neoplasm Of Prostate (HCC),Secondary Malignant Neoplasm Bone (HCC),Secondary Malignant Neoplasm Liver (HCC) 240 mg SC Once 07/19/2025 07/19/2025 Ende d Active Problems Patient Care Coordination No te Formatting of this note is d ifferent from the original. [facility] Colon Cancer Screening Last colon screen: Colonoscopy Year: 2020 First Degree Relative with Cancer: No Prep: Unknown - previous procedure not completed at [facility] Complex Suite: Unknown Results: Unknown Next Colon screen: 2025 per patient Prostate Cancer Screening Next PSA: Screening Lab Results Component Value Date PSA 2.2 03/21/2022 PSA 0.76 08/05/2016 PSA 0.61 09/13/2013 AAA (male) AAA screening: Not indicated at this time Bone Mineral Density Last BMD: Unknown - Patient has never had a BMD at [facility] Next BMD: No provider plan of care [...] Falling 06/27/2025 Venous Insufficiency Chronic Peripheral 02/14/20 25 Overview (06/21/2025): c/o lower LT leg edema, onset 4 weeks ago. pt develops numbness in his LT foot as the day progresses. discussed w/pt this is likely chronic venous insufficiency from his DVT. monitor for now. wrote Rx for knee high support hose. 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 Diagnosed in January 2021 status post BCG therapy and follows locally with Urology Nephrectomy Status Post 02/10/2024 Overview (02/10/2024): S/p nephrectomy for kidney cancer in 2009. Obesity Body Mass Index 30-39.9 Adult 02/10/2024 Anemia 02/09/2021 Atherosclerotic Heart Diseas e Of [place] Coronary Artery Without Angina Pectoris 01/30/2021 Thrombosis Deep Vein Personal History 01/30/2021 Overview (02/10/2024): Provoked DVT in setting of long flight to [place], s/p treatment. Now taking prophylactic xarelto (rivaroxaban) [...] agree with no travel currently Asthma 10/30/2006 Resolved Problems Problem Noted Date Diagnosed Date Resolved Date Embolus Pulmonary Personal History 01/30/2021 02/10/2024 Mass Bladder 01/24/2021 02/10/2024 Overview (01/24/2021): Added automatically from request for surgery [id number] Body Mass Index 40.0 To 44.9 Adult 08/05/2016 01/30/2021 Encounters Date Type Department Care Team Description 07/19/2025 9:00 AM CDT Clinical Support Department of Urology in [place], [place] [address] [place] [address] Thelma Palmer, XAVIER, C.N.P., M.S.N. Lavell Mathew, R.N., MILENA Primary Malignant Neoplasm Of Prostate (HCC); Secondary Malignant Neoplasm Bone (HCC); Secondary Malignant Neoplasm Liver (HCC) 07/19/2025 7:30 AM CDT Comprehensive Visit Department of Urology in [place], [place] [address] [place] [phone] Michael Irving M.D. Primary Malignant Neoplasm Of Prostate (HCC) (Primary Dx); Secondary Malignant Neoplasm Bone (HCC); Secondary Malignant Neoplasm Liver (HCC); Malignant Neoplasm Of Bladder (HCC); Carcinoma Renal Cell Left (HCC) 07/18/2025 10:00 AM CDT Procedure visit Department of Urology in [place], [place] [address] [place] [address] Orion Mendoza, MPAS, P.A.-C. Faye Goemz, R.N. Retention Urinary 07/18/2025 7:40 AM CDT - 07/18/2025 11:59 PM CDT Hospital Encounter Department of Radiology, [facility], in [address] [phone] Orion Mendoza MPAS, P.A.-C. Primary Malignant Neoplasm Of Prostate (HCC) Discharge Disposition: Home or Self Care 07/18/2025 Orders Only Department of Urology in [address] [phone] Orion Mendoza MPAS, P.A.-C. 07/14/2025 Orders Only Department of Urology in [address] [phone] Orion Mendoza MPAS, P.A.-C. Retention Urinary (Primary Dx) 07/13/2025 1:00 PM CDT Office Visit Department of Urology in [address] [address] Nuria Medrano M.D. Primary Malignant Neoplasm Of Prostate (HCC) (Primary Dx); Retention Urinary 07/13/2025 9:00 AM CDT Comprehensive Visit Department of Palliative Care in [address] [phone] Nia Valdivia M.D. Beyerl, Randi L, R.N., CHPN Pain Cancer Associated (Primary Dx); Spasm Bladder; Pain Piriformis; Palliative Care 07/11/2025 3:45 PM CDT Clinical Communication Virtual Review in [address] [phone] Pre-visit Intake 07/10/2025 Clinical Communication Department of Urology in [address] [phone] Nuria Medrano M.D. 07/09/2025 8:55 PM CDT Ancillary Procedure Department of Gastroenterology 07/07/2025 1:43 PM CDT Anesthesia Event Outpatient Procedure Center in [address] [phone] Mi sDouza, VIDEO SYSTEMS ENGINEER, PEPPER PICKER Irene Marc M.D. 07/07/2025 1:26 PM CDT - 07/07/2025 3:48 PM CDT Surgery Outpatient Procedure Center in [place], [place] [address] [place] [address] Pankaj Johnson M.D., M.S. BIOPSY TRANSPERINEAL PROSTATE. 07/07/2025 1:10 PM CDT Ancillary Procedure Department of Urology 07/07/2025 12:55 PM CDT Ancillary Procedure Department of General Surgery 07/07/2025 12:11 PM CDT - 07/10/2025 3:38 PM CDT Hospital Encounter [facility], Fifth Floor [address] [place] [address] Pankaj Johnson M.D., M.S. Hematuria (Primary Dx); Prostatitis Bacterial; Malignant Neoplasm Of Bladder (HCC); Retention Urinary Discharge Disposition: Home or Self Care 07/06/2025 3:00 PM CDT Office Visit Department of Urology in [place], [place] [address] [place] [address] Orion Mendoza MPAS, PDiyaA.GarcíaC. Mass Pelvis (Primary Dx) 07/05/2025 Clinical Communication Department of Urology in [place], [place] [address] [place] [address] Pankaj Johnson M.D., M.S. rst uro opc 06/27/2025 2:30 PM CDT Education Department of Urology in [place], [place] [address] [place] [address] Blaine Araujo MPAS, P.A.-C. Mandy Prado, RTom 06/27/2025 11:49 AM CDT - 06/27/2025 11:59 PM CDT Hospital Encounter Department of Radiology, [facility], in [place], [place] [address] [place] [address] Blaine Araujo MPAS, P.A.-C. Prostatitis Bacterial; Malignant Neoplasm Of Bladder (HCC) Discharge Disposition: Home or Self Care 06/27/2025 10:30 AM CDT Comprehensive Visit Preoperative Evaluation Center in [place], [place] [address] [place] [address] Blaine Araujo MPAS, P.A.-C. Alma Worrell, XAVIER, C.N.P. Preanesthetic Medical Exam (Primary Dx); Personal History Of Malignant Neoplasm Of Bladder; Nephrectomy Status Post; Hypertension Essential Primary; Atherosclerotic Heart Disease Of [place] Coronary Artery Without Angina Pectoris; Hyperlipidemia; Venous Insufficiency Chronic Peripheral; Asthma (HCC); Other Pulmonary Embolism Without Acute Cor Pulmonale (HCC); Thrombosis Deep Vein Personal History; Depression Anxiety; Gout; Weakness Muscle; Obesity Body Mass Index 30-39.9 Adult; History Of Falling 06/27/2025 Orders Only Department of Urology in [place], [place] [address] [place] [phone] Nuria Medrano M.D. Retention Urinary (Primary Dx) 06/27/2025 Clinical Communication Department of Urology in [place], [place] [address] [place] [phone] Nuria Medrano M.D. Reschedule 06/22/2025 Results Follow-Up Department of Urology in [place], [place] [address] [place] [phone] Ramiro Burger M.D. Urinalysis, with Microscopic: Urine, Midstream, Bacterial Culture, Aerobic + Susceptibility, Urine, Microscopic Automated, Additional followed-up results: 3 06/21/2025 3:00 PM CDT Office Visit Department of Urology in [place], [place] [address] [place] [phone] Nuria Medrano M.D. Prostatitis Bacterial (Primary Dx); Malignant Neoplasm Of Bladder (HCC); Retention Urinary 06/21/2025 11:15 AM CDT Procedure visit Department of Urology in [place], [place] [address] [place] [address] Blaine Araujo MPAS, P.A.-C. Lisbeth Modi, R.N. Malignant Neoplasm Of Bladder (HCC); Retention Urinary 06/21/2025 11:00 AM CDT Procedure visit Department of Urology in [place], [place] [address] [place] [phone] Blaine Araujo MPAS, P.A.-C. Paula Longoria, R.N. Prostatitis Bacterial; Malignant Neoplasm Of Bladder (HCC); Retention Urinary 06/21/2025 8:30 AM CDT Procedure visit Department of Urology in [place], [place] [address] [place] [phone] Alisson Soler M.D. Phil Bullock P.A.-C. Personal History Of Malignant Neoplasm Of Bladder 06/20/2025 11:45 AM CDT Clinical Communication Virtual Review in [place], [place] [address] [place] [address] Pre-visit Intake 06/18/2025 Orders Only Department of Urology in [place], [place] [address] [place] [phone] Ramiro Burger M.D. Personal History Of Malignant Neoplasm Of Bladder (Primary Dx) 06/16/2025 7:24 AM CDT - 06/16/2025 11:59 PM CDT Hospital Encounter Department of Radiology, [facility], in [place], [place] [address] [place] [phone] Alisson Soler M.D. Personal History Of Malignant Neoplasm Of Bladder Discharge Disposition: Home or Self Care 06/16/2025 7:10 AM CDT Lab Department of Laboratory Medicine and Pathology, [facility], in [place], [place] [address] [place] [phone] Alisson Soler M.D. Personal History Of Malignant Neoplasm Of Bladder 06/16/2025 Results Follow-Up Department of Urology in [address] [phone] Urogram without and with IV Contrast 06/09/2025 Clinical Communication Department of Urology in [place], [place] [address] [place] [address] Nuria Medrano M.D. Appt Request 05/28/2025 Refill Department of Cardiovascular Medicine in [place], [place] [address] [place] [address] Ray Magallanes M.D. Med Refill from Last 3 Months Immunizations Immunization Administration Dates Next Due HZV (ZOSTAVAX) 09/14/2013 HepA Adult 12/10/2005 Influenza, Injectable, Quadrivalent 08/12,07/12/2018,06/12/2017,2015,09/11/2015 Influenza, Seasonal, Injectable 12/10/2005 PCV13 08/01/2020 RZV (SHINGRIX) 03/24/2022(Deferred: Other - pt will check with his PCP) SARS-COV-2 (COVID-19) - PFIZ ER (Discontinued)(12 years or older) 06/10/2021,01/15/2021,12/25/2020 Td Preservative Free (TENIVA C, DECAVAC) 08/05/2016 Tdap 11/23/2020,04/12/2018,12/08/2005 TyVi (inj) 12/10/2005 influenza trivalent high dos e (HD)(PF) 07/08/2025 influenza trivalent vaccine (6 months and older)(PF) 08/17/2015,06/05/2013,07/24/2012 influenza vaccine quad (FLUZONE/FLUARIX) (6 months and older)(PF) 07/09/2023,08/29/2021 Family History Medical History Relation Name Comments Coronary artery disease Father Eddie Balderas of Lung Cancer Breast cancer (in one breast) Mother 1 Eddie juarez Lung cancer Bilateral breast cancer (in both breasts) Mother 2 Macey Balderas Dementia Mother 2 Macey Balderas Relation Name Status Comments Father Eddie Balderas Mother 1 Eddie Balderas Mother 2 Macey Balderas Social History Tobacco Use Types Packs/Day Years [...] needed for daily living? No 07/07/2025 [facility] Utilities Answer Date Recorded In the past 12 months has e electric, gas, oil, or water company threatened to shut off services in your home? No 07/07/2025 Depression Answer Date Recor ded PHQ-9 Total Score (max 27) 4 03/03 Housing Stability Answer Date Recorded What is your living situation today? I have a [facility] place to live 07/07/2025 Education Answer Date Recorded What is the highest level of school you have completed or the highest degree you have received? 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 Gender Identity Male 01/25/2021 1:10 PM CDT Sexual Orientation Straight 01/25/2021 1: 10 PM CDT Last Filed Vital Signs Vital Sign Reading Time Taken Comments Blood Pressure 108/79 07/13/2025 8:35 AM CDT Pulse 74 07/13/2025 8:35 AM CDT Temperature 36.4 C (97.5 F) 07/13/2025 8:35 AM CDT Respiratory Rate 16 07/10/2025 3:30 PM CDT Oxygen Saturation 96% 07/13/2025 8:35 AM CDT Inhaled Oxygen Concentration - - Weight 127 kg (279 lb 12.2 oz) 07/10/2025 9:01 A M CDT Height 188.2 cm (6' 2.09) 07/09/2025 5:00 PM CD T Body Mass Index 35.83 07/09/2025 5:00 PM CDT Plan of Treatment Upcoming Encounters Date Type Department Care Team (Latest Contact Info) Description 08/02/2025 12:45 PM CDT Clinical Communication Virtual Review in [place], [place] [address] [place] [address] 08/03/2025 1:00 PM CDT Telemedicine Department of Palliative Care in [place], [place] [address] [place] [phone] Sachi De Leon B.M.B.S., B.M., B.Ch. [address] [place] [phone] 08/14/2025 10:30 AM RUSSIAN HISTORY PROFESSOR Procedure visit Department of Urology in [place], [place] [address] [place] [phone] Orion Mendoza, MPAS, P.A.-C. [address] [place] [phone] Health Maintenance Due Date Last Done Comments CT Colonography 1959 Cologuard 1960 Office Visit for Blood Pressure Check / Re-check 1960 Hepatitis A Vaccines (2 of 2 - Risk 2-dose series) 06/12/2006 12/10/2005 RSV vaccine - (32-36 weeks) or 50+ years (1 - Risk 50-74 years 1-dose series) 2009 Pneumococcal vaccine (50+ years) (2 of 2 - PPSV23, PCV20, or PCV21) 09/26/2020 08/01/2020, 07/12/2013 Depression Screening (Annual PHQ-2) 10/12/2024 COVID-19 Vaccine ( season) 2025 07/09/2023, 08/27/2022, 04/23/2022, Additional history exists Colonoscopy 09/20/2026 09/20/2021, 06/2021, 08/07/2016, Additional history exists Colorectal Cancer Surveillance 09/20/2026 Fasting Glucose for Diabetes Screening 07/09/2028 07/09/2025, 07/08/2025, 02/10/2024, Additional history exists Lipid (Cholesterol) Screening 02/09/2029 02/10/2024, 03/21/2022, 08/05/2016, Additional history exists DTaP,Tdap,and Td Vaccines (5 - Td or Tdap) 11/23/2030 11/23/2020, 04/12/2018, 08/05/2016, Additional history exists Zoster Vaccines Completed 02/08/2025, 07/12, 09/14/2013 Fall Risk Screen (Annual) Completed 07/07/2025 Influenza Vaccine Completed 07/08/2025, , 07/09/2023, Additional history exists HPV Vaccines Aged Out No longer eligi ble based on patient's age to complete this topic IPV Vaccines Aged Out No longer eligi ble based on patient's age to complete this topic Medical Devices Implanted Type Area Balance Bridge Assembler Device Identifier Shelf Expiration Date Model / Serial / Lot Stnt Uret Inl [id number] - [id number] Implanted:Qty : 1 on 01/31/2021 by Christina De La Torre M.D. at [facility] Victoria/Jael Explanted:10/2020 (Quantity not on file) Ureteral Stent Right: Ureter C.[employer].Bard [id number] 12/12/2024 [id number] / / [id number] Procedures Procedure Name Priority Date/Time Associated Diagnosis Comments TESTOSTERONE, TOTAL BY MASS SPECROMETRY, S Routine 07/18/2025 11:29 AM CDT Primary Malignant Neoplasm Of Prostate (HCC) BILIRUBIN DIRECT, S/P Routine 07/18/2025 11:29 AM CDT Primary Malignant Neoplasm Of Prostate (HCC) BILIRUBIN, TOT, S/P Routine 07/18/2025 11:29 AM CDT Primary Malignant Neoplasm Of Prostate (HCC) ASPARTATE AMINOTRANSFERASE (AST), S/P Routine 07/18/2025 11:29 AM CDT Primary Malignant Neoplasm Of Prostate (HCC) ALANINE AMINOTRANSFERASE (ALT), S/P Routine 07/18/2025 11:29 AM CDT Primary Malignant Neoplasm Of Prostate (HCC) ALKALINE PHOSPHATASE, S/P Routine 07/18/2025 11:29 AM CDT Primary Malignant Neoplasm Of Prostate (HCC) PET CT SKULL TO THIGH PSMA RAD - Routine (most inpatients and all outpatients) 07/18/2025 10:06 AM CDT Primary Malignant Neoplasm Of Prostate (HCC) CBC WITHOUT DIFFERENTIAL, B Routine 07/09/2025 11:55 PM CDT GASTROENTEROLOGY IMAGE EXAM Routine 07/09/2025 8:55 PM CDT PULSE OXIMETRY WITH REMOTE OVERVIEW STAT 07/09/2025 8:00 AM CDT ADULT OXYGEN THERAPY Routine 07/09/2025 8:00 AM CDT BASIC METABOLIC PANEL, S/P Routine 07/09/2025 5:23 AM CDT CBC WITHOUT DIFFERENTIAL, B Routine 07/09/2025 5:23 AM CDT LACTATE, B/P Routine 07/08/2025 11:36 PM CDT PULSE OXIMETRY WITH REMOTE OVERVIEW STAT 07/08/2025 8:01 PM CDT ADULT OXYGEN THERAPY Routine 07/08/2025 8:01 PM CDT PULSE OXIMETRY WITH REMOTE OVERVIEW STAT 07/08/2025 7:30 PM CDT PULSE OXIMETRY WITH REMOTE OVERVIEW STAT 07/08/2025 7:30 PM CDT PULSE OXIMETRY WITH REMOTE OVERVIEW STAT 07/08/2025 7:30 PM CDT LACTATE FOR SEPSIS WITH REFLEX STAT 07/08/2025 7:23 PM CDT BASIC METABOLIC PANEL, S/P STAT 07/08/2025 7:23 PM CDT CBC WITHOUT DIFFERENTIAL, B STAT 07/08/2025 7:23 PM CDT BACTERIA / CATHY CULTURE, BLOOD STAT 07/08/2025 7:23 PM CDT BACTERIA / CATHY CULTURE, BLOOD STAT 07/08/2025 7:11 PM CDT DX CHEST PORTABLE 1 VIEW RAD - Semiurgent (Fast; most ED patients; some inpatients) 07/08/2025 6:58 PM CDT DIPSTICK, U Routine 07/08/2025 6:40 PM CDT PH, RANDOM, U Routine 07/08/2025 6:40 PM CDT HC OSMOLALITY ASSAY URINE Routine 07/08/2025 6:40 PM CDT MICROSCOPIC MANUAL Routine 07/08/2025 6: 40 PM CDT URINALYSIS WITH MICROSCOPIC Routine 07/08/2025 6:40 PM CDT BACTERIAL CULTURE, AEROBIC + SUSC, URINE Routine 07/08/2025 6:40 PM CDT ADULT OXYGEN THERAPY Routine 07/08/2025 8:01 AM CDT ADULT OXYGEN THERAPY Routine 07/07/2025 8:00 PM CDT ADULT OXYGEN THERAPY Routine 07/07/2025 6:41 PM CDT ADULT OXYGEN THERAPY Routine 07/07/2025 6:41 PM CDT LDA ANE NON-SURGICAL AIRWAY Routine 07/07/2025 1:53 PM CDT SURGICAL PATHOLOGY Routine 07/07/2025 1: 49 PM CDT 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) Retention Urinary CYSTOSCOPY WITH TRANSURETHRAL PROSTATECTOMY 07/07/2025 1:28 PM CDT 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) Retention Urinary Case Notes ANGELA 06/27 [facility]. 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) MICROSCOPIC MANUAL Routine 06/27/2025 12:01 PM CDT DIPSTICK, U Routine 06/27/2025 12:01 PM CDT PH, U Routine 06/27/2025 12:01 PM CDT OSMOLALITY, U Routine 06/27/2025 12:01 PM CDT URINALYSIS WITH MICROSCOPIC Routine 06/27/2025 12:01 PM CDT Malignant Neoplasm Of Bladder (HCC) BACTERIAL CULTURE, AEROBIC + SUSC, URINE Routine 06/27/2025 12:01 PM CDT Malignant Neoplasm Of Bladder (HCC) PROSTATE-SPECIFIC AG (PSA) DIAGNOSTIC, S Routine 06/27/2025 11:02 AM CDT 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) TN CYSTOURETHROSCOPY Routine 06/21/2025 8:30 AM CDT Personal History Of Malignant Neoplasm Of Bladder DIPSTICK, U Routine 06/21/2025 7:27 AM CDT PH, U Routine 06/21/2025 7:27 AM CDT OSMOLALITY, U Routine 06/21/2025 7:27 AM CDT MICROSCOPIC AUTOMATED Routine 06/21/2025 7:27 AM CDT URINALYSIS WITH MICROSCOPIC Routine 06/21/2025 7:27 AM CDT Personal History Of Malignant Neoplasm Of Bladder BACTERIAL CULTURE, AEROBIC + SUSC, URINE Routine 06/21/2025 7:27 AM CDT Personal History Of Malignant Neoplasm Of Bladder CYTOLOGY NON-PETROLEUM REFINING FIRER (SCHEDULED) Routine 06/16/2025 9:04 AM CDT Personal History Of Malignant Neoplasm Of Bladder CREATININE WITH EGFR, S/P Routine 06/16/2025 9:03 AM CDT Personal History Of Malignant Neoplasm Of Bladder CT UROGRAM WITHOUT AND WITH IV CONTRAST RAD - Routine (most inpatients and all outpatients) 06/16/2025 8:41 AM CDT Personal History Of Malignant Neoplasm Of Bladder CREATININE, POCT, B Routine 06/16/2025 8 :03 AM CDT CREATININE, POCT, B Routine 06/16/2025 8 :03 AM CDT LIPID PANEL, S Routine 02/10/2024 8:13 AM CDT Hyperlipidemia COLONOSCOPY Routine 08/07/2016 12:54 PM CDT from Last 3 Months or Most Recently Relevant to Health Maintenance Results * ALT (Alanine Aminotransferase) (07/18/2025 11:29 AM CDT) Alanine Aminotransferase (ALT), S 29 7 - 55 U/L 07/18/2025 12:26 PM CDT DT Blood (Blood, Venous) 07/18/2025 11:29 AM CDT 07/18/2025 11:51 AM CDT Orion ABDALLA P.Loni.-C. LAB BLOOD ADD-ON Final Result Performing Organization Address City/[facility]/ZIP Co de Phone Number [facility] [address] [place] [address] * AST (Aspartate Aminotransferase) (07/18/2025 11:29 AM CDT) Aspartate Aminotransferase (AST), S 24 8 - 48 U/L 07/18/2025 12:26 PM CDT DT Blood (Blood, Venous) 07/18/2025 11:29 AM CDT 07/18/2025 11:51 AM CDT Orion ABDALLA, P.A.-C. LAB BLOOD ADD-ON Final Result Performing Organization Address [facility] Co de Phone Number [facility] [address] [place] [address] * (ABNORMAL) Testosterone, Total by Mass Spectrometry, Serum (07/18/2025 11:29 AM CDT) Pathologist [facility] Testosterone, Total by Mass Spectrometry, Serum 209(L) 240 - 950 ng/dL 07/21/2025 10:17 AM CDT [facility] Comment: ----ADDITIONAL INFORMATION---- Testing performed by Liquid Chromatography-Tandem Mass Spectrometry (LC-MS/MS). This test was developed and its performance characteristics determined by [facility] in a manner consistent with CLIA requirements. This test has not been cleared or approved by the U.S. Food and Drug Administration. Blood (Blood, Venous) 07/18/2025 11:29 AM CDT 07/19/2025 7:29 AM CDT Dacia Strickland.Loni.-C. LAB BLOOD NON ADD -ON Final Result [facility] [address] [place] [address] [facility] [address] [place] [address] [place] [address] * Alkaline Phosphatase (07/18/2025 11:29 AM CDT) Alkaline Phosphatase, S 108 40 - 129 U/L 07/18/2025 12:26 PM CDT DTL Blood (Blood, Venous) 07/18/2025 11:29 AM CDT 07/18/2025 11:51 AM CDT Orion ABDALLA, P.A.-C. LAB BLOOD ADD-ON Final Result Performing Organization Address City/[facility]/ZIP Co de Phone Number [facility] [address] [place] [address] * Bilirubin, Direct (07/18/2025 11:29 AM CDT) Bilirubin, Direct, S 0.2 0.0 - 0.3 mg/dL 07/18/2025 12:26 PM CDT DTL Blood (Blood, Venous) 07/18/2025 11:29 AM CDT 07/18/2025 11:51 AM CDT Orion ABDALLA, P.A.-C. LAB BLOOD ADD-ON Final Result Performing Organization Address City/[facility]/ZIP Co de Phone Number [facility] [address] [place] [address] * Bilirubin, Total (07/18/2025 11:29 AM CDT) Bilirubin, Total, S 0.6 0.0 - 1.2 mg/dL 07/18/2025 12:26 PM CDT DTL Blood (Blood, Venous) 07/18/2025 11:29 AM CDT 07/18/2025 11:51 AM CDT us Orion ABDALLA, P.A.-C. LAB BLOOD ADD-ON Final Result [facility] [address] [place] [address], [facility] [address] [address] * PET CT Skull to Thigh PSMA [...] ABDALLA, P.A.-C. IMG NM PROCEDURES Final Result * (ABNORMAL) CBC without Differential (07/09/2025 11:55 PM CDT) Only the most recent of3 resultswithin the time period is included. Hemoglobin 12.9(L) 13.2 - 16.6 g/dL 07/10/2025 [...] 11:55 PM CDT 07/10/2025 12:04 AM CDT Carmen Skinner M.D. LAB BLOOD ADD-ON Final Res ult [facility] [address] [place] [address], [facility] DTL [facility] [address] [place] [address] * Arm-Gastroenterology Image Exam (07/09/2025 8:55 PM [...] NON RAD IMAGING PROCE DURES Final Result [facility] NA * (ABNORMAL) Basic Metabolic Panel (07/09/2025 5:23 AM CDT) Only the most recent of2 resultswithin the time period is included. Potassium, S 3.8 3.6 - 5.2 mmol/L [...] BLOOD ADD-ON Final Result Performing Organization Address City/[facility]/ZIP Co de Phone Number [facility] [address] [place] [address] * Lactate (07/08/2025 11:36 PM CDT) Lactate, P 1.0 0.5 - 2.2 mmol/L 07/09/2025 12:46 AM CDT DTL Blood (Blood, Venous) 07/08/2025 11:36 PM CDT 07/09/2025 12:35 AM CDT us Augustus Cline M.D. LAB BLOOD NON ADD-ON Final Re sult Performing Organization Address City/[facility]/ZIP Co de Phone Number [facility] [address] [place] [address] * Lactate for Sepsis with Reflex (07/08/2025 7:23 PM CDT) Lactate, P 1.9 0.5 - 2.2 mmol/L 07/08/2025 8:16 PM CDT DTL Blood (Blood, Venous) 07/08/2025 7:23 PM CDT 07/08/2025 7:59 PM CDT us Augustus Cline M.D. LAB BLOOD NON ADD-ON Final Re sult [facility] [address] [place] [address] * Bacteria / Cathy Culture, Blood #1 (07/08/2025 7:23 PM CDT) Only the most recent of2 resultswithin the time period is included. Bacteria/Genesis da Culture, Blood No growth after 5 days of incubation. 07/13/2025 8:02 PM CDT DTL Blood (Blood, Peripheral Draw) 07/08/2025 7:23 PM CDT 07/08/2025 7:47 PM CDT Comment:Specimen Source Site : Blood Augustus Cline M.D. LAB MICROBIOLOGY - GENERAL OR DERABLES Final Result [facility] [address] [place] [address], [facility] [address] [place] [address] * DX Chest Portable 1 View (07/08/2025 [...] DIAGNOSTIC IMAGING PROCED URES Final Result * Osmolality, Urine (07/08/2025 6:40 PM CDT) Osmolality, U 588 150 - 1150 mOsm/kg 07/08/2025 7:23 PM CDT DTL Urine 07/08/2025 6:40 PM CDT 07/08/2025 6:56 PM CDT us Augustus Cline M.D. LAB URINE ORDERABLES Final Re sult Performing Organization Address City/[facility]/ZIP Co de Phone Number [facility] [address] [place] [address] * (ABNORMAL) Dipstick, Urine (07/08/2025 6:40 PM CDT) Only the most recent of3 resultswithin the time period is included. Hemoglobin, QL, U Large(A) Negative 07/08/2025 7:04 PM CDT DTL Leukocyte Esterase, U Large(A) Negative 07/08/2025 7:04 PM CDT DTL Nitrite, U Positive(A) Negative 07/08/2025 7:04 PM CDT DTL Ketone, U Negative Negative mg/dL 07/08/2025 7:04 PM CDT DTL Glucose, U Negative Negative mg/dL 07/08/2025 7:04 PM CDT DTL Urine 07/08/2025 6:4 0 PM CDT 07/08/2025 6:56 PM CDT us Augustus Cline M.D. LAB URINE ORDERABLES Final Re sult Performing Organization Address City/[facility]/ZIP Co de Phone Number [facility] [address] [place] [address], [facility] [address] [place] [address] * pH, Random, Urine (07/08/2025 6:40 PM CDT) Pathologist [facility] pH, Random, U 5.9 4.5 - 8.0 07/08/2025 7:23 PM CDT DTL Urine 07/08/2025 6:40 PM CDT 07/08/2025 6:56 PM CDT us Augustus Cline M.D. LAB URINE ORDERABLES Final Re sult Performing Organization Address [facility] de Phone Number [facility] [address] [place] [address], [facility] [address] [place] [address] * (ABNORMAL) Microscopic Manual (07/08/2025 6:40 PM CDT) Only the most recent of2 resultswithin the time period is included. Microscopy Abnormal 07/08/2025 7:42 PM CDT DTL RBC >100(A) <3 /hpf 07/08/2025 7:42 PM CDT DTL Dysmorphic RBC <25 <25 % 07/08/2025 7:42 PM CDT DTL WBC 21-30(A) /hpf 07/08/2025 7:42 PM CDT DTL Comment: ----REFERENCE VALUE---- <4 (Males) <11 (Females) Urine 07/08/2025 6:40 PM CDT 07/08/2025 6:56 PM CDT us Augustus Cline M.D. LAB URINE ORDERABLES Final Re sult Performing Organization Address City/[facility] Co de Phone Number [facility] [address] [place] [address], [facility] [address] [place] [address] * (ABNORMAL) Bacterial Culture, Aerobic + Susceptibility, Urine (07/08/2025 6:40 PM CDT) Only the most recent of3 resultswithin the time period is included. Urine Culture PSEUDOMONAS AERUGINOSA 10,000-100,000 cfu/mL (A) [...] MICROBIOLOGY - GENERAL [place] [address], [facility] [place] [address] * (ABNORMAL) Urinalysis, with Microscopic: Urine, Indwelling Catheter (07/08/2025 6:40 PM CDT) Only the most recent of3 resultswithin the time period is included. Source Urine, Urine, Indwelling Catheter 07/08/2025 6:56 PM CDT DTL Color, U Red(A) 07/08/2025 6:56 PM CDT DTL Clarity, U Cloudy(A) 07/08/2025 6:56 PM CDT DTL Protein, U 337(H) <26 mg/dL 07/08/2025 7:49 PM CDT DTL Protein/Osmol ality 5.73(H) <0.42 ratio 07/08/2025 7:49 PM CDT DTL Predicted 24 HR Protein, U 4972(H) <229 mg/24 h 07/08/2025 7:49 PM CDT DTL Predicted Range 1578-84310 mg/24 h 07/08/2025 7:49 PM CDT DTL Comment Micro done on <2.5 mL 07/08/2025 7:42 PM CDT DTL Urine (Urine, Indwelling Catheter) 07/08/2025 6:40 PM CDT 07/08/2025 6:56 PM CDT Augustus Cline M.D. LAB URINE ORDERABLES Final Re sult [facility] [address] [place] [address], [facility] [address] [place] [address] * LDA ANE NON-SURGICAL AIRWAY (07/07/2025 1:53 [...] Events: no complications us Lamar Serrano APRN, CRNA, D.N.P. ANESTHESIA ORDERABLES Final Result * Surgical Pathology (07/07/2025 1:49 PM CDT) [...] are submitted in cassette D1. Grossed by AJIman. G: Received on a biopsy board filled [...] are submitted in cassette J1. Grossed by AJIman. M: Received in formalin labeled with the patient's name, medical record number, and prostatic urethra is a 2.1 g, 3.5 x 3.0 x 0.5 cmaggregate of multiple nash-pink rubbery tissue fragments. The specimen is entirely submitted as received in M1. Luna Linder M.S., PA([facility]) 07/13/2025 5:46 AM CDT DTL Addendum Stains performed at [facility] with antibodies against chromogranin, synaptophysin, AR, Rb, p53 and cyclin D1 on block M1 demonstrate diffuse expression with AR, wild-type pattern of expression for p53 and essentially negative staining for the remaining markers. This test was developed and its performance characteristics determined by [facility] in a manner consistent with CLIA requirements. [...] Prostatic adenocarcinoma Type: Acinar Grade Group and Inglewood score: Grade Group 4 (Radha Score 4+4=8) Percentage of pattern 4: NA Tumor involves 100% of overall specimen in a discontinuous pattern (1 of 1 core). C. Prostate, right posterior lateral apex, needle core biopsy: Prostatic adenocarcinoma Type: Acinar Grade Group and Inglewood score: Grade Group 4 (Radha Score 4+4=8) Percentage of pattern 4: NA Tumor involves 60% of overall specimen (1 of 1 cores). Extraprostatic extension present. Focus suspicious for angiolymphatic invasion. COMMENT Immunohistochemica l stains of NKX3.1, p63, PSA, and uroplakin were performed on block A at [facility]. The neoplastic cells are positive for NKX3.1, while negative for the remaining markers. A CD31 highlights the vasculature and demonstrates a focus suspicious for lymphovascular invasion. D. Prostate, right posterior lateral base, needle core biopsy: Benign fibromuscular tissue. E. Prostate, right anterior horn, needle core biopsy: Prostatic adenocarcinoma Type: Acinar Grade Group and Inglewood score: Grade Group 4 (Inglewood Score 4+4=8) Percentage of pattern 4: NA [...] Prostatic adenocarcinoma Type: Acinar Grade Group and Inglewood score: Grade Group 4 (Radha Score 4+4=8) Percentage of pattern 4: NA Tumor involves 100% of overall specimen (1 of 1 core). H. Prostate, left posterior medial base, needle core biopsy: Prostatic adenocarcinoma Type: Acinar Grade Group and Radha score: Grade Group 5 (Radha Score 4+5=9) Percentage of pattern 4: NA Tumor involves 60% of overall specimen (1 of 1 core). I. Prostate, left posterior lateral apex, needle core biopsy: Prostatic adenocarcinoma Type: Acinar Grade Group and Inglewood score: Grade Group 4 (Inglewood Score 4+4=8) Percentage of pattern 4: 50-75% Tumor involves 100% of overall specimen in a discontinuous pattern (1 of 1 core). J. Prostate, left posterior lateral base, needle core biopsy: Prostatic adenocarcinoma Type: Acinar Grade Group and Inglewood score: Grade Group 4 (Radha Score 4+4=8) Percentage of pattern 4: NA Tumor involves 80% of overall specimen in a discontinuous pattern (1 of 1 core). K. Prostate, left anterior horn, needle core biopsy: Prostatic adenocarcinoma Type: Acinar Grade Group and Radha score: Grade Group 5 (Radha Score 4+5=9) Tumor involves 40% of overall specimen (1 of 1 core). Perineural invasion presents L. Prostate, left anterior apex, needle core biopsy: Prostatic adenocarcinoma Type: Acinar Grade Group and Radha score: Grade Group 4 (Inglewood Score 4+4=8) Tumor involves 20% of overall specimen (1 of 1 core). M. Urethra, prostatic, biopsy: Prostatic adenocarcinoma Type: Acinar Grade Group and Inglewood score: Grade Group 5 (Inglewood Score 4+5=9) Percentage of pattern 4: 50-75% Tumor involves 30% of overall specimen Benign nodular hyperplasia is also noted. COMMENT Immunohistochemica l stains of CK20, NKX3.1, p63, PSA, and uroplakin were performed on block M at [facility]. The neoplastic cells are positive for NKX3.1, [...] PATH ORDERA MIGUE Edited Result - Final Performing Organization Address [facility] Co de Phone Number [facility] [address] [place] [address], [facility] DTL [address] [facility] [address] [place] [address] * UROL Procedure-Urology Image Exam (07/07/2025 1:10 PM CDT) Narrative [facility] - 07/10/2025 12:39 PM CDT This order has been created and auto-finalized to support the import of images acquired without order. The clinical documentation to support these images can be found on the encounter that produced images. us Provider Not In System IMG NON RAD IMAGING PROCE DURES Final Result Performing Organization Address [facility] Co de Phone Number [facility] NA * PROSTATE-Surgery Image Exam (07/07/2025 12:55 PM CDT) 07/07/2025 12:5 4 PM CDT Narrative [facility]IM[facility] - 07/07/2025 3:21 PM CDT This order has been created and auto-finalized to support the import of images acquired without order. The clinical documentation to support these images can be found on the encounter that produced images. us Provider Not In System IMG NON RAD IMAGING PROCE DURES Final Result Performing Organization Address [facility] de Phone Number [facility] NA * MR Prostate without and with IV [...] lymph heaven and pelvic osseous metastases asdescribed. Blaine ABDALLA, P.A.-C. IMG MRI PROC EDURES Final Result * pH, Urine (06/27/2025 12:01 PM CDT) Only the most recent of2 resultswithin the time period is included. pH, U 5.3 4.5 - 8.0 06/27/2025 1:5 5 PM CDT DTL Urine 06/27/2025 12:0 1 PM CDT 06/27/2025 1:03 PM CDT Blaine ABDALLA, P.A.-C. LAB URINE OR DERABLES Final Result [facility] [address] [place] [address], [facility] [address] [place] [address] * Osmolality, Urine (06/27/2025 12:01 PM CDT) Only the most recent of2 resultswithin the time period is included. Osmolality, U 307 150 - 1150 mOsm/kg 06/27/2025 1:55 PM CDT DT Urine 06/27/2025 12:0 1 PM CDT 06/27/2025 1:03 PM CDT Blaine ABDALLA P.Loni.-C. LAB URINE OR DERABLES Final Result Performing Organization Address [facility] Co de Phone Number [facility] [address] [place] [address] * PSA (Prostate-Specific Antigen), Diagnostic (06/27/2025 11:02 AM CDT) Pathologist [facility] Prostate-Specific Ag 2.6 <=4.5 ng/mL 06/27/2025 12:19 PM CDT DT Comment: ----ADDITIONAL INFORMATION---- The testing method is [...] 11:02 AM CDT 06/27/2025 11:47 AM CDT Blaine ABDALLA P.A.-C. LAB BLOOD AD D-ON Final Result Performing Organization Address City/[facility]/ZIP Co de Phone Number [facility] [address] [place] [address], [facility] [address] [place] [address] * TN CYSTOURETHROSCOPY (06/21/2025 8:30 AM CDT) Narrative Phil [...] M.D. UROLOGY ORDERABLES Final Res ult * (ABNORMAL) Microscopic Automated (06/21/2025 7:27 AM CDT) Microscopy Abnormal 06/21/2025 9:33 AM CDT DTL RBC 3-10(A) <3 /hpf 06/21/2025 9:33 AM CDT DTL Dysmorphic RBC <25 <25 % 06/21/2025 9:33 AM CDT DTL WBC 1-3 /hpf 06/21/2025 9:33 AM CDT DTL Comment: ----REFERENCE VALUE---- <4 (Males) <11 (Females) Casts, Hyaline 4-10 /lpf 06/21/2025 9:33 AM CDT DTL Squamous Epithelial Cells, U 1-3 /hpf 06/21/2025 9:33 AM CDT DTL Urine 06/21/2025 7:27 AM CDT 06/21/2025 8:54 AM CDT Ramiro Burger M.D. LAB URINE ORDERABLES Corine l Result [place] [address] [facility] [address] [place] [address] * Cytology Non-PETROLEUM REFINING FIRER (Scheduled) (06/16/2025 9:04 AM CDT) 06/19/2025 3:06 PM CDT DTL Participated in the Interpretation Margo Moise M.D. -Pathology Resident Vane Thacker M.D., Ph.D. -Pathology Resident 06/19/2025 3:06 PM CDT DTL Report electronically signed by Tresa Vale.BDiyaSDiya, MCherry. I verify that I have examined all [...] ORDERABLES Fin al Result Performing Organization Address [facility] Co de Phone Number [facility] [address] DT [address] [place] [address] * Creatinine with Estimated GFR (06/16/2025 9:03 AM CDT) Creatinine 1.13 0.74 - 1.35 mg/dL 06/16/2025 10:07 AM CDT DTL Estimated GFR (eGFR) 72 >=60 mL/min/BSA 06/16/2025 10:07 AM CDT DTL Comment: Estimated GFR calculated using the 2020 CKD_EPI creatinine equation. Blood (Blood, Venous) 06/16/2025 9:03 AM CDT 06/16/2025 9:25 AM CDT Alisson Soler M.D. 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 No nephrolithiasis. No suspicious renal mass. Renal [...] * Creatinine, POCT (06/16/2025 8:03 AM CDT) Only the most recent of2 resultswithin the time period is included. Creatinine, POCT, B 1.1 0.7 - 1.4 mg/dL 06/16/2025 8:06 AM CDT PCDT Comment: ----ADDITIONAL INFORMATION---- Performed at the Point of Care Blood 06/16/2025 8:03 AM CDT 06/16/2025 8:06 AM CDT Unknown Provider LAB POCT ORDERABLES - DEVICE Fi nal Result [facility] PERFORMING LABS [address] [facility] POC [address] [place] [address] * Lipid Panel (02/10/2024 8:13 AM CDT) Triglycerides 132 mg/dL 02/10/2024 9:35 AM CDT DTL Comment: ----REFERENCE VALUE---- Normal: <150 mg/dL Borderline High: 150-199 mg/dL High: 200-499 mg/dL Very High: > or =500 mg/dL Cholesterol, Total 154 mg/dL 2023 9:35 AM CDT DTL Comment: ----REFERENCE VALUE---- Desirable: < 200 mg/dL Borderline High: 200 - 239 mg/dL High: > or = 240 mg/dL Cholesterol, LDL, Calculated 80 mg/dL 02/10/2024 9:35 AM CDT DTL Comment: ----REFERENCE VALUE---- Desirable: <100 mg/dL Above Desirable: 100-129 mg/dL Borderline High: 130-159 mg/dL High: 160-189 mg/dL Very High: >=190 mg/dL ----ADDITIONAL INFORMATION---- LDL cholesterol calculated using the Gill/NIH equation. Cholesterol, HDL, S 51 >=40 mg/dL 02/10/2024 9:35 AM CDT DTL Cholesterol, Non-HDL, Calculated 103 mg/dL 02/10/2024 9:35 AM CDT DTL Comment: ----REFERENCE VALUE---- Desirable: <130 mg/dL Above Desirable: 130-159 mg/dL Borderline High: 160-189 mg/dL High: 190-219 mg/dL Very High: > or =220 mg/dL Fasting (8 HR or more) Yes 02/10/2024 9:06 AM CDT DTL Blood (Blood, Venous) 02/10/2024 8:13 AM CDT 02/10/2024 9:06 AM CDT Sophia Enamorado M.D. LAB BLOOD ADD-ON Final Re sult [facility] [address] [facility] [address] [place] [address] * Colonoscopy (08/07/2016 12:54 PM CDT) Anatomical Region Laterality Modality Other 08/07/2016 12:5 4 PM CDT Rush Barnhart M.D. GI PROCEDURE ORDERABLES Final Result from Last 3 Months or Most Recently Relevant to Health Maintenance Insurance [facility] [employer] MEDICARE Advance Directives For more information, please contact: [phone] * Full Code (Latest Code Status on File) Date Activated Date Inactivated Comments 07/07/2025 6:41 PM 07/10/2025 5:43 PM Question Answer Comments Full Code: Not Discussed Due to: Patient not available * Full Code Date Activated Date Inactivated Comments 07/07/2025 12:19 PM 07/07/2025 6:41 PM Question Answer Comments Full Code: Discussed * Full Code Date Activated Date Inactivated Comments 01/31/2021 8:45 AM 01/31/2021 6:12 PM Question Answer Comments Full Code: Discussed Care Teams Care Nurse Rn Relationship Specialty Start Date End Date Elsewhere, Pcp PCP - General 03/03/24
== END 2025-07-24 18:48 | disposition home or self-care (01) ==
PROVIDERS: Emergency Provider Emergency Medicine Emergency Medical Services
DX: R33.9 Retention of urine, unspecified (principal)
CPT/HCPCS: 81001; 87086; 99284

== ENCOUNTER 2025-07-24 21:47 | Inpatient (IN) | payer MEDICARE, BC, SELFPAY ==
--- OUTSIDE RECORDS SUMMARY | 2025-07-24 21:49 | XMS_ITS | Data Portability ---
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 Robert may take OTC anti-inflamma tories as desired. Follow up in 8 weeks for reassessment. [email or web address] Not available 11/21/2019 14:17:20 Plan of Treatment Reminders Order Date Submit Date Provider Last Modified By Organization Details Last Modified Time Details Appointments None recorded. Lab None recorded. Referral physical therapy knee referral 2019 020 [email or web address] Not available 0 10:18:53 Procedures None recorded. Surgeries None recorded. Imaging XR, knee, 4 or more view 2019 020 [facility], [address] [place], [address], 0 09:11:59 XR, knee, 1 or 2 view 2019 020 [facility], [address] [place], [address], 0 09:11:59 Medication Orders Itis Cream 2019 020 [facility], [address] [place], [address], 0 09:11:59 Patient TargetsNo targets recorded. Patient InstructionsNo instructions recorded. Reason for Referral Referring Physician: Ishaan Vann, Orthopedic Surgery, Encounter Date: 11/21/2019 Medical Equipment None Reported. Allergies Allergen ID Allergen Name Allergen Category Reaction Reaction Severity Criticality Documentation Date Start Date Code Code System Note Provider Name and Address Organization Details Recorded Time [id number] codeine medicatio n Not available Not available Not available 11/21/2019 2670 RxNorm Rosaura weeks [facility] 0 13:55:53 Medications Name Sig Start Date Stop Date Status Note LastModified by Organization Details LastModified Time Itis Cream Apply 1-2 gm to affected area TiD-QiD. 2019 active Not Available Not Available Not Avai lable atorvastati n 40 mg tablet Take 1 tablet every day by oral route. active Not Available Not Available No t Available allopurinol 100 mg tablet active Not Available Not Available Not Available lisinopril 10 mg tablet Take 1 tablet every day by oral route. active Not Available Not Available No t Available allopurinol 300 mg tablet active Not Available Not Available Not Available methylpredn isolone 4 mg tablets in a dose pack 11/21 completed Not Available Not Available Not Available amoxicillin 875 mg-potassiu m clavulanate 125 mg tablet 11/21 completed Not Available Not Available Not Available Asprin Ec Low Dose active Not Available Not Available Not Available Vitals Date Recorded Body height Body mass index (BMI) Body weight Provider Name and Address Organization Details Last Updated DateTime 11/21/2019 190.5 cm 35 kg/m2 497801.86 g Rosaura Villeda [facility] 11/21/2019 13:55:48 Social History None recorded. Functional Status None recorded. Mental Status None recorded. Family History Nothing Reported. Medical History No medical history recorded. Past Encounters Encounter ID Performer Location Encounter Start Date Encounter Closed Date Diagnosis/Indication Diagnosis SNOMED-CT Code Diagnosis ICD10 Code Diagnosis IMO Codes Diagnosis Note [id number] MD MARYLOU Holbrook_Rickie [address] [place] [address] 11/21/2019 13:19:32 11/21/2019 14:16:18 Pain in right knee 9074683629 91281 M25.561 Patellar tendonitis 3778 5001 M76.51 Iliotibial band friction syndrome of right knee 9837743204 91836 M76.31 Health Concerns Section Related Observation LastModified by Organization Detai ls LastModified Time None Recorded Concern Status LastModified by Organization Details LastModified Time None Recorded Advance Directives Directive None Recorded Payers Insurance Date Sequence Insurance Name Policy Number Policy Rose Covered Member ID Rose Member ID Guarantor Name 11/21/2019 1 [employer] KIT Balderas [id number] Robert Balderas Notes Date Note Type Note Provider Name and Address Organization Details Recorded Time 11/21/2019 text/html R knee pain persisting for a few months. Denies any injury or accidents that began his pain. He states that when he kneels down or pulls his knee up too quickly he states that his pain radiates from his knee to his mid thigh and feels like an electric shock. He denies any popping, locking, or cracking. Patient presents as a new patient to the orthopedic office today. He reports a several month history of right lateral knee pain. The pain is present only when kneeling, flexing his knee suddenly, or stretching. When he does have pain it is sudden, transient, and sharp. The pain is not associated with stiffness, weakness, and swelling, or a limp. The patient exercises multiple times weekly unimpeded by pain. Tobi weeks [facility] 11/21/2019 14:19:52
--- OUTSIDE RECORDS SUMMARY | 2025-07-24 21:51 | XMS_ITS | CCD ---
Author Name Interface, [facility] Address [address] [address] [facility] Address [address] [address] Care Team Providers Care Uniform Maker Name Role Phone [facility] gray MD Unavailable Unavailable Care Plan Date Type Value 07/26/2025 APPOINTMENT NEW PT CONSULT 4 0 MIN 07/26/2025 APPOINTMENT LAB 15 MIN Reason for Visit Encounters Date Name 07/26/2025 LAB 15 MIN 07/26/2025 NEW PT CONSULT 40 ND N Diagnostic Results Date Type Test Units Lower Limit Upper Limit Result Flag Comments Status Ordered By Specimen Source Lab Address 07/09 [facility] [place] 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
--- OUTSIDE RECORDS SUMMARY | 2025-07-24 21:52 | XMS_ITS | Data Portability ---
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 Plan of Treatment Reminders Order Date Submit Date Provider Last Modified By Organization Details Last Modified Time Details Appointments None recorded. Lab None recorded. Referral occupationa l therapist referral 2024 025 [email or web address] Osito Sousa OT, [address], [address], [place], [address], 13:10:52 Procedures percutaneou s endovenous ablation therapy, radiofreque ncy (PROC) 2024 025 [email or web address] Not available 16:52:37 injection, sclerosing solution, multiple veins, same leg (PROC) 2024 025 [email or web address] Not available 16:52:37 Surgeries None recorded. Imaging US, duplex, venous, lower extremity 2024 025 [email or web address] In-Office Order, Internal Use Only DO Not Attach Compendium DO Not Attach Compendium, Do Not Delete/merge, [id number] 16:56:42 Medication Orders None recorded. Patient TargetsNo targets recorded. Patient Instructions Encounter Date Encounter Id Patient Instructions Last Modified By Organization Details Last Modified Time 02/17/[id number] leg pain: care instructions [email or web address] Not available 02/17/2025 16:56:42 leg and ankle edema: care instructions [email or web address] Not available 02/17/2025 16:56:42 The patient has been apprised of the expected benefits, risks, and possible complications associated with the aforementioned procedures. Questions were encouraged and answered to the patient's satisfaction. The patient verbalized understanding. Additional instructions were given regarding the planned procedures. I find these procedures to be medically necessary and prudent. [email or web address] Not available 02/17/2025 16:07:56 Reason for Referral Occupational Therapist Refer ral for Lymphedema of right lower limb CLT/Decongestive therapy RLE Referring Physician: Mango Steele, Interventional Radiology, Encounter Date: 02/17/2025 Results Created Date Observation Date Name Description Value Unit Range Abnormal Flag Note LastModifiedBy Organization Detail LastModifiedTime 02/18/2002/17/2025 US, duple x, venou s, lower extre mity No observ ation record ed. [email or web address] In-Office Order Internal Use Only DO Not Attach Compendium DO Not Attach Compendium, Do Not Delete/merge, [id number] 02/17/2025 15:10:04 02/18/20 25 US, duple x, venou s, lower extre mity No observ ation record ed. BARCODE Not Available 2024 17:05:07 02/18/20 25 US, duple x, venou s, lower extre mity No observ ation record ed. BARCODE Not Available 2024 17:08:41 Result Notes None recorded. Problems Name Problem SNOMED Code Status Onset Date Resolution Date Notes Provider Name and Address Organization Details Recorded Time Chronic neck pain 067019683554 7 Active Fatimah Otlowski null, [place] [facility] 15:26:08 Dry cough 11884950 Completed 02/17/2025 Fatimah [place] null[place] [facility] 15:57:27 Celluliti s 510950595 Completed 02/17/2025 Fatimah Ot[place]ski null[place] [facility] 15:58:38 Deep venous thrombosi s 991562255 Completed 02/17/2025 Fatimah Otlowski null[place] [facility] 5 15:58:03 Backache 087323538 Active Fatimah Ot[place]ski null[place] [facility] 5 15:26:08 Body mass index 30+ - obesity 183256790 Completed 02/17/2025 Fatimah Ot[place]ski null[place] [facility] 5 15:58:54 Insomnia 056932440 Active Fatimah Ot[place]ski null[place] [facility] 5 15:26:08 Disorder of upper respirato ry system 368524278 Completed 02/17/2025 Fatimah Ot[place]ski null[place] [facility] 5 15:57:35 Venous insuffici ency of lower limb 686525428 Active Fatimah Ot[place]ski null[place] [facility] 5 15:26:08 Overweigh t 501598159 Active Fatimah Ot[place]ski null[place] [facility] 5 15:26:08 Polyalgia 945002809 Active Fatimah Ot[place] null[place] [facility] 5 15:26:08 History of thromboem bolism 386060050 Active Fatimah [place] null[place] [facility] 5 15:26:08 Dyspnea 388198860 Active Fatimah Ot[place] null[place] [facility] 5 15:26:08 Pain in lumbar spine 954066880 [facility] 02/17/2025 Fatimah Ot[place]ski null[place] [facility] 5 15:59:29 Dizziness and giddiness 322432813 Active Fatimah Otlowski null[place] [facility] 5 15:26:08 History of sexually transmitt ed disease 046647200 [facility] 02/17/2025 Fatimah Ot[place]ski null[place] [facility] 5 15:56:03 Melena 3898854 Completed 02/17/2025 Fatimah Otlowski null[place] [facility] 5 15:55:28 Chest pain 45511151 Completed 02/17/2025 Fatimah Ot[place]ristian[place]i null, [place] [facility] 5 15:58:34 Bony swelling of lumbar spine 924665186 Completed 02/17/2025 Fatimah Otlowski null[place] [facility] 5 15:58:51 Finding of desire for urination 007448941 Completed 02/17/2025 Fatimah Ot[place]ski null[place] [facility] 5 15:56:20 Finding of general energy 212566558 Completed 02/17/2025 Fatimah [place]i null[place] [facility] 5 15:56:16 Finding of body mass index 834231034 Completed 02/17/2025 Fatimah [place] null[place] [facility] 5 15:56:23 Pain of left lower leg 798620735777 101 Completed 02/17/2025 Fatimah [place] null[place] [facility] 5 15:55:19 Disease type AND/OR category unknown 3201831 Completed 02/17/2025 Fatimah [place] null[place] [facility] 5 15:57:48 Bronchiti s 36029741 Completed 02/17/2025 Fatimah [place] null[place] [facility] 5 15:58:48 Blood in urine 48657622 Completed 02/17/2025 Fatimah [place] null[place] [facility] 5 15:59:02 Pain in coccyx 48061695 Completed 02/17/2025 Fatimah Otlowski null[place] [facility] 5 15:59:20 Depressiv e disorder 57405802 Active Fatimah [place] null[place] [facility] 5 15:26:08 Liver enzyme levels - finding 826059357 Completed 02/17/2025 Fatimah [place]rist[place] null[place] [facility] 15:55:42 Sinusitis 84122890 Completed 02/17/2025 Fatimah Ot[place] null[place] [facility] 15:54:36 Coma 823189439 Completed 02/17/2025 Fatimah Ot[place]ski null[place] [facility] 15:58:22 Hypertens clinton disorder 39064194 Active Fatimah Ot[place]ski null[place] [facility] 15:26:09 Impaired fasting glycemia 205225059 Completed 02/17/2025 Fatimah [place]ski null[place] [facility] 15:55:59 Mireya on type IIa hyperlipo proteinem ia 093351096 Active Fatimah [place] null[place] [facility] 15:26:09 Malignant neoplasm of urinary bladder 171755912 Completed 02/17/2025 Fatimah Ot[place] null[place] [facility] 15:55:38 Coronary heart disease monitorin g status 936505516 Completed 02/17/2025 Fatimah Ot[place] null[place] [facility] 15:58:13 Laceratio n of head 242122439 Completed 02/17/2025 Fatimah [place] null[place] [facility] 15:55:52 Anxiety 41794632 Active Fatimah Ot[place] null[place] [facility] 15:26:09 Neuropath y of lower limb 804283557 Active Fatimah [place] null[place] [facility] 15:26:09 Phlebitis 13511982 Completed 02/17/2025 Fatimah [place] null[place] [facility] 15:54:52 Diarrhea 13857217 Completed 02/17/2025 Fatimah [place] null[place] [facility] 15:57:59 Nasal congestio n 28827296 Active Fatimah [place] null[place] [facility] 5 15:26:09 Urinary tract infectiou s disease 22680958 Completed 02/17/2025 Fatimah [place] null[place] [facility] 15:54:30 Muscle pain 85304998 Active Fatimah [place] null[place] [facility] 15:26:09 Acute pulmonary embolism 128970695 Completed 02/17/2025 Fatimah [place] null[place] [facility] 15:53:41 Prediabet es 992897220 Active Fatimah [place] null[place] [facility] 15:26:09 Disorder of endocrine testis 87764859 Completed 02/17/2025 Fatimah [place] null[place] [facility] 15:57:40 Candidias is of mouth 13379875 Completed 02/17/2025 Fatimah [place] null[place] [facility] 15:58:41 COVID-19 674218221 Completed 02/17/2025 Fatimah [place]ski null[place] [facility] 15:58:10 History of colonosco py 256333121556 Completed 02/17/2025 Fatimah [place] null[place] [facility] 15:56:11 Erectile dysfuncti on 729527750 Completed 02/17/2025 Fatimah [place] null[place] [facility] 15:57:18 Chronic rhinitis 82080678 Active Fatimah [place] null[place] [facility] 15:26:09 Gout 35566534 Active Fatimah [place] null[place] [facility] 15:26:09 History of deep vein thrombosi s 152088332 Active Fatimah [place] null[place] [facility] 5 15:59:46 Lumbago with sciatica 614594580 Active 2022 Fatimah [place]i null[place] [facility] 5 15:26:08 Low back pain 395504069 Active 2022 Fatimah [place] null[place] [facility] 5 15:26:08 Obesity 403849906 Active 2022 Fatimah [place] null[place] [facility] 5 15:26:09 Cyst of skin 217960465 Completed 202202/17/2025 Fatimah [place] null[place] [facility] 5 15:58:06 Constipat ion 51560036 Completed 202202/17/2025 Fatimah Taylorski null[place] [facility] 5 15:58:17 Degenerat ion of lumbar intervert ebral disc 20498512 Active 2022 Fatimah [place] null, [place] [facility] 5 15:26:08 Varicose veins of lower extremity 86483125 Active 2022 Fatimah [place]lorski null[place] [facility] 5 15:26:09 Fatigue 00896983 Completed 202202/17/2025 Fatimah [place]lorski null[place] [facility] 5 15:56:33 Lumbosacr al radiculop athy 1586508 Active 2023 Fatimah Otlowski null[place] [facility] 5 15:26:08 Aneurysm 466804234 Active 2023 Fatimah Otlowski null[place] [facility] 5 15:26:09 Coronary atheroscl erosis 925723592 Active 2024 Fatimahoral Taylorski null, [place] [facility] 5 15:26:09 Edema of lower extremity 099579054 Active 2024 Fatimah [place] null[place] [facility] 15:26:08 Periphera l venous insuffici ency 13455155 Completed 202402/17/2025 Fatimah Brandonski null[place] [facility] 15:55:05 Notes:Some problems listed i n Document: #[id number] could not be added to this patient's chart. Please review this document and add these problems to the patient's chart manually as needed. Problem Notes None recorded. Procedures Surgical History Date Name Laterality Status Provider Name and Address Organization Details Recorded Time Back Surgery completed Fatimah Taylori [place] [facility] 02/17/2025 15:30:07 kidney excision completed Fatimah Brandoni [place] [facility] 02/17/2025 15:48:46 tonsillectomy completed Fatimah Brandoni [place] [facility] 02/17/2025 15:49:09 excision of lesion of urinary bladder [facility] [place] [facility] 02/17/2025 15:52:29 Imaging Results None recorded. Procedure Notes None recorded. Medical Equipment None Reported. Allergies Allergen ID Allergen Name Allergen Category Reaction Reaction Severity Criticality Documentation Date Start Date Code Code System Note Provider Name and Address Organization Details Recorded Time 56151 codeine medicatio n nausea Not available Not available 02/17/20252021 2670 RxNorm Fatimah Gallowayi [facility], [place] [facility] 15:25:54 Medications Name Sig Start Date Stop Date Status Note LastModified by Organization Details LastModified Time cyclobenzap rine 10 mg tablet 1 (one) Tablet at bedtime prn 01/15 completed Not Available Not Available Not Available amoxicillin 500 mg capsule TAKE ONE CAPSULE BY MOUTH FOUR TIMES DAILY FOR 7 DAYS 01/20 completed Not Available Not Available Not Available atorvastati n 40 mg tablet 1 Tablet daily 02/05 completed Not Available Not Available Not Available methocarbam ol 500 mg tablet TAKE 1 TABLET BY MOUTH THREE TIMES DAILY NEEDED 01/20 completed Not Available Not Available Not Available nystatin 100,000 unit/mL oral suspension 5 Suspensio n ccs each side mouth swish and swallow qid 10/29 completed Not Available Not Available Not Available prednisone 10 mg tablet 3 (three) Tablet po qam 12/11 completed Not Available Not Available Not Available Methylpredn isolone (Joey) 4 mg oral kit 1 (one) Tablet Tablet As directed in enclosed package 10/29 completed Not Available Not Available Not Available trazodone 50 mg tablet TAKE 1 TABLET BY MOUTH EVERY NIGHT AT BEDTIME NEEDED 03/13 completed Not Available Not Available Not Available azithromyci n 250 mg tablet TAKE DIRECTED 01/20 completed Not Available Not Available Not Available ibuprofen 800 mg tablet TAKE 1 TABLET BY MOUTH EVERY 6 TO 8 HOURS NEEDED active Not Available Not Available No t Available hydrocodone 5 mg-acetamin ophen 325 mg tablet 1 (one) Tablet four times daily, as needed 11/23 completed Not Available Not Available Not Available Potassium Chloride ER 10 mEq tablet,exte nded release 1 (one) Tablet ER Tablet ER every morning 04/12 completed Not Available Not Available Not Available Lasix 40 mg tablet 1 (one) Tablet Tablet every morning 04/12 completed Not Available Not Available Not Available prednisone 20 mg tablet 1 (one) Tablet two times daily with food 11/11 completed Not Available Not Available Not Available prednisone 5 mg tablet 1 (one) Tablet 7 day taper as directed 11/06 completed Not Available Not Available Not Available metronidazo le 500 mg tablet 1 (one) Tablet two times daily 08/24 completed Not Available Not Available Not Available ciprofloxac in 250 mg tablet 1 (one) Tablet BID 07/24 completed Not Available Not Available Not Available allopurinol 100 mg tablet TAKE 1 TABLET BY MOUTH EVERY DAY 03/13 completed Not Available Not Available Not Available sulfamethox azole 800 mg-trimetho prim 160 mg tablet TAKE 1 TABLET BY MOUTH TWICE DAILY WITH FOOD 07/23 completed Not Available Not Available Not Available alprazolam 0.25 mg tablet TAKE 1 TABLET BY MOUTH THREE TIMES DAILY NEEDED active Not Available Not Available No t Available methocarbam ol 750 mg tablet TAKE 1 TABLET BY MOUTH THREE TIMES DAILY NEEDED . SPARINGLY CAREFUL SEDIATION 04/07 completed Not Available Not Available Not Available meclizine 25 mg tablet 1 (one) Tablet Tablet three times daily, as needed 01/15 completed Not Available Not Available Not Available Cipro 500 mg tablet 1 (one) Tablet BID for 8 days 04/14 completed Not Available Not Available Not Available lisinopril 10 mg tablet TAKE 1 TABLET BY MOUTH EVERY DAY 03/13 completed Not Available Not Available Not Available prednisone 50 mg tablet 1 (one) Tablet Tablet daily PRN 03/16 completed Not Available Not Available Not Available indomethaci n 50 mg capsule 1 (one) Capsule Capsule every 8 hours while foot hurting 04/12 completed Not Available Not Available Not Available nitroglycer in 0.[address] 1 TABLET UNDER THE TONGUE EVERY 5 MINUTES NEEDED FOR CHEST PAIN MAY REPEAT EVERY 5 MINUTES FOR UP TO 3 DOSES active Not Available Not Available No t Available allopurinol 300 mg tablet TAKE 1 TABLET BY MOUTH DAILY active Not Available Not Available No t Available aspirin 81 mg tablet 1 (one) Tablet daily 2021 active Not Available Not Available Not Avai lable gabapentin 100 mg capsule TAKE 1 CAPSULE BY MOUTH THREE TIMES DAILY NEEDED FOR NERVE PAIN 01/20 completed Not Available Not Available Not Available Ventolin 2.5 mg/3 mL (0.083 %) solution for nebulizatio n 1 (one) Nebulized Soln Nebulized Soln qid prn 10/29 completed Not Available Not Available Not Available methylpredn isolone 4 mg tablets in a dose pack FOLLOW PACKAGE DIRECTION S 01/20 completed Not Available Not Available Not Available colchicine 0.6 mg tablet 2 (two) tablet PO now then 1 tab 1 hour later 03/16 completed Not Available Not Available Not Available Percocet 5 mg-325 mg tablet 1 Tablet Tablet four times daily, as needed 08/10 completed Not Available Not Available Not Available PreviDent 5000 Plus 1.1 % cream USE TWICE A DAY WHEN BRUSHING. REPLACING REGULAR TOOTHPAST E. 03/13 completed Not Available Not Available Not Available Adult Aspirin EC Low Strength 81 mg tablet,delio yed release 1 (one) Tablet daily 03/25 completed Not Available Not Available Not Available diazepam 5 mg tablet TAKE 1 TO 2 TABLETS BY MOUTH THREE TIMES DAILY NEEDED FOR SPASM 07/23 completed Not Available Not Available Not Available amoxicillin 875 mg-potassiu m clavulanate 125 mg tablet TAKE 1 TABLET BY MOUTH TWICE DAILY FOR 14 DAYS 03/13 completed Not Available Not Available Not Available escitalopra m 10 mg tablet TAKE 1 TABLET BY MOUTH DAILY 2024 active Not Available Not Available Not Avai lable ezetimibe 10 mg tablet TAKE 1 TABLET BY MOUTH EVERY DAY active Not Available Not Available No t Available cyclobenzap rine 5 mg tablet 1/2 TO 2 Tablet q 6 hours for spasm 08/01 completed Not Available Not Available Not Available rosuvastati n 40 mg tablet TAKE 1 TABLET BY MOUTH AT BEDTIME active Not Available Not Available No t Available Wellbutrin XL 150 mg 24 hr tablet, extended release 1 (one) Tablet daily 02/18 completed Not Available Not Available Not Available tadalafil 20 mg tablet TAKE 1 TABLET BY MOUTH NEEDED 03/13 completed Not Available Not Available Not Available Augmentin 1 (one) Tablet two times daily with food and water 09/13 completed Not Available Not Available Not Available ProAir HFA 90 mcg/actuati on aerosol inhaler 1-2 inhalatio n inhalatio n inhalatio n qid prn 2015 active Not Available Not Available Not Avai lable Symbicort 160 mcg-4.5 mcg/actuati on HFA aerosol inhaler 1 (one) inhalatio n inhalatio n two times daily 06/30 completed Not Available Not Available Not Available Lovaza 1 gram capsule 1 (one) Capsule qd 06/21 completed Not Available Not Available Not Available Axiron 30 mg/actuatio n (1.5 mL) transderm solution in metered pump 1 Unit(s) each axilla daily 05/23 completed Not Available Not Available Not Available AndroGel 20.25 mg/1.25 gram per pump act. (1.62 %) transdermal gel 2 (two) pumps daily 06/21 completed Not Available Not Available Not Available Xarelto 20 mg tablet TAKE 1 TABLET BY MOUTH DAILY active Not Available Not Available No t Available Eliquis 2.5 mg tablet 1 (one) Tablet Tablet BID 3 days before travel and throughou t trip, discontin ue after returning 10/30 completed Not Available Not Available Not Available BinaxNOW COVID-19 Ag Self Test kit TEST DIRECTED TODAY 03/13 completed Not Available Not Available Not Available Wegovy 0.25 mg/0.5 mL subcutaneou s pen injector ADMINISTE R 0.25 MG UNDER THE SKIN EVERY WEEK active Not Available Not Available No t Available Zepbound 2.5 mg/0.5 mL subcutaneou s pen injector Inject 2.5 mg every week by subcutane ous route. 2023 active Not Available Not Available Not Avai lable Vitals Date Recorded Heart rate Body height Body mass index (BMI) Body weight Systolic And Diastolic Provider Name and Address Organization Details Last Updated DateTime 02/17/2025 61 /min 190.5 cm 33.7 kg/m2 699861.9 4 g 120/76 mm[Hg] Jennifer Priestk [place] [facility] 02/17/2025 15:22:22 Social History Question Answer Notes LastModified by [employer] Details LastModified Time Tobacco Smoking Status Never Smoker Fatimah Bartlett null, [place] [facility] 02/17/2025 15:29:53 What Was The Date Of Your Most Recent Tobacco Screening? 02/17/2025 Information not available 02/17/2025 Has Tobacco Cessation Counseling Been Provided? No Information not available 02/17/2025 Sex: Unknown Functional Status Question Answer Note LastModified by [employer] Details LastModified Time Do you or have you ever used any other forms of tobacco or nicotine? No Information not available 02/17/2025 What is your level of alcohol consumption? Occasional Information not available 02/17/2025 Mental Status None recorded. Family History Nothing Reported. Medical History Condition Response Diabetes N Auto Immune Diseases N Hepatitis N Pulmonary Embolism Deep Vein Thrombosis Y AIDS N Immunizations Vaccine Type Date Status Note Provider Nam e and Address Organization Details Recorded Time Influenza, split virus, quadrivalent, preservative 6 completed Fatimah Ot[place] null[place] [facility] 02/17/2025 15:26:32 Influenza, split virus, quadrivalent, preservative 7 completed Fatimah [place] null[place] [facility] 02/17/2025 15:26:32 Influenza, split virus, quadrivalent, preservative 8 completed Fatimah Ot[place] null[place] [facility] 02/17/2025 15:26:32 Influenza, split virus, quadrivalent, preservative 5 completed Fatimah Ot[place] null[place] [facility] 02/17/2025 15:26:32 zoster recombinant 4 completed Fatimah [place] null[place] [facility] 02/17/2025 15:26:32 COVID-19, mRNA, LNP-S, PF, 30 mcg/0.3 mL dose 1 completed Fatimah [place] null[place] [facility] 02/17/2025 15:26:32 COVID-19, mRNA, LNP-S, PF, 30 mcg/0.3 mL dose 1 completed Fatimah Ot[place] null[place] [facility] 02/17/2025 15:26:32 COVID-19, mRNA, LNP-S, PF, 30 mcg/0.3 mL dose 1 completed Fatimah [place] null[place] [facility] 02/17/2025 15:26:32 COVID-19, mRNA, LNP-S, PF, 30 mcg/0.3 mL dose 1 completed Fatimah [place] null[place] [facility] 02/17/2025 15:26:32 COVID-19, mRNA, LNP-S, PF, 30 mcg/0.3 mL dose, rafael-sucrose 2 completed Fatimah Ot[place] null[place] [facility] 02/17/2025 15:26:32 COVID-19, mRNA, LNP-S, bivalent, PF, 30 mcg/0.3 mL dose 2 completed Fatimah Ot[place] null[place] [facility] 02/17/2025 15:26:32 COVID-19, mRNA, LNP-S, PF, rafael-sucrose, 30 mcg/0.3 mL 3 completed Fatimah Ot[place] null[place] [facility] 02/17/2025 15:26:32 Tdap 1 completed Fatimah Ot[place] null[place] [facility] 02/17/2025 15:26:32 Tdap 8 completed Fatimah Ot[place] null[place] [facility] 02/17/2025 15:26:32 Pneumococcal conjugate PCV 13 0 completed Fatimah Ot[place] null, [place] [facility] 02/17/2025 15:26:32 Influenza, split virus, trivalent, PF 3 completed Fatimah Ot[place] null[place] [facility] 02/17/2025 15:26:32 Influenza, split virus, trivalent, PF 2 completed Fatimah Ot[place] null[place] [facility] 02/17/2025 15:26:32 Influenza, split virus, trivalent, PF 4 completed Fatimah Ot[place] null[place] [facility] 02/17/2025 15:26:32 Influenza, split virus, trivalent, PF 5 completed Fatimah Otlowski null, [place] - [facility] 02/17/2025 15:26:32 Influenza, split virus, quadrivalent, PF 3 completed Fatimah Otlowski null[place] - [facility] 02/17/2025 15:26:32 Influenza, split virus, quadrivalent, PF 1 completed Fatimah Bartlett [facility] [place] [facility] [employer] [facility] 02/17/2025 15:26:32 Past Encounters Encounter ID Performer Location Encounter Start Date Encounter Closed Date Diagnosis/Indication Diagnosis SNOMED-CT Code Diagnosis ICD10 Code Diagnosis IMO Codes Diagnosis Note [id number] MD Oneil Gonzalesy [address] [facility] ,[address] [place] [address] 02/17/2025 14:33:05 02/17/2025 15:49:46 New patient screening done 485585335 Z76.89 Swelling of limb 7254853 9 M79.89 Pain in lower limb 97265 006 M79.604 Erythema 232191347 L53.9 Edema of l ower extremity 406160342 R60.0 4562204 Peripheral venous insufficiency 56988427 I87.2 4388 Varicose v eins of lower extremity 89656452 I83.584 4392909 Lymphedema of right lower limb [id number] 0978145 I89.0 25099878 I89.0 lymphedema - Pt presents with stage II RLE lymphedema and hyperpigme ntation secondary to venous insufficie ncy. Despite compliance with 4+ weeks of exercise, elevation and compressio n 30mmHg they continue to experience progressiv e edema and skin changes. Pneumatic compressio n is recommende d for daily home use to manage symptoms. Health Concerns Section Related Observation LastModified by Organization Detai ls LastModified Time None Recorded Concern Status LastModified by Organization Details LastModified Time None Recorded Advance Directives Directive None Recorded Payers Insurance Date Sequence Insurance Name Policy Number Policy Rose Covered Member ID Rose Member ID Guarantor Name 02/21/2025 1 [place] Robert Balderas [id number] Robert Balderas 02/17/2025 2 [place] [id number] Robert Balderas [id number] Robert Balderas Notes Date Note Type Note Provider Name and Address Organization Details Recorded Time 5 text/html History of Present IllnessReported by PatientHPIFor what makes your symptoms worse?, patient reportswalking. For what makes your symptoms better?, patient reportscompression hose. For how long have you had these symptoms?, patient lxdewzf19 weeksandworse in the evening. Patient has worn compression stockings in the form of knee-high for 5 years. Patient states that the compression stockings provided temporary amelioration of symptoms.Patient states that the symptoms interfere with activities of daily living. 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 Robert states he can sit for up to 7 hours a day. Patient states that due to symptoms patient has difficulty standing and walking .Patient has not used NSAIDs or any other anti-inflammatory medications for these symptoms. I89.0 lymphedema- Pt presents with stage II RLE lymphedema and hyperpigmentation secondary to venous insufficiency. Despite compliance with 4+ weeks of exercise, elevation and compression 30mmHg they continue to experience progressive edema and skin changes. Pneumatic compression is recommended for daily home use to [place] [address] [address], [place], [address], [facility] - [facility] DAPHNEY Nogueira 02/17/2025 16:52:41
--- OUTSIDE RECORDS SUMMARY | 2025-07-24 21:52 | XMS_ITS | Data Portability ---
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 Plan of Treatment Reminders Order Date Submit Date Provider Last Modified By Organization Details Last Modified Time Details Appointments WELCOME TO MEDICARE 2024 03:40P Cory Ball PA-C Not available Not available Not available Lab urinalys is, dipstick 2024 025 [email or web address] Office, [address] , [place], [address], 06/01/2025 12:14:46 culture, urine 2024 025 [employer], [address]679 [facility], [address], [place], [address], 06/04/2025 07:05:18 urinalys is, microsco pic 2024 025 [employer], 33256 [facility], [address], [place], [address], 06/01/2025 12:14:47 PSA, serum or plasma 2024 025 [employer], 57800 [facility], [address], [place], [address], 04/25/2025 07:13:55 CMP, serum or plasma 2024 025 [employer], 6[address]13 [facility], [address], [place], [address], 04/25/2025 07:13:57 lipid panel, serum - lab18 2024 025 [employer], 64177 [facility], [address], [place], [address], 04/25/2025 07:13:56 HbA1c (hemoglo bin A1c), blood - lab90 2024 025 [employer], [address]15 [facility], [address], [place], [address], 04/25/2025 07:13:56 TSH, serum or plasma - [id number] 2024 025 [employer], 40806 [facility], [address], [place], [address], 04/25/2025 07:13:58 CBC w/ diff - [id number] 2024 025 [employer], 23816 [facility], [address], [place], [address], 04/24/2025 15:59:46 HbA1c (hemoglo bin A1c), blood 2024 025 [employer], 14271 [facility], [address], [place], [address], 01/20/2025 15:52:21 lipid panel, serum 2024 025 [employer], 70183 [facility], [address], [place], [address], 01/20/2025 15:52:22 TSH, serum or plasma 2024 025 [employer], 96357 [facility], [address], [place], [address], 01/20/2025 15:52:22 CMP, serum or plasma 2024 025 [employer], 40016 [facility], [address], [place], [address], 01/20/2025 15:52:21 CBC w/ auto diff 2024 025 [employer], [address]1169 [facility], [address], [place], [address], 04/25/2025 07:13:58 Referral urologis t referral 2024 025 [facility], [address] [place] [address] , [address], [place], [address], 04/24/2025 16:24:[address] referral 2024 025 [email or web address] [facility], [address] [facility] , [address], [place], [address], 02/13/2025 16:39:32 Procedures None recorded . Surgeries None recorded . Imaging US, doppler, venous 2024 025 [facility], [address] , [place], [address], 02/14/2025 13:05:32 Medication Orders Bactrim DS 800 mg-160 mg tablet 2024 025 [id number], [address] [place], [place], [id number], 06/01/2025 12:16:30 Wegovy 1 mg/0.5 mL subcutan eous pen injector 2024 025 [facility], [address] [place], [place], [id number], 04/24/2025 15:58:12 Wegovy 0.25 mg/0.5 mL subcutan eous pen injector 2024 025 [email or web address]38588, [address] [place], [place], [id number], 04/24/2025 15:44:02 ezetimib e 10 mg tablet 2024 025 [facility] #49601, [address] [place], [place], [id number], 01/20/2025 15:51:40 escitalo pram 10 mg tablet 2024 025 [facility], [address] [place] [address], [address], 01/20/2025 15:51:37 Patient TargetsNo targets recorded. Patient Instructions Encounter Date Encounter Id Patient Instructions Last Modified By Organization Details Last Modified Time 01/20/2025 [id number] Learning About Being Physically Active [email or web address] Not available 01/20/2025 15:24:52 body mass index: care instructions [email or web address] Not available 01/20/2025 15:24:52 Patient is aware that we advise appropriate follow-up if symptoms or circumstances develop that are unexpectedly persistent, progressive or recurrent. See the diagnoses and recommendations in today's note. It is incumbent upon each of us to be our own advocate as best we can so the patient is encouraged to follow-up as needed and to err on the side of caution by phone, telemedicine, live visits or, if deemed necessary, the emergency center. The patient, expressed understanding. [email or web address] Not available 01/20/2025 15:44:38 02/13/2025 [id number] Learning About Being Physically Active Not available 02/13/2025 16:31:34 body mass index: care instructions [email or web address] Not available 02/13/2025 16:31:34 leg and ankle edema: care instructions [email or web address] Not available 02/13/2025 16:31:34 Learning About Being Physically Active [email or web address] Not available 02/13/2025 16:31:34 body mass index: care instructions Not available 02/13/2025 16:31:34 Patient is aware that we advise appropriate follow-up if symptoms or circumstances develop that are unexpectedly persistent, progressive or recurrent. See the diagnoses and recommendations in today's note. It is incumbent upon each of us to be our own advocate as best we can so the patient is encouraged to follow-up as needed and to err on the side of caution by phone, telemedicine, live visits or, if deemed necessary, the emergency center. The patient, expressed understanding. [email or web address] Not available 02/13/2025 16:30:56 03/13/2025 [id number] preventing falls : care instructions Not available 03/13/2025 15:09:08 Learning About Being Physically Active Not available 03/13/2025 15:09:08 body mass index: care instructions Not available 03/13/2025 15:09:08 Patient is aware that we advise appropriate follow-up if symptoms or circumstances develop that are unexpectedly persistent, progressive or recurrent. See the diagnoses and recommendations in today's note. It is incumbent upon each of us to be our own advocate as best we can so the patient is encouraged to follow-up as needed and to err on the side of caution by phone, telemedicine, live visits or, if deemed necessary, the emergency center. The patient, expressed understanding. Not available 03/13/2025 15:08:46 04/24/2025 [id number] Learning About Being Physically Active [email or web address] Not available 04/24/2025 15:58:07 body mass index: care instructions [email or web address] Not available 04/24/2025 15:58:07 Patient is aware that we advise appropriate follow-up if symptoms or circumstances develop that are unexpectedly persistent, progressive or recurrent. See the diagnoses and recommendations in today's note. It is incumbent upon each of us to be our own advocate as best we can so the patient is encouraged to follow-up as needed and to err on the side of caution by phone, telemedicine, live visits or, if deemed necessary, the emergency center. The patient, expressed understanding. [email or web address] Not available 04/24/2025 15:55:09 06/01/2025 [id number] Patient is aware that we advise appropriate follow-up if symptoms or circumstances develop that are unexpectedly persistent, progressive or recurrent. See the diagnoses and recommendations in today's note. It is incumbent upon each of us to be our own advocate as best we can so the patient is encouraged to follow-up as needed and to err on the side of caution by phone, telemedicine, live visits or, if deemed necessary, the emergency center. The patient, expressed understanding. [email or web address] Not available 06/01/2025 12:16:21 Reason for Referral Vein Specialist Referral for Peripheral venous insufficiency Referring Physician: Marysol Ball [facility], Encounter Date: 02/13/2025 Urologist Referral for Malfederico nant neoplasm of urinary bladder Referring Physician: Marysol Ball [facility], Encounter Date: 04/24/2025 Results Created Date Observation Date Name Description Value Unit Range Abnormal Flag Note LastModifiedBy Organization Detail LastModifiedTime 04/24/2004/24/2025 PSA PSA 2.121 NG/mL 0 - 4.0 This test was perfo rmed using the Abbot t Chemi lumin escen t Micro parti tricia Immun oassa y (CMIA ) on the Alini ty I pako zer. Value s obtai philly from diffe rent assay metho ds canno t be used inter junior eably . Not Available [employer] [address] [place], [address], 04/25/2025 07:13:55 04/24/2004/24/2025 HGB A1C HGB A1C 5.6 % 4.0 - 6.0 5.7% TO 6.4% IS DIAGN OSED PREDI ABETE S 6.5% OR HIGHE R INDIC ATES DIABE WHITNEY Not Available [employer] [address] [place], [address], 04/26/2025 07:13:22 04/24/2004/24/2025 LIPID PANEL cholesterol 148 mg/dL 130 - 200 Not Available [employer] [address] [place], [address], 04/25/2025 07:13:56 04/24/20 25 04/24/2025 LIPID PANEL triglyceride s 161 mg/dL 10 - 149 high Not Available [employer] [address] [place], [address], 04/25/2025 07:13:56 04/24/20 25 04/24/2025 LIPID PANEL HDL 50.0 mg/dL > 40 Not Available [employer] [address] [place], [address], 04/25/2025 07:13:56 04/24/20 25 04/24/2025 LIPID PANEL chol/HDL ratio 3.0 ratio < 5.0 Not Available [facility] [employer] [address] [place], [address], 04/25/2025 07:13:56 04/24/20 25 04/24/2025 LIPID PANEL VLDL 32 mg/dL 18 - 41 Not Available [employer] [address] [place], [address], 04/25/2025 07:13:56 04/24/20 25 04/24/2025 LIPID PANEL LDL 66 mg/dL < 130 Not Available [employer] [address] [place], [address], 04/25/2025 07:13:56 04/24/2004/24/2025 COMPR EHENS GAMALIEL METAB OLIC PANEL sodium 139 mmol/ L 135 - 147 Not Available [employer] [address] [place], [address], 04/25/2025 07:13:57 04/24/2004/24/2025 COMPR EHENS GAMALIEL METAB OLIC PANEL potassium 5.1 mmol/ L 3.5 - 5.5 Not Available [employer] [address] [place], [address], 04/25/2025 07:13:57 04/24/2004/24/2025 COMPR EHENS GAMALIEL METAB OLIC PANEL chloride 99 mmol/ L 97 - 110 Not Available [facility] [address], [place], [address], 04/25/2025 07:13:57 04/24/2004/24/2025 COMPR EHENS GAMALIEL METAB OLIC PANEL CO2 29.0 mmol/ L 18 - 33 Not Available [facility] [address], [place], [address], 04/25/2025 07:13:57 04/24/2004/24/2025 COMPR EHENS GAMALIEL METAB OLIC PANEL glucose 71 mg/dL 65 - 140 FASTI NG: < 100 mg/dL Not Available [facility] [address], [place], [address], 04/25/2025 07:13:57 04/24/2004/24/2025 COMPR EHENS GAMALIEL METAB OLIC PANEL BUN 16 mg/dL 7 - 25 Not Available [facility] [address], [place], [address], 04/25/2025 07:13:57 04/24/2004/24/2025 COMPR EHENS GAMALIEL METAB OLIC PANEL creatinine 1.00 mg/dL 0.5 - 1.5 Not Available [facility] [address], [place], [address], 04/25/2025 07:13:57 04/24/2004/24/2025 COMPR EHENS GAMALIEL METAB OLIC PANEL BUN/creat ratio 16.00 ratio 5.00 - 25.00 Not Available [facility] [address], [place], [address], 04/25/2025 07:13:57 04/24/2004/24/2025 COMPR EHENS GAMALIEL METAB OLIC PANEL GFR 84 mL/mi nute >= 60 Not Available [facility] [address], [place], [address], 04/25/2025 07:13:57 04/24/20 25 04/24/2025 COMPR EHENS GAMALIEL METAB OLIC PANEL calcium 10.5 mg/dL 8.5 - 10.5 Not Available [facility] [address], [place], [address], 04/25/2025 07:13:57 04/24/20 25 04/24/2025 COMPR EHENS GAMALIEL METAB OLIC PANEL protein, total 7.3 g/dL 6.1 - 8.1 Not Available [facility] [address], [place], [address], 04/25/2025 07:13:57 04/24/20 25 04/24/2025 COMPR EHENS GAMALIEL METAB OLIC PANEL albumin 5.0 g/dL 3.4 - 5.1 Not Available [facility] [address], [place], [address], 04/25/2025 07:13:57 04/24/20 25 04/24/2025 COMPR EHENS GAMALIEL METAB OLIC PANEL globulin 2.3 g/dL 1.7 - 3.7 Not Available [facility] [address], [place], [address], 04/25/2025 07:13:57 04/24/20 25 04/24/2025 COMPR EHENS GAMALIEL METAB OLIC PANEL A/G ratio 2.2 ratio 0.6 - 3.1 Not Available [facility] [address], [place], [address], 04/25/2025 07:13:57 04/24/20 25 04/24/2025 COMPR EHENS GAMALIEL METAB OLIC PANEL alkaline phosphatase 65 IU/L 40 - 150 Not Available [facility] [employer] [address], [place], [address], 04/25/2025 07:13:57 04/24/20 25 04/24/2025 COMPR EHENS GAMALIEL METAB OLIC PANEL SGOT (AST) 27 IU/L 10 - 50 Not Available [facility] [employer] [address] [place], [address], 04/25/2025 07:13:57 04/24/2004/24/2025 COMPR EHENS GAMALIEL METAB OLIC PANEL SGPT (ALT) 28 IU/L 2 - 50 Not Available [employer] [address] [place], [address], 04/25/2025 07:13:57 04/24/20 25 04/24/2025 COMPR EHENS GAMALIEL METAB OLIC PANEL bilirubin, total 1.3 mg/dL 0.0 - 1.2 high Not Available [employer] [address], [place], [address], 04/25/2025 07:13:57 04/24/2004/24/2025 TSH TSH 0.6842 uIU/m L 0.35 - 4.94 Not Available [facility] [employer] [address] [place], [address], 04/25/2025 07:13:58 04/24/2004/24/2025 CBC/D IFF WBC 8.0 10e3/ uL 4.5 - 10.0 Not Available [facility] [employer] [address] [place], [address], 04/25/2025 07:13:58 04/24/20 25 04/24/2025 CBC/D IFF RBC 5.61 10e6/ uL 4.34 - 5.7 Not Available [employer] [address] [place], [address], 04/25/2025 07:13:58 04/24/20 25 04/24/2025 CBC/D IFF HGB 17.4 g/dL 13.7 - 17.0 high Not Available [employer] [address] , [place], [address], 04/25/2025 07:13:58 04/24/2004/24/2025 CBC/D IFF HCT 51.9 % 40.5 - 49.7 high Not Available [employer] [address] , [place], [address], 04/25/2025 07:13:58 04/24/2004/24/2025 CBC/D IFF MCV 92.5 fL 84.36 - 101.6 Not Available [employer] [address], [place], [address], 04/25/2025 07:13:58 04/24/2004/24/2025 CBC/D IFF MCH 31.0 pg 26.1 - 33.5 Not Available [employer] [address], [place], [address], 04/25/2025 07:13:58 04/24/20 25 04/24/2025 CBC/D IFF MCHC 33.6 g/dL 30.0 - 35.3 Not Available [employer] [address], [place], [address], 04/25/2025 07:13:58 04/24/2004/24/2025 CBC/D IFF RDW 13.3 % 11.0 - 15.5 Not Available [employer] [address], [place], [address], 04/25/2025 07:13:58 04/24/20 25 04/24/2025 CBC/D IFF plt CT 191 10e3/ uL 150 - 400 Not Available [employer] [address], [place], [address], 04/25/2025 07:13:58 04/24/2004/24/2025 CBC/D IFF MPV 8.5 fL 5.0 - 13.1 Not Available [facility] [employer] [address], [place], [address], 04/25/2025 07:13:58 04/24/2004/24/2025 CBC/D IFF lymph% 26.2 % 17.4 - 48.2 Not Available [facility] [address], [place], [address], 04/25/2025 07:13:58 04/24/2004/24/2025 CBC/D IFF mono% 5.5 % 3.0 - 10.5 Not Available [employer] [address], [place], [address], 04/25/2025 07:13:58 04/24/2004/24/2025 CBC/D IFF neut% 65.7 % 43.4 - 76.2 Not Available [facility] [employer] [address], [place], [address], 04/25/2025 07:13:58 04/24/2004/24/2025 CBC/D IFF eos% 1.7 % 0.0 - 6.0 Not Available [facility] [employer] [address], [place], [address], 04/25/2025 07:13:58 04/24/2004/24/2025 CBC/D IFF baso% 0.9 % 0.0 - 3.0 Not Available [facility] [employer] [address], [place], [address], 04/25/2025 07:13:58 04/24/2004/24/2025 CBC/D IFF abs. lymph 2.10 10e3/ uL 1.2 - 3.2 Not Available [employer] [address], [place], [address], 04/25/2025 07:13:58 04/24/2004/24/2025 CBC/D IFF abs. mono 0.40 10e3/ uL 0.15 - 0.80 Not Available [employer] [address], [place], [address], 04/25/2025 07:13:58 04/24/2004/24/2025 CBC/D IFF abs. neut 5.30 10e3/ uL 1.5 - 6.7 Not Available [employer] [address] [facility], [place], [address], 04/25/2025 07:13:58 04/24/20 25 04/24/2025 CBC/D IFF abs. eos 0.10 10e3/ uL 0.0 - 0.50 Not Available [employer] [address] [facility], [place], [address], 04/25/2025 07:13:58 04/24/2004/24/2025 CBC/D IFF abs. baso 0.10 10e3/ uL 0.0 - 0.2 Not Available [employer] [address] [facility], [place], [address], 04/25/2025 07:13:58 06/01/20 25 06/01/2025 URINA LYSIS , COMPL ETE W/EMILY RO color YELLOW yellow Not Available [employer] [address] [facility], [place], [address], 06/02/2025 07:09:45 06/01/20 25 06/01/2025 URINA LYSIS , COMPL ETE W/EMILY RO appearance CLEAR clear Not Available [employer] [address] [facility], [place], [address], 06/02/2025 07:09:45 06/01/20 25 06/01/2025 URINA LYSIS , COMPL ETE W/EMILY RO specific gravity 1.006 1.005 - 1.030 Not Available [facility] [address], [place], [address], 06/02/2025 07:09:45 06/01/20 25 06/01/2025 URINA LYSIS , COMPL ETE W/EMILY RO leukocytes NEGATI VE negati ve Not Available [facility] [address], [place], [address], 06/02/2025 07:09:45 06/01/20 25 06/01/2025 URINA LYSIS , COMPL ETE W/EMILY RO nitrite NEGATI VE negati ve Not Available [facility] [address] [facility], [place], [address], 06/02/2025 07:09:45 06/01/20 25 06/01/2025 URINA LYSIS , COMPL ETE W/EMILY RO pH 6.5 pH_un its 5.0 - 8.0 Not Available [facility] [address], [place], [address], 06/02/2025 07:09:45 06/01/20 25 06/01/2025 URINA LYSIS , COMPL ETE W/EMILY RO blood NEGATI VE negati ve Not Available [facility] [address], [place], [address], 06/02/2025 07:09:45 06/01/20 25 06/01/2025 URINA LYSIS , COMPL ETE W/EMILY RO protein NEGATI VE negati ve Not Available [facility] [address], [place], [address], 06/02/2025 07:09:45 06/01/20 25 06/01/2025 URINA LYSIS , COMPL ETE W/EMILY RO glucose NEGATI VE negati ve Not Available [facility] [address], [place], [address], 06/02/2025 07:09:45 06/01/20 25 06/01/2025 URINA LYSIS , COMPL ETE W/EMILY RO ketones NEGATI VE negati ve Not Available [facility] [address], [place], [address], 06/02/2025 07:09:45 06/01/20 25 06/01/2025 URINA LYSIS , COMPL ETE W/EMILY RO urobilinogen NEGATI VE negati ve Not Available [facility] [address], [place], [address], 06/02/2025 07:09:45 06/01/20 25 06/01/2025 URINA LYSIS , COMPL ETE W/EMILY RO bilirubin NEGATI VE negati ve Not Available [facility] [address], [place], [address], 06/02/2025 07:09:45 06/01/20 25 06/01/2025 URINA LYSIS , COMPL ETE W/EMILY RO RBC 0-2 0-2 Not Available [facility] [address], [place], [address], 06/02/2025 07:09:45 06/01/20 25 06/01/2025 URINA LYSIS , COMPL ETE W/EMILY RO WBC 0-2 0-2 Not Available [facility] [address], [place], [address], 06/02/2025 07:09:45 06/01/20 25 06/01/2025 URINA LYSIS , COMPL ETE W/EMILY RO squamous epithelial NONE SEEN none seen Not Available [facility] [address], [place], [address], 06/02/2025 07:09:45 06/01/20 25 06/01/2025 URINA LYSIS , COMPL ETE W/EMILY RO bacteria NONE SEEN none seen Not Available [employer] [address] [facility], [place], [address], 06/02/2025 07:09:45 06/01/20 25 06/01/2025 URINE CULTU RE urine culture RESUL TS: NO GROWT H Not Available [employer] [address] [facility], [place], [address], 06/04/2025 07:05:18 06/01/20 25 06/01/2025 urina lysis , dipst ick ascorbic acid neg normal Not Available Office [address] , [place], [address], 06/01/2025 11:44:25 06/01/20 25 06/01/2025 urina lysis , dipst ick bilirubin neg normal Not Available Office [address] , [place], [address], 06/01/2025 11:44:25 06/01/20 25 06/01/2025 urina lysis , dipst ick blood 10 sun/? l abnormal Not Available Office [address] , [place], [address], 06/01/2025 11:44:25 06/01/20 25 06/01/2025 urina lysis , dipst ick glucose neg normal Not Available Office [address] , [place], [address], 06/01/2025 11:44:25 06/01/20 25 06/01/2025 urina lysis , dipst ick ketone neg normal Not Available Office [address] , [place], [address], 06/01/2025 11:44:25 06/01/20 25 06/01/2025 urina lysis , dipst ick leukocytes neg normal Not Available Office [address], [place], [address], 06/01/2025 11:44:25 06/01/20 25 06/01/2025 urina lysis , dipst ick nitrite neg normal Not Available Office [address] , [place], [address], 06/01/2025 11:44:25 06/01/20 25 06/01/2025 urina lysis , dipst ick pH 7 normal Not Available Office [address] , [place], [address], 06/01/2025 11:44:25 06/01/20 25 06/01/2025 urina lysis , dipst ick protein neg normal Not Available Office [address] , [place], [address], 06/01/2025 11:44:25 06/01/20 25 06/01/2025 urina lysis , dipst ick specific gravity 1.005 normal Not Available Office [address] , [place], [address], 06/01/2025 11:44:25 06/01/20 25 06/01/2025 urina lysis , dipst ick urobilinogen norm normal Not Available Offic e [address] , [place], [address], 06/01/2025 11:44:25 02/15/20 25 02/14/2025 US, doppl er, venou s No observ ation record ed. [facility] [address], [place], [address], 02/14/2025 13:58:25 Result Notes None recorded. 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 patient with signific ant improvem ent. continue with mm relaxer, advil prn...gabriel fernandez did not fill rx for norco. will start PT, schedule appt with PM&R Dr Lopez if failure to improve with PT. aware to RTO if pain worsens or new symptoms develop. Problem Code: M54.16; Problem Code Type: ICD-10; Status: '*'; Marysol Ball PA-C [address], [place], [address] , [facility] 5 08:45:24 Erectile dysfunct ion [id number] Active Marysol Ball PA-C [address], [place], [address] , [facility] 3 14:08:32 Dyspnea [id number] Completed 07/23/2023 Problem Code: R06.00; Problem Code Type: ICD-10; Status: '*'; Marysol Ball PA-C [address], [place], [address] , [facility] 3 13:59:18 Bony swelling of lumbar spine [id number] Completed 07/23/2023 order MRI today due to severe pain, right leg weakness . discusse d EC scenario s. start steroid and flexeril prn. consider PT in the next 1-2 weeks once acute inflamma tion has subsided somewhat . Problem Code: R29.898; Problem Code Type: ICD-10; Status: '*'; Marysol Ball PA-C [address], [place], [address] , [facility] 3 13:58:00 Liver enzyme levels - finding [id number] Completed 04/25/2025 10/15/2016 elevated enzyme levels- this requires further eval, advise EC for further eval, called cell and LM-mp spoke with pt- he will go to [facility] Problem Code: R74.8; Problem Code Type: ICD-10; Status: '*'; Marysol Ball PA-C [address], [place], [address] , [facility] 5 08:45:36 General examinat ion of patient Completed 07/23/2023 discusse d Shingrix and increasi ng diet and exercise w/pt. order EKG, normal. labs ordered today, will wait 1 month to complete . Status: '*'; Marysol Ball PA-C [address], [place], [address] , [facility] 3 13:59:17 Bacteria l infectio us disease [id number] Completed 01/23/2025 R ureteral stent for bladder cancer on 01/31/21 at [facility] was on cefdinir course post-op he complete d the on 02/07/21 went to ER for abd pain, n/v/f on 02/08/21 KUB showed appropri ate position of R nephrour eteral stent, US negative hydronep hrosis cbc wbc high 22, creatini ne 1.62 dx with sepsis, UTI, hematuri a, hyponatr emia, acute LILIANA, diarrhea - c.diff started on vanco in hospital for c.diff and cipro for uti. has one day left of cipro- will return for repeat UA and culture once done Problem Code: A49.8; Problem Code Type: ICD-10; Status: '*'; Marysol Ball PA-C [address], [place], [address] , [facility] 5 12:47:07 Hyperten sive disorder 38956703 Active Marysol Ball PA-C [address], [place], [address] , [facility] 3 14:08:45 Chronic rhinitis [id number] Completed 01/23/2025 Problem Code: J31.0; Problem Code Type: ICD-10; Status: '*'; Marysol aBll PA-C [address], [place], [address] , [facility] 5 12:47:07 Gout 97310096 Active Marysol Ball PA-C [address], [place], [address] , [facility] 5 12:46:36 Pain in coccyx 96223372 Completed 07/23/2023 fell 11 days ago and reports tender tailbone , xray negative . Discusse d methods to prevent pressure on coccyx region, utilizin g donut pillow prn. Using Tylenol prn, advised no more than 4000 mg per day. Problem Code: M53.3; Problem Code Type: ICD-10; Status: '*'; Marysol Ball PA-C [address], [place], [address] , [facility] 3 13:59:18 Pain in lumbar spine [id number] Completed 07/23/2023 gave small supply of norco for breakthr ough pain. discusse d proper use and potentia l side effects, patient will shed the rx if he does not end up filling. Status: '*'; Marysol Ball PA-C [address], [place], [address] , [facility] 3 13:59:18 Backache [id number] Completed 04/25/2025 likely due to long drive yesterda y. improved today. UA normal. recommen ded motrin as needed for pain, ice/heat , stretchi ng. will RTO if pain returns or if other sxs develop. Problem Code: M54.9; Problem Code Type: ICD-10; Status: '*'; Marysol Ball PA-C [address], [place], [address] , [facility] 5 08:46:18 Muscle pain [id number] Completed 01/23/2025 muscle sparin vs. rhabdo from statin. Problem Code: M79.10; Problem Code Type: ICD-10; Status: '*'; Marysol Ball PA-C [address], [place], [address] , [facility] 5 12:47:07 Dry cough 36137528 Completed 07/23/2023 Status: '*'; Marysol Ball PA-C [address], [place], [address] , [facility] 3 13:59:17 Diarrhea [id number] Completed 07/23/2023 Problem Code: R19.7; Problem Code Type: ICD-10; Status: '*'; Marysol Ball PA-C [address], [place], [address] , [facility] 3 13:59:18 Finding of general energy 419914030 Completed 07/23/2023 Problem Code: R53.83; Problem Code Type: ICD-10; Status: '*'; Marysol Ball PA-C [address], [place], [address] , [facility] 3 13:59:18 Impaired fasting glycemia [id number] Completed 01/23/2025 Problem Code: R73.01; Problem Code Type: ICD-10; Status: '*'; Marysol Ball PA-C [address], [place], [address] , [facility] 5 12:47:36 Screenin g for malignan t neoplasm of colon Active Marysol Ball PA-C [address], [place], [address] , [facility] 5 08:44:40 Body mass index 30+ - obesity 161840428 Active Marysol Ball PA-C [address], [place], [address] , [facility] 5 08:46:51 Finding of body mass index 577234977 Completed 07/23/2023 Problem Code: Z68.41; Problem Code Type: ICD-10; Status: '*'; Marysol Ball PA-C [address], [place], [address] , [facility] 3 13:59:18 Disease type AND/OR category unknown [id number] Completed 07/23/2023 Problem Code: 799.9; Problem Code Type: ICD-9; Status: '*'; Marysol Ball PA-C [address], [place], [address] , [facility] 3 13:59:18 Adult health examinat ion Completed 07/23/2023 Problem Code: V70.0; Problem Code Type: ICD-9; Status: '*'; Marysol Ball PA-C [address], [place], [address] , [facility] 3 13:59:57 Malignan t neoplasm of urinary bladder [id number] Active f/u with speciali st at [facility] q3 months for scope, next schedule d 02/2022. Marysol Ball PA-C [address], [place], [address] , [facility] 5 12:47:28 Phlebiti s [id number] Completed 04/24/2025 rt thigh with redness and tenderne ss, swelling and indurati on localize d fairly superfic ial, hx of DVT and PE, off thinners , recent long travel to [facility], will send for STAT doppler, unable to get schedule d timely so sent to [facility] for stat doppler Problem Code: I80.9; Problem Code Type: ICD-10; Status: '*'; Marysol Ball PA-C [address], [place], [address] , [facility] 5 15:57:53 Melena [id number] Completed 01/23/2025 Problem Code: K92.1; Problem Code Type: ICD-10; Status: '*'; Marysol Ball PA-C [address], [place], [address] , [facility] 5 12:47:06 Polyalgi a [id number] Completed 07/23/2023 Problem Code: M79.89; Problem Code Type: ICD-10; Status: '*'; Marysol Ball PA-C [address], [place], [address] , [facility] 3 13:59:17 Urinary tract infectio us disease [id number] Completed 07/23/2023 Hx of aggressi ve bladder cancer- s/p bladder resectio n and is on week 79 of BCG therapy. Hx of kidney cancer- left kidney removed in 2009. 1 Alisson Adams PA-C Problem Code: N39.0; Problem Code Type: ICD-10; Status: '*'; Marysol Ball PA-C [address], [place], [address] , [facility] 3 13:59:18 Chest pain [id number] Completed 04/25/2025 ekg neg. Palpable , suspect stress related, will ck labs EC/nitro needs reviewed Problem Code: R07.9; Problem Code Type: ICD-10; Status: '*'; Marysol Ball PA-C [address], [place], [address] , [facility] 5 08:46:15 Blood in urine [id number] Active episodic per patient, UA normal today. will send for urine with microsco py and culture. possible stone passed? will order CT abd/pelv is and check labs- ordered cpe labs. refer to urologis t for penile pain. bs 01/04/21 Problem Code: R31.9; Problem Code Type: ICD-10; Status: '*'; Not Available [facility] 3 03:42:44 Finding of desire for urinatio n [id number] Completed 07/23/2023 UA showed 75 leukocyt es- sent for culture. 1 Alisson Adams PA-C Problem Code: R39.15; Problem Code Type: ICD-10; Status: '*'; Marysol Ball PA-C [address], [place], [address] , [facility] 3 13:59:18 Coma [id number] Completed 07/23/2023 Problem Code: R40.20; Problem Code Type: ICD-10; Status: '*'; Marysol Ball PA-C [address], [place], [address] , [facility] 3 13:59:18 Screenin g for malignan t neoplasm of prostate Active Marysol Ball PA-C [address], [place], [address] , [facility] 5 12:47:19 Counseli ng Completed 07/23/2023 Problem Code: Z71.85; Problem Code Type: ICD-10; Status: '*'; Marysol Ball PA-C [address], [place], [address] , [facility] 3 13:59:18 Candidia sis of mouth [id number] Completed 07/23/2023 Problem Code: B37.0; Problem Code Type: ICD-10; Status: '*'; Marysol Ball PA-C [address], [place], [address] , [facility] 3 13:59:18 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 Completed 01/23/2025 on no meds Problem Code: E29.9; Problem Code Type: ICD-10; Status: '*'; Marysol Ball PA-C [address], [place], [address] , [facility] 5 12:47:07 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 3 14:08:27 Neuropat hy of lower limb 969379513 Completed 04/25/2025 [place] 2 [place] , use meds only if leg pain becomes severe. seeing DR Ochoa's PA tomorrow for eval also Problem Code: G57.90; Problem Code Type: ICD-10; Status: '*'; Marysol Ball PA-C [address], [place], [address] , [facility] 5 08:45:01 Disorder of upper respirat ory system 515403018 Completed 07/23/2023 will treat with zpack and predniso ne schedule covid and flu testing monitor pulse ox/temp, continue OTC meds, ED should any concerni ng s/s develop 2 Alisson Adams PA-C Problem Code: J06.9; Problem Code Type: ICD-10; Status: '*'; Marysol Ball PA-C [address], [place], [address] , [facility] 3 13:59:17 Sinusiti s [id number] Completed 07/23/2023 Siomara zavaleta using over the counter Flonase nasal spray. One spray in each nostril twice daily. (while in nostril point tip of bottle outwards ) This works best when combined with an oral daily antihist amine (such as Claritin , Alisa or Zyrtec). Problem Code: J32.9; Problem Code Type: ICD-10; Status: '*'; Marysol Ball PA-C [address] , [place], [address] , [facility] 3 13:59:18 Bronchit is [id number] Completed 07/23/2023 much improved Problem Code: J40; Problem Code Type: ICD-10; Status: '*'; Marysol Ball PA-C [address] , [place], [address] , [facility] 3 13:58:04 Nasal congesti on [id number] Completed 07/23/2023 Problem Code: R09.81; Problem Code Type: ICD-10; Status: '*'; Marysol Ball PA-C [address] , [place], [address] , [facility] 3 13:59:18 Dizzines s and giddines s [id number] Completed 07/23/2023 seen briefly today, nystagmu s to left noted, likely BPV/labr ynthitis , cont zaralto for now Problem Code: R42; Problem Code Type: ICD-10; Status: '*'; Marysol Ball PA-C [address] , [place], [address] , [facility] 3 13:59:18 Prediabe whitney [id number] Active Marysol Ball PA-C [address], [place], [address] , [facility] 5 12:46:25 Exercise s educatio n, guidance , and counseli ng Completed 07/23/2023 Problem Code: Z71.82; Problem Code Type: ICD-10; Status: '*'; Marysol Ball PA-C [address], [place], [address] , [facility] 3 13:59:18 History of thromboe mbolism 293129716 Active Marysol Ball PA-C [address], [place], [address] , [facility] 5 12:47:39 Overweig ht [id number] Completed 07/23/2023 Problem Code: E66.3; Problem Code Type: ICD-10; Status: '*'; Marysol Ball PA-C [address], [place], [address] , [facility] 3 13:59:17 Insomnia [id number] Completed 04/25/2025 using 5 ml Benadryl often to aid sleep, c/o sedating feeling in morning. discusse d Trazodon e w/ pt Start Trazodon e Status: '*'; Marysol Ball PA-C [address], [place], [address] , [facility] 5 08:45:40 COVID-19 [id number] Completed 07/23/2023 ProblemC ode: 'Z20.828 '; ProblemC odeType: 'ICD-10' ; Status: '*'; Marysol Ball PA-C [address], [place], [address] , [facility] 13:59:18 History of sexually transmit barbara disease 621319509 Completed 07/23/2023 Hospital ized with urosepsi s 02/2021. Problem Code: Z86.19; Problem Code Type: ICD-10; Status: '*'; Marysol Ball PA-C [address], [place], [address] , [facility] 3 13:59:18 Dietary manageme nt surveill ancmak Completed 07/23/2023 Status: '*'; ProblemC ode: 'Z71.3'; ProblemC odeType: 'ICD-10' ; Marysol Ball PA-C [address], [place], [address] , [facility] 3 13:59:18 Coronary heart disease monitori ng status [id number] Completed 04/25/2025 Marysol Ball PA-C [address], [place], [address] , [facility] 5 08:46:39 History of colonosc opy 84995698503 9 Completed 04/25/2025 Marysol Ball PA-C [address], [place], [address] , [facility] 5 08:45:52 Venous insuffic iency of lower limb 679110532 Completed 04/25/2025 Marysol Ball PA-C [address], [place], [address] , [facility] 5 08:44:55 Lacerati on of head 313713632 Completed 07/23/2023 pt here today for posterio r scalp S/R, recently fell. CT scan of head negative . 5 sutures removed today. No complica tions occurred . Status: '*'; ProblemC ode: 'S01.91X A'; ProblemC odeType: 'ICD-10' ; Marysol Ball PA-C [address], [place], [address] , [facility] 3 13:59:18 Chronic neck pain 90804405601 07 Completed 04/25/2025 3 months, consider PT if not resolvin g Status: '*'; ProblemC ode: 'M54.2'; ProblemC odeType: 'ICD-10' ; Marysol Ball PA-C [address], [place], [address] , [place] [facility] 08:46:12 Pain of left lower leg 96602908406 9101 Completed 07/23/2023 H/O DVT, recent travel ([place] suspicio us for DVT. STAT Doppler Status: '*'; ProblemC ode: 'M79.605 '; ProblemC odeType: 'ICD-10' ; Marysol Ball PA-C [address], [place], [address] , [place] [facility] 13:59:18 Low back pain 880852421 Completed 202207/23/2023 Marysol Ball PA-C [address], [place], [address] , [place] [facility] 13:59:18 Lumbago with sciatica 741863835 Completed 202207/23/2023 Marysol Ball PA-C [address], [place], [address] , [place] [facility] 13:59:17 Lumbago with sciatica 865211471 Completed 202204/25/2025 Marysol Ball PA-C [address], [place], [address] , [place] [facility] 08:45:30 Obesity 521913351 Completed 202201/23/2025 Marysol Ball PA-C [address], [place], [address] , [place] [facility] 12:47:07 Cyst of skin 597650984 Completed 202204/25/2025 Marysol Ball PA-C [address], [place], [address] , [place] [facility] 08:46:09 Urinary symptoms 522259249 Completed 202207/23/2023 Marysol Ball PA-C [address], [place], [address] , [place] [facility] 3 13:59:18 Constipa tion 78442514 Active 2022 Marysol Ball PA-C [address], [place], [address] , [place] [facility] 3 14:06:33 Fatigue 53954654 Completed 202201/23/2025 Marysol Ball PA-C [address], [place], [address] , [place] [facility] 5 12:47:07 Varicose veins of lower extremit y 35709611 Active 2022 Marysol Ball PA-C [address], [place], [address] , [place] [facility] 3 15:12:35 Degenera tion of lumbar interver tebral disc 53897596 Active 2022 Marysol Ball PA-C [address], [place], [address] , [place] [facility] 3 15:13:20 Lumbosac ral radiculo kg 3844965 Active 2023 Lumbar MRI: DDD with facet arthropa thy, L5/S1 left subartic ular recess narrowed where there is contact with traversi ng left S1 nerve root . Marysol Ball PA-C [address], [place], [address] , [place] [facility] 5 08:45:24 Aneurysm 889322201 Active 2023 aortic aneurysm , 4.8cm followin g with al [facility] Marysol Ball PA-C [address], [place], [address] , [place] - [facility] 5 15:48:27 Coronary atherosc lerosis 506810802 Active 202408/10/20 14 calcium score 2012 655 Cardiac cath 11/2012 revealed mild disease, follows with cards, medical manageme nt-mp Marysol Ball PA-C [address], [place], [address] , [place] [facility] 08:46:42 Edema of lower extremit y 774518004 Completed 202404/25/2025 Marysol Ball PA-C [address], [place], [address] , [place] [facility] 08:45:55 Peripher al venous insuffic iency 86239697 Active 2024 Marysol Ball PA-C [address], [place], [address] , [place] [facility] 08:44:57 Subcutan eous hematoma 4786879 Completed 202404/24/2025 Marysol Ball PA-C [address], [place], [address] , [place] [facility] 15:57:47 Traumati c hematoma 610541543 Completed 202404/24/2025 Marysol Ball PA-C [address], [place], [address] , [place] [facility] 15:57:43 Hypercho lesterol emia 32872524 Active 2024 Marysol Ball PA-C [address], [place], [address] , [place] [facility] 08:44:15 Urinary system finding 024729448 Active 2024 Marysol Ball PA-C [address], [place], [address] , [place] [facility] 11:57:18 Problem Notes None recorded. Procedures Surgical History Date Name Laterality Status Provider Name and Address Organization Details Recorded Time 09/20/20 21 colonoscopy completed Lety Russo [place] - [facility] 06/19/2023 14:58:14 10/12/19 partial nephrectomy completed Lety Russo [place] - [facility] 04/07/2023 12:43:43 10/12/19 00 procedure on back completed Lety Russo [place] - [facility] 04/07/2023 12:43:25 Imaging Results None recorded. Procedure Notes None recorded. Medical Equipment None Reported. Allergies Allergen ID Allergen Name Allergen Category Reaction Reaction Severity Criticality Documentation Date Start Date Code Code System Note Provider Name and Address Organization Details Recorded Time 11034 codeine medicatio n nausea Not available Not available 06/23/20222021 2670 RxNorm Lety Russo [facility], [place] - [facility] 12:44:33 Medications Name Sig Start Date Stop Date Status Note LastModified by Organization Details LastModified Time Semagluti de / Cyanocoba michelle 2mg-0.4mg /mL inject 0.25mg once weekly 2022 active Not Available Not Available Not Avai lable Semagluti de / Cyanocoba michelle 5mg-0.4mg /mL Inject 1.5mg once weekly (30 units) 2023 active $395 Not Available Not Available Not Avai lable Semagluti de / Cyanocoba michelle 5mg-0.4mg /mL Inject 1.5mg once weekly (30 units) 02/13 completed $395 Not Available Not Available Not Available Semagluti de / Cyanocoba michelle 5mg-0.4mg /mL Inject 1mg once weekly 2022 active $395 Not Available Not Available Not Avai lable Semagluti de / Cyanocoba michelle 5mg-0.4mg /mL Inject 1.5mg once weekly (30 units) 2023 active $395 Not Available Not Available Not Avai lable Semagluti de / Cyanocoba michelle 2mg-0.4mg /mL inject 0.5mg once weekly 06/19 completed Not Available Not Available Not Available Semagluti de / Cyanocoba michelle 5mg-0.4mg /mL Inject 1.5mg once weekly (30 units) 2023 active $395 Not Available Not Available Not Avai lable Semagluti de / Cyanocoba michelle 5mg-0.4mg /mL Inject 1.5mg once weekly (30 units) 2023 active $395 Not Available Not Available Not Avai lable cyclobenz aprine 10 mg tablet 1 (one) Tablet at bedtime prn 01/15 completed Not Available Not Available Not Available amoxicill in 500 mg capsule TAKE ONE CAPSULE BY MOUTH FOUR TIMES DAILY FOR 7 DAYS 01/20 completed Not Available Not Available Not Available atorvasta tin 40 mg tablet 1 Tablet daily 02/05 completed Not Available Not Available Not Available methocarb lilliana 500 mg tablet TAKE 1 TABLET BY MOUTH THREE TIMES DAILY NEEDED 01/20 completed Not Available Not Available Not Available nystatin 100,000 unit/mL oral suspensio n 5 Suspensi on ccs each side mouth swish and swallow qid 10/29 completed Not Available Not Available Not Available prednison e 10 mg tablet 3 (three) Tablet po qam 12/11 completed Not Available Not Available Not Available Methylpre dnisolone (Joey) 4 mg oral kit 1 (one) Tablet Tablet As directed in enclosed package 10/29 completed Not Available Not Available Not Available trazodone 50 mg tablet TAKE 1 TABLET BY MOUTH EVERY NIGHT AT BEDTIME NEEDED 03/13 completed Not Available Not Available Not Available azithromy lidia 250 mg tablet TAKE DIRECTED 01/20 completed Not Available Not Available Not Available ibuprofen 800 mg tablet TAKE 1 TABLET BY MOUTH EVERY 6 TO 8 HOURS NEEDED active Not Available Not Available No t Available hydrocodo ne 5 mg-acetam inophen 325 mg tablet 1 (one) Tablet four times daily, as needed 11/23 completed Not Available Not Available Not Available Potassium Chloride ER 10 mEq tablet,ex tended release 1 (one) Tablet ER Tablet ER every morning 04/12 completed Not Available Not Available Not Available Lasix 40 mg tablet 1 (one) Tablet Tablet every morning 04/12 completed Not Available Not Available Not Available prednison e 20 mg tablet 1 (one) Tablet two times daily with food 11/11 completed Not Available Not Available Not Available prednison e 5 mg tablet 1 (one) Tablet 7 day taper as directed 11/06 completed 7-6-5-4- 3-2-1 (each daily) wean over 7 days Not Available Not Available Not Available metronida zole 500 mg tablet 1 (one) Tablet two times daily 08/24 completed Not Available Not Available Not Available ciproflox acin 250 mg tablet 1 (one) Tablet BID 07/24 completed Not Available Not Available Not Available allopurin ol 100 mg tablet TAKE 1 TABLET BY MOUTH EVERY DAY 03/13 completed Not Available Not Available Not Available sulfameth oxazole 800 mg-trimet hoprim 160 mg tablet TAKE 1 TABLET BY MOUTH TWICE DAILY WITH FOOD active Not Available Not Available No t Available alprazola m 0.25 mg tablet TAKE 1 TABLET BY MOUTH THREE TIMES DAILY NEEDED active Not Available Not Available No t Available methocarb lilliana 750 mg tablet TAKE 1 TABLET BY MOUTH THREE TIMES DAILY NEEDED . SPARINGL Y CAREFUL SEDIATIO N 04/07 completed Not Available Not Available Not Available tamsulosi n 0.4 mg capsule TAKE 1 CAPSULE BY MOUTH EVERY DAY active Not Available Not Available No t Available meclizine 25 mg tablet 1 (one) Tablet Tablet three times daily, as needed 01/15 completed Not Available Not Available Not Available Cipro 500 mg tablet 1 (one) Tablet BID for 8 days 04/14 completed has one dose tonight and one dose tomorrow am left, rx from hospital . bs 02/18/21 Not Available Not Available Not Available lisinopri l 10 mg tablet TAKE 1 TABLET BY MOUTH EVERY DAY 03/13 completed Not Available Not Available Not Available prednison e 50 mg tablet 1 (one) Tablet Tablet daily PRN 03/16 completed Not Available Not Available Not Available indometha lidia 50 mg capsule 1 (one) Capsule Capsule every 8 hours while foot hurting 04/12 completed Not Available Not Available Not Available nitroglyc jose 0.4 mg sublingua l tablet PLACE 1 TABLET UNDER THE TONGUE EVERY 5 MINUTES NEEDED FOR CHEST PAIN MAY REPEAT EVERY 5 MINUTES FOR UP TO 3 DOSES active Not Available Not Available No t Available allopurin ol 300 mg tablet TAKE 1 TABLET BY MOUTH EVERY DAY 2024 active Not Available Not Available Not Avai lable aspirin 81 mg tablet 1 (one) Tablet daily 2021 active Not Available Not Available Not Avai lable gabapenti n 100 mg capsule TAKE 1 CAPSULE BY MOUTH THREE TIMES DAILY NEEDED FOR NERVE PAIN 01/20 completed Not Available Not Available Not Available ibuprofen 600 mg tablet Take 1 tablet 3 times a day by oral route. 06/19 completed Not Available Not Available Not Available Ventolin 2.5 mg/3 mL (0.083 %) solution for nebulizat ion 1 (one) Nebulize d Soln Nebulize d Soln qid prn 10/29 completed Not Available Not Available Not Available methylpre dnisolone 4 mg tablets in a dose pack FOLLOW PACKAGE DIRECTIO NS 01/20 completed Not Available Not Available Not Available colchicin e 0.6 mg tablet 2 (two) tablet PO now then 1 tab 1 hour later 03/16 completed Not Available Not Available Not Available Percocet 5 mg-325 mg tablet 1 Tablet Tablet four times daily, as needed 08/10 completed Not Available Not Available Not Available PreviDent 5000 Plus 1.1 % cream USE TWICE A DAY WHEN BRUSHING . REPLACIN G REGULAR TOOTHPAS TE. 03/13 completed Not Available Not Available Not Available Adult Aspirin EC Low Strength 81 mg tablet,de layed release 1 (one) Tablet daily 03/25 completed This order disconti nued per [facility]. Not Available Not Available Not Available diazepam 5 mg tablet TAKE 1 TO 2 TABLETS BY MOUTH THREE TIMES DAILY NEEDED FOR SPASM 07/23 completed Not Available Not Available Not Available amoxicill in 875 mg-potass ium clavulana te 125 mg tablet TAKE 1 TABLET BY MOUTH TWICE DAILY FOR 14 DAYS 03/13 completed Not Available Not Available Not Available escitalop ivelisse 10 mg tablet TAKE 1 TABLET BY MOUTH DAILY 2024 active Not Available Not Available Not Avai lable ezetimibe 10 mg tablet Take 1 tablet every day by oral route. 2024 active Not Available Not Available Not Avai lable cyclobenz aprine 5 mg tablet 1/2 TO 2 Tablet q 6 hours for spasm 08/01 completed Not Available Not Available Not Available rosuvasta tin 40 mg tablet TAKE 1 TABLET BY MOUTH AT BEDTIME active Not Available Not Available No t Available Wellbutri n XL 150 mg 24 hr tablet, extended release 1 (one) Tablet daily 02/18 completed Not Available Not Available Not Available tadalafil 20 mg tablet TAKE 1 TABLET BY MOUTH NEEDED 03/13 completed Not Available Not Available Not Available amoxicill in-pot clavulana te 1 (one) Tablet two times daily with food and water 09/13 completed Not Available Not Available Not Available ProAir HFA 90 mcg/actua tion aerosol inhaler 1-2 inhalati on inhalati on inhalati on qid prn 2015 active Not Available Not Available Not Avai lable Symbicort 160 mcg-4.5 mcg/actua tion HFA aerosol inhaler 1 (one) inhalati on inhalati on two times daily 06/30 completed Not Available Not Available Not Available Lovaza 1 gram capsule 1 (one) Capsule qd 06/[address] Aranda Not Available Not Available Not Available Axiron 30 mg/actuat ion (1.5 mL) transderm solution in metered pump 1 Unit(s) each axilla daily 05/23 completed Not Available Not Available Not Available AndroGel 20.25 mg/1.25 gram per pump act. (1.62 %) transderm al gel 2 (two) pumps daily 06/21 completed Not Available Not Available Not Available Xarelto 20 mg tablet TAKE 1 TABLET BY MOUTH DAILY active Not Available Not Available No t Available Eliquis 2.5 mg tablet 1 (one) Tablet Tablet BID 3 days before travel and througho ut trip, disconti nue after returnin g 10/30 completed Not Available Not Available Not Available BinaxNOW COVID-19 Ag Self Test kit TEST DIRECTED TODAY 03/13 completed Not Available Not Available Not Available Wegovy 1 mg/0.5 mL subcutane ous pen injector Inject 1 mg every week by subcutan eous route. 2024 active Not Available Not Available Not Avai lable Wegovy 0.25 mg/0.5 mL subcutane ous pen injector Inject 0.25 mg every week by subcutan eous route. 04/24 completed Not Available Not Available Not Available Wegovy 0.5 mg/0.5 mL subcutane ous pen injector ADMINIST ER 0.5 MG UNDER THE SKIN EVERY WEEK 06/01 completed Not Available Not Available Not Available Zepbound 2.5 mg/0.5 mL subcutane ous pen injector Inject 2.5 mg every week by subcutan eous route. 2023 active Not Available Not Available Not Avai lable Vitals Date Recorded Body height Body mass index (BMI) Body weight Body temperature Heart rate Systolic And Diastolic Provider Name and Address Organization Details Last Updated DateTime 5 185.42 cm 36.7 kg/m2 786345. 68 g 97.8 [degF] 67 /min 104/73 mm[Hg] Brittni Duran [place] - [facility] 5 15:29:23 Date Recorded Body height Body mass index (BMI) Body weight Body temperature Heart rate Systolic And Diastolic Provider Name and Address Organization Details Last Updated DateTime 5 185.42 cm 37.1 kg/m2 920003. 46 g 97.1 [degF] 64 /min 132/90 mm[Hg] Carleen Curran ND - [facility] 5 16:10:16 Date Recorded Body height Body mass index (BMI) Body weight Body temperature Heart rate Systolic And Diastolic Provider Name and Address Organization Details Last Updated DateTime 5 185.42 cm 37.1 kg/m2 126248. 46 g 98.2 [degF] 58 /min 124/85 mm[Hg] Jane Kern ND - [facility] 5 14:49:38 Date Recorded Body height Body mass index (BMI) Body weight Body temperature Heart rate Systolic And Diastolic Provider Name and Address Organization Details Last Updated DateTime 5 185.42 cm 36.7 kg/m2 337636. 68 g 97.7 [degF] 71 /min 119/85 mm[Hg] Kylie Kurtz [place] - [facility] 5 15:47:16 Date Recorded Body height Body mass index (BMI) Body weight Body temperature Heart rate Systolic And Diastolic Provider Name and Address Organization Details Last Updated DateTime 5 185.42 cm 36.7 kg/m2 476834. 68 g 97.8 [degF] 67 /min 112/74 mm[Hg] Mely Barney [place] - [facility] 5 11:42:04 Social History Question Answer Notes LastModified by Organizat ion Details LastModified Time Tobacco Smoking Status Never Smoker Brittni Renee weeks [place] - [facility] 03/13/2023 11:58:09 What Is Your Level Of Caffeine Consumption? Moderate 4/day Information not available 03/13/2025 How Many Times Per Week Do You Exercise? 1-2 Times Per Week Information not available 03/13/2023 Marital Status [email or web address] Informat ion not available 07/31/2023 What Was The Date Of Your Most Recent Tobacco Screening? 06/01/2025 [email or web address] Information not available 06/01/2025 What Is Your Relationship Status? [email or web address] Information not available 07/31/2023 Sex: Male Functional Status Question Answer Note LastModified by Organizat ion Details LastModified Time How many times per week do you consume alcohol? 3-4 times per week Information not available 03/13/2023 Do you use any illicit or recreational drugs? No Information not available 03/13/2023 Do you or have you ever used any other forms of tobacco or nicotine? No [email or web address] Information not available 10/20/2023 What is your level of alcohol consumption? Moderate Information not available 03/13/2025 Are you currently employed? Yes Information not available 03/13/2023 What is your exercise level? Occasional Information not available 03/13/2023 Mental Status None recorded. Family History Relationship Description Onset Age of this Age Resolved Age Notes LastModified by Organization Details LastModified Time Father Heart disease [email or web address] Not available 12:42:56 Father Malignant neoplasm of lung [email or web address] Not available 12:43:05 Mother Hypertensive disorder [email or web address] Not available 12:43:12 Medical History No medical history recorded. Immunizations Vaccine Type Date Status Note Provider Nam e and Address Organization Details Recorded Time COVID-19, mRNA, LNP-S, PF, 30 mcg/0.3 mL dose 1 completed Not Available [facility] 11/17/2023 14:40:32 Influenza, split virus, quadrivalent, preservative 6 completed January Bartolf null, [place] - [facility] 07/29/2023 14:04:34 Influenza, split virus, quadrivalent, preservative 5 completed January Bartolf null, [place] - [facility] 07/29/2023 14:04:34 Influenza, split virus, quadrivalent, preservative 7 completed January Bartolf null, [place] - [facility] 07/29/2023 14:04:34 Tdap 8 completed January Bartolf null, [place] - [facility] 07/29/2023 14:04:35 Influenza, split virus, quadrivalent, preservative 8 completed January Bartolf null, [place] - [facility] 07/29/2023 14:04:34 COVID-19, mRNA, LNP-S, PF, 30 mcg/0.3 mL dose 1 completed January Bartolf null, [place] - [facility] 07/29/2023 14:04:34 COVID-19, mRNA, LNP-S, PF, 30 mcg/0.3 mL dose 1 completed January Bartolf null, [place] - [facility] 07/29/2023 14:04:34 COVID-19, mRNA, LNP-S, PF, 30 mcg/0.3 mL dose 1 completed January Bartolf null, [place] - [facility] 07/29/2023 14:04:34 COVID-19, mRNA, LNP-S, PF, 30 mcg/0.3 mL dose, rafael-sucrose 2 completed January Bartolf null, [place] - [facility] 07/29/2023 14:04:34 COVID-19, mRNA, LNP-S, bivalent, PF, 30 mcg/0.3 mL dose 2 completed January Bartolf null, [place] - [facility] 07/29/2023 14:04:34 Tdap 1 completed January Bartolf null, [place] - [facility] 07/29/2023 14:04:35 Pneumococcal conjugate PCV 13 0 completed January Bartolf null, [place] - [facility] 07/29/2023 14:04:35 Influenza, split virus, trivalent, PF 3 completed January Bartolf null, [place] - [facility] 07/29/2023 14:04:35 Influenza, split virus, trivalent, PF 2 completed January Bartolf null, [place] - [facility] 07/29/2023 14:04:35 Influenza, split virus, trivalent, PF 5 completed January Bartolf null, [place] - [facility] 07/29/2023 14:04:35 Influenza, split virus, quadrivalent, PF 1 completed January Bartolf null, [place] - [facility] 07/29/2023 14:04:35 COVID-19, mRNA, LNP-S, PF, rafael-sucrose, 30 mcg/0.3 mL 3 completed Lety Russo null, [place] - [facility] 07/31/2023 14:37:02 Influenza, split virus, quadrivalent, PF 3 completed Lety Russo null, [place] - [facility] 07/31/2023 14:36:53 zoster recombinant 4 completed Brittni Vanhuyse null, [place] - [facility] 01/20/2025 15:20:57 Influenza, split virus, trivalent, PF 4 completed Brittni Vanhuyse null, [place] - [facility] 01/20/2025 15:20:57 zoster recombinant 5 completed January Bartolf null, [place] - [facility] 03/13/2025 14:45:10 Past Encounters Encounter ID Performer Location Encounter Start Date Encounter Closed Date Diagnosis/Indication Diagnosis SNOMED-CT Code Diagnosis ICD10 Code Diagnosis IMO Codes Diagnosis Note [id number] Chong Wilder MD OFFICE [address] [place] [address] 09/12/2022 08:57:54 09/12/2022 11:05:14 Acute sinusitis 51634285 J01.90 pt complains of sinus pain and colored phlegm x several weeks. Discussed potential risks and benefits of antibiotic course. Anxiety 49936348 F41.9 Patients' condition is stable, continue current treatment. Do not change doses or medication s. 1 rx of Xanax was e-prescrib ed to the pharmacy. Gout 82418086 M10.9 Patients' condition is stable, continue current treatment. Do not change doses or medication s. [id number] Collin Fernandes DO OFFICE [address] [facility] [place] [address] 03/13/2023 11:32:20 03/13/2023 12:35:46 Body mass index 30+ - obesity 500994212 Z68.39 Z71.3 Z71.82 Low back pain 828155316 M54.50 Lifted heavy pots an developed. Seized up while carrying these. 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 heat, stretching and exercises at home, topical analgesics , muscle relaxer q hs, nsaids prn. monitor changes in symptoms such as numbness, tingling or weakness in legs, changes in bowel or bladder habits or worsening back pain. [id number] Marysol Ball PA-C OFFICE [address] [place] [address] 06/19/2023 15:29:07 06/19/2023 15:57:57 Tobacco non-user [id number] 68065 Z13.89 Body mass index 30+ - obesity 261126498 Z68.37 Z71.3 Z71.82 E66.01 Urinary symptoms 2495710 08 R39.9 severe dysuria earlier this week -- took otc pyridium which helped symptoms. did not take today, sx better but not at baseline. Obesity 031704548 E66.9 Cyst of skin 890493310 L 72.9 previous derm may have retired Lumbago with sciatica 20 2602519 M54.40 doing very well with PT -- continue [id number] Marysol Ball PA-C OFFICE [address] [facility] [place] [address] 07/23/2023 11:15:23 07/23/2023 14:12:06 Anxiety 02826802 F41.9 condition stable with current regimen, continue same medication and dosage. Constipation 27979262 K5 9.00 using fiber, colace. advise miralax prn. push fluids. notify the office if any new or worsening symptoms occur. [id number] Marysol Ball PA-C OFFICE [address] [facility] [place] [address] 07/31/2023 14:34:03 07/31/2023 15:43:58 Tobacco non-user [id number] 76041 Z13.89 Adult heal th examination 911587868 Z00.00 Continue with healthy diet and activity choices. Nutrition and exercise discussed. Mood stable. Maintenanc e with colonoscop y. Notify the office if any new or worsening symptoms occur. Body mass index 30+ - obesity 923917027 Z68.37 Z71.3 Z71.82 E66.01 Influenza vaccination declined 308155374 Z28.21 Screening for malignant neoplasm of prostate 007117066 Z12.5 Fatigue 43363634 R53.83 Gout 53421909 M10.9 Anxiety 29434687 F41.9 condition stable with current regimen, continue same medication and dosage. Varicose v eins of lower extremity 30217923 I83.93 elevation, exercise, compressio n stockings prn Degenerati on of lumbar intervertebral disc 35311333 M51.36 [id number] Tamiko Robin DO OFFICE [address] [facility] [place] [address] 09/07/2023 08:27:21 09/07/2023 09:32:20 Gout 21947449 M10.9 Anxiety 50037653 F41.9 History of deep vein thrombosis 504949984 Z86.718 DVT from previous flight to [place], going again, will use as prophylaxi s. [id number] Randa Lopez MD OFFICE [address] [facility] [place] [address] 11/17/2023 14:40:08 11/18/2023 09:10:27 Paresthesia of lower extremity 317903181 R20.2 [id number] Marysol Ball PA-C OFFICE [facility] [address] [place] [address] 03/11/2024 14:39:09 03/11/2024 15:22:22 Body mass index 30+ - obesity 047617901 Z68.36 Z71.3 Z71.82 E66.01 counseling regarding obesity - dietary counseling (smaller portions, limit carb intake, high protein/fi frances) and increase exercise as able such as regular walkswill try for zepbound per insurance Lumbosacra l radiculopathy 1561166 M54.17 advise physical therapy to aid in core/back strengthen ingcan trial gabapentin prn, discussed may to 2-3 tabs if 100mg not effective Anxiety 06669034 F41.9 condition stable with current regimen, continue same medication and dosage. Aneurysm 650794029 I72.9 aorta -- 4.8cmnoted by [facility], has f/u x 2 mos. with aneurysm team [id number] Chong Wilder MD OFFICE [address] [place] [address] 06/20/2024 11:18:00 06/20/2024 12:43:09 Body mass index 30+ - obesity 737815804 Z68.36 Z71.3 Z71.82 E66.01 Fall W19.XXXA pt fell from ladder about 3 feet. Low back pain. More on left side than right. Ordered Lspine xray. Upon review slight curvature, no fractures seen. Ice, Rest, No PT for 1 week.Start Ibuprofen 800 mg and Methocarba mol 500 mg. [id number] Marysol Ball PA-C OFFICE [address] [place] [address] 01/20/2025 15:18:37 01/20/2025 15:55:40 Depression screening 659606884 Z13.31 Tobacco non-user [id number] 001 09042 Z13.89 Body mass index 30+ - obesity 609176147 Z68.36 Z71.3 Z71.82 E66.01 counseling regarding obesity - dietary counseling (smaller portions, limit carb intake, high protein/fi frances) and increase exercise as able such as regular walks Aneurysm 429981356 I72.9 aortic aneurysm, 4.8cmfollo wing with [facility] Anxiety 42068233 F41.9 condition stable with current regimen, continue same medication and dosage. Hypertensive disorder 38 746728 I10 condition stable with current regimen, continue same medication and dosage. Coronary atherosclerosis 974184492 I25.10 due to obesity, coronary atheroscle rosis, prediabete s, and aortic aneurysm patient would be good candidate for wegovy. will see if can get via insurance, if not consider Che[employer] direct. [id number] Marysol Ball PA-C OFFICE [address] [place] [address] 02/13/2025 15:14:07 02/13/2025 16:39:31 Tobacco non-user [id number] 99867 Z13.89 Z78.9 8787176 Body mass index 30+ - obesity 535379039 Z68.37 Z71.3 Z71.82 E66.01 counseling regarding obesity - dietary counseling (smaller portions, limit carb intake, high protein/fi frances) and increase exercise as able such as regular walks Edema of l ower extremity 970098836 R60.0 Peripheral venous insufficiency 91646718 I87.2 [id number] STAT DOPPLER R/O CLOTsx going on x months...i f negative, f/u with vein center to assess + manage insufficie ncyelevati on, compressio n stockings, low salt, diuretics prn for acute edemanotif y the office if any new or worsening symptoms occurany acute, worsening, severe symptoms advise ED. Body mass index 25-29 - overweight 540883925 Z68.27 Z71.3 Z71.82 [id number] Collin Fernandes, DO OFFICE [address] [place] [address] 03/13/2025 14:38:43 03/13/2025 15:05:39 Body mass index 30+ - obesity 842105365 Z68.37 Z71.3 Z71.82 E66.01 Tobacco non-user 7211532 001 00004 Z13.89 Subcutaneous hematoma 53 42626 T14.8XXA 52613820 Left inferior flank. Large hematoma due to slip and fall. Traumatic hematoma 68663 9004 T14.8XXA [id number] Robert presents with a large hematoma left side inferior to the renal area by at least 10 cm. He had a slip and fall on Thursday evening at home. He has some discomfort in this area but nothing significan t. No blood in the urine. He has a history of renal cell cancer and nephrectom y left side. He is not taking anticoagul ants. He otherwise feels fine and although there is a large hematoma here there is no evidence that there is an internal disruption of any kind. Musculoske letal examinatio n normal hips normal. My advice is that he needs no specific treatment contact us for any unusual lightheade dness or significan t expansion of the hematoma but I do expect it to move inferiorly due to gravity. History of fall 49294955 9 Z91.81 [id number] Robert presents with a large hematoma left side inferior to the renal area by at least 10 cm. He had a slip and fall on Thursday evening at home. He has some discomfort in this area but nothing significan t. No blood in the urine. He has a history of renal cell cancer and nephrectom y left side. He is not taking anticoagul ants. He otherwise feels fine and although there is a large hematoma here there is no evidence that there is an internal disruption of any kind. Musculoske letal examinatio n normal hips normal. My advice is that he needs no specific treatment contact us for any unusual lightheade dness or significan t expansion of the hematoma but I do expect it to move inferiorly due to gravity. [id number] Marysol Ball PA-C OFFICE [address] [place] [address] 04/24/2025 15:39:03 04/24/2025 16:13:53 Depression screening 745257047 Z13.31 Tobacco non-user [id number] 001 64871 Z13.89 Body mass index 30+ - obesity 672583956 Z68.36 Z71.3 Z71.82 E66.01 counseling regarding obesity - dietary counseling (smaller portions, limit carb intake, high protein/fi frances) and increase exercise as able such as regular walks Aneurysm 433668087 I72.9 aortic aneurysm, 4.8cmfollo wing with [facility] Eventually will need surgery+fa rigoberto history Coronary atherosclerosis 888405356 I25.10 due to obesity, coronary atheroscle rosis, prediabete s, and aortic aneurysm patient would be good candidate for wegovy. Screening for malignant neoplasm of prostate 685607466 Z12.5 014887 Malignant neoplasm of urinary bladder 701032803 C67.9 hx mult surgeries/ catheter for bladder CA txnow has some complicati ons with urinationa dvise f/u with urology [id number] Marysol Ball PA-C OFFICE [address] [place] [address] 06/01/2025 11:38:01 06/01/2025 12:19:38 Urinary system finding 893363676 R39.9 6992405 blood in urine today... will send out + get culture. prostate tender on exam, will start tx with bactrim x 2 weeks and has f/u with his urologist next Thursday. continued management with them. advise getting US or addl imaging with them. notify the office if any new or worsening symptoms occur.any acute, worsening, severe symptoms advise ED. Health Concerns Section Related Observation LastModified by Organization Nelson ls LastModified Time None Recorded Concern Status LastModified by Organization Details LastModified Time None Recorded Advance Directives Directive None Recorded Payers Insurance Date Sequence Insurance Name Policy Number Policy Rose Covered Member ID Rose Member ID Guarantor Name 11/20/2022 1 [facility] [id number] Robert Jeongjanelle [id number] Maryannikky Balderas 01/18/2025 1 [place] [id number] Robert Gibson Andrey [id number] Maryannikky Balderas 11/20/2022 2 [employer] [facility] (HMO) [id number] Robert Arthur Balderas [id number] Maryannikky Balderas 01/20/2025 1 [place] [id number] Robert Andrey [id number] Maryannikky Balderas 01/20/2025 1 *SELF PAY* Kenan Balderas 02/13/2025 1 [place]) [id number] Robert Balderas [id number] Maryannikky Balderas 02/13/2025 1 *SELF PAY* Kenan Balderas 06/01/2025 1 [place] Robert Arthur Andrey [id number] Maryannikky Balderas 02/13/2025 1 [place]/ ADVANTAGE - PPO) [id number] Robert Gibson Andrey [id number] Maryannikky Balderas 06/23/2025 2 [place]) [id number] Robert Balderas [id number] [place] Notes Date Note Type Note Provider Name and Address Organization Details Recorded Time 01/20/2025 text/html Aortic [facility] thisEventually will need [facility]+family history Mood stable with current regimen Has been off semaglutideHoping to increase exerciseAims for healthy diet Had EMG + vascular scansdx lumbar DJD with stenosis Chong Wilder MD [address], [place], [address], [place] - [facility] 01/23/2025 12:57:20 02/13/2025 text/html Presents due to R foot/ankle edema x 2-3 mos.Fluctuates in severityNo pain with ambulationTook Lasix once which was helpfulUsing compression stockings, elevating at home +hx DVT in the past Chong Wilder MD [address], [place], [address], [facility] 02/13/2025 17:06:51 03/13/2025 text/html Fall UCReported by Patient Robert presents with a large hematoma left side inferior to the renal area by at least 10 cm. He had a slip and fall on Thursday evening at home. He has some discomfort in this area but nothing significant. No blood in the urine. He has a history of renal cell cancer and nephrectomy left side. He is not taking anticoagulants. He otherwise feels fine and although there is a large hematoma here there is no evidence that there is an internal disruption of any kind. Collin Fernandes, [address], [place], [address], [facility] 03/13/2025 15:09:12 04/24/2025 text/html f/u WegovyNow on 0.5mg, feels this dose is helpfulWants to cont increasing Chong Wilder MD [address], [place], [address], [facility] 04/25/2025 09:04:52 06/01/2025 text/html Presents for urinary symptomsStarted approx 1 month ago, progressed/worsened over last 2 weeksUrgency, frequency, bladder/groin pressure, backache, fatigueDifficulty with bladder emptying/streamNo fevers, chills, NVD Has appt with his urologist (Oscar) next ThursdayHx bladder CA Chong Wilder MD [address], [place], [address], [facility] 06/01/2025 16:36:33
--- OUTSIDE RECORDS SUMMARY | 2025-07-24 21:53 | XMS_ITS | CCD ---
Author Name Interface, [id number] lity Address [address] [address] [facility] Address [address] [address] Care Team Providers Care Supervisor Pipe Manufacture Name Role Phone [facility] [place] gray MD Unavailable Unavailable Care Plan Date Type Value 07/26/2025 APPOINTMENT NEW PT CONSULT 4 0 MIN 07/26/2025 APPOINTMENT LAB 15 MIN Reason for Visit Encounters Date Name 07/26/2025 LAB 15 MIN 07/26/2025 NEW PT CONSULT 40 MD N Diagnostic Results Date Type Test Units Lower Limit Upper Limit Result Flag Comments Status Ordered By Specimen Source Lab Address 07/09 [facility] [place] [facility] other lab See 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
[2025-07-24 21:55] VITALS: BP 111/75; PULSE 77; RESP 18; TEMP 36.7; O2SAT 98; BMI 34.4
--- NOTE | 2025-07-24 22:11 | ED_ITS ---
HPI - General Adult General Chief complaint: Urogenital Problems, Male Stated complaint: catheter problems Time Seen by Provider: 07/24/25 22:03 History of Present Illness HPI narrative: This 64-year-old male was seen by me earlier today because of gross hematuria and urinary retention. He had a catheter in for about a month or so up until 5 days ago because of urinary retention. Catheter was removed and he has been doing fine but developed hematuria a last evening. Today he had a Go catheter replaced with normal flow of bloody urine. There were no clots seen in the urine at that time. Urinalysis showed evidence of infection in the patient received a prescription for Keflex. He was discharged home and instructed to return if worsening symptoms occur. He returns tonight because of urinary retention again. He attempted to irrigate his catheter at home apparently 4 di fferent times but there was no return of flow. Related Data Home Medications ?Medication ?Instructions ?Recorded ?Confirmed Azo 07/24/25 Fish Oil 07/24/25 Flomax 07/24/25 Zetia 07/24/25 allopurinol 07/24/25 alprazolam 07/24/25 aspirin 07/24/25 calcium 07/24/25 diazepam 07/24/25 diclofenac sodium 07/24/25 diphenhydramine HCl 07/24/25 escitalopram oxalate 07/24/25 oxybutynin 07/24/25 oxycodone 07/24/25 rosuvastatin 07/24/25 Previous Rx's ?Medication ?Instructions ?Recorded cephalexin 500 mg capsule 500 mg PO TID 10 days #30 ca ps 07/24/25 oxybutynin chloride 10 mg 10 mg PO DAILY #10 tabs 07/12 01/03 tablet,extended release 24 hr Allergies Allergy/AdvReac Type Severity Reaction Status Date / Time codeine Allergy Intermediate Verified 07/24/25 16:25 Review of Systems Status of ROS: Reports: 10 or more systems reviewed and unremarkable except as noted in History and below Narrative: Constitutional: No fevers, no weight gain or loss. Eyes: No discharge. No vision changes. HENT: No congestion, no sore throat, no ear pain. Cardiovascular: No chest pain, no palpitations. Respiratory: No shortness of breath, no wheezes, no cough. Gastrointestinal: No vomiting, no diarrhea. Genitourinary: Gross hematuria and urinary retention. Musculoskeletal: Normal range of motion. Skin: No rashes, no pruritis. Neurological: No dizziness, weakness, sensory change, speech change. Endo/Heme/Allergies: No bruising or bleeding. No polydipsia. Pysch: no suicidality, no anxiety, no insomnia. All other systems reviewed and are negative. [facility] Social History Smoking Status: Never smoker Do you use any of these nicotine containing products: None How often do you have a drink containing alcohol: never AUDIT-C Alcohol total score: 0 Non-prescribed substance use: denies use Exam Narrative: Exam Narrative: Constitutional: Well-developed, well-nourished, no acute distress. HEENT: Normocephalic, atraumatic. Neck: Normal range of motion. Nontender. Supple. Heart: Regular. No murmurs. Normal rate. Intact distal pulses. Lungs: Clear to auscultation. No chest discomfort. No wheezes, rhonchi, or rales. Abdomen: Normal bowel sounds. No rebound tenderness. Genitalia: Deferred. Back: No midline tenderness. Normal range of motion. Extremities: Normal range of motion. No injury. Skin: Intact. No rash. Warm. No erythema or pallor. Neurologic: No altered sensation. No weakness. Alert and oriented. Psychiatric: No suicidality. No anxiety or depression. No insomnia. Nursing notes and vitals signs are reviewed. Const: Vital Signs, click to edit/add: Vital Signs - 24 hr 07/24/25 21:55 07/24/25 22:53 Temperature 98.0 F Pulse Rate 90 Pulse Rate [Pulse Oximeter] 77 Respiratory Rate 18 16 Blood Pressure 117/79 Blood Pressure [Le ft Upper Arm] 111/75 Pulse Oximetry 98 98 Oxygen Delivery Me thod Room Air Course Vital Signs Vital signs: Initial Vital Signs Temperature 98.0 F 07/24/25 21:55 Temperature Source Temporal Artery Scan 07/24/25 21:55 Pulse Rate 77 07/24/25 21:55 Respiratory Rate 18 07/24/25 21:55 Blood Pressure 111/75 07/24/25 21:55 Blood Pressure Mean 87 07/24/25 21:55 Blood Pressure Position Sitting 07/24/25 21:55 Pulse Oximetry 98 07/24/25 21:55 Oxygen Delivery Method Room Air 07/24/25 21:55 Vital Signs Temperature 98.0 F 07/24/25 21:55 Pulse Rate 77 07/24/25 21:55 Respiratory Rate 18 07/24/25 21:55 Blood Pressure 111/75 07/24/25 21:55 Pulse Oximetry 98 07/24/25 21:55 Oxygen Delivery Method Room Air 07/24/25 21:55 Temperature 98.0 F 07/24/25 21:55 Pulse Rate 90 07/24/25 22:53 Respiratory Rate 16 07/24/25 22:53 Blood Pressure 117/79 07/24/25 22:53 Pulse Oximetry 98 07/24/25 22:53 Oxygen Delivery Method Room Air 07/24/25 21:55 Medications Administered Medications: Generic Name Dose Route Start Last Admin Trade Name Bernardoq PRN Reason Stop Dose Admin Hydromorphone HCl 0.5 mg 07/24/25 22:35 07/24/25 22:44 Hydromorphone 0.5 Mg/0.5 Ml Inj IVP 07/24/25 22:36 0.5 mg ONCE ONE Administration Ceftriaxone Sodium 1 gm/ 100 mls @ 200 mls/hr 07/24/25 22:10 07/24/25 22:45 Sodium Chloride IVPB 07/24/25 22:11 200 mls/hr ONCE ONE Administration Medical Decision Making MDM Narrative Medical decision making narrative: This patient returns with urinary retention and a catheter that is not functioning. The Go catheter was removed and was noted that there was a large clot at the end of the catheter. No other clots were noted as a new triple-lumen catheter was placed for continuous bladder irrigation. An IV was established and labs are acquired. These returned with reassuring findings. He is not on any anticoagulants. The patient did receive a g of Rocephin intravenously. He also received Dilaudid 0.5 mg for pain relief. The patient did request transfer to [place] as he sees specialists there but I did speak with the urologist on-call who stated that these current treatments are exactly what would be done there so there is no need for transfer. The patient is agreeable to stay here. Lab Data Labs: Lab Results 07/24/25 Range/Units 22:20 WBC 9.82 (4.50-11.00) K/uL RBC 4.40 (4.30-5.90) m/uL Hgb 13.4 L (13.5-17.5) gm/dL Hct 39.1 (37.0-53.0) % MCV 89 (80-100) fL MCH 31 (26-34) pg MCHC 34 (32-36) gm/dL RDW Coeff of Aneta 12.0 (11.5-15.5) % Plt Count 232 (140-440) K/uL Neut % (Auto) 76.0 H (42.0-72.0) % Lymph % (Auto) 17.5 L (20-44) % [place]aines % (Auto) 4.8 (0.0-11.0) % Eos % (Auto) 1.2 (0.0-7.0) % Baso % (Auto) 0.3 (0.0-3.0) % Neut # (Auto) 7.50 H (1.7-7.0) K/uL Lymph # (Auto) 1.70 (0.90-2.90) K/uL [place] # (Auto) 0.50 (0.00-0.90) K/UL Eos # (Auto) 0.12 (0.00-0.50) K/uL Baso # (Auto) 0.03 (0.00-0.30) K/uL Abs Immat Gran (auto) 0.02 (0.00-0.30) K/uL Imm/Tot Granulo (auto) 0.2 % INR 1.04 (0.91-1.10) Sodium 134 L (135-149) mmol/L Potassium 3.8 (3.6-5.1) mmol/L Chloride 102 (96-114) mmol/L Carbon Dioxide 23 (20-32) mmol/L Anion Gap 9 (7-15) mEq/L BUN 16 (7-30) mg/dL Creatinine 1.0 (0.5-1.5) mg/dL Estimated Creat Clear 88.02 Estimated GFR 84 ml/min Glucose 143 H (60-115) mg/dL Calcium 9.5 (8.4-10.6) mg/dL Discharge Plan Discharge Clinical Impression: Acute urinary tract infection, Acute urinary retention Patient Disposition: Admitted As Observation Condition: Improved
[2025-07-24 22:31] LABS: Hematocrit* 39.1 % (37.0-53.0); Hemoglobin* 13.4 gm/dL (13.5-17.5); Immature Granulocytes Abs Auto 0.02 K/uL (0.00-0.30); Immature Granulocytes Pct Auto 0.2 %; Mean Corpuscular HGB Conc 34 gm/dL (32-36); Mean Corpuscular Hemoglobin 31 pg (26-34); Mean Corpuscular Volume 89 fL (80-100); RDW Coefficient of Variation % 12.0 % (11.5-15.5); Red Blood Count* 4.40 m/uL (4.30-5.90); White Blood Count* 9.82 K/uL (4.50-11.00)
[2025-07-24 22:32] LABS: Lymphocytes Absolute Auto 1.70 K/uL (0.90-2.90)
[2025-07-24 22:33] LABS: Slide Review Reflex No
[2025-07-24] MEDS: cefTRIAXone 1 GM in 0.9 % SODIUM CHLORIDE Mini-bag 100 ML IVPB (22:45)
[2025-07-24 22:46] LABS: Chloride* 102 mmol/L (96-114); Sodium* 134 mmol/L (135-149)
[2025-07-24 22:47] LABS: Potassium* 3.8 mmol/L (3.6-5.1)
[2025-07-24 22:49] LABS: Blood Urea Nitrogen* 16 mg/dL (7-30); Creatinine* 1.0 mg/dL (0.5-1.5); Est. Creatinine Clearance* 88.02; Estimated Glomerular Filt Rate 84 ml/min
[2025-07-24 22:50] LABS: Anion Gap 9 mEq/L (7-15); Calcium* 9.5 mg/dL (8.4-10.6); Carbon Dioxide* 23 mmol/L (20-32); Glucose* 143 mg/dL (60-115); INR 1.04 (0.91-1.10); Prothrombin Time 14.4 Seconds
[2025-07-24 22:53] VITALS: BP 117/79; PULSE 90; RESP 16; O2SAT 98
[2025-07-25] VITALS (9 sets, daily range): BP systolic 95–128; BP diastolic 68–87; PULSE 60–75; RESP 16–18; TEMP 36–36.7; O2SAT 95–98; BMI 33.7; BMI 33.8
--- NOTE | 2025-07-25 00:11 | W.PM.TELEH&P ---
Telehealth- H&P: HPI History of Present Illness Date Seen: 07/25/25 Chief complaint: catheter problems Narrative: Robert Balderas is seen as an Interactive Telehealth visit. Robert Balderas is a 64 year old male h/o nephrectomy for renal cancer, recently diagnosed at [facility] with prostate cancer with mets to liver, lung, bones with plans for chemotherapy presents with urinary retention and hematuria. approximately one week ago, patient had completed a 5 weeks Prostate cancer work up at [facility]. this included scans, biopsy and partial removal of tumor that may have been obstructing the bladder. A urinary catheter was removed five days ago. Starting yesterday patient experienced lower abdominal, pelvic pain, hematuria, and difficulty urinating. Pain would worsen with attempts to urinate and urination. He made 4 unsuccessful attempts of emptying his bladder last night. Paitent awoke this morning and continued ot have pain. He began to experience spasms of his bladder. he tried walking with family to alleviate pain. Unfortunately his pain did not improve. he returned home and continued to have spasming pain. he also had blood draining from his penis. He came to the ED and a single lumen catheter was placed. PEr ED, 600ml of reddish colored urine was drained. UA shows signs of infection. Patient was discharged with Keflex. His tube was initially working until he noticed tissue in the catheter tubiong. His attempted to irrigate the cuenca. Fluid could be placed into the cuenca but no fluid could be removed. he returned to the ED. CBI was placed. [facility] urology was contacted. Dr. Alonso, who recommended that we admit the patient here for bladder irrigation it there is no real reason to transfer to [facility]. They anticipate that this hematuria will clear as the urinary tract infection improves with antibiotics. [facility] does not accept him in transfer this evening, and recommend that the patient be admitted for bladder irrigation here in [place]. he was given dilaudid which did provide pain relief. no ASA no anticoagulation no fever, chills +nausea no vomiting no chest pain no shortness of breath +dry mouth no coughing, runny nose sore throat no numbness/tingling Review of Systems Status of ROS: Reports: 10 or more systems reviewed and unremarkable except as noted in History and below PFSH PFSH Social History Smoking Status: Never smoker Do you use any of these nicotine containing products: None How often do you have a drink containing alcohol: never AUDIT-C Alcohol total score: 0 Non-prescribed substance use: denies use Meds Home Medications and Allergies Home Medications ?Medication ?Instructions ?Recorded ?Confirmed ?Type Azo 07/24/25 History Fish Oil 07/24/25 History Flomax 07/24/25 History Zetia 07/24/25 History allopurinol 07/24/25 History alprazolam 07/24/25 History aspirin 07/24/25 History calcium 07/24/25 History cephalexin 500 mg capsule 500 mg PO TID 10 days #30 caps 07/24/25 Rx diazepam 07/24/25 History diclofenac sodium 07/24/25 History diphenhydramine HCl 07/24/25 History escitalopram oxalate 07/24/25 History oxybutynin 07/24/25 History oxybutynin chloride 10 mg 10 mg PO DAILY #10 tabs 07/24/25 Rx tablet,extended release 24 hr oxycodone 07/24/25 History rosuvastatin 07/24/25 History Allergies Allergy/AdvReac Type Severity Reaction Status Date / Time codeine Allergy Intermediate Verified 07/24/25 16:25 cat dander Allergy Swelling Verified 07/25/25 01:35 of the Eye fresh fruit Allergy Swelling Uncoded 07/25/25 01:35 of Lip/Tongue/Throat Tree nuts Allergy Swelling Uncoded 07/25/25 01:35 of Lip/Tongue/Throat Exam Narrative Exam Narrative: Physical Exam GENERAL: ?vital signs reviewed, well developed and nourished, in no distress HEENT: pupils are equal round and reactive to light, extraocular movements are grossly within normal limits and oral mucosa is moist. NECK: Supple without lymphadenopathy or thyromegaly according to nursing staff examination observation HEART: Regular rate and rhythm without any rubs, murmurs, or gallops. LUNGS: Clear to auscultation bilaterally with good air movement throughout ABDOMEN: Observation from nurse assisted exam, abdomen appears soft, nontender, and nondistended with Positive bowel sounds noted. EXTREMITIES: Strength and sensation is observed to be grossly within normal limits in the upper and lower extremities.? No focal strength deficit is observed. no cyanois, clubbing, +mild edema no tenderness 2+ peripheral pulses SKIN:? Observed warm and dry with color normal Const Vital Signs, click to edit/add: Vital Signs - 24 hr 07/24/25 21:55 07/24/25 22:53 Temperature 98.0 F Pulse Rate 90 Pulse Rate [Pulse Oximeter] 77 Respiratory Rate 18 16 Blood Pressure 117/79 Blood Pressure [Left Upper Arm] 111/75 Pulse Oximetry 98 98 Oxygen Delivery Method Room Air Hospitalist - H&P: Result Labs Labs: Short CBC 07/24/25 Range/Units 22:20 WBC 9.82 (4.50-11.00) K/uL Hgb 13.4 L (13.5-17.5) gm/dL Hct 39.1 (37.0-53.0) % Plt Count 232 (140-440) K/uL BMP 07/24/25 22:20 Sodium 134 L Potassium 3.8 Chloride 102 Carbon Dioxide 23 BUN 16 Creatinine 1.0 Glucose 143 H Calcium 9.5 Assessment and Plan Assessment and plan (1) Acute urinary retention: Status: Acute (2) Acute urinary tract infection: Status: Acute (3) Hematuria: Status: Acute Plan 64y/o M recently diagnosed with prostate cancer with mets presents with UTI, hematuria, and urinary retention. Patient is currently undergoing CBI. We assume the hematuria is secondary to UTI. Once his infeciton is congtrolled, his hematuria should improve. --continue ceftriaxone --monitor urine cultures --if patient worsens or bleeding does not improve, patient may need transfer to facility with urology on sight vs [facility] --monitor H/H; MILD anemia currently home medications ---await dosage of meds and will reconcile Full code per discussion SCD Telehealth: Statement Statement Telehealth Visit: Today's History and Physical is provided via interactive telehealth by Tegan Reyes MD.? Patient is located at [facility].? Provider is located at [facility].? Nursing staff assisted with the patient's exam. The visit being done today meets criteria for a telehealth visit and the patient or patient?s parent/guardian is aware the visit is a telehealth visit. Camera Start Time: 01:08 Camera End Time: 01:31
--- NOTE | 2025-07-25 00:19 | ED_ITS ---
HPI - General Adult General Chief complaint: Urogenital Problems, Male Stated complaint: catheter problems Time Seen by Provider: 07/24/25 22:03 Related Data Home Medications ?Medication ?Instructions ?Recorded ?Confirmed Azo 07/24/25 Fish Oil 07/24/25 Flomax 07/24/25 Zetia 07/24/25 allopurinol 07/24/25 alprazolam 07/24/25 aspirin 07/24/25 calcium 07/24/25 diazepam 07/24/25 diclofenac sodium 07/24/25 diphenhydramine HCl 07/24/25 escitalopram oxalate 07/24/25 oxybutynin 07/24/25 oxycodone 07/24/25 rosuvastatin 07/24/25 Previous Rx's ?Medication ?Instructions ?Recorded cephalexin 500 mg capsule 500 mg PO TID 10 days #30 ca ps 07/24/25 oxybutynin chloride 10 mg 10 mg PO DAILY #10 tabs 07/12 01/03 tablet,extended release 24 hr Allergies Allergy/AdvReac Type Severity Reaction Status Date / Time codeine Allergy Intermediate Verified 07/24/25 16:25 cat dander Allergy Swelling Verified 07/25/25 01:35 of the Eye fresh fruit Allergy Swelling Uncoded 07/25/25 01:35 of Lip/Tongue/Throat Tree nuts Allergy Swelling Uncoded 07/25/25 01:35 of Lip/Tongue/Throat PFSH PFSH Social History What is your current living situation?: I presently have a place to live Problems where you live: no known problems Problems where you live details: n/a In the past 12 months, utilities in danger of being shut off: no In past 12 months, lack of transportation kept you from medical appts, meetings, work, or getting things needed for daily living: no In the past 12 mos, have been you worried that your food would run out before you had money to buy more?: never true In the past 12 mos, the food you bought just didn't last and you didn't have money to buy more?: never true Smoking Status: Never smoker Do you use any of these nicotine containing products: None How often do you have a drink containing alcohol: 2-3 times a week How many standard drinks containing alcohol do you have on a typical day: 1 or 2 How often do you have six or more drinks on one occasion: Never AUDIT-C Alcohol total score: 3 Non-prescribed substance use: denies use How often does anyone, including family, friends and others, physically hurt you : never How often does anyone, including family, friends and others, insult or talk down to you: never How often does anyone, including family, friends and others, threaten you with harm: never How often does anyone, including family, friends and others, scream or curse at you: never Exam Const: Vital Signs, click to edit/add: Vital Signs - 24 hr 07/24/25 21:55 07/24/25 22:53 Temperature 98.0 F Pulse Rate 90 Pulse Rate [Pulse Oximeter] 77 Respiratory Rate 18 16 Blood Pressure 117/79 Blood Pressure [Le ft Upper Arm] 111/75 Pulse Oximetry 98 98 Oxygen Delivery Me thod Room Air Course Vital Signs Vital signs: Initial Vital Signs Temperature 98.0 F 07/24/25 21:55 Temperature Source Temporal Artery Scan 07/24/25 21:55 Pulse Rate 77 07/24/25 21:55 Respiratory Rate 18 07/24/25 21:55 Blood Pressure 111/75 07/24/25 21:55 Blood Pressure Mean 87 07/24/25 21:55 Blood Pressure Position Sitting 07/24/25 21:55 Pulse Oximetry 98 07/24/25 21:55 Oxygen Delivery Method Room Air 07/24/25 21:55 Vital Signs Temperature 98.0 F 07/24/25 21:55 Pulse Rate 77 07/24/25 21:55 Respiratory Rate 18 07/24/25 21:55 Blood Pressure 111/75 07/24/25 21:55 Pulse Oximetry 98 07/24/25 21:55 Oxygen Delivery Method Room Air 07/24/25 21:55 Temperature 97.0 F L 07/25/25 00:49 Pulse Rate 61 07/25/25 00:49 Respiratory Rate 16 07/25/25 00:49 Blood Pressure 128/87 07/25/25 00:49 Pulse Oximetry 95 07/25/25 00:49 Oxygen Delivery Method Room Air 07/25/25 00:49 Medications Administered Medications: Generic Name Dose Route Start Last Admin Trade Name Freq PRN Reason Stop Dose Admin Hydromorphone HCl 0.5 mg 07/25/25 00:48 07/25/25 00:54 Hydromorphone 0.5 Mg/0.5 Ml Inj IVP 07/25/25 00:49 0.5 mg ONCE ONE Administration Discontinued Medications Generic Name Dose Route Start Last Admin Trade Name John PRN Reason Stop Dose Admin Hydromorphone HCl 0.5 mg 07/24/25 22:35 07/24/25 22:44 Hydromorphone 0.5 Mg/0.5 Ml Inj IVP 07/24/25 22:36 0.5 mg ONCE ONE Administration Ceftriaxone Sodium 1 gm/ 100 mls @ 200 mls/hr 07/24/25 22:10 07/24/25 23:30 Sodium Chloride IVPB 07/24/25 22:11 Infused ONCE ONE Infusion Medical Decision Making Lab Data Labs: Lab Results 07/24/25 Range/Units 22:20 WBC 9.82 (4.50-11.00) K/uL RBC 4.40 (4.30-5.90) m/uL Hgb 13.4 L (13.5-17.5) gm/dL Hct 39.1 (37.0-53.0) % MCV 89 (80-100) fL MCH 31 (26-34) pg MCHC 34 (32-36) gm/dL RDW Coeff of Aneta 12.0 (11.5-15.5) % Plt Count 232 (140-440) K/uL Neut % (Auto) 76.0 H (42.0-72.0) % Lymph % (Auto) 17.5 L (20-44) % [place] % (Auto) 4.8 (0.0-11.0) % Eos % (Auto) 1.2 (0.0-7.0) % Baso % (Auto) 0.3 (0.0-3.0) % Neut # (Auto) 7.50 H (1.7-7.0) K/uL Lymph # (Auto) 1.70 (0.90-2.90) K/uL [place] # (Auto) 0.50 (0.00-0.90) K/UL Eos # (Auto) 0.12 (0.00-0.50) K/uL Baso # (Auto) 0.03 (0.00-0.30) K/uL Abs Immat Gran (auto) 0.02 (0.00-0.30) K/uL Imm/Tot Granulo (auto) 0.2 % INR 1.04 (0.91-1.10) Sodium 134 L (135-149) mmol/L Potassium 3.8 (3.6-5.1) mmol/L Chloride 102 (96-114) mmol/L Carbon Dioxide 23 (20-32) mmol/L Anion Gap 9 (7-15) mEq/L BUN 16 (7-30) mg/dL Creatinine 1.0 (0.5-1.5) mg/dL Estimated Creat Clear 88.02 Estimated GFR 84 ml/min Glucose 143 H (60-115) mg/dL Calcium 9.5 (8.4-10.6) mg/dL Discharge Plan Discharge Clinical Impression: Acute urinary tract infection, Acute urinary retention Patient Disposition: Admitted As Observation Condition: Improved
[2025-07-25] MEDS: ACETAMINOPHEN 325 MG TABLET 650 MG PO (06:02)
[2025-07-25 06:33] LABS: Hematocrit* 38.1 % (37.0-53.0); Hemoglobin* 12.8 gm/dL (13.5-17.5); Immature Granulocytes Abs Auto 0.01 K/uL (0.00-0.30); Immature Granulocytes Pct Auto 0.1 %; Lymphocytes Absolute Auto 1.76 K/uL (0.90-2.90); Mean Corpuscular HGB Conc 34 gm/dL (32-36); Mean Corpuscular Hemoglobin 31 pg (26-34); Mean Corpuscular Volume 91 fL (80-100); RDW Coefficient of Variation % 12.2 % (11.5-15.5); Red Blood Count* 4.19 m/uL (4.30-5.90); White Blood Count* 7.53 K/uL (4.50-11.00)
[2025-07-25 06:39] LABS: Slide Review Reflex No
[2025-07-25 06:52] LABS: Chloride* 101 mmol/L (96-114); Sodium* 135 mmol/L (135-149)
[2025-07-25 06:53] LABS: Potassium* 3.8 mmol/L (3.6-5.1)
[2025-07-25 06:56] LABS: Anion Gap 6 mEq/L (7-15); Blood Urea Nitrogen* 15 mg/dL (7-30); Calcium* 9.3 mg/dL (8.4-10.6); Carbon Dioxide* 28 mmol/L (20-32); Creatinine* 0.9 mg/dL (0.5-1.5); Est. Creatinine Clearance* 88.02; Estimated Glomerular Filt Rate 95 ml/min; Glucose* 113 mg/dL (60-115)
--- NOTE | 2025-07-25 07:58 | PC.NURSE ---
Shift note ([id number]): Patient admitted at 0042. Pt pleasant, alert and oriented. Pivot transferred from ED bed to room bed. On continuous bladder irrigation. Drainage from catheter red with occasional pencil eraser sized?flat blood clots. Given PRN pain medication?by ED staff upon arrival to Med/Surg for pain Given PRN Tylenol at 0600 for back pain rated 5/10. ?
[2025-07-25] MEDS: SODIUM CHLORIDE 0.9 % (FLUSH) 10 ML SYRINGE 5 ML IVF ×2 (08:39→22:55)
--- NOTE | 2025-07-25 10:35 | PC.SOCIAL ---
Initial Psychosocial Assessment: 1.??? Assessment completed with: Patient, Spouse, Child, Friend, Other: Assessment completed with patient. 2.??? Pt lives at address and phone number on face sheet? Address in chart is correct. Patient currently in [place] to receive medical care at [place]. He is currently staying with son-in-law and daughter in [place]. 3.?Insurance information? on face sheet is correct? Yes 4.?Contacts? on face sheet are correct? Yes 5.??? Does pt have a Healthcare Directive, POLST or Guardian? Did not ask at this time. 6.??? Who is the pt?s main source/sources of emotional/physical support? Patient reports that he has a very supportive family. 7.??? Prior to admission did pt need assistance? Yes/No No 8.??? Who provided and what was the assistance needed? N/A 9.??? Was Home Health being provided, by what agency? N/A 10. Does pt use/have medical equipment at home already? What? N/A 11. Will there be a need for additional assistance at discharge and is this available in previous setting? No 12. If pt needs to go to a higher level of care, are they open to this and do they have facilities they are interested in? N/A 13. How would pt plan to transport at discharge? Family 14. Is there anyone pt would like social service worker to contact to discuss discharge plans? No Other information:
--- NOTE | 2025-07-25 12:08 | PM.IMPN1 ---
Assessment and Plan Assessment and plan (1) Acute urinary retention: Problem comment: -Go catheter in place, to remain in place at discharge -continue CBI, goal straw colored urine -oxybutynin b.i.d. for spasms, pain management as needed -outpatient follow-up at [place] Status: Acute (2) Hematuria: Problem comment: -clots -CBI Status: Acute (3) Acute urinary tract infection: Problem comment: -UC pending -hold cephalexin, continue ceftriaxone Status: Acute Plan Continue CBI with goal for straw-colored urine. Plan for discharge tomorrow for chemo consult in [facility]. Total Time Spent Total Time Spent: Today I spent 55 minutes seeing the patient, reviewing Expanse and EPIC notes/diagnostics, discussing the care plan with our care time that includes social work, PT/OT, pharmacy, RT, usp and documenting my impressions and plan in the medical record. Subjective Date Seen: 07/25/25 Interval history: Patient is seen lying in bed this morning. Reports feeling better than on admission. Had some pain earlier this morning passing a large clot. This has improved with Dilaudid and oxybutynin. Denies headache or dizziness. Denies chest pain or shortness of breath. Tolerating orals without nausea vomiting. Admitted for CBI. Urine currently watermelon colored. Goal to get to straw-colored urine. Has a chemotherapy consult tomorrow afternoon at 1:45 a.m. for which he would like to be discharged in order to make it. Exam Narrative: Exam Narrative: PHYSICAL EXAM General: Pleasant, conversant, NAD HEENT: Normocephalic, atraumatic, sclera white, EOMI, oral mucosa moist Cardiovascular: RRR, S1S2. No pitting edema Pulmonary: CTA bilaterally without rhonchi, rales, expiratory wheezes. No dyspnea Abdominal: Soft, nondistended, NTTP. Go catheter in place, strawberry urine Neurological: Alert, answering questions appropriately, cranial nerves intact, no focal findings Extremities: No gross joint deformity or swelling. AROMI. Neurovascularly intact Skin: Warm, dry. Const: Vital Signs, click to edit/add: Vital Signs - 24 hr 07/24/25 21:55 07/24/25 22:53 07/25/25 00:45 Temperature 98.0 F 98.0 F Pulse Rate 90 Pulse Rate [Pulse Oximeter] 77 71 Respiratory Rate 18 16 16 Blood Pressure 117/79 Blood Pressure [Le ft Upper Arm] 111/75 122/79 Blood Pressure [Ri ght Arm] Pulse Oximetry 98 98 98 Oxygen Delivery Me thod Room Air Room Air 07/25/25 00:49 07/25/25 04:16 07/25/25 08:00 Temperature 97.0 F L 97.5 F L 96.8 F L Pulse Rate Pulse Rate [Pulse Oximeter] 61 63 60 Respiratory Rate 16 17 18 Blood Pressure Blood Pressure [Le ft Upper Arm] Blood Pressure [Ri ght Arm] 128/87 95/72 121/74 Pulse Oximetry 95 95 95 Oxygen Delivery Me thod Room Air Room Air Room Air 07/25/25 08:25 07/25/25 11:00 Temperature 97.4 F L Pulse Rate Pulse Rate [Pulse Oximeter] 60 63 Respiratory Rate 18 18 Blood Pressure Blood Pressure [Le ft Upper Arm] Blood Pressure [Ri ght Arm] 114/68 Pulse Oximetry 97 Oxygen Delivery Ms thod Room Air Labs Labs: Laboratory Results - last 24 hr 07/24/25 07/25/25 22:20 06:10 WBC 9.82 7.53 RBC 4.40 4.19 L Hgb 13.4 L 12.8 L Hct 39.1 38.1 MCV 89 91 MCH 31 31 MCHC 34 34 RDW Coeff of Aneta 12.0 12.2 Plt Count 232 209 Neut % (Auto) 76.0 H 67.6 Lymph % (Auto) 17.5 L 23.4 [place] % (Auto) 4.8 6.4 Eos % (Auto) 1.2 2.1 Baso % (Auto) 0.3 0.4 Neut # (Auto) 7.50 H 5.09 Lymph # (Auto) 1.70 1.76 [place] # (Auto) 0.50 0.50 Eos # (Auto) 0.12 0.16 Baso # (Auto) 0.03 0.03 Abs Immat Gran (auto) 0.02 0.01 Imm/Tot Granulo (auto) 0.2 0.1 INR 1.04 Sodium 134 L 135 Potassium 3.8 3.8 Chloride 102 101 Carbon Dioxide 23 28 Anion Gap 9 6 L BUN 16 15 Creatinine 1.0 0.9 Estimated Creat Clear 88.02 88.02 Estimated GFR 84 95 Glucose 143 H 113 Calcium 9.5 9.3
[2025-07-25] MEDS: cefTRIAXone 2 GM in 0.9 % SODIUM CHLORIDE Mini-bag 100 ML IVPB (17:14)
[2025-07-25] MEDS: lidocaine HCL 2 % JELLY (TOP) STERILE 6 ML UR (18:07)
--- NOTE | 2025-07-25 19:33 | PC.NURSE ---
end of shift. Pt is very pleasant, alert and oriented x4. he is on CBI. On continuous bladder irrigation. had to irrigated the [place] this am. and later again @ 1730. CBI flow is titrated deponing on the color if the [place] output. was in the the room./ pain meds given. he is eating and drinking with no problems. SL is patent. pt is very tender in the shanna area and any touch the cuenca
[2025-07-26 02:55] VITALS: BP 102/72; PULSE 60; RESP 16; TEMP 36.1; O2SAT 93
[2025-07-26] MEDS: SODIUM CHLORIDE 0.9 % (FLUSH) 10 ML SYRINGE 5 ML IVF (03:15)
[2025-07-26] MEDS: ACETAMINOPHEN 325 MG TABLET 650 MG PO (06:05)
--- NOTE | 2025-07-26 06:35 | PC.NURSE ---
[id number]: Patient pleasant and cooperative. A&Ox3. Bladder pain and discomfort managed with PRN medications. Watermelon colored urine from CBI. No clots observed during shift. Go flushed Q2-3 hours with piston syringe, no clots. Family supportive and at bedside for part of shift. Questions answered.
[2025-07-26 07:15] VITALS: BP 118/74; PULSE 57; RESP 18; TEMP 36.1; O2SAT 95
[2025-07-26 07:46] LABS: Hematocrit* 37.9 % (37.0-53.0); Hemoglobin* 12.7 gm/dL (13.5-17.5); Immature Granulocytes Abs Auto 0.01 K/uL (0.00-0.30); Immature Granulocytes Pct Auto 0.1 %; Lymphocytes Absolute Auto 1.85 K/uL (0.90-2.90); Mean Corpuscular HGB Conc 34 gm/dL (32-36); Mean Corpuscular Hemoglobin 30 pg (26-34); Mean Corpuscular Volume 90 fL (80-100); RDW Coefficient of Variation % 12.3 % (11.5-15.5); Red Blood Count* 4.21 m/uL (4.30-5.90); White Blood Count* 6.80 K/uL (4.50-11.00)
[2025-07-26 07:48] LABS: Slide Review Reflex No
[2025-07-26] MEDS: ESCITALOPRAM 10 MG TABLET PO (09:00)
[2025-07-26] MEDS: TAMSULOSIN HCL 0.4 MG CAPSULE 0.8 MG PO (09:00)
[2025-07-26] MEDS: ROSUVASTATIN CALCIUM 10 MG TABLET 40 MG PO (09:00)
[2025-07-26] MEDS: EZETIMIBE 10 MG TABLET PO (09:00)
[2025-07-26 11:21] VITALS: BP 111/74; PULSE 65; RESP 18; TEMP 36.3; O2SAT 93
--- NOTE | 2025-07-26 12:37 | PM.DST ---
Transfer Discharge Sum: Prov Provider Date Seen: 07/26/25 Date of admission: 07/25/25 00:38 Primary care physician: Not a Local Provider Attending physician on admission: Tegan Reyes Attending physician on discharge: Rolanda Leblanc Anticipated date of transfer: 07/26/25 Receiving physician/facility: [facility]: Diagnosis Discharge Diagnosis (1) Hematuria: Status: Acute Problem details: -clots -admitted to local hospital from ED for CBI per [facility] recommendations Persists. Clots with clamping trials. Will need transfer for Urologic/Surgical intervention. Discussed with [facility], Dr. Neri, accepting for direct admit. (2) Acute urinary retention: Status: Acute Problem details: -Go catheter in place -continue CBI -oxybutynin b.i.d. for spasms, tamsulosin 0.8mg q am, pain management as needed (3) Acute urinary tract infection: Status: Acute Problem details: -UC no growth from our UA, previously reported as positive from outside facility -hold cephalexin, continue ceftriaxone (4) Prostate cancer: Status: Acute Problem details: -with Mets to liver lungs and bones -will need to reschedule appt with Oncology, Dr. Oakes, [place] [facility], as being transferred to [place] Transfer Discharge Sum: Med Medications Active and Home Medications: Home Medications cephalexin 500 mg capsule 500 mg PO TID 10 days #30 caps 07/24/25 [Rx Confirmed 07/25/25] allopurinol 300 mg tablet 300 mg PO DAILY 07/25/25 [History Confirmed 07/25/25] alprazolam 0.25 mg tablet 0.25 mg PO TID PRN 07/25/25 [History Confirmed 07/25/25] aspirin 81 mg tablet 81 mg PO DAILY 07/25/25 [History Confirmed 07/25/25] diazepam 5 mg tablet 5 - 10 mg PO TID PRN 07/25/25 [History Confirmed 07/25/25] escitalopram oxalate 10 mg tablet 10 mg PO DAILY 07/25/25 [History Confirmed 07/25/25] ezetimibe 10 mg tablet 10 mg PO DAILY 07/25/25 [History Confirmed 07/25/25] oxybutynin chloride 5 mg tablet 5 mg PO BID 07/25/25 [History Confirmed 07/25/25] oxycodone 5 mg tablet 5 mg PO QID PRN 07/25/25 [History Confirmed 07/25/25] rosuvastatin 40 mg tablet 40 mg PO DAILY 07/25/25 [History Confirmed 07/25/25] tamsulosin 0.4 mg capsule 0.4 mg PO DAILY 07/25/25 [History Confirmed 07/25/25] Active Medications Acetaminophen (Acetaminophen 325 Mg Tablet) 650 mg PO Q6H PRN PRN Reason: As Needed for Fever or Pain Last Admin: 07/26/25 06:05 Dose: 650 mg Allopurinol (Allopurinol 300 Mg Tablet) 300 mg PO DAILY [facility] Last Admin: 07/26/25 09:00 Dose: 300 mg Alprazolam (Alprazolam 0.25 Mg Tablet) 0.25 mg PO TID PRN Docusate Sodium (Docusate Sodium 100 Mg Capsule) 100 mg PO BID PRN PRN Reason: Constipation Ezetimibe (Ezetimibe 10 Mg Tablet) 10 mg PO DAILY [facility] Last Admin: 07/26/25 09:00 Dose: 10 mg Escitalopram Oxalate (Escitalopram 10 Mg Tablet) 10 mg PO DAILY [facility] Last Admin: 07/26/25 09:00 Dose: 10 mg Hydromorphone HCl (Hydromorphone 0.5 Mg/0.5 Ml Inj) 0.5 mg IVP Q2H PRN Last Admin: 07/26/25 03:15 Dose: 0.5 mg Ceftriaxone Sodium 2 gm/ (Sodium Chloride) 100 mls @ 200 mls/hr IVPB Q24H [facility] Last Infusion: 07/25/25 19:33 Dose: Infused Lidocaine HCl (Lidocaine Hcl 2 % Jelly (Top) Sterile) 6 ml UR ONCE PRN PRN Reason: For urinary catheter insertion Oxybutynin Chloride (Oxybutynin Chloride 5 Mg Tablet) 5 mg PO BID [facility] Last Admin: 07/26/25 09:00 Dose: 5 mg Oxycodone HCl (Oxycodone 5 Mg Tablet) 5 mg PO Q4H PRN Last Admin: 07/26/25 06:06 Dose: 5 mg Rosuvastatin Calcium (Rosuvastatin Calcium 10 Mg Tablet) 40 mg PO DAILY [facility] Last Admin: 07/26/25 09:00 Dose: 40 mg Sodium Chloride (Sodium Chloride 0.9 % (Flush) 10 Ml Syringe) 5 ml IVF .FLUSH PRN Last Admin: 07/26/25 03:15 Dose: 5 ml Sodium Chloride (Sodium Chloride 0.9 % (Flush) 10 Ml Syringe) 5 ml IVF BID [facility] Last Admin: 07/26/25 09:20 Dose: Not Given Tamsulosin HCl (Tamsulosin Hcl 0.4 Mg Capsule) 0.8 mg PO DAILY [facility] Last Admin: 07/26/25 09:00 Dose: 0.8 mg Transfer Discharge Sum: Hosp Hospital Course Hospital course: Robert Balderas is a 64 year old male past medical history significant for recent prostate cancer diagnosis with Mets to liver lung and bones with plans for chemotherapy as well as previous renal cancer diagnosis status post nephrectomy was admitted to this facility for CBI in setting of acute hematuria with clots. Unfortunately, ongoing CBI unsuccessful in reducing hematuria or number of clots. Patient is transferred to [facility] for Urology/surgical consultation. Dr. Neri, Urology, accepting. Time Spent with Patient Time attestation: Total time spent providing and/or coordinating transfer services: Exam Narrative: Exam Narrative: PHYSICAL EXAM General: Pleasant, conversant, NAD Cardiovascular: RRR Pulmonary: No dyspnea Neurological: Alert, answering questions appropriately Skin: Warm, dry. Const: Vital Signs, click to edit/add: Vital Signs - 24 hr 07/25/25 15:20 07/25/25 15:20 07/25/25 19:27 Temperature 97.2 F L 97.6 F Pulse Rate [Pulse Oximeter] 70 70 75 Respiratory Rate 18 18 18 Blood Pressure [Ri ght Arm] 101/77 125/74 Pulse Oximetry 95 97 Oxygen Delivery Me thod Room Air Room Air 07/25/25 22:52 07/26/25 02:55 07/26/25 07:15 Temperature 97.4 F L 97.0 F L 96.9 F L Pulse Rate [Pulse Oximeter] 64 60 57 L Respiratory Rate 18 16 18 Blood Pressure [Ri ght Arm] 105/80 102/72 118/74 Pulse Oximetry 95 93 95 Oxygen Delivery Me thod Room Air Room Air Room Air 07/26/25 07:15 07/26/25 11:21 Temperature 97.4 F L Pulse Rate [Pulse Oximeter] 57 L 65 Respiratory Rate 18 18 Blood Pressure [Ri ght Arm] 111/74 Pulse Oximetry 93 Oxygen Delivery Me thod Room Air Transfer Discharge Sum: Data Additional Comments Additional comments: No imaging on admission Transfer Discharge Sum: A/P Plan Cognitive capacity at transfer: Baseline Functional capacity at transfer: independent ambulation Discharge Plan Discharge Disposition: [facility] Date of Admission: 07/25/25 00:38 Attending Provider on Discharge: Rolanda Leblanc Primary Care Provider: Provider,Not a Local Condition: Unchanged Discharge Orders: Transfer of Care to Other Hospital (ORDER); Ordered 07/26/25 Ordered By: Rolanda Leblanc Oxygen: No Urinary Catheter: Yes Drips/Lines: peripheral IV Services not available here: Urology/surgery
[2025-07-26] MEDS: cefTRIAXone 2 GM in 0.9 % SODIUM CHLORIDE Mini-bag 100 ML IVPB (14:59)
[2025-07-26 15:00] VITALS: PULSE 73; RESP 16
[2025-07-26 15:30] VITALS: BP 115/71; PULSE 73; RESP 16; TEMP 36.1; O2SAT 97
--- NOTE | 2025-07-26 19:28 | PC.NURSE ---
Discharge: Patient transferred to higher level of care.
== END 2025-07-26 17:55 | disposition short-term general hospital (02) | DRG 696 ==
LOC: ED 23:26 → MEDSURG 07-25 02:49
PROVIDERS: Physician Assistant; Admitting Provider Internal Medicine; Emergency Provider Emergency Medicine Emergency Medical Services; Visit Provider Internal Medicine
DX: R31.9 Hematuria, unspecified (principal); C78.7 Secondary malignant neoplasm of liver and intrahepatic bile duct; C79.51 Secondary malignant neoplasm of bone; C78.01 Secondary malignant neoplasm of right lung; C78.02 Secondary malignant neoplasm of left lung; N39.0 Urinary tract infection, site not specified; T83.098A Other mechanical complication of other urinary catheter, initial encounter; R33.9 Retention of urine, unspecified; C61 Malignant neoplasm of prostate; Z85.528 Personal history of other malignant neoplasm of kidney
CPT/HCPCS: 36415; 51702; 80048; 81001; 85025; 85610; 87086; 94761; 99281; 99284; 99285; A9270; J0696; J1171

== ENCOUNTER 2025-07-26 17:50 | Outpatient (CLI) | payer MEDICARE, BC, SELFPAY | END 2025-07-26 17:51 | disposition home or self-care (01) | LOC: AMB 08-03 09:56 | PROVIDERS: Visit Provider Emergency Medicine Emergency Medical Services | DX: R33.8 Other retention of urine (principal); N39.0 Urinary tract infection, site not specified; C61 Malignant neoplasm of prostate | CPT/HCPCS: A0425; A0426 ==